=== PATIENT | male | born 1945 | race Caucasian/White ===

== ENCOUNTER 2016-08-26 21:17 | Emergency (ER) | payer MEDICARE, OTHER ==
[~2016-08-26] VITALS: Ht 180.3 cm; Wt 88.0 kg
[~2016-08-26 21:17] MED LIST: ALLO300 PO; ATOR20TA42 PO; GABA300C3 PO; KCL20 PO; LISI-360 PO; MAGN250T5 PO; NIFE1TAB86 PO; PROT40TA PO; ST JTAB PO; TEST200I13 IM; TRAZ100 PO; VENL75TA91 PO
[2016-08-26 21:20] VITALS: BP 146/70; PULSE 86; RESP 16; TEMP 98.6; O2SAT 96
--- NOTE | 2016-08-26 21:46 | PD ---
Physical Exam Time Seen by Provider: 21:43 Narrative 71yo M c/o low pressure BP since yesterday afternoon. Lowest 70/50 at about 4pm today. Reports felling dizzy, but denies currently. Takes BP medications and took them this morning. Has not taken night time dosage yet. [facility]. Denies chest pain, SOB. VS reviewed. Patient seen in triage. Awaiting bed placement. Data Data Last Documented VS Vital Signs Date Time Temp Pulse Resp B/P Pulse Ox O2 Delivery O2 Flow Rate FiO2 08/26/16 21:20 98.6 86 16 146/70 96 Room Air MDM Supervised Visit with ABDIFATAH: Lexus Montgomery August 26, 2016 21:46
[2016-08-26] MEDS ORDERED: SODIUM CHLOR 0.9% 1000 ML INJ 1,000 ML IV ONE (22:01)
--- NOTE | 2016-08-26 22:05 | PD ---
HPI Chief Complaint: Dizziness Time Seen by Provider: 21:52 Travel History International Travel<30 days: No Contact w/Intl Traveler<30days: No Traveled to known affect area: No History of Present Illness HPI 71-year-old male with history of hypertension, hyperlipidemia, cholecystectomy, cholangitis, here for evaluation of hypotension and dizziness. Since yesterday the patient has been having episodes of dizziness/lightheadedness, and when he checks his blood pressure at home and his 70s over 40s. He denies fevers, chills, cough, or recent illness. No urinary symptoms. No melena or hematochezia. Dizziness/lightheadedness improves with rest, worse with standing. No chest pain. PFSH Past Medical History Arthritis: Yes Atrial Fibrillation: Yes Autoimmune Disease: No Anxiety: Yes Depression: Yes Heart Rhythm Problems: Yes (A-FIB, PVC'S) Cancer: No Cardiac Catheterization: Yes Cardiovascular Problems: Yes High Cholesterol: Yes Chemotherapy: No Chest Pain: No Congestive Heart Failure: Yes Diabetes: No Diminished Hearing: No Diverticulitis: Yes Endocrine: No Gastrointestinal Disorders: Yes (MESH IN INTESTINES PER PT.) GERD: Yes Gout: Yes Genitourinary: No Hiatal Hernia: Yes Hypertension: Yes Immune Disorder: No Inguinal Hernia: Yes Musculoskeletal: Yes Neurologic: Yes Psychiatric: Yes Reproductive: No Respiratory: Yes (SLEEP APNEA) Radiation Therapy: No Shingles: Yes (history) Thyroid Disease: No Past Surgical History Abdominal Surgery: Yes (COLON RESECTION/INTESTINAL BLOCKAGE/SCAR TISSUE/ CHOLECYSTECTOMY/HERNIA REPA) Cardiac Surgery: Yes (heart cath) Cholecystectomy: Yes Ear Surgery: No Endocrine Surgery: No Eye Surgery: No Genitourinary Surgery: No Gynecologic Surgery: No Oral Surgery: No Thoracic Surgery: No Other Surgery: Yes (COLON RESECTION) Social History Alcohol Use: Yes (SOCIALLY) Tobacco Use: No Substance Use: No Allergies-Medications (Allergen,Severity, Reaction): Coded Allergies: Codeine (Verified Allergy, Mild, RASH, 08/26/16) Reported Meds & Prescriptions Reported Meds & Active Scripts Active Nifedipine Er (Nifedipine) 60 Mg Tab 60 Mg PO DAILY 30 Days Kcl 20 Meq Tab (Potassium Chloride) 20 Meq Tabcr 20 Meq PO DAILY Reported Magnesium (Magnesium Oxide) 250 Mg Tab 480 Mg PO TID Lipitor (Atorvastatin Calcium) 20 Mg Tab 20 Mg PO HS Protonix (Pantoprazole Sodium) 40 Mg Tab 40 Mg PO DAILY Testosterone Cypionate 200 Mg/Ml Inj 200 Mg IM Q14D Lisinopril 10 mg (Lisinopril) 10 Mg Tab 20 Mg PO DAILY PRN Gabapentin 300 Mg Cap 300 Mg PO TID Zyloprim 300 Mg Tab (Allopurinol) 300 Mg Tab 300 Mg PO DAILY Effexor (Venlafaxine HCl) 75 Mg Tab 225 Mg PO DAILY Trazodone Hcl (Trazodone HCl) 100 Mg Tab 200 Mg PO HS Aspirin Ec Low Strength (Aspirin) 81 Mg Tab 81 Mg PO DAILY Review of Systems Except as stated in HPI: all other systems reviewed are Neg Physical Exam Narrative GENERAL: Well-developed, well-nourished, comfortable, no acute distress. SKIN: Focused skin assessment warm/dry. No rash. No pallor. HEAD: Atraumatic. Normocephalic. EYES: Pupils equal and round. No scleral icterus. No injection or drainage. ENT:Mucous membranes pink and moist. NECK: Trachea midline. No JVD. CARDIOVASCULAR: Regular rate and rhythm. RESPIRATORY: No accessory muscle use. Clear to auscultation. Breath sounds equal bilaterally. GASTROINTESTINAL: Abdomen soft, nondistended. MUSCULOSKELETAL: No obvious deformities. No clubbing. No cyanosis. No edema. NEUROLOGICAL: Awake and alert. No obvious cranial nerve deficits. Motor grossly within normal limits. Normal speech. PSYCHIATRIC: Appropriate mood and affect; insight and judgment normal. Data Data Last Documented VS Vital Signs Date Time Temp Pulse Resp B/P Pulse Ox O2 Delivery O2 Flow Rate FiO2 08/26/16 23:05 83 18 151/74 98 Room Air 08/26/16 21:20 98.6 Orders Electrocardiogram (08/26/16 22:01) Complete Blood Count With Diff (08/26/16 22:01) Comprehensive Metabolic Panel (08/26/16 22:01) Ckmb (Isoenzyme) Profile (08/26/16 22:01) Troponin I (08/26/16 22:01) Act Partial Throm Time (Ptt) (08/26/16 22:01) Prothrombin Time / Inr (Pt) (08/26/16 22:01) Urinalysis - C+S If Indicated (08/26/16 22:01) Chest, Single Ap (08/26/16 22:01) Ecg Monitoring (08/26/16 22:01) Iv Access Insert/Monitor (08/26/16 22:01) Oximetry (08/26/16 22:01) Sodium Chloride 0.9% Flush (Ns Flush) (08/26/16 22:15) Sodium Chlor 0.9% 1000 Ml Inj (Ns 1000 M (08/26/16 22:01) CKMB (08/26/16 22:31) CKMB% (08/26/16 22:31) Labs Laboratory Tests Test 08/26/16 08/26/16 22:31 23:03 White Blood Count 8.5 TH/MM3 Red Blood Count 5.73 MIL/MM3 Hemoglobin 17.3 GM/DL Hematocrit 51.2 % Mean Corpuscular Volume 89.3 FL Mean Corpuscular Hemoglobin 30.3 PG Mean Corpuscular Hemoglobin 33.9 % Concent Red Cell Distribution Width 14.1 % Platelet Count 215 TH/MM3 Mean Platelet Volume 7.2 FL Neutrophils (%) (Auto) 72.6 % Lymphocytes (%) (Auto) 19.2 % Monocytes (%) (Auto) 5.8 % Eosinophils (%) (Auto) 1.2 % Basophils (%) (Auto) 1.2 % Neutrophils # (Auto) 6.2 TH/MM3 Lymphocytes # (Auto) 1.6 TH/MM3 Monocytes # (Auto) 0.5 TH/MM3 Eosinophils # (Auto) 0.1 TH/MM3 Basophils # (Auto) 0.1 TH/MM3 CBC Comment DIFF FINAL Differential Comment Prothrombin Time 11.7 SEC Prothromb Time International 1.1 RATIO Ratio Activated Partial 27.3 SEC Thromboplast Time Sodium Level 138 MEQ/L Potassium Level 3.7 MEQ/L Chloride Level 101 MEQ/L Carbon Dioxide Level 28.1 MEQ/L Anion Gap 9 MEQ/L Blood Urea Nitrogen 11 MG/DL Creatinine 1.62 MG/DL Estimat Glomerular Filtration 42 ML/MIN Rate Random Glucose 77 MG/DL Calcium Level 9.1 MG/DL Total Bilirubin 0.8 MG/DL Aspartate Amino Transf 23 U/L (AST/SGOT) Alanine Aminotransferase 30 U/L (ALT/SGPT) Alkaline Phosphatase 102 U/L Total Creatine Kinase 176 U/L Creatine Kinase MB 4.1 NG/ML Troponin I LESS THAN 0.02 NG/ML Total Protein 7.7 GM/DL Albumin 4.1 GM/DL Urine Color LIGHT-YELLOW Urine Turbidity CLEAR Urine pH 5.5 Urine Specific [place] 1.001 Urine Protein NEG mg/dL Urine Glucose (UA) NEG mg/dL Urine Ketones NEG mg/dL Urine Occult Blood NEG Urine Nitrite NEG Urine Bilirubin NEG Urine Urobilinogen LESS THAN 2.0 MG/DL Urine Leukocyte Esterase NEG Urine Squamous Epithelial <1 /hpf Cells Microscopic Urinalysis Comment CULT NOT INDICATED MDM Medical Decision Making Medical Screen Exam Complete: Yes Emergency Medical Condition: Yes Interpretation(s) EKG: Sinus, rate 79, left axis deviation, normal intervals, no acute ischemic abnormality. Differential Diagnosis Orthostatic hypotension, dysrhythmia, metabolic abnormality, sepsis, UTI, cardiomyopathy, vertigo, Narrative Course Initial vital signs show heart rate 86, blood pressure 146/70, pulse ox 96% on room air, oral temp of 98.6F. CBC shows WBC 8.5, hemoglobin 17.3, hematocrit 51.2, platelets 215, neutrophils 72.6%. This is very similar to prior CBCs. CMP is remarkable for creatinine 1.62, GFR 42 which is slightly worse than his baseline, otherwise unremarkable. Cardiac enzymes are negative. UA is not suggestive of UTI. Chest x-ray shows no acute disease. Orthostatic vital signs were performed without significant drop in blood pressure or rise in heart rate. He has remained normotensive to slightly hypertensive while in the emergency department, never becoming hypotensive. Patient last had an echocardiogram in our system in October 2014 which shows an EF of 55-60%. Patient and the patient's significant other were made aware of all findings and he is resting comfortably, states he feels well. He was given normal saline IV at 125 cc per hour while in the emergency department. He denies ever having any chest pain. His client server programmer is Dr. Jean Baptiste. At this point I believe he is stable for discharge home with outpatient follow-up with either his primary care physician or client server programmer this week. He was informed on when to return to the emergency department. He verbalizes understanding and agreement with plan. Diagnosis Primary Impression: Dizziness Additional Impression: Hypotensive episode Referrals: Con[employer] 3 days Primary Care Physician 3 days Additional Instructions: Follow-up with your primary care physician in the next 2-3 days. Follow-up with your client server programmer Dr. Jean Baptiste this week. Return to the emergency department for worsening symptoms or any other concerns. Disposition: DISCHARGE HOME Condition: Stable Jaylen Weinstein MD August 26, 2016 22:05 Jaylen Weinstein MD August 26, 2016 22:05
[2016-08-26] MEDS ORDERED: SODIUM CHLORIDE 0.9% FLUSH 10 ML FLUSH IVF PRN (22:15)
[2016-08-26 22:37] VITALS: BP 153/71; PULSE 88; RESP 20; O2SAT 97
[2016-08-26 22:41] LABS: AUTOMATED NEUTROPHIL # 6.2 TH/MM3 (1.8-7.7); BASOPHIL # 0.1 TH/MM3 (0-0.2); BASOPHIL % 1.2 % (0.0-2.0); EOSINOPHIL # 0.1 TH/MM3 (0-0.4); EOSINOPHIL % 1.2 % (0.0-4.0); HEMATOCRIT 51.2 % (39.0-51.0); HEMO FLAGS DIFF FINAL; LYMPH % 19.2 % (9.0-44.0); LYMPHOCYTE # 1.6 TH/MM3 (1.0-4.8); MEAN CELL VOLUME 89.3 FL (80.0-100.0); MEAN CORPUSCULAR HEMOGLOBIN 30.3 PG (27.0-34.0); MEAN CORPUSCULAR HGB CONC 33.9 % (32.0-36.0); MONO % 5.8 % (0.0-8.0); NEUT % 72.6 % (16.0-70.0); PLATELET COUNT 215 TH/MM3 (150-450); RED BLOOD COUNT 5.73 MIL/MM3 (4.50-5.90); RED CELL DISTRIBUTION WIDTH 14.1 % (11.6-17.2); WHITE BLOOD COUNT 8.5 TH/MM3 (4.0-11.0)
--- NOTE | 2016-08-26 22:42 | RADRPT ---
EXAM DATE/TIME: 08/26/2016 22:23 [facility] COMPARISON: CHEST SINGLE AP, May 12, 2015, 16:41. INDICATIONS : Syncope MEDICAL HISTORY : Congestive heart failure. Hypotension SURGICAL HISTORY : None. ENCOUNTER: Initial ACUITY: 2 days PAIN SCORE: 0/10 LOCATION: Bilateral chest FINDINGS: A single view of the chest demonstrates the lungs to be symmetrically aerated without evidence of mas s, infiltrate or effusion. The cardiomediastinal contours are unremarkable. Osseous structures are intact. CONCLUSION: No acute disease. Alejandro Lee MD on August 26, 2016 at 22:40 Board Certified Radiologist. This report was verified electronically.
[2016-08-26 22:50] LABS: APTT (PATIENT) 27.3 SEC (24.3-30.1); INTERNATIONAL NORMALIZED RATIO 1.1 RATIO; PROTHROMBIN TIME - PATIENT 11.7 SEC (9.8-11.6)
[2016-08-26 23:05] VITALS: BP 151/74; PULSE 83; RESP 18; O2SAT 98
[2016-08-26 23:05] LABS: ALKALINE PHOSPHATASE 102 U/L (45-117); CREATINE KINASE 176 U/L (39-308); TOTAL BILIRUBIN ADULT 0.8 MG/DL (0.2-1.0)
[2016-08-26 23:08] LABS: ALT (GPT) 30 U/L (12-78); ANION GAP 9 MEQ/L (5-15); AST (GOT) 23 U/L (15-37); BICARBONATE 28.1 MEQ/L (21.0-32.0); BLOOD UREA NITROGEN 11 MG/DL (7-18); CHLORIDE 101 MEQ/L (98-107); GLOMERULAR FILTRATION RATE 42 ML/MIN (>89); POTASSIUM 3.7 MEQ/L (3.5-5.1); SODIUM (NA) 138 MEQ/L (136-145)
[2016-08-26 23:17] LABS: CKMB 4.1 NG/ML (0.5-3.6)
[2016-08-26 23:18] LABS: BLOOD, URINE NEG (NEG); GLUCOSE,URINE NEG (NEG); KETONE, URINE NEG (NEG); NITRITE,URINE NEG (NEG); PH, URINE 5.5 (5.0-8.5); SQUAMOUS EPITHELIAL CELL URINE <1 /hpf (0-5); URINE COLOR LIGHT-YELLOW (YELLW/STRAW)
[2016-08-26 23:19] LABS: COMMENT (UR) CULT NOT INDICATED; CULTURE IF INDICATED CULT NOT INDICATED
--- NOTE | 2016-08-27 15:45 | EKG ---
Date Performed: 08/26/2016 Time Performed: 22:34:24 PTAGE: 71 years EKG: Sinus rhythm MARKED LEFT AXIS DEVIATION NONSPECIFIC T-WAVE ABNORMALITY Compared to prior tracing no significant c hange ABNORMAL ECG PREVIOUS TRACING : 07/06/2015 18.50 DOCTOR: Lin Moreno Interpretating Date/Time 08/27/2016 15:43:58
== END 2016-08-27 | disposition home or self-care (01) ==
LOC: NEPD 21:17
DX: I95.9 Hypotension, unspecified (principal); I50.9 Heart failure, unspecified; R94.31 Abnormal electrocardiogram [ECG] [EKG]
CPT/HCPCS: 71010; 80053; 81001; 82550; 82552; 84484; 85025; 85610; 85730; 93005; 96360; 99285; J7030

== ENCOUNTER 2017-02-20 11:44 | Observation (INO) | payer OTHER, MEDICARE ==
[2017-02-20] VITALS (8 sets, daily range): BP systolic 77–123; BP diastolic 50–65; PULSE 72–89; RESP 16–18; TEMP 98–98.2; O2SAT 93–100
[~2017-02-20] VITALS: Ht 182.9 cm; Wt 93.0 kg
[2017-02-20] MEDS ORDERED: SODIUM CHLOR 0.9% 1000 ML INJ 1,000 ML IV ONE ×2 (12:20→14:00)
[2017-02-20] MEDS ORDERED: SODIUM CHLORIDE 0.9% FLUSH 10 ML FLUSH IVF PRN (12:30)
--- NOTE | 2017-02-20 12:58 | PD ---
HPI Chief Complaint: Syncope/Near-Syncope Time Seen by Provider: 11:56 Travel History International Travel<30 days: No Contact w/Intl Traveler<30days: No Traveled to known affect area: No History of Present Illness HPI This is a 71-year-old male with a history of early dementia, previous syncope, who presents today after having a syncopal episode while at the store. The patient states he woke up with a stiff neck and shoulder pain and went out to the store. He states the next thing he remembers is waking up on the floor. The patient had no preceding palpitations or symptoms. The patient has had previous syncope in the past and neck she has a loop recorder in place for 2 years. The patient reports that on scene, he was noted to have a blood pressure of 60/51. He reports paramedics urged him to come to the hospital however he went home and came here with his . The patient reports feeling improved. He does not recall the episode. There are no other symptoms at the time of my examination. PFSH Past Medical History Arthritis: Yes Atrial Fibrillation: Yes Autoimmune Disease: No Anxiety: Yes Depression: Yes Heart Rhythm Problems: Yes (A-FIB, PVC'S) Cancer: No Cardiac Catheterization: Yes Cardiovascular Problems: Yes High Cholesterol: Yes Chemotherapy: No Chest Pain: No Congestive Heart Failure: Yes Diabetes: No Diminished Hearing: No Diverticulitis: Yes Endocrine: No Gastrointestinal Disorders: Yes (MESH IN INTESTINES PER PT.) GERD: Yes Gout: Yes Genitourinary: No Hiatal Hernia: Yes Hypertension: Yes Immune Disorder: No Inguinal Hernia: Yes Musculoskeletal: Yes Neurologic: Yes Psychiatric: Yes Reproductive: No Respiratory: Yes (SLEEP APNEA) Radiation Therapy: No Shingles: Yes (history) Thyroid Disease: No Past Surgical History Abdominal Surgery: Yes (COLON RESECTION/INTESTINAL BLOCKAGE/SCAR TISSUE/ CHOLECYSTECTOMY/HERNIA REPA) Cardiac Surgery: Yes (heart cath) Cholecystectomy: Yes Ear Surgery: No Endocrine Surgery: No Eye Surgery: No Genitourinary Surgery: No Gynecologic Surgery: No Oral Surgery: No Thoracic Surgery: No Other Surgery: Yes (COLON RESECTION) Social History Alcohol Use: Yes Tobacco Use: No Substance Use: No Allergies-Medications (Allergen,Severity, Reaction): Coded Allergies: codeine (Unverified Allergy, Mild, RASH, 02/20/17) Reported Meds & Prescriptions Reported Meds & Active Scripts Active Reported [Anti-Depressant] 1 Tab PO DAILY Wellbutrin Xl 24 HR (Bupropion HCl) 300 Mg Tab 300 Mg PO DAILY Duloxetine DR (Duloxetine HCl) 60 Mg Capdr 60 Mg PO BID Trazodone (Trazodone HCl) 100 Mg Tablet 200-300 Mg PO HS Testosterone Enanthate Inj (Testosterone Enanthate) 200 Mg/Ml Inj 200 Mg IM EVERY 2 WEEKS Potassium Chloride ER (Potassium Chloride) 20 Meq Tab 20 Meq PO DAILY Protonix (Pantoprazole Sodium) 40 Mg Tab 40 Mg PO DAILY Procardia XL (Nifedipine) 60 Mg Tab 60 Mg PO DAILY Magnesium Oxide 400 Mg Tab 400 Mg PO TID Lisinopril 10 Mg Tab 20 Mg PO DAILY Gabapentin 300 Mg Cap 300 Mg PO TID Lipitor (Atorvastatin Calcium) 20 Mg Tab 20 Mg PO HS Aspirin Adult Low Strength (Aspirin) 81 Mg Tabdr 81 Mg PO DAILY Zyloprim (Allopurinol) 300 Mg Tab 300 Mg PO DAILY Review of Systems Except as stated in HPI: all other systems reviewed are Neg General / Constitutional: No: Fever, Chills Eyes: No: Blurred Vision, Photophobia HENT: Positive: Neck Stiffness, Neck Pain, No: Headaches, Lightheadedness Cardiovascular: Positive: Other, No: Chest Pain or Discomfort, Palpitations Respiratory: No: Cough (epigastric pain) Gastrointestinal: Positive: Diarrhea (4-5 bowel movements per day), Abdominal Pain (epigastric), No: Nausea, Vomiting, Hematemesis, Hematochezia Musculoskeletal: Positive: Weakness, No: Pain Neurologic: Positive: Weakness, No: Headache, Sensory Disturbance Physical Exam Narrative GENERAL: Well-developed well-nourished male in no acute rest. Stress. SKIN: Focused skin assessment warm/dry. HEAD: Atraumatic. Normocephalic. EYES: Pupils equal and round. No scleral icterus. No injection or drainage. ENT: No nasal bleeding or discharge. Mucous membranes pink and moist. NECK: Trachea midline. Supple. CARDIOVASCULAR: Regular rate and rhythm. No murmur appreciated. RESPIRATORY: No accessory muscle use. Clear to auscultation. Breath sounds equal bilaterally. GASTROINTESTINAL: Abdomen soft, non-tender, nondistended. Hepatic and splenic margins not palpable. MUSCULOSKELETAL: No obvious deformities. No clubbing. No cyanosis. No edema. NEUROLOGICAL: Awake and alert. No obvious cranial nerve deficits. Motor grossly within normal limits. Normal speech. Data Data Last Documented VS Vital Signs Date Time Temp Pulse Resp B/P (MAP) Pulse Ox O2 Delivery O2 Flow Rate FiO2 02/20/17 15:28 77 16 116/65 (82) 100 Room Air 02/20/17 11:47 98.2 Orders Orders Complete Blood Count With Diff (02/20/17 12:20) Comprehensive Metabolic Panel (02/20/17 12:20) Ckmb (Isoenzyme) Profile (02/20/17 12:20) Troponin I (02/20/17 12:20) Chest, Single Ap (02/20/17 12:20) Ecg Monitoring (02/20/17 12:20) Iv Access Insert/Monitor (02/20/17 12:20) Oximetry (02/20/17 12:20) Sodium Chloride 0.9% Flush (Ns Flush) (02/20/17 12:30) Sodium Chlor 0.9% 1000 Ml Inj (Ns 1000 M (02/20/17 12:20) Orthostatic Vital Signs (02/20/17 12:20) Electrocardiogram (02/20/17 12:14) Sodium Chlor 0.9% 1000 Ml Inj (Ns 1000 M (02/20/17 14:00) C Diff Toxin Pcr (02/20/17 14:00) Enteric Path (Stool) (02/20/17 14:00) Place In Observation (02/20/17 ) Vital Signs (Adult) Q4H (02/20/17 15:25) Activity Oob With Assistance (02/20/17 15:25) Skin Care Technician / Telemetry .CONTINUOUS (02/20/17 15:25) Intake + Output MAN.QSHIFT (02/20/17 15:25) Diet Heart Healthy (02/20/17 Dinner) Sodium Chloride 0.9% Flush (Ns Flush) (02/20/17 15:30) Sodium Chloride 0.9% Flush (Ns Flush) (02/20/17 21:00) Basic Metabolic Panel (Bmp) (02/21/17 06:00) Complete Blood Count With Diff (02/21/17 06:00) Creatine Kinase (Cpk) (02/20/17 18:30) Creatine Kinase (Cpk) (02/21/17 00:30) Troponin I (02/20/17 18:30) Troponin I (02/21/17 00:30) Electrocardiogram (02/20/17 18:30) Electrocardiogram (02/21/17 00:30) Pt Request For Service (02/20/17 15:25) Case Management Consult (02/20/17 15:25) Naloxone Inj (Narcan Inj) (02/20/17 15:30) ^ Etoh Withdrawal Precautions (02/20/17 15:28) Lorazepam Inj (Ativan Inj) (02/20/17 15:30) Thiamine (Vit B1) (Vitamin B1) (02/20/17 15:30) Thiamine (Vit B1) (Vitamin B1) (02/21/17 09:00) ^ Other Nursing Orders (02/20/17 15:29) Famotidine (Pepcid) (02/20/17 21:00) Admit Order (Ed Use Only) (02/20/17 17:35) Labs Laboratory Tests Test 02/20/17 12:30 White Blood Count 9.5 TH/MM3 Red Blood Count 5.33 MIL/MM3 Hemoglobin 16.9 GM/DL Hematocrit 49.2 % Mean Corpuscular Volume 92.3 FL Mean Corpuscular Hemoglobin 31.8 PG Mean Corpuscular Hemoglobin Concent 34.4 % Red Cell Distribution Width 14.1 % Platelet Count 315 TH/MM3 Mean Platelet Volume 7.7 FL Neutrophils (%) (Auto) 75.6 % Lymphocytes (%) (Auto) 15.5 % Monocytes (%) (Auto) 6.9 % Eosinophils (%) (Auto) 1.2 % Basophils (%) (Auto) 0.8 % Neutrophils # (Auto) 7.2 TH/MM3 Lymphocytes # (Auto) 1.5 TH/MM3 Monocytes # (Auto) 0.7 TH/MM3 Eosinophils # (Auto) 0.1 TH/MM3 Basophils # (Auto) 0.1 TH/MM3 CBC Comment DIFF FINAL Differential Comment Blood Urea Nitrogen 18 MG/DL Creatinine 1.89 MG/DL Random Glucose 97 MG/DL Total Protein 7.8 GM/DL Albumin 4.0 GM/DL Calcium Level 9.2 MG/DL Alkaline Phosphatase 133 U/L Aspartate Amino Transf (AST/SGOT) 26 U/L Alanine Aminotransferase (ALT/SGPT) 43 U/L Total Bilirubin 0.9 MG/DL Sodium Level 139 MEQ/L Potassium Level 3.7 MEQ/L Chloride Level 102 MEQ/L Carbon Dioxide Level 26.9 MEQ/L Anion Gap 10 MEQ/L Estimat Glomerular Filtration Rate 35 ML/MIN Total Creatine Kinase 91 U/L Troponin I LESS THAN 0.02 NG/ML MDM Medical Decision Making Medical Screen Exam Complete: Yes Emergency Medical Condition: Yes Differential Diagnosis Cardiac versus vasovagal versus metabolic syncope Narrative Course This is a 8-year-old male with a history of mild dementia, presents after having a syncopal episode while at the store. The patient reports having chronic diarrhea for several months. He reports that today he went to the store the next thing her memory is waking up. He states EMS arrived and found his blood pressure to be low. The recommended he go to the hospital. He states he went home and came here with his . The patient was noted to be severely orthostatic. He had acute on chronic kidney injury. The patient has had previous bowel resection for diverticulitis. He is also had bowel obstructions in the past. He's been given 2 L of IV fluid and is still somewhat symptomatic. He'll be admitted to hospital for IV hydration. He'll likely need a GI consult as well. I discussed the plan with the [facility] hospitalist and their agreement with the admission. Diagnosis Primary Impression: Syncope Additional Impressions: Orthostatic hypotension [id number] kidney injury chronic diarrhea History of bowel resection Admitting Information Admitting Physician Requests: Observation Yonatan Mcmillan MD Feb 20, 2017 12:58
[2017-02-20 13:19] LABS: AUTOMATED NEUTROPHIL # 7.2 TH/MM3 (1.8-7.7); BASOPHIL # 0.1 TH/MM3 (0-0.2); BASOPHIL % 0.8 % (0.0-2.0); EOSINOPHIL # 0.1 TH/MM3 (0-0.4); EOSINOPHIL % 1.2 % (0.0-4.0); HEMATOCRIT 49.2 % (39.0-51.0); HEMO FLAGS DIFF FINAL; LYMPH % 15.5 % (9.0-44.0); LYMPHOCYTE # 1.5 TH/MM3 (1.0-4.8); MEAN CELL VOLUME 92.3 FL (80.0-100.0); MEAN CORPUSCULAR HEMOGLOBIN 31.8 PG (27.0-34.0); MEAN CORPUSCULAR HGB CONC 34.4 % (32.0-36.0); MONO % 6.9 % (0.0-8.0); NEUT % 75.6 % (16.0-70.0); PLATELET COUNT 315 TH/MM3 (150-450); RED BLOOD COUNT 5.33 MIL/MM3 (4.50-5.90); RED CELL DISTRIBUTION WIDTH 14.1 % (11.6-17.2); WHITE BLOOD COUNT 9.5 TH/MM3 (4.0-11.0)
[2017-02-20 13:35] LABS: ALT (GPT) 43 U/L (12-78); ANION GAP 10 MEQ/L (5-15); AST (GOT) 26 U/L (15-37); BICARBONATE 26.9 MEQ/L (21.0-32.0); CHLORIDE 102 MEQ/L (98-107); GLOMERULAR FILTRATION RATE 35 ML/MIN (>89); POTASSIUM 3.7 MEQ/L (3.5-5.1); SODIUM (NA) 139 MEQ/L (136-145)
--- NOTE | 2017-02-20 13:38 | RADRPT ---
EXAM DATE/TIME: 02/20/2017 12:21 [facility] COMPARISON: CHEST SINGLE AP, August 26, 2016, 22:23. INDICATIONS : Syncope, weakness, low blood pressure today MEDICAL HISTORY : Congestive heart failure. SURGICAL HISTORY : None. ENCOUNTER: Initial ACUITY: 1 day PAIN SCORE: 0/10 LOCATION: Bilateral chest FINDINGS: A single view of the chest demonstrates the lungs to be symmetrically aerated without evidence of mas s, infiltrate or effusion. The cardiomediastinal contours are unremarkable. Osseous structures are intact. CONCLUSION: No acute disease. Darren Shepard MD on February 20, 2017 at 13:37 Board Certified Radiologist. This report was verified electronically.
[2017-02-20 13:46] LABS: ALKALINE PHOSPHATASE 133 U/L (45-117); BLOOD UREA NITROGEN 18 MG/DL (7-18); TOTAL BILIRUBIN ADULT 0.9 MG/DL (0.2-1.0)
[2017-02-20 13:53] LABS: CREATINE KINASE 91 U/L (39-308)
[2017-02-20] MEDS ORDERED: SODIUM CHLORIDE 0.9% FLUSH 10 ML FLUSH IV FLUSH PRN (15:30)
[2017-02-20] MEDS ORDERED: NALOXONE HCL 0.4 MG/ML AMP IV PUSH PRN (15:30)
[2017-02-20] MEDS ORDERED: THIAMINE HCL 100 MG TAB PO ONE (15:30)
[2017-02-20] MEDS ORDERED: LORazepam 2 MG/ML VIAL IV PUSH PRN (15:30)
[2017-02-20] MEDS ORDERED: TRAZ100T10 PO (16:31)
[2017-02-20] MEDS ORDERED: TEST200I13 IM (16:31)
[2017-02-20] MEDS ORDERED: NIFE1TAB86 PO (16:31)
[2017-02-20] MEDS ORDERED: MAGN400T2 PO (16:31)
[2017-02-20] MEDS ORDERED: PROT40TA PO (16:31)
[2017-02-20] MEDS ORDERED: LIPI20TA PO (16:31)
[2017-02-20] MEDS ORDERED: ASPI81TA16 PO (16:31)
[2017-02-20] MEDS ORDERED: POTA-163 PO (16:31)
[2017-02-20] MEDS ORDERED: GABA300C5 PO (16:31)
[2017-02-20] MEDS ORDERED: ALLO300 PO (16:31)
[2017-02-20] MEDS ORDERED: LISI10TA3 PO (16:31)
[2017-02-20] MEDS ORDERED: DULO1CAP3 PO (17:37)
[2017-02-20] MEDS ORDERED: WELLTAB39 PO (17:37)
[2017-02-20] MEDS ORDERED: ANTI-DEPRESSANT PO (17:41)
--- NOTE | 2017-02-20 19:13 | HHI.HP ---
[facility] Admission Diagnosis syncope, postural hypotension, acute on chronic kidney disease. Diagnoses: Travel History International Travel<30 Days: No Contact w/Intl Traveler <30 Da: No Traveled to Known Affected Are: No History of Present Illness hx from patient, ER communication, review of med records last night had mid epigastric pain not short of breath, no radiation then but had neck and shoulder pains this morning when he was in shower does have chronic stomach pains from PUD , blocked bowel then today at store while sitting, had passed out for past couple of years, had passing out problems- BP has been low all day and has had trouble with BP before too but takes BP meds at home as well in the last year, this is the second time of passing out loop recorder placed abotu 1.5 yrs ago - last checked about 6 months ago no premonitory symptoms before syncope no one caught him when he passed out and fell not sure whether he hit head does not remember how he fell was a little bit confused, no combativeness, only about 10sec confusion no urinary or bowel incontinence has hx of htn - nifedipine and lisinopril has constant diarrheas- for years has had colon resection due to diverticulitis Review of Systems Except as stated in HPI: all other systems reviewed are Neg Past Family Social History Past Medical History htn syncope prior orthostatic hypotension before chronic kidney disease hx of diverticular rupture s/p partial colon resection Past Surgical History hx of diverticular rupture s/p partial colon resection cholecystectomy hx of biliary duct infection/ ascending cholangitis with prolonged hospitalization post cholecystectomy- 2005 bowel obstructions- s/p lysis of adhesions Allergies: Coded Allergies: codeine (Unverified Allergy, Mild, RASH, 02/20/17) Family History was adopted, does not know family hx Social History used to smoke, quit about 40yrs ago drink about 2 beers a day or once or twice a week no drugs no longer driving due to syncope Physical Exam Vital Signs Vital Signs Date Time Temp Pulse Resp B/P (MAP) Pulse Ox O2 Delivery O2 Flow Rate FiO2 02/20/17 18:15 89 18 112/56 (74) Room Air 02/20/17 15:28 77 16 116/65 (82) 100 Room Air 02/20/17 13:12 74 103/56 (72) 86 96/56 (69) 100 77/50 (59) 02/20/17 13:12 100 02/20/17 12:08 75 16 123/58 (79) 98 Room Air 02/20/17 12:04 Room Air 02/20/17 11:47 98.2 78 16 107/53 (71) 95 Physical Exam GENERAL: This is a well-nourished, well-developed patient, in no apparent distress. SKIN: No rashes, ecchymoses or lesions. Cool and dry. HEAD: Atraumatic. Normocephalic. No temporal or scalp tenderness. EYES: No scleral icterus. No injection or drainage. ENT: Nose without bleeding, purulent drainage or septal hematoma. Airway patent. NECK: Trachea midline. No JVD CARDIOVASCULAR: Regular rate and rhythm without murmurs, gallops, or rubs. RESPIRATORY: Clear to auscultation. Breath sounds equal bilaterally. No wheezes , rales, or rhonchi. GASTROINTESTINAL: Abdomen soft, non-tender, nondistended. No hepato-splenomegaly , or palpable masses. No guarding. MUSCULOSKELETAL: Extremities without clubbing, cyanosis, or edema. No calf tenderness. NEUROLOGICAL: Awake and alert. Cranial nerves II through XII intact. Motor and sensory grossly within normal limits. Five out of 5 muscle strength in all muscle groups. Normal speech. Laboratory Laboratory Tests Test 02/20/17 12:30 White Blood Count 9.5 Red Blood Count 5.33 Hemoglobin 16.9 Hematocrit 49.2 Mean Corpuscular Volume 92.3 Mean Corpuscular Hemoglobin 31.8 Mean Corpuscular Hemoglobin Concent 34.4 Red Cell Distribution Width 14.1 Platelet Count 315 Mean Platelet Volume 7.7 Neutrophils (%) (Auto) 75.6 Lymphocytes (%) (Auto) 15.5 Monocytes (%) (Auto) 6.9 Eosinophils (%) (Auto) 1.2 Basophils (%) (Auto) 0.8 Neutrophils # (Auto) 7.2 Lymphocytes # (Auto) 1.5 Monocytes # (Auto) 0.7 Eosinophils # (Auto) 0.1 Basophils # (Auto) 0.1 CBC Comment DIFF FINAL Differential Comment Blood Urea Nitrogen 18 Creatinine 1.89 Random Glucose 97 Total Protein 7.8 Albumin 4.0 Calcium Level 9.2 Alkaline Phosphatase 133 Aspartate Amino Transf (AST/SGOT) 26 Alanine Aminotransferase (ALT/SGPT) 43 Total Bilirubin 0.9 Sodium Level 139 Potassium Level 3.7 Chloride Level 102 Carbon Dioxide Level 26.9 Anion Gap 10 Estimat Glomerular Filtration Rate 35 Total Creatine Kinase 91 Troponin I LESS THAN 0.02 Result Diagram: 02/20/17 1230 02/20/17 1230 Imaging Last 48 hours Impressions Chest X-Ray 02/20/17 1220 Signed Impressions: Service Date/Time: February 12:21 - CONCLUSION: No acute disease. MD José Luis Tamaoy VTE Risk Assessment José Luis VTE Risk Assessment: Mod/High Risk (score >= 2) Junorini Risk Assessment Model Point Value = 1 Point Value = 2 Point Value = 3 Point Value = 5 Age 41-60 Minor surgery BMI > 25 kg/m2 Swollen legs Varicose veins or History of unexplained or recurrent spontaneous Oral contraceptives or hormone replacement Sepsis (< 1 month) Serious lung disease, including pneumonia (< 1 month) Abnormal pulmonary function Acute myocardial infarction Congestive heart failure (< 1 month) History of inflammatory bowel disease Medical patient at bed rest Age 61-74 Arthroscopic surgery Major open surgery (> 45 min) Laparoscopic surgery (> 45 min) Malignancy Confined to bed (> 72 hours) Immobilizing plaster cast Central venous access Age >= 75 History of VTE Family history of VTE Factor V Leiden Prothrombin [id number] Lupus anticoagulant Anticardiolipin antibodies Elevated serum homocysteine Heparin-induced thrombocytopenia Other congenital or acquired thrombophilia Stroke (< 1 month) Elective arthroplasty Hip, pelvis, or leg fracture Acute spinal cord injury (< 1 month) Prophylaxis Regimen Total Risk Factor Score Risk Level Prophylaxis Regimen 0-1 Low Early ambulation 2 Moderate Order ONE of the following: *Sequential Compression Device (SCD) *Heparin 5000 units SQ BID 3-4 Higher Order ONE of the following medications: *Heparin 5000 units SQ TID *Enoxaparin/Lovenox 40 mg SQ daily (WT < 150 kg, CrCl > 30 mL/min) *Enoxaparin/Lovenox 30 mg SQ daily (WT < 150 kg, CrCl > 10-29 mL/min) *Enoxaparin/Lovenox 30 mg SQ BID (WT < 150 kg, CrCl > 30 mL/min) AND/OR *Sequential Compression Device (SCD) 5 or more Highest Order ONE of the following medications: *Heparin 5000 units SQ TID (Preferred with Epidurals) *Enoxaparin/Lovenox 40 mg SQ daily (WT < 150 kg, CrCl > 30 mL/min) *Enoxaparin/Lovenox 30 mg SQ daily (WT < 150 kg, CrCl > 10-29 mL/min) *Enoxaparin/Lovenox 30 mg SQ BID (WT < 150 kg, CrCl > 30 mL/min) AND *Sequential Compression Device (SCD) Assessment and Plan Assessment and Plan Impression: syncope orthostatic hypotension prior hx of syncopal episodes hx of recent prolonged travel- stops frequently, no calf pain, not suspecting PE based on hx and physical Plan: hold bp meds check 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
[2017-02-20 19:50] LABS: CREATINE KINASE 69 U/L (39-308)
[2017-02-20] MEDS ORDERED: RANITIDINE HCL SYRUP 150 MG/10 ML UDC PO SCH (21:00)
[2017-02-20] MEDS: HEPARIN SODIUM - SQ 10,000 UNITS/ML VIAL SQ SCH (23:51)
[2017-02-20] MEDS: traZODone HCL 100 MG TAB PO SCH (23:52)
[2017-02-20] MEDS: ATORVASTATIN 20 MG TAB PO SCH (23:52)
[2017-02-20] MEDS: DULoxetine HCl DR 60 MG CAP PO SCH (23:52)
[2017-02-20] MEDS: FAMOTIDINE 20 MG TAB PO SCH (23:52)
[2017-02-20] MEDS: SODIUM CHLORIDE 0.9% FLUSH 10 ML FLUSH IV FLUSH SCH (23:53)
[2017-02-21] VITALS (10 sets, daily range): BP systolic 110–170; BP diastolic 51–80; PULSE 52–86; RESP 16–18; TEMP 97.6–99.3; O2SAT 93–98
[2017-02-21 01:31] LABS: CREATINE KINASE 65 U/L (39-308)
[2017-02-21 05:39] LABS: AUTOMATED NEUTROPHIL # 3.3 TH/MM3 (1.8-7.7); BASOPHIL # 0.1 TH/MM3 (0-0.2); BASOPHIL % 1.3 % (0.0-2.0); EOSINOPHIL # 0.1 TH/MM3 (0-0.4); EOSINOPHIL % 2.1 % (0.0-4.0); HEMATOCRIT 40.6 % (39.0-51.0); HEMO FLAGS DIFF FINAL; LYMPH % 28.9 % (9.0-44.0); LYMPHOCYTE # 1.6 TH/MM3 (1.0-4.8); MEAN CELL VOLUME 91.3 FL (80.0-100.0); MEAN CORPUSCULAR HEMOGLOBIN 32.2 PG (27.0-34.0); MEAN CORPUSCULAR HGB CONC 35.3 % (32.0-36.0); MONO % 8.1 % (0.0-8.0); NEUT % 59.6 % (16.0-70.0); PLATELET COUNT 241 TH/MM3 (150-450); RED BLOOD COUNT 4.45 MIL/MM3 (4.50-5.90); WHITE BLOOD COUNT 5.6 TH/MM3 (4.0-11.0)
[2017-02-21 06:04] LABS: BICARBONATE 26.1 MEQ/L (21.0-32.0)
[2017-02-21 06:09] LABS: POTASSIUM 3.8 MEQ/L (3.5-5.1)
[2017-02-21] MEDS: HEPARIN SODIUM - SQ 10,000 UNITS/ML VIAL SQ SCH ×3 (07:01→22:16)
[2017-02-21] MEDS: DULoxetine HCl DR 60 MG CAP PO SCH ×2 (09:05→22:17)
[2017-02-21] MEDS: ASPIRIN EC 81 MG TABEC PO SCH (09:05)
[2017-02-21] MEDS: GABAPENTIN 300 MG CAP PO SCH ×3 (09:05→18:48)
[2017-02-21] MEDS: THIAMINE HCL 100 MG TAB PO SCH (09:05)
[2017-02-21] MEDS: POTASSIUM CHLORIDE 20 MEQ CONTROLLED RELEASE TAB PO SCH (09:06)
[2017-02-21] MEDS: MAGNESIUM OXIDE 400 MG TAB PO SCH ×3 (09:06→18:48)
[2017-02-21] MEDS: buPROPion HCL 150 MG SUSTAINED RELEASE TAB PO SCH (09:07)
[2017-02-21] MEDS: SODIUM CHLORIDE 0.9% FLUSH 10 ML FLUSH IV FLUSH SCH ×2 (09:08→21:00)
--- NOTE | 2017-02-21 09:20 | EKG ---
Date Performed: 02/21/2017 Time Performed: 01:49:40 PTAGE: 71 years EKG: Sinus rhythm WITH OCCASIONAL VENTRICULAR PREMATURE COMPLEXES MARKED LEFT AXIS DEVIATION NONSPECIFIC T-WAVE ABNORM ALITY ABNORMAL ECG Compared to prior tracing no significant change PREVIOUS TRACING : 02/20/2017 18.50 DOCTOR: Jerson Jameson Interpretating Date/Time 02/21/2017 09:18:44
--- NOTE | 2017-02-21 09:20 | EKG ---
Date Performed: 02/20/2017 Time Performed: 18:50:42 PTAGE: 71 years EKG: Sinus rhythm MARKED LEFT AXIS DEVIATION NONSPECIFIC T-WAVE ABNORMALITY ABNORMAL ECG Compared to prior tracing no significant change PREVIOUS TRACING : 02/20/2017 12.14 DOCTOR: Jerson Jameson Interpretating Date/Time 02/21/2017 09:18:35
--- NOTE | 2017-02-21 09:20 | EKG ---
Date Performed: 02/20/2017 Time Performed: 12:14:56 PTAGE: 71 years EKG: Sinus rhythm MARKED LEFT AXIS DEVIATION NONSPECIFIC T-WAVE ABNORMALITY ABNORMAL ECG NO PREVIOUS TRACING DOCTOR: Jerson Jameson Interpretating Date/Time 02/21/2017 09:18:27
[2017-02-21] MEDS: ALLOPURINOL 300 MG TAB PO SCH (09:45)
--- NOTE | 2017-02-21 11:23 | HHI.PR ---
Subjective Remarks Follow up for syncope. He went to a store and next thing he remembers is waking up on the floor. Patient has had previous syncopal episodes and has a loop recorder placed. He follows up with [facility]. Currently, denies any chest pain, SOB, fever, chills. Objective Vitals Vital Signs Date Time Temp Pulse Resp B/P (MAP) Pulse Ox O2 Delivery O2 Flow Rate FiO2 02/21/17 08:27 67 142/65 (90) 131/55 (80) 113/56 (75) 02/21/17 07:28 97.9 74 18 125/59 (81) 97 02/21/17 06:03 97.6 72 16 130/66 (87) 97 129/62 (84) 114/55 (74) 02/21/17 05:08 52 02/21/17 01:41 97.6 70 16 110/51 (70) 93 120/58 (78) 115/80 (92) 02/20/17 23:25 72 02/20/17 22:25 72 02/20/17 21:46 98.0 76 16 123/61 (81) 93 126/58 (80) 102/53 (69) 02/20/17 18:15 89 18 112/56 (74) Room Air 02/20/17 15:28 77 16 116/65 (82) 100 Room Air 02/20/17 13:12 74 103/56 (72) 86 96/56 (69) 100 77/50 (59) 02/20/17 13:12 100 02/20/17 12:08 75 16 123/58 (79) 98 Room Air 02/20/17 12:04 Room Air 02/20/17 11:47 98.2 78 16 107/53 (71) 95 I/O 02/20/17 02/20/17 02/20/17 02/21/17 02/21/17 02/21/17 07:00 15:00 23:00 07:00 15:00 23:00 Intake Total 1000 ml 1000 ml Output Total 1050 ml Balance 1000 ml 1000 ml -1050 ml Intake IV Total 1000 ml 1000 ml Output Urine Total 1050 ml Result Diagram: 02/21/1752402/21/17524 Imaging Last Impressions Chest X-Ray 02/20/17 1220 Signed Impressions: Service Date/Time: February 12:21 - CONCLUSION: No acute disease. Darren Shepard MD Objective Remarks GENERAL: AOX3, NAD. SKIN: Warm and dry. HEAD: Normocephalic. EYES: No scleral icterus. No injection or drainage. NECK: Supple, trachea midline. No JVD or lymphadenopathy. CARDIOVASCULAR: Regular rate and rhythm without murmurs, gallops, or rubs. RESPIRATORY: Breath sounds equal bilaterally. No accessory muscle use. GASTROINTESTINAL: Abdomen soft, non-tender, nondistended. MUSCULOSKELETAL: No cyanosis, or edema. BACK: Nontender without obvious deformity. No CVA tenderness. Procedures None. A/P Assessment and Plan Mr. Pelletier is a 71 year old male with a history of syncope s/p loop recorder placement who presented to the ED after a syncopal episode. Patient was found to have orthostatic hypotension. - Syncope - Orthostatic hypotension - Loop recorder device interrogation pending. - Cardiology consult pending. - Start fluid NS @125cc/hour. - Acute kidney injury - Creatinine 1.89 on admission, improved to 1.38. - Gout - Continue Allopurinol - Hyperlipidemia - continue Lipitor 20mg HS. Full code. Heparin SQ Jane Taylor DO Feb 21, 2017 11:23
[2017-02-21] MEDS: SODIUM CHLOR 0.9% 1000 ML INJ 1,000 ML IV SCH ×2 (13:09→17:45)
[2017-02-21] MEDS: traZODone HCL 100 MG TAB PO SCH (22:17)
[2017-02-21] MEDS: FAMOTIDINE 20 MG TAB PO SCH (22:17)
[2017-02-21] MEDS: ATORVASTATIN 20 MG TAB PO SCH (22:17)
--- NOTE | 2017-02-21 22:56 | MB ---
cc: BELKYSADALID DO DATE OF CONSULTATION February 21, 2017 REASON FOR CONSULTATION Syncope. HISTORY OF PRESENT ILLNESS Reshma Pelletier is a pleasant 71-year-old male known to my partner, Dr. Jean Baptiste, who presented to [facility] on February 20, 2017 after a syncopal episode. The patient states that he had a relatively normal day other than he woke up with a stiff neck and shoulder. He went [place] [facility] [place] something and while waiting in line he passed out and woke up on the floor. He states that he had no preceding symptoms of chest pain, shortness of breath or palpitations. He has had previous episodes of syncope in the past and had a loop recorder placed. When EMS arrived he had a blood pressure of 60/51. Paramedics recommended that he come to the hospital, however, he went home and came then with his . In seeing him today he states that he feels better with no chest pain, shortness of breath or palpitations. While here he has also had multiple orthostatic blood pressures done showing a significant drop in his blood pressure upon standing. PAST MEDICAL HISTORY 1. Hypertension. 2. History of syncope. 3. Orthostatic hypotension. 4. Chronic kidney disease. 5. History of diverticular rupture. PAST SURGICAL HISTORY 1. Diverticular rupture leading to partial colon resection. 2. Cholecystectomy. 3. History of bile duct infection/ascending cholangitis with prolonged hospitalization. 4. Bowel obstruction status post lysis of adhesions. ALLERGIES CODEINE. MEDICATIONS 1. Lipitor 20 milligrams every night. 2. Procardia XL 60 milligrams daily. 3. Lisinopril 20 milligrams daily. 4. Aspirin 81 milligrams daily. 5. Gabapentin 300 milligrams t.i.d. 6. Wellbutrin XL 300 milligrams daily. 7. Fluoxetine 60 milligrams b.i.d. 8. Trazodone 200 milligrams every night. 9. Potassium 20 milliequivalents daily. 10. Magoxide 400 milligrams t.i.d. 11. Protonix 40 milligrams daily. 12. Testosterone 200 milligrams IM every 2 weeks. 13. Allopurinol 300 milligrams daily. FAMILY HISTORY The patient was adopted and does not know his family history. SOCIAL HISTORY The patient used to smoke but quit about 40 years ago. He drinks about two beers a day once to twice a week. Denies drugs. REVIEW OF SYSTEMS 14-systems were reviewed including osteopathic, pertinent positives and negatives above, otherwise negative. PHYSICAL EXAMINATION VITAL SIGNS: Temperature 97.7, heart rate 70, blood pressure 136/66, respirations 18, pulse ox 97%. Previous orthostatic hypotension with blood pressure of 103/56 supine, 96/56 sitting, 77/50 standing. GENERAL: In general, the patient appears well, in no acute distress. Alert, awake and oriented x3. HEENT: Extraocular muscles intact. Mucous membranes moist. NECK: Neck is supple. No JVD at 45 degrees. No carotid bruits heard bilaterally. Carotid upstroke is brisk in nature. HEART: Heart is a regular rate and rhythm. Positive first and second heart sound with a 2/6 holosystolic murmur noted at the apex. LUNGS: Clear to auscultation bilaterally. No wheezes, rales or rhonchi. ABDOMEN: Soft, nontender, nondistended. No organomegaly noted. EXTREMITIES: Show no clubbing, cyanosis or edema. Femoral and distal pulses intact bilaterally. NEUROLOGICALLY: No focal deficits. SKIN: Warm, dry and intact. OSTEOPATHIC: No kyphoscoliosis, lordosis or paraspinal tender points. LABORATORY FINDINGS Hemoglobin 14.3, hematocrit 40.6, platelets 241. Potassium 3.8, BUN 15, creatinine 1.38. Troponin negative x3. CARDIOLOGY STUDIES Electrocardiogram (February 21, 2017 at 01:49) sinus rhythm with occasional PVC, left axis deviation, nonspecific ST-T wave changes. IMPRESSION 1. Syncopal episode of unknown cause. 2. Orthostatic hypotension. 3. Prior history of syncopal episodes. 4. History of hypertension. 5. Acute kidney injury on chronic kidney disease. RECOMMENDATIONS 1. Mr. Pelletier appears to have a syncopal episode of unknown cause. Loop recorder was interrogated and it showed no new events since last being interrogated. 2. We will check an echo to look at his overall left ventricular function, cardiac structure and possible valvulopathies. 3. Syncopal episode may be due to possible dehydration as well as prolonged standing and pooling of the blood in the lower extremities. 4. The patient has had a long history of orthostatic hypotension which may be autonomic dysfunction due to his age as well as his blood pressure medications. I discussed with him lifestyle management and changes that can be made to further help him not get dizzy upon standing. 5. Further recommendations will be made based on the hospital course. Thank you for allowing me to see Yonatan Pelletier. If there are any questions please do not hesitate to call. Adalid Sevilla DO VGP/EO /10:31 PM /10:45 PM
[2017-02-21] MEDS ORDERED: ACETAMINOPHEN/HYDROcodone 325 MG/5 MG TAB PO ONE (23:30)
[2017-02-22] VITALS (10 sets, daily range): BP systolic 128–216; BP diastolic 59–95; PULSE 65–77; RESP 15–18; TEMP 97.5–98.6; O2SAT 93–97
[2017-02-22] MEDS: SODIUM CHLOR 0.9% 1000 ML INJ 1,000 ML IV SCH ×2 (00:38→10:30)
[2017-02-22] MEDS: ENALAPRILAT 1.25 MG/ML VIAL IV PUSH PRN ×2 (02:57→16:06)
[2017-02-22] MEDS: HEPARIN SODIUM - SQ 10,000 UNITS/ML VIAL SQ SCH ×3 (05:57→22:56)
[2017-02-22] MEDS: POTASSIUM CHLORIDE 20 MEQ CONTROLLED RELEASE TAB PO SCH (08:29)
[2017-02-22] MEDS: ALLOPURINOL 300 MG TAB PO SCH (08:29)
[2017-02-22] MEDS: buPROPion HCL 150 MG SUSTAINED RELEASE TAB PO SCH (08:29)
[2017-02-22] MEDS: THIAMINE HCL 100 MG TAB PO SCH (08:29)
[2017-02-22] MEDS: MAGNESIUM OXIDE 400 MG TAB PO SCH ×3 (08:30→17:22)
[2017-02-22] MEDS: DULoxetine HCl DR 60 MG CAP PO SCH ×2 (08:30→20:35)
[2017-02-22] MEDS: ASPIRIN EC 81 MG TABEC PO SCH (08:30)
[2017-02-22] MEDS: SODIUM CHLORIDE 0.9% FLUSH 10 ML FLUSH IV FLUSH SCH ×2 (08:31→20:34)
[2017-02-22] MEDS: GABAPENTIN 300 MG CAP PO SCH ×3 (10:30→17:22)
--- NOTE | 2017-02-22 11:18 | HHI.PR ---
Subjective Remarks Follow-up for syncope, hypertension. Patient is currently doing well. No further syncopal episodes. He complains of acid reflux. He would like to get Protonix in the morning and Prevacid at night for acid reflux. Objective Vitals Vital Signs Date Time Temp Pulse Resp B/P (MAP) Pulse Ox O2 Delivery O2 Flow Rate FiO2 02/22/17 07:34 97.9 66 18 169/79 (109) 96 162/84 (110) 168/86 (113) 02/22/17 03:47 77 02/22/17 03:44 97.8 65 15 136/63 (87) 93 139/70 (93) 140/81 (100) 02/22/17 02:20 172/81 (111) 02/22/17 00:03 97.5 67 16 177/77 (110) 95 178/59 (98) 142/67 (92) 02/21/17 23:57 86 02/21/17 20:20 99.3 71 16 170/75 (106) 98 165/79 (107) 153/70 (97) 02/21/17 20:10 83 02/21/17 15:45 97.7 70 18 136/68 (90) 97 148/69 (95) 132/65 (87) 02/21/17 11:25 97.8 71 18 138/66 (90) 97 139/63 (88) 135/68 (90) I/O 02/21/17 02/21/17 02/21/17 02/22/17 02/22/17 02/22/17 07:00 15:00 23:00 07:00 15:00 23:00 Intake Total 600 ml Output Total 1050 ml 1100 ml Balance -1050 ml 600 ml -1100 ml Intake Oral 600 ml Output Urine Total 1050 ml 1100 ml Result Diagram: 02/21/17 0525 02/21/17 0525 Imaging Last Impressions Chest X-Ray 02/20/17 1220 Signed Impressions: Service Date/Time: February 12:21 - CONCLUSION: No acute disease. Darren Shepard MD Objective Remarks GENERAL: AOX3, NAD. SKIN: Warm and dry. HEAD: Normocephalic. EYES: No scleral icterus. No injection or drainage. NECK: Supple, trachea midline. No JVD or lymphadenopathy. CARDIOVASCULAR: Regular rate and rhythm without murmurs, gallops, or rubs. RESPIRATORY: Breath sounds equal bilaterally. No accessory muscle use. GASTROINTESTINAL: Abdomen soft, non-tender, nondistended. MUSCULOSKELETAL: No cyanosis, or edema. BACK: Nontender without obvious deformity. No CVA tenderness. Procedures None. A/P Assessment and Plan Mr. Pelletier is a 71 year old male with a history of syncope s/p loop recorder placement who presented to the ED after a syncopal episode. Patient was found to have orthostatic hypotension. - Syncope - Orthostatic hypotension - Appreciate cardiology input. Echo pending. -We'll discontinue IV fluid. Patient's blood pressure is elevated. - Hypertension - We'll start nifedipine 60 mg daily. Clonidine 0.1 mg every 8 hours when necessary for blood pressure over 180 systolic. - Acute kidney injury - Creatinine 1.89 on admission, improved to 1.38. - Gout - Continue Allopurinol - Hyperlipidemia - continue Lipitor 20mg HS. - GERD - We'll continue patient on Protonix in the morning and Prevacid at night. - Also start sucralfate before meals and at bedtime. Full code. Heparin SQ Discharge plan: If blood pressure improves and echo unremarkable, patient could be discharged today or in the morning. Jane Taylor DO Feb 22, 2017 11:18 am
[2017-02-22] MEDS: SUCRALFATE 1 GM/10 ML CUP PO SCH ×3 (12:00→23:26)
[2017-02-22] MEDS ORDERED: cloNIDine HCL 0.1 MG TAB PO PRN (12:00)
[2017-02-22] MEDS ORDERED: NIFEdipine 60 MG SUSTAINED RELEASE TAB PO ONE (12:00)
[2017-02-22] MEDS ORDERED: SUCRALFATE 1 GM/10 ML CUP PO ONE (12:00)
[2017-02-22] MEDS: PANTOPRAZOLE SOD 40 MG DELAYED RELEASE TAB PO SCH (12:22)
--- NOTE | 2017-02-22 15:30 | PD.CARD.PN ---
Subjective Subjective Remarks No events overnight No complaints Objective Medications Current Medications Medications (Trade) Dose Ordered Sig/Sandhya Route Start Time Stop Time Status Last Admin (NS Flush) 2 ml UNSCH PRN IV FLUSH 02/20/17 15:30 (NS Flush) 2 ml BID IV FLUSH 02/20/17 21:00 02/22/17 08:31 (Narcan Inj) 0.4 mg UNSCH PRN IV PUSH 02/20/17 15:30 (Ativan Inj) 1 mg Q2H PRN IV PUSH 02/20/17 15:30 (Vitamin B1) 100 mg DAILY PO 02/21/17 09:00 02/22/17 08:29 (Pepcid) 20 mg HS PO 02/20/17 21:00 02/21/17 22:17 (Heparin Inj) 5,000 units Q8HR SQ 02/20/17 22:00 02/22/17 13:45 (Zyloprim) 300 mg DAILY PO 02/21/17 09:00 02/22/17 08:29 (Ecotrin Ec) 81 mg DAILY PO 02/21/17 09:00 02/22/17 08:30 (Lipitor) 20 mg HS PO 02/20/17 21:00 02/21/17 22:17 (Wellbutrin Sr) 300 mg DAILY PO 02/21/17 09:00 02/22/17 08:[address]) 60 mg BID PO 02/20/17 21:00 02/22/17 08:30 (Neurontin) 300 mg TID PO 02/21/17 09:00 02/22/17 13:45 (Mag-Ox) 400 mg TID PO 02/21/17 09:00 02/22/17 12:20 (KCl) 20 meq DAILY PO 02/21/17 09:00 02/22/17 08:29 (Desyrel) 200 mg HS PO 02/20/17 21:00 02/21/17 22:17 (Vasotec Inj) 1.25 mg Q6H PRN IV PUSH 02/21/17 21:15 02/22/17 02:57 (Protonix) 40 mg DAILY PO 02/22/17 11:15 02/22/17 12:22 (Procardia Xl) 60 mg DAILY PO 02/23/17 09:00 (Carafate Liq) 1 gm ACHS PO 02/22/17 12:00 (Catapres) 0.1 mg Q8HR PRN PO 02/22/17 12:00 02/22/17 13:58 Vital Signs / I&O Vital Signs Date Time Temp Pulse Resp B/P (MAP) Pulse Ox O2 Delivery O2 Flow Rate FiO2 02/22/17 13:54 198/93 (128) 02/22/17 11:35 98.6 65 18 200/91 (127) 96 186/81 (116) 216/94 (134) 02/22/17 07:34 97.9 66 18 169/79 (109) 96 162/84 (110) 168/86 (113) 02/22/17 03:47 77 02/22/17 03:44 97.8 65 15 136/63 (87) 93 139/70 (93) 140/81 (100) 02/22/17 02:20 172/81 (111) 02/22/17 00:03 97.5 67 16 177/77 (110) 95 178/59 (98) 142/67 (92) 02/21/17 23:57 86 02/21/17 20:20 99.3 71 16 170/75 (106) 98 165/79 (107) 153/70 (97) 02/21/17 20:10 83 02/21/17 15:45 97.7 70 18 136/68 (90) 97 148/69 (95) 132/65 (87) I/O 02/21/17 02/21/17 02/21/17 02/22/17 02/22/17 02/22/17 07:00 15:00 23:00 07:00 15:00 23:00 Intake Total 600 ml Output Total 1050 ml 1100 ml 1500 ml Balance -1050 ml 600 ml -1100 ml -1500 ml Intake Oral 600 ml Output Urine Total 1050 ml 1100 ml 1500 ml Physical Exam GENERAL: NAD, AAOx3 SKIN: Warm and dry. HEAD: Atraumatic. Normocephalic. EYES: Pupils equal and round. No scleral icterus. No injection or drainage. ENT: No nasal bleeding or discharge. Mucous membranes pink and moist. NECK: Trachea midline. No JVD. CARDIOVASCULAR: Regular rate and rhythm. RESPIRATORY: No accessory muscle use. Clear to auscultation. Breath sounds equal bilaterally. GASTROINTESTINAL: Abdomen soft, non-tender, nondistended. Hepatic and splenic margins not palpable. MUSCULOSKELETAL: Extremities without clubbing, cyanosis, or edema. No obvious deformities. NEUROLOGICAL: Awake and alert. No obvious cranial nerve deficits. Motor grossly within normal limits. Five out of 5 muscle strength in the arms and legs. Normal speech. PSYCHIATRIC: Appropriate mood and affect; insight and judgment normal. Assessment and Plan Problem List: (1) Dizziness ICD Codes: R42 - Dizziness Status: Acute (2) Orthostatic hypotension ICD Codes: I95.1 - Orthostatic hypotension Status: Acute (3) Syncope ICD Codes: R55 - Syncope Status: Acute (4) Acute renal failure ICD Codes: N17.9 - Acute kidney failure, unspecified Status: Acute Assessment and Plan 1) Blood pressure no longer low after fluids and BP meds held Agree with restarting Procardia XL 2) 2D echo pending 3) Appears he was dehydrated and possible prolonged standing with pooling of blood in the lower extremities 4) Orthostatic hypotension Most likely autonomic Exacerbated by dehydration 5) Loop recorder showing no events Adalid Sevilla DO Feb 22, 2017 15:29
--- NOTE | 2017-02-22 18:27 | ECHRPT ---
Indication: syncope CONCLUSIONS The left ventricular systolic function is normal with an estimated ejection fraction in the range of 55-60%. Normal left ventricular size. Cfgyr-jb-[id number] mitral valve regurgitation. No aortic valve regurgitation. No aortic valve stenosis. There is mild tricuspid valve regurgitation. The pulmonary valve is not well visualized. BP: / HR: Rhythm: MEASUREMENTS (Male / Female) Normal Values Technical Quality:Good 2D ECHO LV Diastolic Diameter PLAX 5.0 cm 4.2 - 5.9 / 3.9 - 5.3 cm LV Systolic Diameter PLAX 3.7 cm IVS Diastolic Thickness 1.3 cm 0.6 - 1.0 / 0.6 - 0.9 cm LVPW Diastolic Thickness 0.9 cm 0.6 - 1.0 / 0.6 - 0.9 cm LV Relative Wall Thickness 0.4 RV Internal Dim ED PLAX 2.9 cm M-MODE Aortic Root Diameter MM 3.0 cm LA Systolic Diameter MM 4.0 cm LA Ao Ratio MM 1.3 AV Cusp Separation MM 2.1 cm DOPPLER Mitral E Point Velocity 75.5 cm/s Mitral A Point Velocity 90.8 cm/s Mitral E to A Ratio 0.8 LV E' Lateral Velocity 8.9 cm/s Mitral E to LV E' Lateral Ratio 8.5 LV E' Septal Velocity 9.5 cm/s Mitral E to LV E' Septal Ratio 8.0 FINDINGS LEFT VENTRICLE The left ventricular systolic function is normal with an estimated ejection fraction in the range of 55-60%. Normal left ventricular size. RIGHT VENTRICLE Normal right ventricular size and systolic function. LEFT ATRIUM The left atrial size is normal. RIGHT ATRIUM The right atrial size is normal. ATRIAL SEPTUM Normal atrial septal thickness without atrial level shunting by limited color doppler interrogation. AORTA The aortic root and proximal ascending aorta are normal in size on limited imaging. MITRAL VALVE Structurally normal mitral valve. Ranje-pp-ibbt mitral valve regurgitation. AORTIC VALVE Trileaflet aortic valve. No aortic valve regurgitation. No aortic valve stenosis. TRICUSPID VALVE Structurally normal tricuspid valve. There is mild tricuspid valve regurgitation. PULMONARY VALVE The pulmonary valve is not well visualized. VESSELS The inferior vena cava is normal in size. PERICARDIUM No pericardial effusion. Gautam Rg MD, FACC, [facility] [place] (Electronically Signed) Final Date:22 February 2017 18:26
[2017-02-22] MEDS ORDERED: traMADol HCL 50 MG TAB PO PRN (19:30)
[2017-02-22] MEDS ORDERED: BISACODYL 10 MG SUPP RECTAL PRN (19:45)
[2017-02-22] MEDS ORDERED: MAGNESIUM HYDROXIDE SUSP 30 ML CUP PO PRN (19:45)
[2017-02-22] MEDS: ATORVASTATIN 20 MG TAB PO SCH (20:34)
[2017-02-22] MEDS: FAMOTIDINE 20 MG TAB PO SCH (20:35)
[2017-02-22] MEDS: traZODone HCL 100 MG TAB PO SCH (20:35)
[2017-02-22] MEDS ORDERED: SUCRALFATE 1 GM/10 ML CUP PO SCH (21:00)
[2017-02-22] MEDS: hydrALAZINE HCL 25 MG TAB PO SCH (22:56)
[2017-02-23 04:04] VITALS: BP_SYST 115; BP_SYST 117; BP_SYST 140; BP_DIAS 61; BP_DIAS 64; BP_DIAS 65; PULSE 64; RESP 18; TEMP 98.1; O2SAT 97
[2017-02-23] MEDS: hydrALAZINE HCL 25 MG TAB PO SCH (06:00)
[2017-02-23] MEDS: HEPARIN SODIUM - SQ 10,000 UNITS/ML VIAL SQ SCH (06:41)
[2017-02-23] MEDS: SUCRALFATE 1 GM/10 ML CUP PO SCH (07:40)
[2017-02-23 08:12] VITALS: BP_SYST 127; BP_SYST 135; BP_SYST 158; BP_DIAS 65; BP_DIAS 68; BP_DIAS 78; PULSE 67; RESP 18; TEMP 97.9; O2SAT 68
[2017-02-23] MEDS ORDERED: NIFEdipine 60 MG SUSTAINED RELEASE TAB PO SCH (09:00)
[2017-02-23] MEDS: DULoxetine HCl DR 60 MG CAP PO SCH (09:42)
[2017-02-23] MEDS: MAGNESIUM OXIDE 400 MG TAB PO SCH (09:42)
[2017-02-23] MEDS: ASPIRIN EC 81 MG TABEC PO SCH (09:43)
[2017-02-23] MEDS: GABAPENTIN 300 MG CAP PO SCH (09:43)
[2017-02-23] MEDS: THIAMINE HCL 100 MG TAB PO SCH (09:43)
[2017-02-23] MEDS: POTASSIUM CHLORIDE 20 MEQ CONTROLLED RELEASE TAB PO SCH (09:43)
[2017-02-23] MEDS: buPROPion HCL 150 MG SUSTAINED RELEASE TAB PO SCH (09:43)
[2017-02-23] MEDS: ALLOPURINOL 300 MG TAB PO SCH (09:43)
[2017-02-23] MEDS: PANTOPRAZOLE SOD 40 MG DELAYED RELEASE TAB PO SCH (09:43)
[2017-02-23] MEDS: SODIUM CHLORIDE 0.9% FLUSH 10 ML FLUSH IV FLUSH SCH (09:44)
[2017-02-23] MEDS ORDERED: HYDR-3799 PO (10:41)
[2017-02-23] MEDS ORDERED: TRAM50 PO (10:41)
--- NOTE | 2017-02-23 10:43 | HHI.DS ---
Discharge Summary Admission Date Feb 20, 2017 at 5:38 pm Discharge Date: Feb 23, 2017 Admitting Diagnosis syncope, postural hypotension, acute on chronic kidney disease. (1) Hypotension ICD Code: I95.9 - Hypotension Status: Acute (2) SHANNA (acute kidney injury) ICD Code: N17.9 - SHANNA (acute kidney injury) Status: Acute Procedures None. Brief History - From Admission hx from patient, ER communication, review of med records last night had mid epigastric pain not short of breath, no radiation then but had neck and shoulder pains this morning when he was in shower does have chronic stomach pains from PUD , blocked bowel then today at store while sitting, had passed out for past couple of years, had passing out problems- BP has been low all day and has had trouble with BP before too but takes BP meds at home as well in the last year, this is the second time of passing out loop recorder placed abotu 1.5 yrs ago - last checked about 6 months ago no premonitory symptoms before syncope no one caught him when he passed out and fell not sure whether he hit head does not remember how he fell was a little bit confused, no combativeness, only about 10sec confusion no urinary or bowel incontinence has hx of htn - nifedipine and lisinopril has constant diarrheas- for years has had colon resection due to diverticulitis CBC/BMP: 02/21/17 0525 02/21/17 0525 Significant Findings Laboratory Tests Test 02/20/17 12:30 02/20/17 18:35 02/21/17 01:02 02/21/17 05:25 Neutrophils (%) (Auto) 75.6 % (16.0-70.0) Creatinine 1.89 MG/DL (0.60-1.30) 1.38 MG/DL (0.60-1.30) Alkaline Phosphatase 133 U/L (45-117) Estimat Glomerular Filtration Rate 35 ML/MIN (>89) 51 ML/MIN (>89) Troponin I LESS THAN 0.02 NG/ML LESS THAN 0.02 NG/ML LESS THAN 0.02 NG/ML Red Blood Count 4.45 MIL/MM3 (4.50-5.90) Monocytes (%) (Auto) 8.1 % (0.0-8.0) Calcium Level 8.4 MG/DL (8.5-10.1) Chloride Level 110 MEQ/L (98-107) Imaging Last Impressions Chest X-Ray 02/20/17 1220 Signed Impressions: Service Date/Time: February 12:21 - CONCLUSION: No acute disease. Darren Shepard MD PE at Discharge GENERAL: AOX3, NAD. SKIN: Warm and dry. HEAD: Normocephalic. EYES: No scleral icterus. No injection or drainage. NECK: Supple, trachea midline. No JVD or lymphadenopathy. CARDIOVASCULAR: Regular rate and rhythm without murmurs, gallops, or rubs. RESPIRATORY: Breath sounds equal bilaterally. No accessory muscle use. GASTROINTESTINAL: Abdomen soft, non-tender, nondistended. MUSCULOSKELETAL: No cyanosis, or edema. BACK: Nontender without obvious deformity. No CVA tenderness. Pt update on day of discharge Patient is doing well. No acute concerns. No fever, chills. Hospital Course Mr. Pelletier is a 71 year old male with a history of syncope s/p loop recorder placement who presented to the ED after a syncopal episode. Patient was found to have orthostatic hypotension. - Syncope - Orthostatic hypotension - Appreciate cardiology input. Echo pending. -We'll discontinue IV fluid. Patient's blood pressure is elevated. - Hypertension - nifedipine 60 mg daily. Clonidine 0.1 mg every 8 hours when necessary for blood pressure over 180 systolic. - Acute kidney injury - Creatinine 1.89 on admission, improved to 1.38. - Gout - Continue Allopurinol - Hyperlipidemia - continue Lipitor 20mg HS. - GERD - We'll continue patient on Protonix in the morning and Prevacid at night. - Also start sucralfate before meals and at bedtime. Full code. Heparin SQ Pt Condition on Discharge: Good Discharge Disposition: Discharge Home Discharge Time: <= 30 minutes Discharge Instructions DIET: Follow Instructions for: Heart Healthy Diet Activities you can perform: Regular-No Restrictions Follow up Referrals: Cardiology - 2 Weeks with Monik Jean Baptiste MD PCP Follow-up - 1 Week New Medications: Hydralazine HCl (Hydralazine HCl) 25 Mg Tablet 25 MG PO Q8HR for Blood Pressure Management, #90 TAB Hold if systolic BP < 120 Tramadol (Ultram) 50 Mg Tab 50 MG PO Q6H PRN for PAIN SCALE 5 TO 10, #20 TAB Continued Medications: Allopurinol (Zyloprim) 300 Mg Tab 300 MG PO DAILY for Gout, #30 TAB [address] (Aspirin Adult Low Strength) 81 Mg Tabdr 81 MG PO DAILY, TAB Atorvastatin (Lipitor) 20 Mg Tab 20 MG PO HS for Cholesterol Management, #30 TAB 0 Refills Bupropion HCl ER 24 HR (Wellbutrin Xl 24 HR) 300 Mg Tab 300 MG PO DAILY for Control Depression, TAB [address] (Duloxetine DR) 60 Mg Capdr 60 MG PO BID, #30 CAP 0 Refills Gabapentin (Gabapentin) 300 Mg Cap 300 MG PO TID, #90 CAP 0 Refills Magnesium Oxide (Magnesium Oxide) 400 Mg Tab 400 MG PO TID for Nutritional Supplement, TAB 0 Refills Nifedipine ER 24 HR (Procardia XL) 60 Mg Tab 60 MG PO DAILY for Blood Pressure Management, #30 TAB 0 Refills Pantoprazole (Protonix) 40 Mg Tab 40 MG PO DAILY for Reflux, #30 TAB 0 Refills Testosterone Enanthate Inj (Testosterone Enanthate Inj) 200 Mg/Ml Inj 200 MG IM EVERY 2 WEEKS for Hormone Replacement, #1 VIAL 0 Refills Trazodone (Trazodone) 100 Mg Tablet 200-300 MG PO HS for Control Depression, #30 TAB 0 Refills [Anti-Depressant] () 1 TAB PO DAILY for Depression Control Discontinued Medications: Lisinopril (Lisinopril) 10 Mg Tab 20 MG PO DAILY, #30 TAB 0 Refills Potassium Chloride ER (Potassium Chloride ER) 20 Meq Tab 20 MEQ PO DAILY for Electrolyte Replacement, #30 TAB 0 Refills Jane Taylor DO Feb 23, 2017 10:43
== END 2017-02-23 12:39 | disposition home or self-care (01) ==
LOC: NEPC 11:44 → NEDA 17:38 → NEPGCP 19:02
PROVIDERS: ADMIT Hospitalist; ATTEND Hospitalist
DX: I95.1 Orthostatic hypotension (principal); F03.90 Unspecified dementia, unspecified severity, without behavioral disturbance, psychotic disturbance, mood disturbance, and anxiety; I48.91 Unspecified atrial fibrillation; F41.9 Anxiety disorder, unspecified; I49.3 Ventricular premature depolarization; E78.00 Pure hypercholesterolemia, unspecified; I50.9 Heart failure, unspecified; I13.0 Hypertensive heart and chronic kidney disease with heart failure and stage 1 through stage 4 chronic kidney disease, or unspecified chronic kidney disease; K21.9 Gastro-esophageal reflux disease without esophagitis; K44.9 Diaphragmatic hernia without obstruction or gangrene; G47.30 Sleep apnea, unspecified; Z79.899 Other long term (current) drug therapy; K52.9 Noninfective gastroenteritis and colitis, unspecified; Z90.49 Acquired absence of other specified parts of digestive tract; N17.9 Acute kidney failure, unspecified; M10.9 Gout, unspecified; R94.31 Abnormal electrocardiogram [ECG] [EKG]
CPT/HCPCS: 71010; 80048; 80053; 82550; 84484; 85025; 93005; 93306; 96361; 96374; 96376; 97162; 99285; G0378; G8987; G8988; J1644; J7030

== ENCOUNTER 2017-05-09 16:20 | Observation (INO) | payer OTHER, MEDICARE ==
[~2017-05-09] VITALS: Ht 182.9 cm; Wt 90.9 kg
[2017-05-09] VITALS (7 sets, daily range): BP systolic 124–156; BP diastolic 68–86; PULSE 96–105; RESP 15–18; TEMP 97.7–98.3; O2SAT 96–98
[~2017-05-09 16:20] MED LIST changes: +ANTI-DEPRESSANT PO; +ASPI81TA16 PO; -ATOR20TA42 PO; +DULO1CAP3 PO; -GABA300C3 PO; +GABA300C5 PO; +HYDR-3799 PO; -KCL20 PO; +LIPI20TA PO; -LISI-360 PO; -MAGN250T5 PO; +MAGN400T2 PO; -ST JTAB PO; +TRAM50 PO; -TRAZ100 PO; +TRAZ100T10 PO; -VENL75TA91 PO; +WELLTAB39 PO
--- NOTE | 2017-05-09 17:10 | PD ---
HPI Chief Complaint: Complaint Time Seen by Provider: 16:58 Travel History International Travel<30 days: No Contact w/Intl Traveler<30days: No Traveled to known affect area: No History of Present Illness HPI 71-year-old male here for evaluation of possible hernia. The patient reports lower abdominal and groin pain for the last 2 days that started after lifting heavy firewood. Pain is sharp, constant, severe, worse with movements. He has had several episodes of loose bowel movements. He denies melena or hematochezia. History of diverticulitis with partial colectomy, cholecystectomy. He has been having some increased urinary frequency. No vomiting. PFSH Past Medical History Arthritis: Yes Asthma: No Atrial Fibrillation: Yes Autoimmune Disease: No Blood Disorders: No Anxiety: Yes Depression: Yes Heart Rhythm Problems: Yes (A-FIB pt denises, PVC'S) Cancer: No Cardiac Catheterization: Yes Cardiovascular Problems: Yes (LOOP RECORDER, HTN) High Cholesterol: Yes Chemotherapy: No Chest Pain: Yes Congestive Heart Failure: Yes COPD: No Diabetes: No Diminished Hearing: No Diverticulitis: Yes Endocrine: No Gastrointestinal Disorders: Yes (MESH IN INTESTINES PER PT.) GERD: Yes Gout: Yes Genitourinary: No Hiatal Hernia: Yes Hypertension: Yes Immune Disorder: No Inguinal Hernia: Yes Musculoskeletal: Yes Neurologic: Yes (neuropathy) Psychiatric: Yes Reproductive: No Respiratory: Yes (SLEEP APNEA) Radiation Therapy: No Shingles: Yes (history) Sleep Apnea: Yes Thyroid Disease: No Past Surgical History Abdominal Surgery: Yes (COLON RESECTION/INTESTINAL BLOCKAGE/SCAR TISSUE/ CHOLECYSTECTOMY/HERNIA REPA) Body Medical Devices: loop recorder- medtronic Cardiac Surgery: Yes (heart cath) Cholecystectomy: Yes Ear Surgery: No Endocrine Surgery: No Eye Surgery: No Genitourinary Surgery: No Gynecologic Surgery: No Oral Surgery: No Thoracic Surgery: No Other Surgery: Yes (COLON RESECTION) Social History Alcohol Use: Yes Tobacco Use: No Substance Use: No Allergies-Medications (Allergen,Severity, Reaction): Coded Allergies: codeine (Unverified Allergy, Mild, RASH, 05/09/17) Reported Meds & Prescriptions Reported Meds & Active Scripts Active Hydralazine HCl 25 Mg Tablet 25 Mg PO Q8HR Hold if systolic BP < 120 Reported Indomethacin 25 Mg Cap 25 Mg PO TID Take with food, milk, or antacids to decrease stomach adverse effects. Sildenafil 20 Mg Tab 20 Mg PO TID Donepezil 5 Mg Tab 5 Mg PO HS Potassium Chloride ER (Potassium Chloride) 20 Meq Tab 20 Meq PO DAILY [Anti-Depressant] 1 Tab PO DAILY Wellbutrin Xl 24 HR (Bupropion HCl) 300 Mg Tab 300 Mg PO DAILY Duloxetine DR (Duloxetine HCl) 60 Mg Capdr 60 Mg PO BID Trazodone (Trazodone HCl) 100 Mg Tablet 200-300 Mg PO HS Testosterone Enanthate Inj (Testosterone Enanthate) 200 Mg/Ml Inj 200 Mg IM EVERY 2 WEEKS Protonix (Pantoprazole Sodium) 40 Mg Tab 40 Mg PO DAILY Procardia XL (Nifedipine) 60 Mg Tab 60 Mg PO DAILY Magnesium Oxide 400 Mg Tab 400 Mg PO TID Gabapentin 300 Mg Cap 300 Mg PO TID Lipitor (Atorvastatin Calcium) 20 Mg Tab 20 Mg PO HS Aspirin Adult Low Strength (Aspirin) 81 Mg Tabdr 81 Mg PO DAILY Zyloprim (Allopurinol) 300 Mg Tab 300 Mg PO DAILY Review of Systems Except as stated in HPI: all other systems reviewed are Neg Physical Exam Narrative GENERAL: Well-developed, well-nourished, comfortable, no apparent distress. SKIN: Focused skin assessment warm/dry. HEAD: Atraumatic. Normocephalic. EYES: Pupils equal and round. No scleral icterus. No injection or drainage. ENT: No nasal bleeding or discharge. Mucous membranes pink and moist. NECK: Trachea midline. No JVD. CARDIOVASCULAR: Regular rate and rhythm. No murmur appreciated. RESPIRATORY: No accessory muscle use. Clear to auscultation. Breath sounds equal bilaterally. GASTROINTESTINAL: Abdomen soft, nondistended. Moderate suprapubic tenderness without obvious hernias. Rest of abdomen is soft and nontender. Normal bowel sounds. : Normal exam with moderate bilateral testicular tenderness without masses or hernias. No skin color changes, crepitus, or necrosis. MUSCULOSKELETAL: No obvious deformities. No clubbing. No cyanosis. No edema. NEUROLOGICAL: Awake and alert. No obvious cranial nerve deficits. Motor grossly within normal limits. Normal speech. PSYCHIATRIC: Appropriate mood and affect; insight and judgment normal. Data Data Last Documented VS Vital Signs Date Time Temp Pulse Resp B/P (MAP) Pulse Ox O2 Delivery O2 Flow Rate FiO2 05/09/17 21:22 100 18 137/68 (91) 96 Room Air 05/09/17 19:09 98.3 Orders Orders Complete Blood Count With Diff (05/09/17 16:38) Comprehensive Metabolic Panel (05/09/17 16:38) Urinalysis - C+S If Indicated (05/09/17 16:38) Prothrombin Time / Inr (Pt) (05/09/17 16:58) Act Partial Throm Time (Ptt) (05/09/17 16:58) Lactic Acid (05/09/17 17:07) Us Testicles W Doppler (05/09/17 ) Ct Abd/Pel W Iv Contrast(Rout) (05/09/17 ) Morphine Inj (Morphine Inj) (05/09/17 17:15) Sodium Chlor 0.9% 1000 Ml Inj (Ns 1000 M (05/09/17 17:07) Al-Mag Hy-Si 40-40-4 Mg/Ml Liq (Mag-Al P (05/09/17 19:15) Lidocaine 2% Viscous (Xylocaine 2% Visco (05/09/17 19:15) Iohexol 350 Inj (Omnipaque 350 Inj) (05/09/17 19:18) Morphine Inj (Morphine Inj) (05/09/17 20:00) Sodium Chlor 0.9% 1000 Ml Inj (Ns 1000 M (05/09/17 20:00) Pantoprazole (Protonix) (05/09/17 20:00) Electrocardiogram (05/09/17 ) Cath For Specimen (05/09/17 20:42) Morphine Inj (Morphine Inj) (05/09/17 21:00) Levofloxacin (Levaquin) (05/09/17 21:00) Labs Laboratory Tests Test 05/09/17 17:30 05/09/17 20:45 White Blood Count 12.3 TH/MM3 Red Blood Count 5.89 MIL/MM3 Hemoglobin 18.7 GM/DL Hematocrit 53.9 % Mean Corpuscular Volume 91.5 FL Mean Corpuscular Hemoglobin 31.8 PG Mean Corpuscular Hemoglobin Concent 34.8 % Red Cell Distribution Width 13.9 % Platelet Count 328 TH/MM3 Mean Platelet Volume 7.4 FL Neutrophils (%) (Auto) 76.5 % Lymphocytes (%) (Auto) 14.2 % Monocytes (%) (Auto) 7.5 % Eosinophils (%) (Auto) 1.2 % Basophils (%) (Auto) 0.6 % Neutrophils # (Auto) 9.4 TH/MM3 Lymphocytes # (Auto) 1.8 TH/MM3 Monocytes # (Auto) 0.9 TH/MM3 Eosinophils # (Auto) 0.1 TH/MM3 Basophils # (Auto) 0.1 TH/MM3 CBC Comment AUTO DIFF Differential Comment AUTO DIFF CONFIRMED Prothrombin Time 10.7 SEC Prothromb Time International Ratio 1.1 RATIO Activated Partial Thromboplast Time 26.8 SEC Blood Urea Nitrogen 13 MG/DL Creatinine 1.67 MG/DL Random Glucose 88 MG/DL Total Protein 8.6 GM/DL Albumin 4.0 GM/DL Calcium Level 9.5 MG/DL Alkaline Phosphatase 161 U/L Aspartate Amino Transf (AST/SGOT) 70 U/L Alanine Aminotransferase (ALT/SGPT) 50 U/L Total Bilirubin 0.9 MG/DL Sodium Level 136 MEQ/L Potassium Level 5.3 MEQ/L Chloride Level 102 MEQ/L Carbon Dioxide Level 25.9 MEQ/L Anion Gap 8 MEQ/L Estimat Glomerular Filtration Rate 41 ML/MIN Lactic Acid Level 1.4 mmol/L Urine Color YELLOW Urine Turbidity CLEAR Urine pH 6.0 Urine Specific Graham GREATER THAN 1.050 Urine Protein 30 mg/dL Urine Glucose (UA) NEG mg/dL Urine Ketones 10 mg/dL Urine Occult Blood NEG Urine Nitrite NEG Urine Bilirubin NEG Urine Urobilinogen LESS THAN 2.0 MG/DL Urine Leukocyte Esterase NEG Urine RBC LESS THAN 1 /hpf Urine WBC 1 /hpf Urine Hyaline Casts 6 /lpf Urine Mucus FEW /lpf Microscopic Urinalysis Comment CULT NOT INDICATED MDM Medical Decision Making Medical Screen Exam Complete: Yes Emergency Medical Condition: Yes Differential Diagnosis Groin strain, inguinal hernia, orchitis, epididymitis, UTI, cystitis, diverticulitis, colitis Narrative Course Initial vital signs show heart rate 105, blood pressure 124/75, pulse ox 97% on room air, tympanic temp of 97.7F. CBC: WBC 12.3, hemoglobin 18.7, hematocrit 53.9, platelets 328, neutrophils 76.5 %. CMP is remarkable for potassium 5.3 with moderate hemolysis noted, creatinine 1.67, GFR 41 which is around his baseline, otherwise unremarkable. Lactic acid is 1.4. CT abdomen pelvis: CONCLUSION: 1. No acute abnormality. 2. Long-term stable pneumobilia likely related to prior sphincterotomy. 3. Prior cholecystectomy with mild prominence of the extrahepatic biliary tree consistent with capacitance effect. This is long-term stable. Testicular ultrasound: CONCLUSION: 1. 16mm mildly complex fluid collection superior and lateral to the right testicle. Exact etiology is uncertain. This could be an exophytic epididymal cyst. I see no hyperemia to suggest an abscess. Consideration could be made to a follow up ultrasound in 3-6 months to document stability/resolution. Patient was made aware of all findings. He was given a dose of 4 mg of IV morphine and a liter of normal saline. He has been unable to urinate while emergency department. Bedside transabdominal ultrasound shows that his bladder is almost completely empty. He continues to complain of pain in his inguinal region. He will be given another 4 mg of IV morphine and another liter of normal saline IV and will be reassessed. Patient began complaining of heartburn symptoms. He reports long history of heartburn and has been out of his Protonix for a while. EKG was performed and shows no signs of ischemia. Patient was given a GI cocktail and a dose of Protonix with resolution of symptoms. Patient was given another 4 mg of IV morphine and although his pain has improved , he still complains of 5 out of 10 right lower abdominal/inguinal pain. Given ongoing pain, the patient be admitted for overnight observation for further treatment and evaluation. Case discussed with hospitalist Dr. Daniel who will admit the patient to her service for observation. Diagnosis Primary Impression: Intractable abdominal pain Additional Impression: Epididymal cyst Admitting Information Admitting Physician Requests: Observation Jaylen Weinstein MD May 09, 2017 17:10
[2017-05-09] MEDS ORDERED: MORPHINE SULFATE 2 MG/ML INJ IV PUSH ONE ×3 (17:15→21:00)
[2017-05-09] MEDS ORDERED: INDO25CA PO (17:20)
[2017-05-09] MEDS ORDERED: POTA-163 PO (17:20)
[2017-05-09] MEDS ORDERED: DONE5TAB7 PO (17:20)
[2017-05-09] MEDS ORDERED: SILD20TA11 PO (17:20)
[2017-05-09] MEDS: SODIUM CHLOR 0.9% 1000 ML INJ 1,000 ML IV SCH (17:50)
[2017-05-09 17:58] LABS: AUTOMATED NEUTROPHIL # 9.4 TH/MM3 (1.8-7.7); BASOPHIL # 0.1 TH/MM3 (0-0.2); BASOPHIL % 0.6 % (0.0-2.0); EOSINOPHIL # 0.1 TH/MM3 (0-0.4); EOSINOPHIL % 1.2 % (0.0-4.0); HEMATOCRIT 53.9 % (39.0-51.0); HEMOGLOBIN 18.7 GM/DL (13.0-17.0); LYMPH % 14.2 % (9.0-44.0); LYMPHOCYTE # 1.8 TH/MM3 (1.0-4.8); MEAN CELL VOLUME 91.5 FL (80.0-100.0); MEAN CORPUSCULAR HEMOGLOBIN 31.8 PG (27.0-34.0); MEAN CORPUSCULAR HGB CONC 34.8 % (32.0-36.0); MEAN PLATELET VOLUME 7.4 FL (7.0-11.0); MONO % 7.5 % (0.0-8.0); MONOCYTE # 0.9 TH/MM3 (0-0.9); NEUT % 76.5 % (16.0-70.0); PLATELET COUNT 328 TH/MM3 (150-450); RED BLOOD COUNT 5.89 MIL/MM3 (4.50-5.90); RED CELL DISTRIBUTION WIDTH 13.9 % (11.6-17.2); WHITE BLOOD COUNT 12.3 TH/MM3 (4.0-11.0)
[2017-05-09 18:06] LABS: INTERNATIONAL NORMALIZED RATIO 1.1 RATIO; PROTHROMBIN TIME - PATIENT 10.7 SEC (9.8-11.6)
[2017-05-09 18:23] LABS: ALKALINE PHOSPHATASE 161 U/L (45-117); TOTAL BILIRUBIN ADULT 0.9 MG/DL (0.2-1.0); TOTAL PROTEIN 8.6 GM/DL (6.4-8.2)
[2017-05-09 18:34] LABS: ALT (GPT) 50 U/L (12-78); AST (GOT) 70 U/L (15-37); BICARBONATE 25.9 MEQ/L (21.0-32.0); BLOOD UREA NITROGEN 13 MG/DL (7-18); CALCIUM 9.5 MG/DL (8.5-10.1); CHLORIDE 102 MEQ/L (98-107); CREATININE 1.67 MG/DL (0.60-1.30); GLOMERULAR FILTRATION RATE 41 ML/MIN (>89); GLUCOSE,RANDOM 88 MG/DL (74-106); SODIUM (NA) 136 MEQ/L (136-145)
--- NOTE | 2017-05-09 18:44 | RADRPT ---
EXAM DATE/TIME: 05/09/2017 17:54 [facility] COMPARISON: No previous studies available for comparison. INDICATIONS : Testicular pain. MEDICAL HISTORY : Congestive heart failure. Hypercholesterolemia. Glasses. Neuropathy. Syncope. Atrial fibrillation. Sl eep apnea. Hypertension. Hiatal hernia. Gastroesophageal reflux disease. Arthritis. SURGICAL HISTORY : Cholecystectomy. Cardiac catheterization. Colon resection. Intestinal blockage. hernia repair. Right knee surgery. Back surgery. ENCOUNTER: Initial ACUITY: 3 days PAIN SCORE: 7/10 LOCATION: Bilateral testicles. MEASUREMENTS: RIGHT TESTICLE: 3.9 x 2.9 x 1.5cm LEFT TESTICLE: 4.1 x 2.7 x 1.5cm FINDINGS: RIGHT TESTICLE: Homogeneous echotexture without intra or extratesticular mass. A 16 x 13 x 6 mm hypoechoic area is se en superior and lateral to the right testicle within the scrotum. No significant hyperemia. Blood vandana w is symmetric and within normal limits. No hydrocele or varicocele. Epididymis is within normal li mits. Tiny epididymal cysts. LEFT TESTICLE: Homogeneous echotexture without intra or extratesticular mass. Blood flow is symmetric and within no rmal limits. No hydrocele or varicocele. Epididymis is within normal limits. Tiny epididymal cyst. SCROTUM: Within normal limits. CONCLUSION: 1. 16mm mildly complex fluid collection superior and lateral to the right testicle. Exact etiology is uncertain. This could be an exophytic epididymal cyst. I see no hyperemia to suggest an abscess. Con sideration could be made to a follow up ultrasound in 3-6 months to document stability/resolution. Darin Walters Jr., MD on May 09, 2017 at 18:38 Board Certified Radiologist. This report was verified electronically.
[2017-05-09] MEDS ORDERED: ALUMINUM/MAGNESIUM/SIMETH 30 ML CUP PO ONE (19:15)
[2017-05-09] MEDS ORDERED: LIDOCAINE VISCOUS 2% SOLN 15 ML UDC PO ONE (19:15)
[2017-05-09] MEDS ORDERED: IOHEXOL 350 MG/ML 10 ML VIAL (for RAD DIAG) IVCONTRAST ONE (19:18)
--- NOTE | 2017-05-09 19:42 | RADRPT ---
EXAM DATE/TIME: 05/09/2017 19:14 [facility] COMPARISON: CT ABDOMEN & PELVIS W CONTRAST, April 11, 2012, 20:38. INDICATIONS : Abdominal pain. IV CONTRAST: 74 cc Omnipaque 350 (iohexol) IV ORAL CONTRAST: No oral contrast ingested. RADIATION DOSE: 12.30 CTDIvol (mGy) MEDICAL HISTORY : Cardiovascular disease. Hypertension. SURGICAL HISTORY : Cholecystectomy. Colon resection. ENCOUNTER: Initial ACUITY: 1 day PAIN SCALE: 5/10 LOCATION: abdomen TECHNIQUE: Volumetric scanning of the abdomen and pelvis was performed. Using automated exposure control and ad justment of the mA and/or kV according to patient size, radiation dose was kept as low as reasonably achievable to obtain optimal diagnostic quality images. DICOM format image data is available electro nically for review and comparison. FINDINGS: LOWER LUNGS: The visualized lower lungs are clear. LIVER: Pneumobilia again observed. This is long-term stable. There is mild prominence to the extrahepatic bi liary system with the common bile duct measuring 11 mm. The gallbladder is surgically absent. This ap pearance is stable. No mass involving the liver. Portal vein is patent. SPLEEN: Normal size without lesion. PANCREAS: Within normal limits. KIDNEYS: Normal in size and shape. There is no mass, stone or hydronephrosis. Small bilateral cortical renal cysts. ADRENAL GLANDS: Within normal limits. VASCULAR: There is no aortic aneurysm. BOWEL/MESENTERY: The stomach, small bowel, and colon demonstrate no acute abnormality. There is no free intraperitone al air or fluid. Surgical clips involving the sigmoid colon. Scattered colonic diverticuli without ac balbir inflammation. ABDOMINAL WALL: Within normal limits. RETROPERITONEUM: There is no lymphadenopathy. BLADDER: No wall thickening or mass. REPRODUCTIVE: Within normal limits. INGUINAL: There is no lymphadenopathy or hernia. MUSCULOSKELETAL: Within normal limits for patient age. CONCLUSION: 1. No acute abnormality. 2. Long-term stable pneumobilia likely related to prior sphincterotomy. 3. Prior cholecystectomy with mild prominence of the extrahepatic biliary tree consistent with capaci tance effect. This is long-term stable. Darin Walters Jr., MD on May 09, 2017 at 19:35 Board Certified Radiologist. This report was verified electronically.
[2017-05-09] MEDS ORDERED: PANTOPRAZOLE SOD 40 MG DELAYED RELEASE TAB PO ONE (20:00)
[2017-05-09] MEDS ORDERED: SODIUM CHLOR 0.9% 1000 ML INJ 1,000 ML IV ONE (20:00)
[2017-05-09] MEDS ORDERED: LEVOFLOXACIN 500 MG TAB PO ONE (21:00)
[2017-05-09 21:20] LABS: BILIRUBIN, URINE NEG (NEG); BLOOD, URINE NEG (NEG); GLUCOSE,URINE NEG (NEG); HYALINE CAST, URINE 6 /lpf (RARE); KETONE, URINE 10 mg/dL (NEG); MUCUS URINE FEW /lpf (OCC); NITRITE,URINE NEG (NEG); URINE COLOR YELLOW (YELLW/STRAW); URINE LEUKOCYTE ESTERASE NEG (NEG)
[2017-05-09] MEDS ORDERED: SENNOSIDES 8.6 MG TAB PO PRN (21:45)
[2017-05-09] MEDS ORDERED: ACETAMINOPHEN 325 MG TAB PO PRN (21:45)
[2017-05-09] MEDS ORDERED: SODIUM CHLORIDE 0.9% FLUSH 10 ML FLUSH IV FLUSH PRN (21:45)
[2017-05-09] MEDS ORDERED: DIAZEPAM 5 MG TAB PO ONE (21:45)
[2017-05-09] MEDS ORDERED: LACTULOSE SYRUP 20 GM/30 ML CUP PO PRN (21:45)
[2017-05-09] MEDS ORDERED: BISACODYL 10 MG SUPP RECTAL PRN (21:45)
[2017-05-09] MEDS ORDERED: HYDROmorphone HCL 2 MG TAB PO PRN (21:45)
[2017-05-09] MEDS ORDERED: MAGNESIUM HYDROXIDE SUSP 30 ML CUP PO PRN (21:45)
--- NOTE | 2017-05-09 21:45 | HHI.HP ---
[facility] Admission Diagnosis intractable abdominal pain, epididymal cyst Diagnoses: (1) Intractable abdominal pain Diagnosis: Principal (2) Epididymal cyst Diagnosis: Principal (3) Hyperkalemia Diagnosis: Principal (4) Leukocytosis Diagnosis: Principal (5) SHANNA (acute kidney injury) Diagnosis: Principal (6) GERD (gastroesophageal reflux disease) Diagnosis: Principal (7) HTN (hypertension) Diagnosis: Principal Travel History International Travel<30 Days: No Contact w/Intl Traveler <30 Da: No Traveled to Known Affected Are: No History of Present Illness This is a 71-year-old male with a PMH of Anxiety, Depression, h/o A-fib, HTN, Hyperlipidemia, Gout, GERD and Peripheral Neuropathy who presented to the ER w/ complaints of severe abdominal pain x2 days. States pain started after lifting firewood, concerned he may have a hernia. Pain is located in lower abdomen and groin bilaterally, constant, sharp, 8-9/10, worse w/ movement, non-radiating. Denies nausea, vomiting, diarrhea, fever or chills. On arrival, BP 148/73, HR 99, O2 sat 97% on RA, Afebrile. WBC 12.3. Hemoglobin 18.7. K+ 5.3. Creatinine 1.67, previously 1.38 on 02/21/17. INR 1.1. UA negative. CT Abd/ Pelvis w/ long-term stable pneumobilia related to prior sphincterotomy, prior cholecystectomy. Scrotal US mildly complex fluid collection superior and lateral to right testicle, etiology unknown, possibly epididymal cyst, recommendation for repeat ultrasound in 3-6 months. S/p multiple doses of Morphine and GI Cocktail in ER w/ minimal improvement. Review of Systems Except as stated in HPI: all other systems reviewed are Neg ROS: 14 point review of systems otherwise negative. Past Family Social History Past Medical History PMH: Anxiety, Depression, h/o A-fib, HTN, Hyperlipidemia, Gout, GERD and Peripheral Neuropathy Past Surgical History PAST SURGICAL HISTORY: Partial Colectomy, Cholecystectomy, Hernia Repair, Cardiac Cath, Loop Recorder Allergies: Coded Allergies: codeine (Unverified Allergy, Mild, RASH, 05/09/17) Family History PAST FAMILY HISTORY: Reviewed. No h/o DM or CAD Social History PAST SOCIAL HISTORY: Occasional alcohol. Negative for tobacco or drugs. Physical Exam Vital Signs Vital Signs Date Time Temp Pulse Resp B/P (MAP) Pulse Ox O2 Delivery O2 Flow Rate FiO2 05/09/17 21:22 100 18 137/68 (91) 96 Room Air 05/09/17 20:35 97 18 149/72 (97) 98 Room Air 05/09/17 20:05 99 17 148/73 (98) 97 Room Air 05/09/17 19:09 98.3 05/09/17 16:21 97.7 105 15 124/75 (91) 97 Physical Exam PE: GENERAL: Pleasant middle-aged white male in no acute distress. HEENT: PERRLA, EOMI. No scleral icterus or conjunctival pallor. No lid lag or facial droop. CARDIOVASCULAR: Regular rate and rhythm. No obvious murmurs to auscultation. No chest tenderness to palpation. RESPIRATORY: No obvious rhonchi or wheezing. Clear to auscultation. Breath sounds equal bilaterally. GASTROINTESTINAL: Abdomen soft, non-tender, nondistended. BS normal. + suprapubic tenderness to palpation, no hernia noted. MUSCULOSKELETAL: Extremities without clubbing, cyanosis, or edema. No obvious deformities. NEUROLOGICAL: Awake, alert and oriented x4. No focal neurologic deficits. Moving both upper and lower extremities spontaneously. Laboratory Laboratory Tests Test 05/09/17 17:30 05/09/17 20:45 White Blood Count 12.3 Red Blood Count 5.89 Hemoglobin 18.7 Hematocrit 53.9 Mean Corpuscular Volume 91.5 Mean Corpuscular Hemoglobin 31.8 Mean Corpuscular Hemoglobin Concent 34.8 Red Cell Distribution Width 13.9 Platelet Count 328 Mean Platelet Volume 7.4 Neutrophils (%) (Auto) 76.5 Lymphocytes (%) (Auto) 14.2 Monocytes (%) (Auto) 7.5 Eosinophils (%) (Auto) 1.2 Basophils (%) (Auto) 0.6 Neutrophils # (Auto) 9.4 Lymphocytes # (Auto) 1.8 Monocytes # (Auto) 0.9 Eosinophils # (Auto) 0.1 Basophils # (Auto) 0.1 CBC Comment AUTO DIFF Differential Comment AUTO DIFF CONFIRMED Prothrombin Time 10.7 Prothromb Time International Ratio 1.1 Activated Partial Thromboplast Time 26.8 Blood Urea Nitrogen 13 Creatinine 1.67 Random Glucose 88 Total Protein 8.6 Albumin 4.0 Calcium Level 9.5 Alkaline Phosphatase 161 Aspartate Amino Transf (AST/SGOT) 70 Alanine Aminotransferase (ALT/SGPT) 50 Total Bilirubin 0.9 Sodium Level 136 Potassium Level 5.3 Chloride Level 102 Carbon Dioxide Level 25.9 Anion Gap 8 Estimat Glomerular Filtration Rate 41 Lactic Acid Level 1.4 Urine Color YELLOW Urine Turbidity CLEAR Urine pH 6.0 Urine Specific [place] GREATER THAN 1.050 Urine Protein 30 Urine Glucose (UA) NEG Urine Ketones 10 Urine Occult Blood NEG Urine Nitrite NEG Urine Bilirubin NEG Urine Urobilinogen LESS THAN 2.0 Urine Leukocyte Esterase NEG Urine RBC LESS THAN 1 Urine WBC 1 Urine Hyaline Casts 6 Urine Mucus FEW Microscopic Urinalysis Comment CULT NOT INDICATED Result Diagram: 05/09/17 17305/09/17 173 Caprini VTE Risk Assessment Caprini VTE Risk Assessment: No/Low Risk (score <= 1) Caprini Risk Assessment Model Point Value = 1 Point Value = 2 Point Value = 3 Point Value = 5 Age 41-60 Minor surgery BMI > 25 kg/m2 Swollen legs Varicose veins or History of unexplained or recurrent spontaneous Oral contraceptives or hormone replacement Sepsis (< 1 month) Serious lung disease, including pneumonia (< 1 month) Abnormal pulmonary function Acute myocardial infarction Congestive heart failure (< 1 month) History of inflammatory bowel disease Medical patient at bed rest Age 61-74 Arthroscopic surgery Major open surgery (> 45 min) Laparoscopic surgery (> 45 min) Malignancy Confined to bed (> 72 hours) Immobilizing plaster cast Central venous access Age >= 75 History of VTE Family history of VTE Factor V Leiden Prothrombin [id number] Lupus anticoagulant Anticardiolipin antibodies Elevated serum homocysteine Heparin-induced thrombocytopenia Other congenital or acquired thrombophilia Stroke (< 1 month) Elective arthroplasty Hip, pelvis, or leg fracture Acute spinal cord injury (< 1 month) Prophylaxis Regimen Total Risk Factor Score Risk Level Prophylaxis Regimen 0-1 Low Early ambulation 2 Moderate Order ONE of the following: *Sequential Compression Device (SCD) *Heparin 5000 units SQ BID 3-4 Higher Order ONE of the following medications: *Heparin 5000 units SQ TID *Enoxaparin/Lovenox 40 mg SQ daily (WT < 150 kg, CrCl > 30 mL/min) *Enoxaparin/Lovenox 30 mg SQ daily (WT < 150 kg, CrCl > 10-29 mL/min) *Enoxaparin/Lovenox 30 mg SQ BID (WT < 150 kg, CrCl > 30 mL/min) AND/OR *Sequential Compression Device (SCD) 5 or more Highest Order ONE of the following medications: *Heparin 5000 units SQ TID (Preferred with Epidurals) *Enoxaparin/Lovenox 40 mg SQ daily (WT < 150 kg, CrCl > 30 mL/min) *Enoxaparin/Lovenox 30 mg SQ daily (WT < 150 kg, CrCl > 10-29 mL/min) *Enoxaparin/Lovenox 30 mg SQ BID (WT < 150 kg, CrCl > 30 mL/min) AND *Sequential Compression Device (SCD) Assessment and Plan Problem List: (1) Intractable abdominal pain ICD Code: R10.9 - Unspecified abdominal pain Status: Acute (2) Epididymal cyst ICD Code: N50.3 - Cyst of epididymis Status: Acute (3) Hyperkalemia ICD Code: E87.5 - Hyperkalemia (4) Leukocytosis ICD Code: D72.829 - Elevated white blood cell count, unspecified Status: Acute (5) SHANNA (acute kidney injury) ICD Code: N17.9 - SHANNA (acute kidney injury) Status: Acute (6) GERD (gastroesophageal reflux disease) ICD Code: K21.9 - Gastro-esophageal reflux disease without esophagitis (7) HTN (hypertension) ICD Code: I10 - Essential (primary) hypertension Assessment and Plan A/P: 1. Intractable Abd Pain: s/p heavy lifting 2 days ago, pain constant, s/p multiple doses of Morphine IV in ER w/ minimal improvement. CT Abd/Pelvis w/ no acute findings, images reviewed by me. Pain likely musculoskeletal from recent heavy lifting. Continue analgesics/antiemetics, Valium prn muscle spasm , Anti-inflammatory as needed. 2. Epididymal Cyst: Scrotal US w/ mildly complex fluid collection right testicle, likely epididymal cyst, no abscess noted, recommendation for outpatient follow-up, images reviewed by me. Pt reports intermittent testicular swelling, recommendation for follow up w/ PCP at [place] and referral to Urology as outpatient. U/a negative for UTI. 3. Hyperkalemia: K+ 5.3, hemolysis noted, will recheck labs to monitor for persistent hyperkalemia. Treatment as needed. 4. SHANNA: Creatinine 1.67, previously 1.38 on 02/21/17. IVF for hydration, repeat labs in am. 5. Leukocytosis: WBC 12, unclear etiology, no obvious infection at this time. Will monitor vitals, repeat labs in am. 6. GERD: significant reflux, resume home Protonix, Maalox//Lidocaine prn as needed. 7. DVT Prophylaxis: SCD/Teds. 8. Social work for d/c planning as needed. 9. Labs/records/imaging reviewed by me, case discussed at length w/ ER physician. Janna Daniel MD May 09, 2017 21:45
[2017-05-09] MEDS ORDERED: LIDOCAINE VISCOUS 2% SOLN 15 ML UDC SWISH-SWAL PRN (22:00)
[2017-05-09] MEDS: hydrALAZINE HCL 25 MG TAB PO SCH (22:00)
[2017-05-09] MEDS ORDERED: ALUMINUM/MAGNESIUM/SIMETH 30 ML CUP PO PRN (22:00)
[2017-05-09] MEDS: traZODone HCL 100 MG TAB PO SCH (22:36)
[2017-05-10] MEDS: SODIUM CHLOR 0.9% 1000 ML INJ 1,000 ML IV SCH ×2 (00:01→09:55)
[2017-05-10] MEDS: ONDANSETRON HCL 4 MG/2 ML VIAL IVP PRN ×2 (00:01→16:14)
[2017-05-10 00:06] VITALS: BP 126/70; PULSE 87; RESP 16; TEMP 97.9; O2SAT 93
[2017-05-10 03:53] VITALS: BP 140/62; PULSE 88; RESP 15; TEMP 97.8; O2SAT 92
[2017-05-10] MEDS: HYDROmorphone HCL PF 2 MG/ML VIAL IV PUSH PRN ×5 (04:10→18:07)
[2017-05-10] MEDS: hydrALAZINE HCL 25 MG TAB PO SCH ×4 (05:28→20:42)
[2017-05-10 07:23] VITALS: BP 122/56; PULSE 85; RESP 18; TEMP 98.1; O2SAT 91
[2017-05-10 08:48] LABS: AUTOMATED NEUTROPHIL # 4.5 TH/MM3 (1.8-7.7); BASOPHIL # 0.1 TH/MM3 (0-0.2); BASOPHIL % 0.9 % (0.0-2.0); EOSINOPHIL # 0.2 TH/MM3 (0-0.4); EOSINOPHIL % 2.5 % (0.0-4.0); HEMATOCRIT 41.1 % (39.0-51.0); HEMOGLOBIN 14.3 GM/DL (13.0-17.0); LYMPH % 26.4 % (9.0-44.0); LYMPHOCYTE # 1.9 TH/MM3 (1.0-4.8); MEAN CELL VOLUME 91.5 FL (80.0-100.0); MEAN CORPUSCULAR HEMOGLOBIN 31.8 PG (27.0-34.0); MEAN CORPUSCULAR HGB CONC 34.8 % (32.0-36.0); MEAN PLATELET VOLUME 7.4 FL (7.0-11.0); MONO % 7.9 % (0.0-8.0); MONOCYTE # 0.6 TH/MM3 (0-0.9); NEUT % 62.3 % (16.0-70.0); PLATELET COUNT 254 TH/MM3 (150-450); RED BLOOD COUNT 4.49 MIL/MM3 (4.50-5.90); RED CELL DISTRIBUTION WIDTH 14.1 % (11.6-17.2); WHITE BLOOD COUNT 7.2 TH/MM3 (4.0-11.0)
[2017-05-10 09:17] LABS: ALKALINE PHOSPHATASE 152 U/L (45-117); ALT (GPT) 72 U/L (12-78); AST (GOT) 63 U/L (15-37); BICARBONATE 26.4 MEQ/L (21.0-32.0); BLOOD UREA NITROGEN 10 MG/DL (7-18); CALCIUM 7.8 MG/DL (8.5-10.1); CHLORIDE 105 MEQ/L (98-107); CREATININE 1.23 MG/DL (0.60-1.30); GLOMERULAR FILTRATION RATE 58 ML/MIN (>89); GLUCOSE,RANDOM 97 MG/DL (74-106); SODIUM (NA) 139 MEQ/L (136-145); TOTAL BILIRUBIN ADULT 0.5 MG/DL (0.2-1.0); TOTAL PROTEIN 5.9 GM/DL (6.4-8.2)
--- NOTE | 2017-05-10 09:40 | HHI.PR ---
Subjective Remarks With pain in his right groin says dilaudid is not helping. No fever or chills No problems with urination. Denies cp, sob n/v/d/c. Objective Vitals Vital Signs Date Time Temp Pulse Resp B/P (MAP) Pulse Ox O2 Delivery O2 Flow Rate FiO2 05/10/17 07:23 98.1 85 18 122/56 (78) 91 05/10/17 03:53 97.8 88 15 140/62 (88) 92 05/10/17 00:06 97.9 87 16 126/70 (88) 93 05/09/17 22:54 132/76 (94) 05/09/17 22:41 96 17 156/86 (109) 97 Room Air 05/09/17 21:22 100 18 137/68 (91) 96 Room Air 05/09/17 20:35 97 18 149/72 (97) 98 Room Air 05/09/17 20:05 99 17 148/73 (98) 97 Room Air 05/09/17 19:09 98.3 05/09/17 16:21 97.7 105 15 124/75 (91) 97 I/O 05/09/17 05/09/17 05/09/17 05/10/17 05/10/17 05/10/17 07:00 15:00 23:00 07:00 15:00 23:00 Intake Total 2000 ml Output Total 800 ml Balance 2000 ml -800 ml Intake IV Total 2000 ml Output Urine Total 800 ml Result Diagram: 05/10/17 0745 05/10/17 0745 Imaging Last Impressions Scrotum Ultrasound 05/09/17 0000 Signed Impressions: Service Date/Time: Tuesday, May 09, 2017 17:54 - CONCLUSION: 1. 16mm mildly complex fluid collection superior and lateral to the right testicle. Exact etiology is uncertain. This could be an exophytic epididymal cyst. I see no hyperemia to suggest an abscess. Consideration could be made to a follow up ultrasound in 3-6 months to document stability/resolution. Darin Walters Jr., MD Abdomen/Pelvis CT 05/09/17 0000 Signed Impressions: Service Date/Time: Tuesday, May 09, 2017 19:14 - CONCLUSION: 1. No acute abnormality. 2. Long-term stable pneumobilia likely related to prior sphincterotomy. 3. Prior cholecystectomy with mild prominence of the extrahepatic biliary tree consistent with capacitance effect. This is long- term stable. Darin Walters Jr., MD Objective Remarks GENERAL: Pleasant middle-aged white male in no acute distress. CARDIOVASCULAR: Regular rate and rhythm. No obvious murmurs to auscultation. No chest tenderness to palpation. RESPIRATORY: No obvious rhonchi or wheezing. Clear to auscultation. Breath sounds equal bilaterally. GASTROINTESTINAL: Abdomen soft, non-tender, nondistended. BS normal. + suprapubic tenderness to palpation, no hernia noted. MUSCULOSKELETAL: Extremities without clubbing, cyanosis, or edema. No obvious deformities. NEUROLOGICAL: Awake, alert and oriented x4. No focal neurologic deficits. Moving both upper and lower extremities spontaneously. A/P Problem List: (1) Intractable abdominal pain ICD Code: R10.9 - Unspecified abdominal pain Status: Acute (2) Epididymal cyst ICD Code: N50.3 - Cyst of epididymis Status: Acute (3) Hyperkalemia ICD Code: E87.5 - Hyperkalemia (4) Leukocytosis ICD Code: D72.829 - Elevated white blood cell count, unspecified Status: Acute (5) SHANNA (acute kidney injury) ICD Code: N17.9 - SHANNA (acute kidney injury) Status: Acute (6) GERD (gastroesophageal reflux disease) ICD Code: K21.9 - Gastro-esophageal reflux disease without esophagitis (7) HTN (hypertension) ICD Code: I10 - Essential (primary) hypertension Assessment and Plan Intractable Abd Pain: s/p heavy lifting 2 days ago, pain constant, s/p multiple doses of Morphine IV in ER w/ minimal improvement. CT Abd/Pelvis w/ no acute findings, images reviewed by me. Pain likely musculoskeletal from recent heavy lifting. Continue analgesics/antiemetics, Valium prn muscle spasm , Anti-inflammatory as needed. Epididymal Cyst: Scrotal US w/ mildly complex fluid collection right testicle, likely epididymal cyst, no abscess noted, recommendation for outpatient follow- up, images reviewed by me. Pt reports intermittent testicular swelling, recommendation for follow up w/ PCP at [place] and referral to Urology as outpatient. U/a negative for UTI. Patient however with severe groi pain will consult urology for evaluatio and further recommendations, Hyperkalemia on admission now with hypokalemia. K+ 5.3, hemolysis noted. mOnitor nad replace as need. SHANNA: Creatinine 1.67, previously 1.38 on 02/21/17. Imprpving. continue to monitor kidney function. IVF for hydration Leukocytosis: WBC 12 on admission unclear etiology, no obvious infection at this time. Will monitor vitals, repeat labs in am. GERD: significant reflux, resume home Protonix, Maalox//Lidocaine prn as needed. DVT Prophylaxis: SCD/Teds. CM consulted for d/c planning as needed. Discussed with the patient, nurse DC plan DC when improved, consult urology as pt with severe scrotal pain Bhavani Trent MD May 10, 2017 09:40
[2017-05-10] MEDS: ALLOPURINOL 300 MG TAB PO SCH (09:41)
[2017-05-10] MEDS: NIFEdipine 60 MG SUSTAINED RELEASE TAB PO SCH (09:41)
[2017-05-10] MEDS: PANTOPRAZOLE SOD 40 MG DELAYED RELEASE TAB PO SCH (09:42)
[2017-05-10] MEDS: ASPIRIN EC 81 MG TABEC PO SCH (09:42)
[2017-05-10] MEDS: DULoxetine HCl DR 60 MG CAP PO SCH ×2 (09:42→20:41)
[2017-05-10] MEDS: GABAPENTIN 300 MG CAP PO SCH ×3 (09:42→17:58)
[2017-05-10] MEDS: buPROPion HCL 150 MG EXTENDED RELEASE TAB PO SCH (09:42)
[2017-05-10] MEDS: MAGNESIUM OXIDE 400 MG TAB PO SCH ×3 (09:42→17:58)
[2017-05-10] MEDS: SILDENAFIL CITRATE 20 MG TAB PO SCH ×3 (09:42→17:57)
[2017-05-10] MEDS: DOCUSATE SODIUM 50 MG/SENNA 8.6 MG TAB PO SCH ×2 (09:43→20:41)
[2017-05-10] MEDS: SODIUM CHLORIDE 0.9% FLUSH 10 ML FLUSH IV FLUSH SCH ×2 (09:52→21:00)
[2017-05-10 11:28] VITALS: BP 152/73; PULSE 87; RESP 18; TEMP 98.4; O2SAT 91
[2017-05-10 14:46] VITALS: BP 131/75; PULSE 82; RESP 18; TEMP 98; O2SAT 94
--- NOTE | 2017-05-10 14:58 | EKG ---
Date Performed: 05/09/2017 Time Performed: 20:07:20 PTAGE: 71 years EKG: Sinus rhythm PATTERN CONSISTENT WITH PULMONARY DISEASE LEFT ANTERIOR FASCICULAR BLOCK NONSPECIFIC T-WAVE ABNORMAL ITY ABNORMAL ECG Since PREVIOUS TRACING , no significant change noted PREVIOUS TRACIN02/21/2017 01.49 DOCTOR: Jerson Jameson Interpretating Date/Time 05/10/2017 14:56:54
--- NOTE | 2017-05-10 15:47 | PD.CONS ---
HPI Service Urology Consult Requested By Reason for Consult Epididymal cyst Primary Care Physician [facility] Diagnosis: (1) Intractable abdominal pain ICD Code: R10.9 - Unspecified abdominal pain (2) Epididymal cyst ICD Code: N50.3 - Cyst of epididymis (3) Hyperkalemia ICD Code: E87.5 - Hyperkalemia (4) Leukocytosis ICD Code: D72.829 - Elevated white blood cell count, unspecified (5) SHANNA (acute kidney injury) ICD Code: N17.9 - SHANNA (acute kidney injury) (6) GERD (gastroesophageal reflux disease) ICD Code: K21.9 - Gastro-esophageal reflux disease without esophagitis (7) HTN (hypertension) ICD Code: I10 - Essential (primary) hypertension History of Present Illness 71yo male admitted due to abdominal pain seen in consultation for right groin pain and epididymal cyst noted on Scrotal U/S. Patient reports he did some heavy work few days ago at which point he began to develop abdominal pain as well as left groin pain. This is persistent and has not improved. Points to pain in the left groin region, intermittent, however sharp and severe at times. Pain does radiate to the left groin as well. No fevers. No N/V. Reports some mild LUTS with frequency and slow stream. No hematuria. Review of Systems ROS Limitations: Clinical Condition Constitutional: DENIES: Fever Endocrine: DENIES: Polyuria Eyes: DENIES: Blurred vision Ears, nose, mouth, throat: DENIES: Hearing loss Respiratory: DENIES: Cough Cardiovascular: DENIES: Chest pain Gastrointestinal: COMPLAINS OF: Abdominal pain, Diarrhea Genitourinary: DENIES: Hematuria, Dysuria Musculoskeletal: DENIES: Back pain Integumentary: DENIES: Rash Hematologic/lymphatic: DENIES: Bruising Neurologic: DENIES: Headache Psychiatric: DENIES: Anxiety Except as stated in HPI: all other systems reviewed are Neg Past Family Social History Past Medical History Anxiety, Depression, h/o A-fib, HTN, Hyperlipidemia, Gout, GERD and Peripheral Neuropathy Past Surgical History Partial Colectomy, Cholecystectomy, Hernia Repair, Cardiac Cath, Loop Recorder Reported Medications Reported Meds & Active Scripts Active Hydralazine HCl 25 Mg Tablet 25 Mg PO Q8HR Hold if systolic BP < 120 Reported Indomethacin 25 Mg Cap 25 Mg PO TID Take with food, milk, or antacids to decrease stomach adverse effects. Sildenafil 20 Mg Tab 20 Mg PO TID Donepezil 5 Mg Tab 5 Mg PO HS Potassium Chloride ER (Potassium Chloride) 20 Meq Tab 20 Meq PO DAILY [Anti-Depressant] 1 Tab PO DAILY Wellbutrin Xl 24 HR (Bupropion HCl) 300 Mg Tab 300 Mg PO DAILY Duloxetine DR (Duloxetine HCl) 60 Mg Capdr 60 Mg PO BID Trazodone (Trazodone HCl) 100 Mg Tablet 200-300 Mg PO HS Testosterone Enanthate Inj (Testosterone Enanthate) 200 Mg/Ml Inj 200 Mg IM EVERY 2 WEEKS Protonix (Pantoprazole Sodium) 40 Mg Tab 40 Mg PO DAILY Procardia XL (Nifedipine) 60 Mg Tab 60 Mg PO DAILY Magnesium Oxide 400 Mg Tab 400 Mg PO TID Gabapentin 300 Mg Cap 300 Mg PO TID Lipitor (Atorvastatin Calcium) 20 Mg Tab 20 Mg PO HS Aspirin Adult Low Strength (Aspirin) 81 Mg Tabdr 81 Mg PO DAILY Zyloprim (Allopurinol) 300 Mg Tab 300 Mg PO DAILY Allergies: Coded Allergies: codeine (Unverified Allergy, Mild, RASH, 05/09/17) Active Ordered Medications Current Medications Medications (Trade) Dose Ordered Sig/Sandhya Route Start Time Stop Time Status Last Admin (NS Flush) 2 ml UNSCH PRN IV FLUSH 05/09/17 21:45 (NS Flush) 2 ml BID IV FLUSH 05/10/17 09:00 (Zofran Inj) 4 mg Q6H PRN IVP 05/09/17 21:45 05/10/17 00:01 (Tylenol) 650 mg Q6H PRN PO 05/09/17 21:45 (Dilaudid Pf Inj) 0.5 mg Q3H PRN IV PUSH 05/09/17 21:45 05/10/17 14:22 (Dilaudid) 1 mg Q4H PRN PO 05/09/17 21:45 (Karen-Colace) 1 tab BID PO 05/10/17 09:00 (Milk Of Magnesia Liq) 30 ml Q12H PRN PO 05/09/17 21:45 (Senokot) 17.2 mg Q12H PRN PO 05/09/17 21:45 (Dulcolax Supp) 10 mg DAILY PRN RECTAL 1/19/18 21:45 (Lactulose Liq) 30 ml DAILY PRN PO 05/09/17 21:45 (Valium) 5 mg Q8H PRN PO 05/10/17 06:00 (Zyloprim) 300 mg DAILY PO 05/10/17 09:00 05/10/17 09:41 (Ecotrin Ec) 81 mg DAILY PO 05/10/17 09:00 05/10/17 09:42 (Lipitor) 20 mg HS PO 05/10/17 21:00 (Wellbutrin Xl 24 Hr) 300 mg DAILY PO 05/10/17 09:00 05/10/17 09:42 (Aricept) 5 mg HS PO 05/10/17 21:00 (Cymbalta Dr) 60 mg BID PO 05/10/17 09:00 05/10/17 09:42 (Neurontin) 300 mg TID PO 05/10/17 09:00 05/10/17 14:27 (Apresoline) 25 mg Q8HR PO 05/09/17 22:00 05/10/17 14:27 (Mag-Ox) 400 mg TID PO 05/10/17 09:00 05/10/17 14:27 (Procardia Xl) 60 mg DAILY PO 05/10/17 09:00 05/10/17 09:41 (Protonix) 40 mg DAILY PO 05/10/17 09:00 05/10/17 09:42 (Revatio) 20 mg TID PO 05/10/17 09:00 05/10/17 15:32 (Desyrel) 200 mg HS PO 05/09/17 21:45 05/09/17 22:36 ( Liq) 10 ml Q6H PRN PO 05/09/17 22:00 (Mag-Al Plus Susp Liq) 30 ml Q6H PRN PO 05/09/17 22:00 (Xylocaine 2% Viscous) 15 ml Q4H PRN SWISH-SWAL 05/09/17 22:00 (Lactinex) 1 tab Q12HR PO 05/10/17 21:00 Family History Family history reviewed and noncontributory to present illness. No h/o DM or CAD Social History Occasional alcohol. Negative for tobacco or drugs. Physical Exam Vital Signs Date Time Temp Pulse Resp B/P (MAP) Pulse Ox O2 Delivery O2 Flow Rate FiO2 1/20/18 15:00 22 05/10/17 14:46 98.0 82 18 131/75 (93) 94 05/10/17 11:28 98.4 87 18 152/73 (99) 91 05/10/17 07:23 98.1 85 18 122/56 (78) 91 05/10/17 03:53 97.8 88 15 140/62 (88) 92 05/10/17 00:06 97.9 87 16 126/70 (88) 93 05/09/17 22:54 132/76 (94) 05/09/17 22:41 96 17 156/86 (109) 97 Room Air 05/09/17 21:22 100 18 137/68 (91) 96 Room Air 05/09/17 20:35 97 18 149/72 (97) 98 Room Air 05/09/17 20:05 99 17 148/73 (98) 97 Room Air 05/09/17 19:09 98.3 05/09/17 16:21 97.7 105 15 124/75 (91) 97 Physical Exam GENERAL: This is a well-nourished, well-developed patient, in no apparent distress. SKIN: No rashes, ecchymoses or lesions. Cool and dry. HEAD: Atraumatic. Normocephalic. EYES: Extraocular motions intact. No scleral icterus. No injection or drainage. ENT: Nose without bleeding, purulent drainage. Airway patent. NECK: Trachea midline. No JVD or lymphadenopathy CARDIOVASCULAR: Normal pulse RESPIRATORY: Nonlabored GENITOURINARY: Circumcised phallus, urethral meatal stenosis noted; Bilateral descended testis, no masses; Tenderness noted on both posterior testis and epididymis; difficult to palpate any cystic area consistent with scrotal U/S. No evidence of infection or mass. MUSCULOSKELETAL: Extremities without clubbing, cyanosis, or edema. NEUROLOGICAL: Awake and alert. Motor and sensory grossly within normal limits. Normal speech. Lab results reviewed: Yes Laboratory Tests Test 05/09/17 17:30 05/09/17 20:45 05/10/17 07:45 White Blood Count 12.3 7.2 Red Blood Count 5.89 4.49 Hemoglobin 18.7 14.3 Hematocrit 53.9 41.1 Mean Corpuscular Volume 91.5 91.5 Mean Corpuscular Hemoglobin 31.8 31.8 Mean Corpuscular Hemoglobin Concent 34.8 34.8 Red Cell Distribution Width 13.9 14.1 Platelet Count 328 254 Mean Platelet Volume 7.4 7.4 Neutrophils (%) (Auto) 76.5 62.3 Lymphocytes (%) (Auto) 14.2 26.4 Monocytes (%) (Auto) 7.5 7.9 Eosinophils (%) (Auto) 1.2 2.5 Basophils (%) (Auto) 0.6 0.9 Neutrophils # (Auto) 9.4 4.5 Lymphocytes # (Auto) 1.8 1.9 Monocytes # (Auto) 0.9 0.6 Eosinophils # (Auto) 0.1 0.2 Basophils # (Auto) 0.1 0.1 CBC Comment AUTO DIFF DIFF FINAL Differential Comment AUTO DIFF CONFIRMED Prothrombin Time 10.7 Prothromb Time International Ratio 1.1 Activated Partial Thromboplast Time 26.8 Blood Urea Nitrogen 13 10 Creatinine 1.67 1.23 Random Glucose 88 97 Total Protein 8.6 5.9 Albumin 4.0 3.0 Calcium Level 9.5 7.8 Alkaline Phosphatase 161 152 Aspartate Amino Transf (AST/SGOT) 70 63 Alanine Aminotransferase (ALT/SGPT) 50 72 Total Bilirubin 0.9 0.5 Sodium Level 136 139 Potassium Level 5.3 3.4 Chloride Level 102 105 Carbon Dioxide Level 25.9 26.4 Anion Gap 8 8 Estimat Glomerular Filtration Rate 41 58 Lactic Acid Level 1.4 Urine Color YELLOW Urine Turbidity CLEAR Urine pH 6.0 Urine Specific [place] GREATER THAN 1.050 Urine Protein 30 Urine Glucose (UA) NEG Urine Ketones 10 Urine Occult Blood NEG Urine Nitrite NEG Urine Bilirubin NEG Urine Urobilinogen LESS THAN 2.0 Urine Leukocyte Esterase NEG Urine RBC LESS THAN 1 Urine WBC 1 Urine Hyaline Casts 6 Urine Mucus FEW Microscopic Urinalysis Comment CULT NOT INDICATED Magnesium Level 2.0 Result Diagram: 05/10/17 0745 05/10/17 0745 Personally reviewed images: Yes Imaging Last Impressions Scrotum Ultrasound 05/09/17 0000 Signed Impressions: Service Date/Time: Tuesday, May 09, 2017 17:54 - CONCLUSION: 1. 16mm mildly complex fluid collection superior and lateral to the right testicle. Exact etiology is uncertain. This could be an exophytic epididymal cyst. I see no hyperemia to suggest an abscess. Consideration could be made to a follow up ultrasound in 3-6 months to document stability/resolution. Darin Walters Jr., MD Abdomen/Pelvis CT 05/09/17 0000 Signed Impressions: Service Date/Time: Tuesday, May 09, 2017 19:14 - CONCLUSION: 1. No acute abnormality. 2. Long-term stable pneumobilia likely related to prior sphincterotomy. 3. Prior cholecystectomy with mild prominence of the extrahepatic biliary tree consistent with capacitance effect. This is long- term stable. Darin Walters Jr., MD Assessment and Plan Problem List: (1) Intractable abdominal pain ICD Code: R10.9 - Unspecified abdominal pain Status: Acute (2) Epididymal cyst ICD Code: N50.3 - Cyst of epididymis Status: Acute Assessment and Plan -Physical exam and review of imaging studies do not indicate any acute intratesticular or scrotal process. No surgical intervention indicated at this time -Recommend scrotal support, Flomax, and toradol for pain -Patient to follow-up with Urology after discharge to establish care and continue to monitor scrotal U/S findings -Please call with questions Franki Cormier MD May 10, 2017 15:47
[2017-05-10] MEDS: DIAZEPAM 5 MG TAB PO PRN (18:15)
[2017-05-10] MEDS: ATROPINE/SCOPOLAM/HYOSCYAM/PB ELIXIR 10 ML CUP PO PRN (19:46)
[2017-05-10] MEDS: LACTOBACILLUS ACIDOPHILUS TAB PO SCH (20:41)
[2017-05-10] MEDS: traZODone HCL 100 MG TAB PO SCH (20:42)
[2017-05-10 20:46] VITALS: BP 130/61; PULSE 100; RESP 17; TEMP 98.1; O2SAT 91
[2017-05-10] MEDS ORDERED: ATORVASTATIN 20 MG TAB PO SCH (21:00)
[2017-05-10] MEDS ORDERED: DONEPEZIL HCL 5 MG TAB PO SCH (21:00)
[2017-05-11 00:08] VITALS: BP 132/75; PULSE 94; RESP 17; TEMP 98.6; O2SAT 92
[2017-05-11] MEDS: ATROPINE/SCOPOLAM/HYOSCYAM/PB ELIXIR 10 ML CUP PO PRN (02:05)
[2017-05-11] MEDS: DIAZEPAM 5 MG TAB PO PRN (02:48)
[2017-05-11 03:21] VITALS: BP 136/79; PULSE 97; RESP 17; TEMP 98.5; O2SAT 92
[2017-05-11] MEDS: hydrALAZINE HCL 25 MG TAB PO SCH (06:24)
[2017-05-11] MEDS: HYDROmorphone HCL PF 2 MG/ML VIAL IV PUSH PRN (06:24)
[2017-05-11 08:14] VITALS: BP 148/72; PULSE 92; RESP 18; TEMP 97.8; O2SAT 94
[2017-05-11 08:33] LABS: ALBUMIN 3.3 GM/DL (3.4-5.0); ALT (GPT) 57 U/L (12-78); AST (GOT) 28 U/L (15-37); BICARBONATE 29.1 MEQ/L (21.0-32.0); BLOOD UREA NITROGEN 7 MG/DL (7-18); CALCIUM 8.3 MG/DL (8.5-10.1); CHLORIDE 98 MEQ/L (98-107); CREATININE 1.04 MG/DL (0.60-1.30); GLOMERULAR FILTRATION RATE 71 ML/MIN (>89); GLUCOSE,RANDOM 134 MG/DL (74-106); SODIUM (NA) 134 MEQ/L (136-145)
[2017-05-11 08:36] LABS: ALKALINE PHOSPHATASE 145 U/L (45-117); TOTAL BILIRUBIN ADULT 0.5 MG/DL (0.2-1.0); TOTAL PROTEIN 6.7 GM/DL (6.4-8.2)
[2017-05-11] MEDS: DOCUSATE SODIUM 50 MG/SENNA 8.6 MG TAB PO SCH (09:00)
[2017-05-11] MEDS: ASPIRIN EC 81 MG TABEC PO SCH (10:02)
[2017-05-11] MEDS: ALLOPURINOL 300 MG TAB PO SCH (10:03)
[2017-05-11] MEDS: NIFEdipine 60 MG SUSTAINED RELEASE TAB PO SCH (10:03)
[2017-05-11] MEDS: GABAPENTIN 300 MG CAP PO SCH (10:03)
[2017-05-11] MEDS: MAGNESIUM OXIDE 400 MG TAB PO SCH (10:03)
[2017-05-11] MEDS: buPROPion HCL 150 MG EXTENDED RELEASE TAB PO SCH (10:03)
[2017-05-11] MEDS: PANTOPRAZOLE SOD 40 MG DELAYED RELEASE TAB PO SCH (10:03)
[2017-05-11] MEDS: SILDENAFIL CITRATE 20 MG TAB PO SCH (10:03)
[2017-05-11] MEDS: DULoxetine HCl DR 60 MG CAP PO SCH (10:04)
[2017-05-11] MEDS: SODIUM CHLORIDE 0.9% FLUSH 10 ML FLUSH IV FLUSH SCH (10:04)
[2017-05-11] MEDS: LACTOBACILLUS ACIDOPHILUS TAB PO SCH (10:04)
--- NOTE | 2017-05-11 10:48 | HHI.DCPOC ---
Discharge Care Plan Diagnosis: (1) Epididymal cyst (2) Intractable abdominal pain (3) Hyperkalemia (4) SHANNA (acute kidney injury) (5) Leukocytosis Goals to Promote Your Health * To prevent worsening of your condition and complications * To maintain your health at the optimal level Directions to Meet Your Goals Take your medications as prescribed Follow your dietary instruction Follow activity as directed Keep your appointments as scheduled Take your immunizations and boosters as scheduled If your symptoms worsen call your PCP, if no PCP go to Urgent Care Center or Emergency Room Smoking is Dangerous to Your Health. Avoid second hand smoke Call the 24-hour hour crisis hotline for domestic abuse at Hailey Miller May 11, 2017 10:48
--- NOTE | 2017-05-11 10:49 | HHI.DS ---
Discharge Summary Admission Date May 09, 2017 at 21:30 Discharge Date: May 11, 2017 Admitting Diagnosis intractable abdominal pain, epididymal cyst (1) Intractable abdominal pain ICD Code: R10.9 - Unspecified abdominal pain Status: Acute (2) Epididymal cyst ICD Code: N50.3 - Cyst of epididymis Status: Acute (3) Hyperkalemia ICD Code: E87.5 - Hyperkalemia (4) Leukocytosis ICD Code: D72.829 - Elevated white blood cell count, unspecified Status: Acute (5) SHANNA (acute kidney injury) ICD Code: N17.9 - SHANNA (acute kidney injury) Status: Acute (6) GERD (gastroesophageal reflux disease) ICD Code: K21.9 - Gastro-esophageal reflux disease without esophagitis (7) HTN (hypertension) ICD Code: I10 - Essential (primary) hypertension Procedures none Brief History - From Admission This is a 71-year-old male with a PMH of Anxiety, Depression, h/o A-fib, HTN, Hyperlipidemia, Gout, GERD and Peripheral Neuropathy who presented to the ER w/ complaints of severe abdominal pain x2 days. States pain started after lifting firewood, concerned he may have a hernia. Pain is located in lower abdomen and groin bilaterally, constant, sharp, 8-9/10, worse w/ movement, non-radiating. Denies nausea, vomiting, diarrhea, fever or chills. On arrival, BP 148/73, HR 99, O2 sat 97% on RA, Afebrile. WBC 12.3. Hemoglobin 18.7. K+ 5.3. Creatinine 1.67, previously 1.38 on 02/21/17. INR 1.1. UA negative. CT Abd/ Pelvis w/ long-term stable pneumobilia related to prior sphincterotomy, prior cholecystectomy. Scrotal US mildly complex fluid collection superior and lateral to right testicle, etiology unknown, possibly epididymal cyst, recommendation for repeat ultrasound in 3-6 months. S/p multiple doses of Morphine and GI Cocktail in ER w/ minimal improvement. CBC/BMP: 05/10/17 0745 05/11/17 0755 Significant Findings Laboratory Tests Test 05/09/17 17:30 05/09/17 20:45 05/10/17 07:45 05/11/17 07:55 White Blood Count 12.3 TH/MM3 (4.0-11.0) Hemoglobin 18.7 GM/DL (13.0-17.0) Hematocrit 53.9 % (39.0-51.0) Neutrophils (%) (Auto) 76.5 % (16.0-70.0) Neutrophils # (Auto) 9.4 TH/MM3 (1.8-7.7) Creatinine 1.67 MG/DL (0.60-1.30) Total Protein 8.6 GM/DL (6.4-8.2) 5.9 GM/DL (6.4-8.2) Alkaline Phosphatase 161 U/L (45-117) 152 U/L (45-117) 145 U/L (45-117) Aspartate Amino Transf (AST/SGOT) 70 U/L (15-37) 63 U/L (15-37) Potassium Level 5.3 MEQ/L (3.5-5.1) 3.4 MEQ/L (3.5-5.1) Estimat Glomerular Filtration Rate 41 ML/MIN (>89) 58 ML/MIN (>89) 71 ML/MIN (>89) Urine Specific [place] GREATER THAN 1.050 Urine Protein 30 mg/dL (NEG-TRACE) Urine Ketones 10 mg/dL (NEG) Urine Mucus FEW /lpf (OCC) Red Blood Count 4.49 MIL/MM3 (4.50-5.90) Albumin 3.0 GM/DL (3.4-5.0) 3.3 GM/DL (3.4-5.0) Calcium Level 7.8 MG/DL (8.5-10.1) 8.3 MG/DL (8.5-10.1) Random Glucose 134 MG/DL (74-106) Sodium Level 134 MEQ/L (136-145) Imaging Last Impressions Scrotum Ultrasound 05/09/17 0000 Signed Impressions: Service Date/Time: Tuesday, May 09, 2017 17:54 - CONCLUSION: 1. 16mm mildly complex fluid collection superior and lateral to the right testicle. Exact etiology is uncertain. This could be an exophytic epididymal cyst. I see no hyperemia to suggest an abscess. Consideration could be made to a follow up ultrasound in 3-6 months to document stability/resolution. Darin Walters Jr., MD Abdomen/Pelvis CT 05/09/17 0000 Signed Impressions: Service Date/Time: Tuesday, May 09, 2017 19:14 - CONCLUSION: 1. No acute abnormality. 2. Long-term stable pneumobilia likely related to prior sphincterotomy. 3. Prior cholecystectomy with mild prominence of the extrahepatic biliary tree consistent with capacitance effect. This is long- term stable. Darin Walters Jr., MD PE at Discharge GENERAL: Pleasant middle-aged white male in no acute distress. CARDIOVASCULAR: Regular rate and rhythm. No obvious murmurs to auscultation. No chest tenderness to palpation. RESPIRATORY: No obvious rhonchi or wheezing. Clear to auscultation. Breath sounds equal bilaterally. GASTROINTESTINAL: Abdomen soft, non-tender, nondistended. BS normal. + suprapubic tenderness to palpation, no hernia noted. MUSCULOSKELETAL: Extremities without clubbing, cyanosis, or edema. No obvious deformities. NEUROLOGICAL: Awake, alert and oriented x4. No focal neurologic deficits. Moving both upper and lower extremities spontaneously. Pt update on day of discharge Feels better. no diarrhea. No n/v/d/c. Pain in his groin is fairly controlled. No n/v/d/c. Hospital Course Intractable Abd Pain: s/p heavy lifting 2 days ago, pain constant, s/p multiple doses of Morphine IV in ER w/ minimal improvement. CT Abd/Pelvis w/ no acute findings, images reviewed by me. Pain likely musculoskeletal from recent heavy lifting. Continue analgesics/antiemetics, Valium prn muscle spasm , Anti-inflammatory as needed. Epididymal Cyst: Scrotal US w/ mildly complex fluid collection right testicle, likely epididymal cyst, no abscess noted, recommendation for outpatient follow- up, images reviewed by me. Pt reports intermittent testicular swelling, recommendation for follow up w/ PCP at [place] and referral to Urology as outpatient. U/a negative for UTI. Patient however with severe groin pain will consult urology for evaluation and further recommendations. Urology recommends scrotal sling pain control and to follow up as OP with urology Diarrhea resolved. Hyperkalemia on admission now with hypokalemia. K+ 5.3, hemolysis noted. Monitor and replace as need. SHANNA: Creatinine 1.67, previously 1.38 on 02/21/17. Imprpving. continue to monitor kidney function. IVF for hydration Leukocytosis: WBC 12 on admission unclear etiology, no obvious infection at this time. Will monitor vitals, repeat labs in am. GERD: significant reflux, resume home Protonix, Maalox//Lidocaine prn as needed. DVT Prophylaxis: SCD/Teds. CM consulted for d/c planning as needed. Discussed with the patient, nurse DC home in stable condition to follow up as OP with PCP and consultants Pt Condition on Discharge: Stable Discharge Disposition: Discharge Home Discharge Time: > 30 minutes Discharge Instructions DIET: Follow Instructions for: Heart Healthy Diet Activities you can perform: Regular-No Restrictions Follow up Referrals: PCP Follow-up - 1 Week Urology - 1 Week with Franki Cormier MD New Medications: Hydrocodone-Acetaminophen (Hydrocodone-Acetaminophen) 5-300 Mg Tab 1 TAB PO Q6H PRN for PAIN, #20 TAB 0 Refills Continued Medications: Allopurinol (Zyloprim) 300 Mg Tab 300 MG PO DAILY for Gout, #30 TAB [address] (Aspirin Adult Low Strength) 81 Mg Tabdr 81 MG PO DAILY, TAB Atorvastatin (Lipitor) 20 Mg Tab 20 MG PO HS for Cholesterol Management, #30 TAB 0 Refills Bupropion HCl ER 24 HR (Wellbutrin Xl 24 HR) 300 Mg Tab 300 MG PO DAILY for Control Depression, TAB 0 Refills Donepezil (Donepezil) 5 Mg Tab 5 MG PO HS for Dementia, #30 TAB [address] (Duloxetine DR) 60 Mg Capdr 60 MG PO BID, #30 CAP 0 Refills Gabapentin (Gabapentin) 300 Mg Cap 300 MG PO TID, #90 CAP 0 Refills Hydralazine HCl (Hydralazine HCl) 25 Mg Tablet 25 MG PO Q8HR for Blood Pressure Management, #90 TAB Hold if systolic BP < 120 Nifedipine ER 24 HR (Procardia XL) 60 Mg Tab 60 MG PO DAILY for Blood Pressure Management, #30 TAB 0 Refills Pantoprazole (Protonix) 40 Mg Tab 40 MG PO DAILY for Reflux, #30 TAB 0 Refills Sildenafil (Sildenafil) 20 Mg Tab 20 MG PO TID for Pulm. arterial hypertension, #90 TAB 0 Refills Testosterone Enanthate Inj (Testosterone Enanthate Inj) 200 Mg/Ml Inj 200 MG IM EVERY 2 WEEKS for Hormone Replacement, #1 VIAL 0 Refills Trazodone (Trazodone) 100 Mg Tablet 200-300 MG PO HS for Control Depression, #30 TAB 0 Refills [Anti-Depressant] () 1 TAB PO DAILY for Depression Control Discontinued Medications: Indomethacin (Indomethacin) 25 Mg Cap 25 MG PO TID, CAP 0 Refills Take with food, milk, or antacids to decrease stomach adverse effects. Magnesium Oxide (Magnesium Oxide) 400 Mg Tab 400 MG PO TID for Nutritional Supplement, TAB 0 Refills Potassium Chloride ER (Potassium Chloride ER) 20 Meq Tab 20 MEQ PO DAILY for Electrolyte Replacement, #30 TAB 0 Refills Bhavani Trent MD May 11, 2017 10:49
[2017-05-11] MEDS ORDERED: HYDR-4107 PO (10:51)
[2017-05-11 11:47] VITALS: BP 164/77; PULSE 90; RESP 18; TEMP 98; O2SAT 94
[2017-05-12] MEDS ORDERED: HYDR-3516 PO ×2 (17:00→17:18)
== END 2017-05-11 13:10 | disposition home or self-care (01) ==
LOC: NEPD 16:20 → NEDA 21:30 → NEPFCDU 23:28
PROVIDERS: ADMIT Hospitalist; ATTEND Hospitalist
DX: R10.30 Lower abdominal pain, unspecified (principal); N50.3 Cyst of epididymis; E87.5 Hyperkalemia; D72.829 Elevated white blood cell count, unspecified; N17.9 Acute kidney failure, unspecified; K21.9 Gastro-esophageal reflux disease without esophagitis; I11.0 Hypertensive heart disease with heart failure; I48.91 Unspecified atrial fibrillation; E78.5 Hyperlipidemia, unspecified; M10.9 Gout, unspecified; G62.9 Polyneuropathy, unspecified; F41.9 Anxiety disorder, unspecified; F32.9 Major depressive disorder, single episode, unspecified; R35.0 Frequency of micturition; M19.90 Unspecified osteoarthritis, unspecified site; E78.00 Pure hypercholesterolemia, unspecified; I50.9 Heart failure, unspecified; K44.9 Diaphragmatic hernia without obstruction or gangrene; G47.30 Sleep apnea, unspecified
CPT/HCPCS: 74177; 76870; 80053; 81001; 83605; 83735; 85025; 85610; 85730; 93005; 93975; 96361; 96374; 96375; 96376; 99285; G0378; J1170; J2270; J2405; J7030; P9612; Q9967

== ENCOUNTER 2017-09-12 14:41 | Inpatient (IN) | payer MEDICARE, OTHER ==
[~2017-09-12] VITALS: Ht 182.9 cm; Wt 86.2 kg
[~2017-09-12 14:41] MED LIST changes: +DONE5TAB7 PO; +HYDR-3516 PO; -MAGN400T2 PO; +SILD20TA11 PO; -TRAM50 PO
[2017-09-12 15:56] VITALS: BP 160/98; PULSE 105; RESP 17; TEMP 98.4; O2SAT 98
[2017-09-12] MEDS ORDERED: MECL12.574 PO (16:32)
[2017-09-12] MEDS ORDERED: CEPH500C PO (16:32)
[2017-09-12 16:41] VITALS: BP_SYST 139; BP_SYST 160; BP_SYST 187; BP_DIAS 74; BP_DIAS 81; BP_DIAS 99; RESP 18; RESP 20
[2017-09-12] MEDS ORDERED: SODIUM CHLORID 0.9% 500 ML INJ 500 ML IV ONE (16:45)
[2017-09-12] MEDS ORDERED: METOCLOPRAMIDE HCL 10 MG/2 ML VIAL IV PUSH ONE (16:45)
[2017-09-12 16:55] LABS: AUTOMATED NEUTROPHIL # 9.1 TH/MM3 (1.8-7.7); BASOPHIL # 0.1 TH/MM3 (0-0.2); BASOPHIL % 0.4 % (0.0-2.0); EOSINOPHIL % 0.4 % (0.0-4.0); HEMATOCRIT 50.2 % (39.0-51.0); HEMOGLOBIN 18.1 GM/DL (13.0-17.0); LYMPH % 13.8 % (9.0-44.0); LYMPHOCYTE # 1.6 TH/MM3 (1.0-4.8); MEAN CELL VOLUME 88.2 FL (80.0-100.0); MEAN CORPUSCULAR HEMOGLOBIN 31.7 PG (27.0-34.0); MEAN PLATELET VOLUME 8.1 FL (7.0-11.0); MONOCYTE # 0.9 TH/MM3 (0-0.9); NEUT % 77.4 % (16.0-70.0); PLATELET COUNT 336 TH/MM3 (150-450); RED CELL DISTRIBUTION WIDTH 13.5 % (11.6-17.2); WHITE BLOOD COUNT 11.7 TH/MM3 (4.0-11.0)
--- NOTE | 2017-09-12 16:55 | PD ---
HPI Chief Complaint: GI Complaint Time Seen by Provider: 16:20 Travel History International Travel<30 days: No Contact w/Intl Traveler<30days: No Traveled to known affect area: No History of Present Illness HPI 72-year-old male the presents to the ED for evaluation of nausea and vomiting after starting antibiotics for a left ear infection. Patient has been feeling dizzy and having multiple falls since starting antibiotics. Per family and patient the dizziness as well as the multiple falls that he has had her chronic for him and has no change. This is been ongoing for some time. What is new is the nausea and vomiting. Patient also complains of a headache. He states that he gets headaches on and off this 1 has lasted for almost a week now. Per patient the pain is 7 out of 10. He states compliant with her medications. Significant other shows me the medications the patient was prescribed at the [facility] and apparently he was given a prescription for meclizine and Keflex. He also was given some eardrops but the significant other and the patient cannot really tell me what they were as he did not bring it. Patient states that the headaches have been ongoing for some time and there are no new. Mainly the patient and the family are concerned about the nausea and vomiting. No chest pain or shortness of breath. No abdominal pain. No diarrhea. No other medical issues. Allergy to codeine. PFSH Past Medical History Arthritis: Yes Asthma: No Atrial Fibrillation: Yes Autoimmune Disease: No Blood Disorders: No Anxiety: Yes Depression: Yes Heart Rhythm Problems: Yes (A-FIB pt denises, PVC'S) Cancer: No Cardiac Catheterization: Yes Cardiovascular Problems: Yes (LOOP RECORDER, HTN) High Cholesterol: Yes Chemotherapy: No Chest Pain: Yes Congestive Heart Failure: Yes COPD: No Diabetes: No Diminished Hearing: No Diverticulitis: Yes Endocrine: No Gastrointestinal Disorders: Yes (MESH IN INTESTINES PER PT./ mutilpe issues see surgeries) GERD: Yes Gout: Yes Genitourinary: No Hiatal Hernia: Yes Hypertension: Yes Immune Disorder: No Inguinal Hernia: Yes Implanted Vascular Access Dvce: Yes Musculoskeletal: Yes Neurologic: Yes (neuropathy) Psychiatric: Yes Reproductive: No Respiratory: Yes (SLEEP APNEA) Radiation Therapy: No Shingles: Yes (history) Sleep Apnea: Yes Thyroid Disease: No Tetanus Vaccination: < 5 Years Influenza Vaccination: Yes Past Surgical History Abdominal Surgery: Yes (COLON RESECTION/INTESTINAL BLOCKAGE/SCAR TISSUE/ CHOLECYSTECTOMY/HERNIA REPA) Body Medical Devices: loop recorder- [employer] Cardiac Surgery: Yes (heart cath) Cholecystectomy: Yes Ear Surgery: No Endocrine Surgery: No Eye Surgery: No Genitourinary Surgery: No Gynecologic Surgery: No Oral Surgery: No Thoracic Surgery: No Other Surgery: Yes (COLON RESECTION/ 2 hernia/ r knee sx/ gallbladder removed/ 3 abd sx) Social History Alcohol Use: Yes (OCC) Tobacco Use: No (quit 45 years ago) Substance Use: No Allergies-Medications (Allergen,Severity, Reaction): Coded Allergies: codeine (Verified Allergy, Intermediate, RASH, 09/12/17) Reported Meds & Prescriptions Reported Meds & Active Scripts Active Hydralazine HCl 25 Mg Tablet 25 Mg PO Q8HR Hold if systolic BP < 120 Reported Cephalexin 500 Mg Cap 500 Mg PO Q8H Meclizine (Meclizine HCl) 12.5 Mg Tab 12.5 Mg PO BID PRN Sildenafil 20 Mg Tab 20 Mg PO TID Donepezil 5 Mg Tab 5 Mg PO HS [Anti-Depressant] 1 Tab PO DAILY Wellbutrin Xl 24 HR (Bupropion HCl) 300 Mg Tab 300 Mg PO DAILY Duloxetine DR (Duloxetine HCl) 60 Mg Capdr 60 Mg PO BID Trazodone (Trazodone HCl) 100 Mg Tablet 200-300 Mg PO HS Protonix (Pantoprazole Sodium) 40 Mg Tab 40 Mg PO DAILY Procardia XL (Nifedipine) 60 Mg Tab 60 Mg PO DAILY Gabapentin 300 Mg Cap 300 Mg PO TID Lipitor (Atorvastatin Calcium) 20 Mg Tab 20 Mg PO HS Aspirin Adult Low Strength (Aspirin) 81 Mg Tabdr 81 Mg PO DAILY Zyloprim (Allopurinol) 300 Mg Tab 300 Mg PO DAILY Review of Systems Except as stated in HPI: all other systems reviewed are Neg Physical Exam Narrative GENERAL: Well-nourished, well-developed patient in no apparent distress. SKIN: Warm and dry. HEAD: Atraumatic. Normocephalic. EYES: Pupils equal and round reactive to light and accommodation. No scleral icterus. No injection or drainage. ENT: No nasal bleeding or discharge. Mucous membranes pink and moist. TMs are clear with no sign of infection or perforation, they are bilaterally slightly swollen left slightly erythematous but not significantly.. No mastoid tenderness. Ear canals are intact bilaterally. No lymphadenopathy. Nostril mucosa is red and moist with clear mucus noted. No sinus tenderness to palpation noted. Tonsils are not enlarged or swollen. No ulvua Deviation. Tongue is midline. NECK: Trachea midline. No JVD. No meningeal signs noted CARDIOVASCULAR: Regular rate and rhythm. RESPIRATORY: No accessory muscle use. Clear to auscultation. Breath sounds equal bilaterally. GASTROINTESTINAL: Abdomen soft, non-tender, nondistended. Hepatic and splenic margins not palpable. MUSCULOSKELETAL: Extremities without clubbing, cyanosis, or edema. No obvious deformities. Full range of motion of the upper and lower extremities bilaterally. 2+ pulses bilaterally. NEUROLOGICAL: Awake and alert. No obvious cranial nerve deficits. Motor grossly within normal limits. Five out of 5 muscle strength in the arms and legs. Normal speech. PSYCHIATRIC: Appropriate mood and affect; insight and judgment normal. Data Data Last Documented VS Vital Signs Date Time Temp Pulse Resp B/P (MAP) Pulse Ox O2 Delivery O2 Flow Rate FiO2 09/12/17 16:41 93 18 187/99 (128) 96 20 160/81 (107) 98 20 139/74 (95) 09/12/17 15:56 98.4 98 Orders Orders Complete Blood Count With Diff (09/12/17 15:59) Comprehensive Metabolic Panel (09/12/17 15:59) Urinalysis - C+S If Indicated (09/12/17 15:59) Ct Brain W/O Iv Contrast(Rout) (09/12/17 ) Electrocardiogram (09/12/17 ) Metoclopramide Inj (Reglan Inj) (09/12/17 16:45) Sodium Chlorid 0.9% 500 Ml Inj (Ns 500 M (09/12/17 16:45) Orthostatic Vital Signs (09/12/17 16:35) Ckmb (Isoenzyme) Profile (09/12/17 16:10) Troponin I (09/12/17 16:10) CKMB (09/12/17 16:10) CKMB% (09/12/17 16:10) Potassium Chloride (Kcl) (09/12/17 17:30) Admit To Inpatient (09/12/17 ) Vital Signs (Adult) Q4H (09/12/17 19:10) Activity Oob With Assistance (09/12/17 19:10) Specimen Collector / Telemetry .CONTINUOUS (09/12/17 19:10) Intake + Output MAN.QSHIFT (09/12/17 19:10) Diet Regular Basic (09/13/17 Breakfast) Sodium Chlor 0.9% 1000 Ml Inj (Ns 1000 M (09/12/17 20:00) Sodium Chloride 0.9% Flush (Ns Flush) (09/12/17 19:15) Sodium Chloride 0.9% Flush (Ns Flush) (09/12/17 21:00) Metoclopramide Inj (Reglan Inj) (09/12/17 19:15) Comprehensive Metabolic Panel (09/13/17 06:00) Complete Blood Count With Diff (09/13/17 06:00) Pt Request For Service (09/12/17 19:10) Case Management Consult (09/12/17 19:10) Scd Bilateral/Knee High MAN.BID (09/12/17 19:10) Vinh Bilateral/Knee High MAN.QSHIFT (09/12/17 19:12) Acetaminophen (Tylenol) (09/12/17 19:15) Docusate Sodium-Senna (Karen-Colace) (09/12/17 21:00) Magnesium Hydroxide Liq (Milk Of Magnesi (09/12/17 19:15) Sennosides (Senokot) (09/12/17 19:15) Bisacodyl Supp (Dulcolax Supp) (09/12/17 19:15) Lactulose Liq (Lactulose Liq) (09/12/17 19:15) Inpatient Certification (09/12/17 ) Potassium, Serum (K) (09/13/17 00:00) Allopurinol (Zyloprim) (09/13/17 09:00) Aspirin Ec (Ecotrin Ec) (09/13/17 09:00) Atorvastatin (Lipitor) (09/12/17 21:00) Bupropion Xl 24 Hr (Wellbutrin Xl 24 Hr) (09/13/17 09:00) Donepezil (Aricept) (09/12/17 21:00) Duloxetine (Quang Canela) (09/12/17 21:00) Gabapentin (Neurontin) (09/13/17 09:00) Meclizine (Antivert) (09/12/17 19:15) Pantoprazole (Protonix) (09/13/17 09:00) Pill Splitter (Pill Splitter) (09/12/17 19:30) Admit Order (Ed Use Only) (09/12/17 19:18) Labs Laboratory Tests Test 09/12/17 16:10 09/12/17 19:00 White Blood Count 11.7 TH/MM3 Red Blood Count 5.70 MIL/MM3 Hemoglobin 18.1 GM/DL Hematocrit 50.2 % Mean Corpuscular Volume 88.2 FL Mean Corpuscular Hemoglobin 31.7 PG Mean Corpuscular Hemoglobin Concent 36.0 % Red Cell Distribution Width 13.5 % Platelet Count 336 TH/MM3 Mean Platelet Volume 8.1 FL Neutrophils (%) (Auto) 77.4 % Lymphocytes (%) (Auto) 13.8 % Monocytes (%) (Auto) 8.0 % Eosinophils (%) (Auto) 0.4 % Basophils (%) (Auto) 0.4 % Neutrophils # (Auto) 9.1 TH/MM3 Lymphocytes # (Auto) 1.6 TH/MM3 Monocytes # (Auto) 0.9 TH/MM3 Eosinophils # (Auto) 0.0 TH/MM3 Basophils # (Auto) 0.1 TH/MM3 CBC Comment DIFF FINAL Differential Comment Blood Urea Nitrogen 16 MG/DL Creatinine 1.54 MG/DL Random Glucose 122 MG/DL Total Protein 8.0 GM/DL Albumin 4.0 GM/DL Calcium Level 9.4 MG/DL Alkaline Phosphatase 116 U/L Aspartate Amino Transf (AST/SGOT) 26 U/L Alanine Aminotransferase (ALT/SGPT) 28 U/L Total Bilirubin 1.2 MG/DL Sodium Level 134 MEQ/L Potassium Level 2.3 MEQ/L Chloride Level 91 MEQ/L Carbon Dioxide Level 28.8 MEQ/L Anion Gap 14 MEQ/L Estimat Glomerular Filtration Rate 45 ML/MIN Total Creatine Kinase 158 U/L Creatine Kinase MB 1.8 NG/ML Troponin I LESS THAN 0.02 NG/ML MDM Medical Decision Making Medical Screen Exam Complete: Yes Emergency Medical Condition: Yes Medical Record Reviewed: Yes Interpretation(s) CBC & BMP Diagram 09/12/17 16:10 Total Protein 8.0, Albumin 4.0, Calcium Level 9.4, Alkaline Phosphatase 116, Aspartate Amino Transf (AST/SGOT) 26, Alanine Aminotransferase (ALT/SGPT) 28, Total Bilirubin 1.[address] Impressions Head CT 09/12/17 0000 Signed Impressions: CONCLUSION: 1. Examination is within normal limits for age. No significant change from 201 5. troponin and CKMB negative EKG showed sinus rhythm with no sign of acute ischemia or arrhythmia read by me and attending. Differential Diagnosis Syncope versus presyncope versus dizziness versus nausea and vomiting versus medication side effect versus otitis media versus cephalgia versus CVA versus bleed Narrative Course 72-year-old male that presents to the ED for evaluation of nausea and vomiting as well as falling. Patient was properly examined and was found to have signs and symptoms likely related to side effect from Keflex. Most of the other symptoms appear to be chronic for the patient. Apparently per significant other patient is already working on getting help at home including having bars put in jeter as well as having possibly a ramp. Per significant other more concerned with the nausea and vomiting and a headache which has worsened the symptoms. Labs and imaging were ordered. Labs and imaging showed significant hypokalemia and orthostatic hypotension. Case was discussed with my attending Dr. Foote evaluated the patient recommends admission for further evaluation especially because the potassium being so low. He recommends oral potassium at this time with 50 mEq. This was ordered for the patient and he was able to tolerate well. Case discussed with JULIANA Daniel agrees to admission. Family and patient agree with admission. Diagnosis Primary Impression: Hypokalemia Additional Impression: Orthostatic hypotension Admitting Information Admitting Physician Requests: Admit Wayne Bustillo September 12, 2017 16:55
[2017-09-12 17:15] LABS: AST (GOT) 26 U/L (15-37); BICARBONATE 28.8 MEQ/L (21.0-32.0); BLOOD UREA NITROGEN 16 MG/DL (7-18); CALCIUM 9.4 MG/DL (8.5-10.1); CHLORIDE 91 MEQ/L (98-107); CREATININE 1.54 MG/DL (0.60-1.30); GLOMERULAR FILTRATION RATE 45 ML/MIN (>89); GLUCOSE,RANDOM 122 MG/DL (74-106); SODIUM (NA) 134 MEQ/L (136-145)
[2017-09-12 17:17] LABS: ALKALINE PHOSPHATASE 116 U/L (45-117); ALT (GPT) 28 U/L (12-78); TOTAL BILIRUBIN ADULT 1.2 MG/DL (0.2-1.0); TROPONIN I LESS THAN 0.02 NG/ML (0.02-0.05)
[2017-09-12] MEDS ORDERED: POTASSIUM CHLORIDE 20 MEQ CONTROLLED RELEASE TAB PO ONE (17:30)
--- NOTE | 2017-09-12 18:37 | RADRPT ---
EXAM DATE: 09/12/2017 6:28 PM EDT AGE/SEX: 72 years / Male INDICATIONS: Syncopal episode. CLINICAL DATA: This is the patient's initial encounter. Patient reports that signs and symptoms have been present for 1 day and indicates a pain score of 0/10. MEDICAL/SURGICAL HISTORY: Cardiovascular disease. Hypertension. Hiatal hernia. Cholecystectomy. RADIATION DOSE: 46.42 CTDI (mGy) COMPARISON: [facility] [place] BRAIN W/O CONTRAST, 11/09/2014. . TECHNIQUE: CT of the head without contrast. Using automated exposure control and adjustment of the mA and/or kV according to patient size, radiation dose was kept as low as reasonably achievable to ob tain optimal diagnostic quality images. FINDINGS: Cerebrum: The ventricles are normal for age. No evidence of midline shift, mass lesion, hemorrhage or acute infarction. No extraaxial fluid collections are seen. Posterior Fossa: The cerebellum and brainstem are intact. The 4th ventricle is midline. The cerebe llopontine angle is unremarkable. Extracranial: The visualized portion of the orbits is intact. Skull: The calvaria is intact. No evidence of skull fracture. CONCLUSION: 1. Examination is within normal limits for age. No significant change from 2014. Electronically signed by: John Briggs MD 09/12/2017 6:35 PM EDT
--- NOTE | 2017-09-12 18:57 | PD ---
Data Data Last Documented VS Vital Signs Date Time Temp Pulse Resp B/P (MAP) Pulse Ox O2 Delivery O2 Flow Rate FiO2 09/12/17 16:41 93 18 187/99 (128) 96 20 160/81 (107) 98 20 139/74 (95) 09/12/17 15:56 98.4 98 Orders Orders Complete Blood Count With Diff (09/12/17 15:59) Comprehensive Metabolic Panel (09/12/17 15:59) Urinalysis - C+S If Indicated (09/12/17 15:59) Ct Brain W/O Iv Contrast(Rout) (09/12/17 ) Electrocardiogram (09/12/17 ) Metoclopramide Inj (Reglan Inj) (09/12/17 16:45) Sodium Chlorid 0.9% 500 Ml Inj (Ns 500 M (09/12/17 16:45) Orthostatic Vital Signs (09/12/17 16:35) Ckmb (Isoenzyme) Profile (09/12/17 16:10) Troponin I (09/12/17 16:10) CKMB (09/12/17 16:10) CKMB% (09/12/17 16:10) Potassium Chloride (Kcl) (09/12/17 17:30) Labs Laboratory Tests Test 09/12/17 16:10 White Blood Count 11.7 TH/MM3 Red Blood Count 5.70 MIL/MM3 Hemoglobin 18.1 GM/DL Hematocrit 50.2 % Mean Corpuscular Volume 88.2 FL Mean Corpuscular Hemoglobin 31.7 PG Mean Corpuscular Hemoglobin Concent 36.0 % Red Cell Distribution Width 13.5 % Platelet Count 336 TH/MM3 Mean Platelet Volume 8.1 FL Neutrophils (%) (Auto) 77.4 % Lymphocytes (%) (Auto) 13.8 % Monocytes (%) (Auto) 8.0 % Eosinophils (%) (Auto) 0.4 % Basophils (%) (Auto) 0.4 % Neutrophils # (Auto) 9.1 TH/MM3 Lymphocytes # (Auto) 1.6 TH/MM3 Monocytes # (Auto) 0.9 TH/MM3 Eosinophils # (Auto) 0.0 TH/MM3 Basophils # (Auto) 0.1 TH/MM3 CBC Comment DIFF FINAL Differential Comment Blood Urea Nitrogen 16 MG/DL Creatinine 1.54 MG/DL Random Glucose 122 MG/DL Total Protein 8.0 GM/DL Albumin 4.0 GM/DL Calcium Level 9.4 MG/DL Alkaline Phosphatase 116 U/L Aspartate Amino Transf (AST/SGOT) 26 U/L Alanine Aminotransferase (ALT/SGPT) 28 U/L Total Bilirubin 1.2 MG/DL Sodium Level 134 MEQ/L Potassium Level 2.3 MEQ/L Chloride Level 91 MEQ/L Carbon Dioxide Level 28.8 MEQ/L Anion Gap 14 MEQ/L Estimat Glomerular Filtration Rate 45 ML/MIN Total Creatine Kinase 158 U/L Creatine Kinase MB 1.8 NG/ML Troponin I LESS THAN 0.02 NG/ML MDM Supervised Visit with ABDIFATAH: Yes Narrative Course I, Dr. Rahman, have reviewed the advance practice practitioner's documentation and am in agreement, met with the patient face to face, made the diagnosis, and the medical decision making was done by me. *My assessment and Findings: Extensive workup is done. Patient is orthostatic hypotension and profound hypokalemia of 2.3. He did get some replacement as well as IV fluid. He will require hospitalization Daryl Rahman MD September 12, 2017 18:57
--- NOTE | 2017-09-12 19:14 | HHI.HP ---
[facility] Primary [facility] Physician [facility] Admission Diagnosis Diagnoses: (1) Orthostatic hypotension Diagnosis: Principal (2) Hypokalemia Diagnosis: Principal (3) SHANNA (acute kidney injury) Diagnosis: Principal (4) Dizziness Diagnosis: Principal Travel History International Travel<30 Days: No Contact w/Intl Traveler <30 Da: No Traveled to Known Affected Are: No History of Present Illness This is a 72-year-old male with a PMH of Anxiety, Depression, HTN and Recurrent Syncope who presented to the ER with complaints of dizziness in addition to multiple episodes of nausea and vomiting. Per at bedside, patient has had h/o Syncope and Dizziness for which he is being followed by Dr. Jean Baptiste, has Loop Recorder in place. One week ago was diagnosed w/ left ear infection and has been on Keflex PO, states dizziness has gotten progressively worse since being on Keflex, she ultimately d/c'd it yesterday. Reports dizziness at rest and unable to ambulate on his own, on Meclizine w/ little improvement. On arrival, BP 160/98, HR 105, O2 sat 98% on RA, Afebrile. + Orthostatic Hypotension, supine BP 187/99, HR 93 and standing BP 139/74, HR 98. WBC 11.7, hemoconcentration with hemoglobin 18.1. K+ 2.3. Creatinine 1.54, previously was 1.04 on 05/11/2017. Troponin negative. UA pending. CT Head with no acute changes. Review of Systems Except as stated in HPI: all other systems reviewed are Neg ROS: 14 point review of systems otherwise negative. Past Family Social History Past Medical History PMH: Anxiety, Depression, HTN and Recurrent Syncope Past Surgical History PAST SURGICAL HISTORY: Colon Resection, Cholecystectomy, Hernia Repair, Loop Recorder, Right Knee Surgery Allergies: Coded Allergies: codeine (Verified Allergy, Intermediate, RASH, 09/12/17) Family History PAST FAMILY HISTORY: Reviewed. No h/o DM or CAD Social History PAST SOCIAL HISTORY: Occasional alcohol. Negative for tobacco or drugs. Physical Exam Vital Signs Vital Signs Date Time Temp Pulse Resp B/P (MAP) Pulse Ox O2 Delivery O2 Flow Rate FiO2 09/12/17 16:41 93 18 187/99 (128) 96 20 160/81 (107) 98 20 139/74 (95) 09/12/17 16:35 16 09/12/17 15:56 98.4 105 17 160/98 (118) 98 Physical Exam PE: GENERAL: Very pleasant middle-aged white male in no acute distress. at bedside. HEENT: PERRLA, EOMI. No scleral icterus or conjunctival pallor. No lid lag or facial droop. TM intact, no perforation, no significant erythema. CARDIOVASCULAR: Regular rate and rhythm. No obvious murmurs to auscultation. No chest tenderness to palpation. RESPIRATORY: No obvious rhonchi or wheezing. Clear to auscultation. Breath sounds equal bilaterally. GASTROINTESTINAL: Abdomen soft, non-tender, nondistended. BS normal. MUSCULOSKELETAL: Extremities without clubbing, cyanosis, or edema. No obvious deformities. NEUROLOGICAL: Awake, alert and oriented x4. No focal neurologic deficits. Moving both upper and lower extremities spontaneously. Laboratory Laboratory Tests Test 09/12/17 16:10 White Blood Count 11.7 Red Blood Count 5.70 Hemoglobin 18.1 Hematocrit 50.2 Mean Corpuscular Volume 88.2 Mean Corpuscular Hemoglobin 31.7 Mean Corpuscular Hemoglobin Concent 36.0 Red Cell Distribution Width 13.5 Platelet Count 336 Mean Platelet Volume 8.1 Neutrophils (%) (Auto) 77.4 Lymphocytes (%) (Auto) 13.8 Monocytes (%) (Auto) 8.0 Eosinophils (%) (Auto) 0.4 Basophils (%) (Auto) 0.4 Neutrophils # (Auto) 9.1 Lymphocytes # (Auto) 1.6 Monocytes # (Auto) 0.9 Eosinophils # (Auto) 0.0 Basophils # (Auto) 0.1 CBC Comment DIFF FINAL Differential Comment Blood Urea Nitrogen 16 Creatinine 1.54 Random Glucose 122 Total Protein 8.0 Albumin 4.0 Calcium Level 9.4 Alkaline Phosphatase 116 Aspartate Amino Transf (AST/SGOT) 26 Alanine Aminotransferase (ALT/SGPT) 28 Total Bilirubin 1.2 Sodium Level 134 Potassium Level 2.3 Chloride Level 91 Carbon Dioxide Level 28.8 Anion Gap 14 Estimat Glomerular Filtration Rate 45 Total Creatine Kinase 158 Creatine Kinase MB 1.8 Troponin I LESS THAN 0.02 Result Diagram: 09/12/17 1610 09/12/17 1610 Caprini VTE Risk Assessment Caprini VTE Risk Assessment: No/Low Risk (score <= 1) Caprini Risk Assessment Model Point Value = 1 Point Value = 2 Point Value = 3 Point Value = 5 Age 41-60 Minor surgery BMI > 25 kg/m2 Swollen legs Varicose veins or History of unexplained or recurrent spontaneous Oral contraceptives or hormone replacement Sepsis (< 1 month) Serious lung disease, including pneumonia (< 1 month) Abnormal pulmonary function Acute myocardial infarction Congestive heart failure (< 1 month) History of inflammatory bowel disease Medical patient at bed rest Age 61-74 Arthroscopic surgery Major open surgery (> 45 min) Laparoscopic surgery (> 45 min) Malignancy Confined to bed (> 72 hours) Immobilizing plaster cast Central venous access Age >= 75 History of VTE Family history of VTE Factor V Leiden Prothrombin [id number] Lupus anticoagulant Anticardiolipin antibodies Elevated serum homocysteine Heparin-induced thrombocytopenia Other congenital or acquired thrombophilia Stroke (< 1 month) Elective arthroplasty Hip, pelvis, or leg fracture Acute spinal cord injury (< 1 month) Prophylaxis Regimen Total Risk Factor Score Risk Level Prophylaxis Regimen 0-1 Low Early ambulation 2 Moderate Order ONE of the following: *Sequential Compression Device (SCD) *Heparin 5000 units SQ BID 3-4 Higher Order ONE of the following medications: *Heparin 5000 units SQ TID *Enoxaparin/Lovenox 40 mg SQ daily (WT < 150 kg, CrCl > 30 mL/min) *Enoxaparin/Lovenox 30 mg SQ daily (WT < 150 kg, CrCl > 10-29 mL/min) *Enoxaparin/Lovenox 30 mg SQ BID (WT < 150 kg, CrCl > 30 mL/min) AND/OR *Sequential Compression Device (SCD) 5 or more Highest Order ONE of the following medications: *Heparin 5000 units SQ TID (Preferred with Epidurals) *Enoxaparin/Lovenox 40 mg SQ daily (WT < 150 kg, CrCl > 30 mL/min) *Enoxaparin/Lovenox 30 mg SQ daily (WT < 150 kg, CrCl > 10-29 mL/min) *Enoxaparin/Lovenox 30 mg SQ BID (WT < 150 kg, CrCl > 30 mL/min) AND *Sequential Compression Device (SCD) Assessment and Plan Problem List: (1) Dizziness ICD Code: R42 - Dizziness and giddiness (2) Hypokalemia ICD Code: E87.6 - Hypokalemia Status: Acute (3) Orthostatic hypotension ICD Code: I95.1 - Orthostatic hypotension Status: Acute (4) SHANNA (acute kidney injury) ICD Code: N17.9 - SHANNA (acute kidney injury) Status: Acute Assessment and Plan A/P: 1. Dizziness: Acute on Chronic, h/o Recurrent Syncope following w/ Dr. Jean Baptiste, Loop Recorder in place, symptoms worse since left ear infection 1wk ago w/ associated nausea/vomiting on antibiotics. CT Head w/ no acute findings, images reviewed by me. Continue Meclizine 25mg q8h prn, PT for eval/ tx. Symptoms likely compounded by Orthostatic Hypotension, IVF for hydration. Otic gtts. 2. Orthostatic Hypotension: BP 180's supine, 130's standing, continue w/ IVF for hydration, hold home antihypertensives, monitor BP closely. Consult Dr. Jean Baptiste as needed. 3. Hypokalemia: K+ 2.3, s/p replacement in ER, will recheck labs this evening , replace as needed. Telemetry. 4. SHANNA: Creatinine 1.54, previously 1.04 on 05/11/17, IVF for hydration, follow up U/a, repeat labs in am. 5. DVT Prophylaxis: SCD/Teds 6. Social work for d/c planning as needed. 7. Case discussed w/ ER physician at length, labs/records/imaging reviewed by me. Physician Certification 2 Midnight Certification Type: Admission for Inpatient Services Order for Inpatient Services The services are ordered in accordance with Medicare regulations or non- Medicare payer requirements, as applicable. In the case of services not specified as inpatient-only, they are appropriately provided as inpatient services in accordance with the 2-midnight benchmark. Estimated LOS (days): 2 days is the estimated time the patient will need to remain in the hospital, assuming treatment plan goals are met and no additional complications. Post-Hospital Plan: Not yet determined Janna Daniel MD September 12, 2017 19:14
[2017-09-12] MEDS ORDERED: SENNOSIDES 8.6 MG TAB PO PRN (19:15)
[2017-09-12] MEDS ORDERED: LACTULOSE SYRUP 20 GM/30 ML CUP PO PRN (19:15)
[2017-09-12] MEDS ORDERED: SODIUM CHLORIDE 0.9% FLUSH 10 ML FLUSH IV FLUSH PRN (19:15)
[2017-09-12] MEDS ORDERED: METOCLOPRAMIDE HCL 10 MG/2 ML VIAL IV PUSH PRN (19:15)
[2017-09-12] MEDS ORDERED: BISACODYL 10 MG SUPP RECTAL PRN (19:15)
[2017-09-12] MEDS ORDERED: MECLIZINE HCL 25 MG TAB PO PRN ×2 (19:15→19:45)
[2017-09-12] MEDS ORDERED: MAGNESIUM HYDROXIDE SUSP 30 ML CUP PO PRN (19:15)
[2017-09-12] MEDS ORDERED: PILL SPLITTER OTHER PRN (19:30)
[2017-09-12] MEDS ORDERED: METOPROLOL TARTRATE 5 MG/5 ML VIAL IV PUSH ONE (19:45)
[2017-09-12 19:48] LABS: BLOOD, URINE NEG (NEG); GLUCOSE,URINE TRACE mg/dL (NEG); HYALINE CAST, URINE 20 /lpf (RARE); KETONE, URINE 10 mg/dL (NEG); MUCUS URINE FEW /lpf (OCC); NITRITE,URINE NEG (NEG); PH, URINE 6.5 (5.0-8.5); URINE COLOR YELLOW (YELLW/STRAW); URINE LEUKOCYTE ESTERASE NEG (NEG)
[2017-09-12 19:49] VITALS: BP 201/98; PULSE 96; RESP 16; O2SAT 95
[2017-09-12 19:56] VITALS: BP 189/96
[2017-09-12 20:00] LABS: BILIRUBIN, URINE NEG (NEG)
[2017-09-12 20:24] VITALS: BP 170/100; PULSE 73; RESP 18; TEMP 98.5; O2SAT 96
[2017-09-12] MEDS: DOCUSATE SODIUM 50 MG/SENNA 8.6 MG TAB PO SCH (22:08)
[2017-09-12] MEDS: buPROPion HCL 150 MG SUSTAINED RELEASE TAB PO SCH (22:08)
[2017-09-12] MEDS: DULoxetine HCl DR 60 MG CAP PO SCH (22:08)
[2017-09-12] MEDS: ATORVASTATIN 20 MG TAB PO SCH (22:09)
[2017-09-12] MEDS: DONEPEZIL HCL 5 MG TAB PO SCH (22:09)
[2017-09-12] MEDS: SODIUM CHLORIDE 0.9% FLUSH 10 ML FLUSH IV FLUSH SCH (22:13)
[2017-09-12 22:58] VITALS: BP_SYST 149; BP_SYST 179; BP_SYST 190; BP_DIAS 75; BP_DIAS 82; BP_DIAS 96; PULSE 60; RESP 18; TEMP 98.4; O2SAT 98
[2017-09-13] MEDS ORDERED: POTASSIUM CHLORIDE 20 MEQ CONTROLLED RELEASE TAB PO ONE ×2 (02:30→11:30)
[2017-09-13] MEDS: SODIUM CHLOR 0.9% 1000 ML INJ 1,000 ML IV SCH (03:41)
[2017-09-13] MEDS: MAGNESIUM SULFATE 1 GM PREMIX 100 ML IV SCH ×2 (03:41→05:14)
[2017-09-13] MEDS: ACETAMINOPHEN 325 MG TAB PO PRN ×2 (04:16→15:16)
[2017-09-13 05:17] VITALS: BP 183/92; PULSE 63; RESP 18; TEMP 97.5; O2SAT 95
[2017-09-13 08:00] VITALS: BP_SYST 133; BP_SYST 181; BP_SYST 200; BP_DIAS 101; BP_DIAS 82; BP_DIAS 96; PULSE 67; RESP 19; TEMP 97.5; O2SAT 96
[2017-09-13] MEDS: SODIUM CHLORIDE 0.9% FLUSH 10 ML FLUSH IV FLUSH SCH ×2 (09:00→21:16)
[2017-09-13 09:55] LABS: AUTOMATED NEUTROPHIL # 8.3 TH/MM3 (1.8-7.7); BASOPHIL # 0.1 TH/MM3 (0-0.2); EOSINOPHIL # 0.2 TH/MM3 (0-0.4); EOSINOPHIL % 1.3 % (0.0-4.0); HEMATOCRIT 49.2 % (39.0-51.0); HEMOGLOBIN 17.6 GM/DL (13.0-17.0); LYMPH % 19.7 % (9.0-44.0); LYMPHOCYTE # 2.3 TH/MM3 (1.0-4.8); MEAN CELL VOLUME 89.1 FL (80.0-100.0); MEAN CORPUSCULAR HEMOGLOBIN 31.8 PG (27.0-34.0); MEAN CORPUSCULAR HGB CONC 35.7 % (32.0-36.0); MEAN PLATELET VOLUME 8.5 FL (7.0-11.0); MONO % 8.1 % (0.0-8.0); NEUT % 69.9 % (16.0-70.0); PLATELET COUNT 355 TH/MM3 (150-450); RED BLOOD COUNT 5.52 MIL/MM3 (4.50-5.90); RED CELL DISTRIBUTION WIDTH 13.3 % (11.6-17.2); WHITE BLOOD COUNT 11.9 TH/MM3 (4.0-11.0)
[2017-09-13 10:23] LABS: ALBUMIN 4.2 GM/DL (3.4-5.0); ALKALINE PHOSPHATASE 121 U/L (45-117); ALT (GPT) 35 U/L (12-78); AST (GOT) 27 U/L (15-37); BICARBONATE 30.3 MEQ/L (21.0-32.0); BLOOD UREA NITROGEN 20 MG/DL (7-18); CALCIUM 9.3 MG/DL (8.5-10.1); CHLORIDE 94 MEQ/L (98-107); CREATININE 1.61 MG/DL (0.60-1.30); GLOMERULAR FILTRATION RATE 43 ML/MIN (>89); GLUCOSE,RANDOM 116 MG/DL (74-106); MAGNESIUM 1.8 MG/DL (1.5-2.5); SODIUM (NA) 136 MEQ/L (136-145); TOTAL BILIRUBIN ADULT 1.2 MG/DL (0.2-1.0); TOTAL PROTEIN 8.2 GM/DL (6.4-8.2)
[2017-09-13] MEDS: DOCUSATE SODIUM 50 MG/SENNA 8.6 MG TAB PO SCH ×2 (10:42→21:16)
[2017-09-13] MEDS: buPROPion HCL 150 MG SUSTAINED RELEASE TAB PO SCH ×2 (10:42→21:16)
[2017-09-13] MEDS: GABAPENTIN 300 MG CAP PO SCH ×3 (10:42→18:00)
[2017-09-13] MEDS: PANTOPRAZOLE SOD 40 MG DELAYED RELEASE TAB PO SCH (10:42)
[2017-09-13] MEDS: ALLOPURINOL 300 MG TAB PO SCH (10:42)
[2017-09-13] MEDS: ASPIRIN EC 81 MG TABEC PO SCH (10:42)
[2017-09-13 12:00] VITALS: BP 176/100; PULSE 81; RESP 18; TEMP 97.8; O2SAT 97
--- NOTE | 2017-09-13 13:57 | EKG ---
Date Performed: 09/12/2017 Time Performed: 16:34:53 PTAGE: 72 years EKG: Sinus rhythm MARKED LEFT AXIS DEVIATION NONSPECIFIC T-WAVE ABNORMALITY ABNORMAL ECG Compared to PREVIOUS TRACING , no change. PREVIOUS TRACIN05/09/2017 20.07 DOCTOR: Tim Martin Interpretating Date/Time 09/13/2017 13:55:39
[2017-09-13] MEDS: DULoxetine HCl DR 60 MG CAP PO SCH ×2 (15:15→21:15)
[2017-09-13 16:00] VITALS: BP 168/99; PULSE 82; RESP 18; TEMP 97.7; O2SAT 97
--- NOTE | 2017-09-13 16:29 | HHI.PR ---
Subjective Remarks 72-year-old male who presented with dizziness, nausea and vomiting, severe hypokalemia. Today he is sitting upright in his chair by the bedside eating a meal. He states his dizziness has improved after starting meclizine. He is unsure why he has orthostatic hypotension. He has no acute complaints. Objective Vitals Vital Signs Date Time Temp Pulse Resp B/P (MAP) Pulse Ox O2 Delivery O2 Flow Rate FiO2 09/13/17 08:00 97.5 67 19 200/101 (134) 96 181/96 (124) 133/82 (99) 09/13/17 05:17 97.5 63 18 183/92 (122) 95 09/13/17 05:15 18 09/12/17 22:58 98.4 60 18 179/82 (114) 98 190/96 (127) 149/75 (99) 09/12/17 20:24 98.5 73 18 170/100 (123) 96 09/12/17 19:58 09/12/17 19:56 189/96 (127) 09/12/17 19:49 96 16 201/98 (132) 95 Room Air 09/12/17 16:41 93 18 187/99 (128) 96 20 160/81 (107) 98 20 139/74 (95) 09/12/17 16:35 16 I/O 09/12/17 09/12/17 09/12/17 09/13/17 09/13/17 09/13/17 07:00 15:00 23:00 07:00 15:00 23:00 Intake Total 500 ml 820 ml Balance 500 ml 820 ml Intake Oral 720 ml IV Total 500 ml 100 ml # Voids 5 # Bowel Movements 3 Result Diagram: 09/13/17 0749 09/13/17 0749 Objective Remarks GENERAL: Well-nourished, well-developed patient. SKIN: Warm and dry. HEAD: Normocephalic. EYES: No scleral icterus. No injection or drainage. NECK: Supple, trachea midline. No JVD or lymphadenopathy. CARDIOVASCULAR: Regular rate and rhythm without murmurs, gallops, or rubs. RESPIRATORY: Breath sounds equal bilaterally. No accessory muscle use. GASTROINTESTINAL: Abdomen soft, non-tender, nondistended. EXTREMITIES: No cyanosis, or edema. NEUROLOGICAL: Awake, alert, and oriented x 3. Non-focal. A/P Problem List: (1) Dizziness ICD Code: R42 - Dizziness and giddiness (2) Hypokalemia ICD Code: E87.6 - Hypokalemia Status: Acute (3) Orthostatic hypotension ICD Code: I95.1 - Orthostatic hypotension Status: Acute (4) SHANNA (acute kidney injury) ICD Code: N17.9 - SHANNA (acute kidney injury) Status: Acute Assessment and Plan Vertigo Patient reports that his symptoms have improved on meclizine Consider electrolyte imbalance as well as orthostatic hypotension, patient is on loop recorder under Dr. Jean Baptiste's care Continue meclizine, continue telemetry Orthostatic hypotension Ongoing monitoring with loop recorder and floor telemetry Consider also electrolyte imbalance as well as possible dehydration Hypokalemia Improved from his admission level of 2.3, but dropped again today to 2.4 Replaced with single dose of 40 mEq of potassium, will add 20 mEq daily scheduled Acute kidney injury No improvement to creatinine level yet, will recheck with a.m. labs DVT prophylaxis SCDs Franki Hu MD September 13, 2017 16:29
[2017-09-13 20:00] VITALS: BP_SYST 189; BP_SYST 193; BP_SYST 198; BP_DIAS 81; BP_DIAS 87; BP_DIAS 95; PULSE 83; RESP 20; TEMP 97.7; O2SAT 98
[2017-09-13] MEDS: DONEPEZIL HCL 5 MG TAB PO SCH (21:16)
[2017-09-13] MEDS: ATORVASTATIN 20 MG TAB PO SCH (21:16)
[2017-09-13] MEDS ORDERED: cloNIDine HCL 0.1 MG TAB PO ONE (22:15)
[2017-09-13 23:38] VITALS: BP 192/92
[2017-09-14] VITALS (8 sets, daily range): BP systolic 152–202; BP diastolic 77–107; PULSE 69–94; RESP 17–20; TEMP 97.1–98.6; O2SAT 95–98
[2017-09-14] MEDS: ACETAMINOPHEN 325 MG TAB PO PRN (00:47)
[2017-09-14] MEDS ORDERED: hydrALAZINE HCL 25 MG TAB PO ONE (01:30)
[2017-09-14] MEDS: SODIUM CHLOR 0.9% 1000 ML INJ 1,000 ML IV SCH (02:57)
[2017-09-14] MEDS ORDERED: NIFEdipine 10 MG CAP PO ONE (05:30)
[2017-09-14] MEDS ORDERED: ENALAPRILAT 1.25 MG/ML VIAL IV PUSH PRN (05:30)
[2017-09-14 06:27] LABS: BICARBONATE 29.8 MEQ/L (21.0-32.0); CALCIUM 8.8 MG/DL (8.5-10.1); CREATININE 1.32 MG/DL (0.60-1.30); MAGNESIUM 1.3 MG/DL (1.5-2.5)
[2017-09-14] MEDS ORDERED: MAGNESIUM SULFATE 1 GM PREMIX 100 ML IV ONE (07:00)
[2017-09-14] MEDS ORDERED: LOPERAMIDE HCL 2 MG CAP PO PRN (07:45)
[2017-09-14] MEDS ORDERED: ACETAMIN 325 MG/BUTALBITAL 50 MG/CAFFEINE 40 MG TAB PO ONE (09:00)
[2017-09-14] MEDS ORDERED: POTASSIUM CHLORIDE 20 MEQ CONTROLLED RELEASE TAB PO SCH (09:00)
[2017-09-14] MEDS: POTASSIUM CHLORIDE 20 MEQ CONTROLLED RELEASE TAB PO SCH (09:11)
[2017-09-14] MEDS: ASPIRIN EC 81 MG TABEC PO SCH (09:12)
[2017-09-14] MEDS: buPROPion HCL 150 MG SUSTAINED RELEASE TAB PO SCH (09:12)
[2017-09-14] MEDS: DOCUSATE SODIUM 50 MG/SENNA 8.6 MG TAB PO SCH (09:12)
[2017-09-14] MEDS: DULoxetine HCl DR 60 MG CAP PO SCH (09:12)
[2017-09-14] MEDS: GABAPENTIN 300 MG CAP PO SCH ×3 (09:12→18:00)
[2017-09-14] MEDS: PANTOPRAZOLE SOD 40 MG DELAYED RELEASE TAB PO SCH (09:12)
[2017-09-14] MEDS: ALLOPURINOL 300 MG TAB PO SCH (09:13)
[2017-09-14] MEDS: SODIUM CHLORIDE 0.9% FLUSH 10 ML FLUSH IV FLUSH SCH (09:14)
[2017-09-14] MEDS ORDERED: POTASSIUM CHLORIDE 20 MEQ CONTROLLED RELEASE TAB PO ONE (10:00)
--- NOTE | 2017-09-14 15:02 | HHI.PR ---
Subjective Remarks Patient states he does not feel well today because he is having a headache. I offered him Fioricet, which he took, but it did not relieve his headache. Objective Vitals Vital Signs Date Time Temp Pulse Resp B/P (MAP) Pulse Ox O2 Delivery O2 Flow Rate FiO2 09/14/17 12:00 98.6 90 20 152/83 (106) 96 09/14/17 08:00 97.9 94 19 164/78 (106) 95 09/14/17 06:40 162/77 (105) 152/78 (102) 09/14/17 06:09 176/92 (120) 09/14/17 04:40 98.0 69 17 202/96 (131) 95 09/14/17 00:00 97.3 74 20 189/107 (134) 95 09/13/17 23:38 192/92 (125) 09/13/17 20:00 97.7 83 20 189/87 (121) 98 198/95 (129) 193/81 (118) 09/13/17 16:00 97.7 82 18 168/99 (122) 97 I/O 09/13/17 09/13/17 09/13/17 09/14/17 09/14/17 09/14/17 06:59 14:59 22:59 06:59 14:59 22:59 Intake Total 820 ml 720 ml 120 ml Output Total 175 ml Balance 820 ml 545 ml 120 ml Intake Oral 720 ml 720 ml 120 ml IV Total 100 ml Output Urine Total 175 ml # Voids 5 3 4 # Bowel Movements 3 3 2 Result Diagram: 09/13/17 0749 09/14/17 0415 Objective Remarks GENERAL: Well-nourished, well-developed patient. SKIN: Warm and dry. HEAD: Normocephalic. EYES: No scleral icterus. No injection or drainage. NECK: Supple, trachea midline. No JVD or lymphadenopathy. CARDIOVASCULAR: Regular rate and rhythm without murmurs, gallops, or rubs. RESPIRATORY: Breath sounds equal bilaterally. No accessory muscle use. GASTROINTESTINAL: Abdomen soft, non-tender, nondistended. EXTREMITIES: No cyanosis, or edema. NEUROLOGICAL: Awake, alert, and oriented x 3. Non-focal. A/P Problem List: (1) Dizziness ICD Code: R42 - Dizziness and giddiness (2) Hypokalemia ICD Code: E87.6 - Hypokalemia Status: Acute (3) Orthostatic hypotension ICD Code: I95.1 - Orthostatic hypotension Status: Acute (4) SHANNA (acute kidney injury) ICD Code: N17.9 - SHANNA (acute kidney injury) Status: Acute Assessment and Plan Headache He reports that he does not typically suffer from headaches Single dose of Fioricet failed to relieve his headache CT of the brain is ordered and pending Vertigo Improved on meclizine. Consider electrolyte imbalance as well as orthostatic hypotension, patient is on loop recorder under Dr. Jean Baptiste's care Continue meclizine, continue telemetry Orthostatic hypotension Ongoing monitoring with loop recorder and floor telemetry Consider also electrolyte imbalance as well as possible dehydration Hypokalemia Potassium level was 2.3 on admission Given a total of 60 mEq of potassium today, recheck level with labs in the a.m. Acute kidney injury No improvement to creatinine level yet, will recheck with a.m. labs DVT prophylaxis SCDs Franki Hu MD September 14, 2017 15:01
[2017-09-14 16:57] LABS: BICARBONATE 28.2 MEQ/L (21.0-32.0); CALCIUM 8.8 MG/DL (8.5-10.1); CREATININE 1.23 MG/DL (0.60-1.30)
--- NOTE | 2017-09-14 21:40 | RADRPT ---
EXAM DATE: 09/14/2017 9:34 PM EDT AGE/SEX: 72 years / Male INDICATIONS: Cephalgia and unsteady gait. CLINICAL DATA: This is the patient's initial encounter. Patient reports that signs and symptoms have been present for 1 day and indicates a pain score of 6/10. MEDICAL/SURGICAL HISTORY: Cardiovascular disease. Hypertension. Diverticulitis. Colon resection. Cholecystectomy. RADIATION DOSE: 38.94 CTDI (mGy) COMPARISON: [facility] [place], 09/12/2017. . TECHNIQUE: CT of the head without contrast. Using automated exposure control and adjustment of the mA and/or kV according to patient size, radiation dose was kept as low as reasonably achievable to ob tain optimal diagnostic quality images. FINDINGS: Decreased density is identified in the left occipital lobe. Cerebral hemispheres are otherwise stable . Mild ventriculomegaly is unchanged. There is no evidence of hemorrhage or mass effect. CONCLUSION: 1. Developing hypodensity in the left occipital lobe which may represent an evolving infarct. 2. No evidence of acute hemorrhage. 3. Otherwise stable evaluation. Electronically signed by: Karlos Johnson MD 09/14/2017 9:39 PM EDT
[2017-09-14] MEDS: ACETAMINOPHEN/HYDROcodone 325 MG/5 MG TAB PO PRN (22:34)
[2017-09-15] VITALS (7 sets, daily range): BP systolic 131–207; BP diastolic 50–99; PULSE 62–80; RESP 14–19; TEMP 97.1–98.3; O2SAT 95–99
[2017-09-15] MEDS: cloNIDine HCL 0.1 MG TAB PO PRN ×4 (00:38→23:22)
[2017-09-15] MEDS: ATORVASTATIN 20 MG TAB PO SCH (00:39)
[2017-09-15] MEDS: DULoxetine HCl DR 60 MG CAP PO SCH ×3 (00:40→23:18)
[2017-09-15] MEDS: DONEPEZIL HCL 5 MG TAB PO SCH ×2 (00:40→23:19)
[2017-09-15] MEDS: buPROPion HCL 150 MG SUSTAINED RELEASE TAB PO SCH ×2 (00:40→09:15)
[2017-09-15] MEDS: DOCUSATE SODIUM 50 MG/SENNA 8.6 MG TAB PO SCH ×3 (00:40→23:18)
[2017-09-15] MEDS: SODIUM CHLOR 0.9% 1000 ML INJ 1,000 ML IV SCH ×3 (00:41→23:20)
[2017-09-15] MEDS: SODIUM CHLORIDE 0.9% FLUSH 10 ML FLUSH IV FLUSH SCH ×3 (00:41→21:00)
[2017-09-15 06:59] LABS: AUTOMATED NEUTROPHIL # 6.5 TH/MM3 (1.8-7.7); BASOPHIL # 0.1 TH/MM3 (0-0.2); BASOPHIL % 0.8 % (0.0-2.0); EOSINOPHIL # 0.1 TH/MM3 (0-0.4); EOSINOPHIL % 1.4 % (0.0-4.0); HEMATOCRIT 37.6 % (39.0-51.0); HEMOGLOBIN 13.7 GM/DL (13.0-17.0); LYMPH % 16.4 % (9.0-44.0); LYMPHOCYTE # 1.4 TH/MM3 (1.0-4.8); MEAN CELL VOLUME 86.7 FL (80.0-100.0); MEAN CORPUSCULAR HEMOGLOBIN 31.5 PG (27.0-34.0); MEAN PLATELET VOLUME 7.6 FL (7.0-11.0); MONO % 7.7 % (0.0-8.0); MONOCYTE # 0.7 TH/MM3 (0-0.9); NEUT % 73.7 % (16.0-70.0); PLATELET COUNT 288 TH/MM3 (150-450); RED BLOOD COUNT 4.34 MIL/MM3 (4.50-5.90); RED CELL DISTRIBUTION WIDTH 13.3 % (11.6-17.2); WHITE BLOOD COUNT 8.8 TH/MM3 (4.0-11.0)
[2017-09-15 07:06] LABS: MEAN CORPUSCULAR HGB CONC 36.3 % (32.0-36.0)
[2017-09-15 07:34] LABS: BICARBONATE 29.9 MEQ/L (21.0-32.0); BLOOD UREA NITROGEN 14 MG/DL (7-18); CALCIUM 8.7 MG/DL (8.5-10.1); CHLORIDE 98 MEQ/L (98-107); CHOLESTEROL 90 MG/DL (120-200); CHOLESTEROL/ HDL RATIO 2.48 RATIO; CREATININE 1.09 MG/DL (0.60-1.30); GLOMERULAR FILTRATION RATE 67 ML/MIN (>89); GLUCOSE,RANDOM 116 MG/DL (74-106); HDL CHOLESTEROL 36.2 MG/DL (40.0-60.0); LDL CHOLESTEROL 29 MG/DL (0-99); SODIUM (NA) 135 MEQ/L (136-145); TRIGLYCERIDES 125 MG/DL (42-150)
[2017-09-15] MEDS: GABAPENTIN 300 MG CAP PO SCH ×3 (09:15→16:00)
[2017-09-15] MEDS: POTASSIUM CHLORIDE 20 MEQ CONTROLLED RELEASE TAB PO SCH (09:15)
[2017-09-15] MEDS: ASPIRIN EC 81 MG TABEC PO SCH (09:16)
[2017-09-15] MEDS: ACETAMINOPHEN/HYDROcodone 325 MG/5 MG TAB PO PRN ×2 (09:16→18:31)
[2017-09-15] MEDS: PANTOPRAZOLE SOD 40 MG DELAYED RELEASE TAB PO SCH (09:16)
[2017-09-15] MEDS: ALLOPURINOL 300 MG TAB PO SCH (09:17)
[2017-09-15] MEDS ORDERED: POTASSIUM CHLORIDE 20 MEQ CONTROLLED RELEASE TAB PO ONE (10:15)
--- NOTE | 2017-09-15 12:03 | HHI.PR ---
Subjective Remarks 72-year-old male here for generalized weakness and falls. He complained of headaches yesterday which failed to respond to Fioricet. A CT of the brain was ordered which revealed a hypodensity in the left occipital lobe. Stroke workup was initiated, neurology was consulted, MRI of the brain is still pending. Patient states his headache feels somewhat relieved today. Objective Vitals Vital Signs Date Time Temp Pulse Resp B/P (MAP) Pulse Ox O2 Delivery O2 Flow Rate FiO2 09/15/17 08:00 97.8 71 14 131/83 (99) 96 09/15/17 04:56 97.5 80 19 184/88 (120) 95 09/15/17 01:45 164/86 (112) 09/15/17 00:00 98.3 73 16 198/97 (130) 95 09/14/17 20:05 98.5 89 18 155/77 (103) 98 Manual Cuff/Auscultation Automatic Cuff 09/14/17 16:00 97.1 78 19 188/89 (122) 96 09/14/17 12:00 98.6 90 20 152/83 (106) 96 I/O 09/14/17 09/14/17 09/14/17 09/15/17 09/15/17 09/15/17 07:00 15:00 23:00 07:00 15:00 23:00 Intake Total 720 ml 120 ml 960 ml Output Total 175 ml 1000 ml Balance 545 ml 120 ml -40 ml Intake Oral 720 ml 120 ml 960 ml Output Urine Total 175 ml 1000 ml # Voids 4 # Bowel Movements 2 1 Result Diagram: 09/15/17 0642 09/15/17 0642 Objective Remarks GENERAL: Well-nourished, well-developed patient. SKIN: Warm and dry. HEAD: Normocephalic. EYES: No scleral icterus. No injection or drainage. NECK: Supple, trachea midline. No JVD or lymphadenopathy. CARDIOVASCULAR: Regular rate and rhythm without murmurs, gallops, or rubs. RESPIRATORY: Breath sounds equal bilaterally. No accessory muscle use. GASTROINTESTINAL: Abdomen soft, non-tender, nondistended. EXTREMITIES: No cyanosis, or edema. NEUROLOGICAL: Awake, alert, and oriented x 3. Non-focal. Stomping gait A/P Problem List: (1) Dizziness ICD Code: R42 - Dizziness and giddiness (2) Hypokalemia ICD Code: E87.6 - Hypokalemia Status: Acute (3) Orthostatic hypotension ICD Code: I95.1 - Orthostatic hypotension Status: Acute (4) SHANNA (acute kidney injury) ICD Code: N17.9 - SHANNA (acute kidney injury) Status: Acute Assessment and Plan Hypodensity in left occipital lobe Incidental finding after a CT of the brain was ordered for headache Neurology was consulted to assist with evaluation MRI of the brain is pending Appreciate neurology consult Vertigo Improved on meclizine, but BPPV examination by neurology today did not reveal classic nystagmus results Consider electrolyte imbalance as well as orthostatic hypotension, patient is on loop recorder under Dr. Jean Baptiste's care Continue meclizine, continue telemetry Orthostatic hypotension Ongoing monitoring with loop recorder and floor telemetry Consider also electrolyte imbalance Midodrine being considered for possible treatment Cardiology consulted to review symptoms and treatment options Refractory hypokalemia Potassium level corrected to 4.0 yesterday afternoon, down to 2.9 again this morning Increase daily potassium from 20 mEq to 40 mEq Continue with supplementation on top of scheduled potassium as needed Nephrology consulted to assist with treatment plan Acute kidney injury Creatinine level normalized, but no improvement with electrolyte imbalance DVT prophylaxis DALLASs Franki Hu MD September 15, 2017 12:03
--- NOTE | 2017-09-15 12:10 | MB ---
cc: Basil Mendoza MD DATE: 09/15/2017 HISTORY OF PRESENT ILLNESS: He is a 72-year-old right-handed man with hypertension. He has a loop recorder in for multiple syncopal episodes with known orthostatic hypotension, tremor in his legs, some imbalance with walking, multiple falls, ankle fracture. I was asked to see him for possible stroke, by CT. He has had a headache for about 3 or 4 days, start in the back and up to the front. He has been in here with hypokalemia, metabolic disturbance. He says he passes out about twice a week. Sees Dr. Jean Baptiste. Sometimes his blood pressures here have been going from 170-110 from sitting to standing. No true vertigo. He does have headaches, not infrequently, several a month. SOCIAL HISTORY: Nonsmoker, occasional drinker, lives with his . FAMILY HISTORY: Negative for cancer, seizure or stroke. REVIEW OF SYSTEMS: He denied any diabetes, hypercholesterolemia, CABG, stent, angioplasty, IA, AFib, coumadin, renal, hepatic or pulmonary disease, thyroid disease, lupus, ulcer, cancer, seizure or stroke. CURRENT MEDICATIONS: Hydrocodone, Catapres, Imodium, potassium, Zyloprim, 81 of aspirin, Neurontin 300 t.i.d., Protonix, Lipitor, Wellbutrin 150 b.i.d., which considering his syncopal episodes, we should stop. Aricept 5 mg a day, Cymbalta, Antivert. PHYSICAL EXAMINATION: NECK: No carotid bruits. HEART: Regular rhythm. I did not detect a murmur. NEUROLOGIC: Pupils are equal. Visual layne are full. Extraocular movements intact. No nystagmus. Hallpike maneuver is negative bilaterally. Face is symmetric with normal sensation. Tongue was midline. Sensation was intact in the occiput bilaterally. There is no drift. Normal strength in upper and lower extremities bilaterally. There is a mild intention tremor. DTRs are 2-3+ symmetric at the knees. There is no ankle clonus. Toes were downgoing bilaterally. Pinprick was intact throughout upper and lower extremities bilaterally. He is not ataxic on [id number] or [id number]. Gait seemed very unsteady, tended to take smaller steps. Did not turn well, but in a larger room, he could take better steps but staggered over to the left. VITAL SIGNS: His blood pressure standing, one was 193/81, one was 133/82, one was 139/74. We have not had any major low blood pressures here, at least not recorded, although the nurse said he went from 170-111. That would be his lowest blood pressure recorded here. Most of the blood pressures have been high, as high as 200/101, other one 184/88. He has been afebrile, 80, 19. LABORATORY DATA: CBC is normal. Basic metabolic profile: Potassium is 2.9, has been running low. GFR is normal, glucose normal, creatinine normal. His LDL is normal. His CPK and troponin were negative. LFTs normal. Other labs in the past: He had a negative RPR in 2014. Rheumatoid factor and MARYLOU were normal at that time. He had a normal B12 in 2012. He saw Dr. Rios in 10/2014, trouble with his gait, some memory problems, some incontinence, question NPH, syncope. She noted a history of hyperlipidemia, neuropathy, carotid stenosis, normal B12. Other labs at that time in 2014: MRA [place] of [place] was read as normal. MRI of the brain with some white matter changes only. No significant enlarged ventricles. Carotid ultrasound: Velocity was increased on the right common carotid artery, otherwise negative. He had a CTA of his neck done, which was normal in 2014. IMPRESSION/PLAN: By history, some orthostatic hypotension, but really none documented here. We will check standing blood pressures every 4 hours. I would recommend thigh high stockings, 3 grams of sodium a day and Florinef. If in fact, it turns out that his blood pressures are in fact very low when he stands. In addition, his gait is very unsteady and although he says he passes out, some of his falls may be due to what appears to be some axial ataxia. 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 I would recommend renal seeing him, not only for the orthostasis, but for the potassium problem, although he has never had periodic paralysis from potassium as far as I can tell from low potassium. I will be following him with you in the hospital. I note his CT of his neck did not show any vertebral artery stenosis at that time in 2014, on my review of the films and his basilar artery may have some mild stenosis. We will recheck an MRA [place] of [place] also and an MR of the brain in case he had an occipital lobe infarction, although I do not pick one up here today. Will also check a vitamin E level with the axial ataxia, and celiac labs. We will check an MRI of his thoracic spine with the unsteady gait also and the hyperreflectivity and also a paraneoplastic screen. MD CHACORTA Romero/TL , 11:27 AM , 12:09 PM
--- NOTE | 2017-09-15 14:53 | MB ---
cc: Trung Valentin MD DATE: 09/15/2017 REASON FOR CONSULTATION: Syncope. HISTORY OF PRESENT ILLNESS: The patient is a 72-year-old white male, followed in our office by Dr. Monik Jean Baptiste, with a history of hypertension, chronic renal insufficiency, minimal coronary artery disease, chronic recurrent syncope, status post loop recorder implantation, who was brought to the hospital with recurrent syncope as well as worsening imbalance, preventing him from walking, particularly over the last 4 weeks. The patient states about 3 days ago, he was out in the yard looking at hurley when he bent over for a brief period of time. When he stood up, he lost consciousness. The episode of loss of consciousness lasted only a few seconds. The patient estimates about 10 episodes of syncope in the past 5 months. None of the episodes last more than a few seconds and often occur with positional changes. As noted above for the past 4 weeks, he has had worsening imbalance and "tremors" which have prevented him from walking without considerable instability. He denies chest pain, shortness of breath, palpitations, pedal edema, paroxysmal nocturnal dyspnea, orthopnea, flu symptoms. PAST MEDICAL HISTORY: 1. Coronary artery disease with 20% LAD stenosis, otherwise normal coronary arteries demonstrated on cardiac catheterization in 2012. 2. Chronic renal insufficiency. 3. Hypertension. 4. Hyperlipidemia. 5. Chronic recurrent syncope for which he has undergone extensive monitoring including placement of a loop recorder. He has had no definite arrhythmias or severe bradycardia correlating with any of his syncopal episodes. CARDIAC MEDICATIONS AT HOME: 1. Aspirin 81 mg daily. 2. Lipitor 20 mg at bedtime. 3. Procardia-XL 60 mg daily. 4. Sildenafil 20 mg t.i.d. 5. Hydralazine 25 mg q. 8 hours. ALLERGIES: CODEINE. FAMILY HISTORY: Noncontributory. SOCIAL HISTORY: The patient quit smoking many years ago. There is no history of alcohol abuse. REVIEW OF SYSTEMS: As in the history of present illness, otherwise negative or noncontributory. He does note a recent midline forehead headache for the past few days. He denies unilateral weakness or numbness, abdominal pain, melena, dyspepsia, diarrhea, bright red blood per rectum, fevers. PHYSICAL EXAMINATION: VITAL SIGNS: His blood pressure 207/99 with a pulse of 73, respirations 15. GENERAL: He is a well-developed, well-nourished white male, in no acute distress. NECK: Jugular venous pressure is normal. Carotid pulses are 2+ bilaterally and without bruits. CHEST: Reveals unlabored respiratory effort with clear lungs layne. CARDIAC: He has a regular rhythm and rate without S3, S4, or murmur. ABDOMEN: He has a soft, nontender abdomen. Bowel sounds are present. There is no definite hepatosplenomegaly. EXTREMITIES: Reveals no clubbing, cyanosis or edema. LABORATORY DATA: EKG shows sinus rhythm, left axis deviation, nonspecific T-wave abnormality. Includes WBC 8.8, hemoglobin 13.7, platelets 288, potassium 2.9, BUN 14, creatinine 1.09. Total cholesterol 90, LDL 29, HDL 36, triglycerides 125. IMPRESSION: Recurrent syncope in this 72-year-old white male with a history of minimal coronary artery disease, chronic renal insufficiency, hypertension, chronic recurrent syncope, status post implantable loop recorder placement. The patient reports at least 10 episodes of loss of consciousness in 2018. His syncopal episodes date back to at least 2016. A number of monitoring modalities have demonstrated no definitive correlation between any dysrhythmia and his episodes of syncope. I would agree that he has some element of autonomic system dysfunction. His loop recorder has demonstrated no cardioinhibitory responses. RECOMMENDATIONS: 1. Consider use of Florinef, although would try to optimize his antihypertensive regimen as well. 2. Add beta elaine therapy. MD CORNELL Farooq/SARAH , 02:31 PM , 02:52 PM RIVAS
[2017-09-15 15:27] LABS: C-REACTIVE PROTEIN LESS THAN 0.29 MG/DL (0.00-0.30)
[2017-09-15 15:52] LABS: FOLATE 9.8 NG/ML (3.1-17.5); FREE T4 1.25 NG/DL (0.76-1.46)
[2017-09-15] MEDS: METOPROLOL TARTRATE 50 MG TAB PO SCH ×2 (15:59→23:18)
[2017-09-15] MEDS: NIFEdipine 90 MG SUSTAINED RELEASE TAB PO SCH (15:59)
[2017-09-15 16:22] LABS: HEMOGLOBIN A1C 4.9 % (4.3-6.0)
--- NOTE | 2017-09-15 17:20 | PD.CONS ---
HPI Consult Requested By Reason for Consult 72-year-old male with a history of what appears to be chronic hypokalemia based on previous laboratory results. Patient denies taking a diuretic as an outpatient. No previous history of hyperaldosteronism. I will question the patient he indicated to me that he does have chronic diarrhea with loose stool approximately 4 times daily predating this admission and continuing in-house. He occasionally takes Imodium with temporary improvement. There is a remote history of partial colonic resection for diverticulosis by history. He also indicated to me that he would occasionally have emesis. Patient admits to alcohol intake primarily on the weekends about 4-5 beers. Florinef was started just today but it was indicated also in previous records but the patient denies taking Florinef as an outpatient. There is also mention of syncopal episodes in the records with orthostasis although the patient and his girlfriend did not appear to be aware of orthostatic hypotension in the past. Of interest the patient is on multiple outpatient medications that may be associated with labile blood pressures including Aricept, Cymbalta and Antivert. There is mention in the record of Viagra for pulmonary hypertension however on questioning the patient he denies any knowledge of pulmonary hypertension and indicated to me that he does not take the Viagra [id number]. I should mention that the patient appears to be a poor historian. Outpatient medications per records include Procardia XL 60 mg daily, hydralazine 25 mg every 8 hourly. There was mention of Viagra 20 mg 3 times daily but as indicated above patient denies taking this medication around the clock. On presentation the patient had an elevated creatinine level which has since improved with IV hydration. Blood pressure remains slightly labile but no cammie orthostatic hypotension noted in-house. Primary Care Physician [facility] Review of Systems Constitutional: COMPLAINS OF: Fatigue Respiratory: COMPLAINS OF: Apneas, Cough, Snoring, Wheezing, Hemoptysis, Sputum production, Shortness of breath Cardiovascular: DENIES: Chest pain, Palpitations, Syncope, Dyspnea on Exertion , PND, Lower Extremity Edema, Orthopnea, Claudication Gastrointestinal: COMPLAINS OF: Vomiting, Anorexia, DENIES: Abdominal pain, Black stools, Bloody stools, Constipation, Diarrhea, Nausea, Difficulty Swallowing Musculoskeletal: COMPLAINS OF: Joint pain, DENIES: Muscle aches, Stiffness, Joint Swelling, Back pain, Neck pain Psychiatric: COMPLAINS OF: Anxiety Past Family Social History Allergies: Coded Allergies: codeine (Verified Allergy, Intermediate, RASH, 09/12/17) Past Medical History Hypokalemia PTSD Gastroesophageal reflux disease. Depression Mild coronary disease. Syncope. Patient has a history of a loop recorder placement. Chronic diarrhea. Past Surgical History Please see records for details. Partial colon resection. Said to be for diverticulitis. Reported Medications Reported Meds & Active Scripts Active Hydralazine HCl 25 Mg Tablet 25 Mg PO Q8HR Hold if systolic BP < 120 Reported Cephalexin 500 Mg Cap 500 Mg PO Q8H Meclizine (Meclizine HCl) 12.5 Mg Tab 12.5 Mg PO BID PRN Sildenafil 20 Mg Tab 20 Mg PO TID Donepezil 5 Mg Tab 5 Mg PO HS [Anti-Depressant] 1 Tab PO DAILY Wellbutrin Xl 24 HR (Bupropion HCl) 300 Mg Tab 300 Mg PO DAILY Duloxetine DR (Duloxetine HCl) 60 Mg Capdr 60 Mg PO BID Trazodone (Trazodone HCl) 100 Mg Tablet 200-300 Mg PO HS Protonix (Pantoprazole Sodium) 40 Mg Tab 40 Mg PO DAILY Procardia XL (Nifedipine) 60 Mg Tab 60 Mg PO DAILY Gabapentin 300 Mg Cap 300 Mg PO TID Lipitor (Atorvastatin Calcium) 20 Mg Tab 20 Mg PO HS Aspirin Adult Low Strength (Aspirin) 81 Mg Tabdr 81 Mg PO DAILY Zyloprim (Allopurinol) 300 Mg Tab 300 Mg PO DAILY Active Ordered Medications Current Medications Metoclopramide HCl (Reglan Inj) 5 mg ONCE ONCE IV PUSH Last administered on at 16:57; Start 09/12/17 at 16:45; Stop 09/12/17 at 16:46; Status DC Sodium Chloride 500 ml @ 500 mls/hr BOLUS ONCE IV Last administered on at 16:56; Start 09/12/17 at 16:45; Stop 09/13/17 at 16:17; Status DC Potassium Chloride (KCl) 50 meq ONCE ONCE PO Last administered on 09/12/17at 17 :52; Start 09/12/17 at 17:30; Stop 09/12/17 at 17:31; Status DC Sodium Chloride 1,000 ml @ 100 mls/hr Q10H IV Last administered on 09/15/17 07:30; Start 09/12/17 at 20:00 Sodium Chloride (NS Flush) 2 ml UNSCH PRN IV FLUSH FLUSH AFTER USING IV ACCESS Last administered on 09/13/17 03:48; Start 09/12/17 at 19:15 Sodium Chloride (NS Flush) 2 ml BID IV FLUSH Last administered on 09/15/17at 00: 41; Start 09/12/17 at 21:00 Metoclopramide HCl (Reglan Inj) 5 mg Q6H PRN IV PUSH NAUSEA OR VOMITING; Start 09/12/17 at 19:15; Stop 09/13/17 at 16:17; Status DC Acetaminophen (Tylenol) 650 mg Q6H PRN PO FEVER/PAIN SCALE 1 TO 2 Last administered on 09/14/17 00:47; Start 09/12/17 at 19:15 Senna/Docusate Sodium (Karen-Colace) 1 tab BID PO Last administered on 09:16; Start 09/12/17 at 21:00 Magnesium Hydroxide (Milk Of Magnesia Liq) 30 ml Q12H PRN PO Mild constipation ; Start 09/12/17 at 19:15 Sennosides (Senokot) 17.2 mg Q12H PRN PO Moderate constipation; Start 09/12/17 at 19:15 Bisacodyl (Dulcolax Supp) 10 mg DAILY PRN RECTAL SEVERE CONSITIPATION; Start at 19:15 Lactulose (Lactulose Liq) 30 ml DAILY PRN PO SEVERE CONSITIPATION; Start at 19:15 Allopurinol (Zyloprim) 300 mg DAILY PO Last administered on 09/15/17 09:17; Start 09/13/17 at 09:00 Aspirin (Ecotrin Ec) 81 mg DAILY PO Last administered on 09/15/17 09:16; Start 09/13/17 at 09:00 Atorvastatin Calcium (Lipitor) 20 mg HS PO Last administered on 09/15/17at 00:39 ; Start 09/12/17 at 21:00 Bupropion HCl (Wellbutrin Sr) 150 mg BID PO Last administered on 09/15/17 09: 15; Start 09/12/17 at 21:00; Stop 09/15/17 at 11:28; Status DC Donepezil HCl (Aricept) 5 mg HS PO Last administered on 09/15/17at 00:40; Start 09/12/17 at 21:00 Duloxetine HCl (Cymbalta Dr) 60 mg BID PO Last administered on 09/15/17at 09:16 ; Start 09/12/17 at 21:00 Gabapentin (Neurontin) 300 mg TID PO Last administered on 09/15/17at 16:00; Start 09/13/17 at 09:00 Meclizine HCl (Antivert) 12.5 mg BID PRN PO VERTIGO; Start 09/12/17 at 19:15; Stop 09/12/17 at 19:35; Status DC Pantoprazole Sodium (Protonix) 40 mg DAILY PO Last administered on 09/15/17at 09 :16; Start 09/13/17 at 09:00 Miscellaneous (Pill Splitter) 1 ea UNSCH PRN OTHER SEE LABEL COMMENTS; Start at 19:30 Meclizine HCl (Antivert) 25 mg Q8H PRN PO VERTIGO Last administered on at 05:31; Start 09/12/17 at 19:45 Metoprolol Tartrate (Lopressor Inj) 5 mg ONCE ONCE IV PUSH Last administered on 09/12/17at 19:50; Start 09/12/17 at 19:45; Stop 09/12/17 at 19:46; Status DC Magnesium Sulfate/ Dextrose 100 ml @ 100 mls/hr Q1H IV Last administered on at 05:14; Start 09/13/17 at 02:30; Stop 09/13/17 at 04:29; Status DC Potassium Chloride (KCl) 40 meq ONCE ONCE PO Last administered on 09/13/17at 03 :42; Start 09/13/17 at 02:30; Stop 09/13/17 at 02:32; Status DC Potassium Chloride (KCl) 40 meq ONCE ONCE PO Last administered on 09/13/17at 15 :16; Start 09/13/17 at 11:30; Stop 09/13/17 at 11:36; Status DC Potassium Chloride (KCl) 20 meq DAILY PO Last administered on 09/15/17at 09:15; Start 09/14/17 at 09:00 Clonidine (Catapres) 0.1 mg ONCE ONCE PO Last administered on 09/13/17at 22:13 ; Start 09/13/17 at 22:15; Stop 09/13/17 at 22:16; Status DC Hydralazine HCl (Apresoline) 25 mg ONCE ONCE PO Last administered on at 02:10; Start 09/14/17 at 01:30; Stop 09/14/17 at 01:31; Status DC Enalaprilat (Vasotec Inj) 1.25 mg Q6H PRN IV PUSH SBP>160, DBP>90 Last administered on 09/14/17at 05:31; Start 09/14/17 at 05:30; Stop 09/14/17 at 09:05 ; Status DC Nifedipine (Procardia) 30 mg ONCE ONCE PO Last administered on 09/14/17at 05:46 ; Start 09/14/17 at 05:30; Stop 09/14/17 at 05:31; Status DC Magnesium Sulfate/ Dextrose 100 ml @ 100 mls/hr ONCE ONCE IV Last administered on 09/14/17at 07:18; Start 09/14/17 at 07:00; Stop 09/14/17 at 07:59 ; Status DC Potassium Chloride (KCl) 40 meq Q2HR PO ; Start 09/14/17 at 09:00; Stop at 09:03; Status DC Potassium Chloride (KCl) 40 meq ONCE ONCE PO Last administered on 09/14/17at 12 :14; Start 09/14/17 at 10:00; Stop 09/14/17 at 10:01; Status DC Loperamide HCl (Imodium) 2 mg Q4H PRN PO diarrhea; Start 09/14/17 at 07:45 Acetaminophen/ Butalbital/ Caffeine (Fioricet 325-50-40) 1 tab ONCE ONCE PO Last administered on 09/14/17at 09:12; Start 09/14/17 at 09:00; Stop 09/14/17 at 09:01; Status DC Clonidine (Catapres) 0.1 mg Q6H PRN PO SBP > 165 Last administered on at 13:49; Start 09/14/17 at 09:15 Acetaminophen/ Hydrocodone Bitart (Lovilia 5-325 Mg) 1 tab Q6H PRN PO headache or pain 3-10 Last administered on 09/15/17at 09:16; Start 09/14/17 at 15:15 Potassium Chloride (KCl) 40 meq ONCE ONCE PO Last administered on 09/15/17at 13 :50; Start 09/15/17 at 10:15; Stop 09/15/17 at 10:16; Status DC Nifedipine (Procardia Xl) 90 mg DAILY PO Last administered on 09/15/17at 15:59; Start 09/15/17 at 15:00 Metoprolol Tartrate (Lopressor) 50 mg Q8HR PO Last administered on 09/15/17at 15 :59; Start 09/15/17 at 15:00 Fludrocortisone Acetate (Florinef) 0.1 mg BID PO ; Start 09/15/17 at 21:00; Stop 09/15/17 at 21:00; Status DC Family History Patient adopted. No history available. Social History Drinks about 4-5 beers on weekends. Physical Exam Vital Signs Vital Signs Date Time Temp Pulse Resp B/P (MAP) Pulse Ox O2 Delivery O2 Flow Rate FiO2 09/15/17 12:00 97.1 73 15 207/99 (135) 99 09/15/17 08:00 97.8 71 14 131/83 (99) 96 09/15/17 04:56 97.5 80 19 184/88 (120) 95 09/15/17 01:45 164/86 (112) 09/15/17 00:00 98.3 73 16 198/97 (130) 95 09/14/17 20:05 98.5 89 18 155/77 (103) 98 Manual Cuff/Auscultation Automatic Cuff Physical Exam GENERAL: General examination reveals a elderly debilitated male not in respiratory distress. Slightly tremulous. SKIN: Warm and dry. HEAD: Normocephalic. EYES: No scleral icterus. No injection or drainage. NECK: Supple, trachea midline. No JVD or lymphadenopathy. CARDIOVASCULAR: Regular rate and rhythm without murmurs, gallops, or rubs. RESPIRATORY: Breath sounds equal bilaterally. No accessory muscle use. GASTROINTESTINAL: Abdomen soft, non-tender, nondistended. MUSCULOSKELETAL: No cyanosis, or edema. Laboratory Laboratory Tests Test 09/15/17 06:42 White Blood Count 8.8 Red Blood Count 4.34 Hemoglobin 13.7 Hematocrit 37.6 Mean Corpuscular Volume 86.7 Mean Corpuscular Hemoglobin 31.5 Mean Corpuscular Hemoglobin Concent 36.3 Red Cell Distribution Width 13.3 Platelet Count 288 Mean Platelet Volume 7.6 Neutrophils (%) (Auto) 73.7 Lymphocytes (%) (Auto) 16.4 Monocytes (%) (Auto) 7.7 Eosinophils (%) (Auto) 1.4 Basophils (%) (Auto) 0.8 Neutrophils # (Auto) 6.5 Lymphocytes # (Auto) 1.4 Monocytes # (Auto) 0.7 Eosinophils # (Auto) 0.1 Basophils # (Auto) 0.1 CBC Comment AUTO DIFF Differential Comment AUTO DIFF CONFIRMED Erythrocyte Sedimentation Rate 7 Blood Urea Nitrogen 14 Creatinine 1.09 Random Glucose 116 Calcium Level 8.7 Sodium Level 135 Potassium Level 2.9 Chloride Level 98 Carbon Dioxide Level 29.9 Anion Gap 7 Estimat Glomerular Filtration Rate 67 Hemoglobin A1c 4.9 C-Reactive Protein LESS THAN 0.29 Triglycerides Level 125 Cholesterol Level 90 LDL Cholesterol 29 HDL Cholesterol 36.2 Cholesterol/HDL Ratio 2.48 Vitamin B12 Level 335 Folate 9.8 Free Thyroxine 1.25 Thyroid Stimulating Hormone 3rd Gen 0.410 Result Diagram: 09/15/17 0642 09/15/17 0642 Imaging Last [address] 09/14/17 0000 Signed Impressions: CONCLUSION: 1. Developing hypodensity in the left occipital lobe which may represent an ev olving infarct. 2. No evidence of acute hemorrhage. 3. Otherwise stable evaluation. CT scan dated May 09, 2017 which reported the adrenal glands to have a normal appearance. Assessment and Plan Problem List: (1) Hypokalemia ICD Codes: E87.6 - Hypokalemia Status: Chronic Plan: Etiology of hypokalemia to be determined. Patient does have a history of chronic diarrhea as indicated above her potassium losses may be related to enteral fluid losses. One wonders if the patient's intake of alcohol may be higher than history suggests. Alcohol can be associated with renal wastage of magnesium and potassium. Uncertain if the patient was on Florinef as an outpatient. Florinef can also be associated with hypokalemia. Given the labile nature of his blood pressure will evaluate the patient for hyperaldosteronism. Discontinue Florinef for the present given patient's hypertension and no documented hypotension in-house. As indicated above Florinef may aggravate the patient's hypokalemia. Patient does not appear to have metabolic alkalosis making Liddles syndrome unlikely. We will check spot urine potassium as well as creatinine level. Magnesium level in a.m. Also check renin and aldosterone level. Further evaluation based on these results. (2) Labile hypertension ICD Codes: I10 - Labile hypertension Status: Chronic Plan: Evaluation for hyperaldosteronism as indicated above. As far as the patient has labile hypertension is concerned the patient is on multiple medications that could potentially contribute to same including Aricept , Cymbalta, Antivert and apparently Viagra but frequency of the latter uncertain. All of these drugs can be associated with orthostatic hypotension.Essentially the patient appears to have polypharmacy. Renal ultrasound to assess renal size and condition of parenchyma. Will defer to primary in regard to consideration to weaning the patient off these medications to determine whether or not doing so may help to stabilize the labile nature of his hypertension. Psychiatric input may be beneficial. Jeremy Lezama MD September 15, 2017 17:20
[2017-09-15] MEDS ORDERED: FLUDROCORTISONE ACETATE 0.1 MG TAB PO SCH (21:00)
[2017-09-16 00:01] VITALS: BP 157/75; PULSE 60; RESP 18; TEMP 97.8; O2SAT 95
[2017-09-16] MEDS: ACETAMINOPHEN/HYDROcodone 325 MG/5 MG TAB PO PRN ×3 (01:31→17:08)
[2017-09-16 04:00] VITALS: BP 153/73; PULSE 58; RESP 17; TEMP 98.1; O2SAT 95
[2017-09-16] MEDS: METOPROLOL TARTRATE 50 MG TAB PO SCH ×3 (06:00→21:00)
[2017-09-16 07:00] LABS: CREATININE, RANDOM URINE 34.5 MG/DL
[2017-09-16 08:00] VITALS: BP_SYST 119; BP_SYST 143; BP_DIAS 61; BP_DIAS 62; PULSE 60; RESP 18; TEMP 97.5; O2SAT 96
--- NOTE | 2017-09-16 08:03 | PD.CARD.PN ---
Subjective Subjective Remarks no cv complaints Objective Medications Current Medications Medications (Trade) Dose Ordered Sig/Sandhya Route Start Time Stop Time Status Last Admin Sodium Chloride 1,000 ml @ 40 mls/hr Q24H IV 09/12/17 20:00 09/15/17 23:20 (NS Flush) 2 ml UNSCH PRN IV FLUSH 09/12/17 19:15 09/13/17 03:48 (NS Flush) 2 ml BID IV FLUSH 09/12/17 21:00 09/15/17 21:00 (Tylenol) 650 mg Q6H PRN PO 09/12/17 19:15 09/14/17 00:47 (Karen-Colace) 1 tab BID PO 09/12/17 21:00 09/15/17 23:18 (Milk Of Magnesia Liq) 30 ml Q12H PRN PO 09/12/17 19:15 (Senokot) 17.2 mg Q12H PRN PO 09/12/17 19:15 (Dulcolax Supp) 10 mg DAILY PRN RECTAL 09/12/17 19:15 (Lactulose Liq) 30 ml DAILY PRN PO 09/12/17 19:15 (Zyloprim) 300 mg DAILY PO 09/13/17 09:00 09/15/17 09:17 (Ecotrin Ec) 81 mg DAILY PO 09/13/17 09:00 09/15/17 09:16 (Lipitor) 20 mg HS PO 09/12/17 21:00 09/15/17 00:39 (Aricept) 5 mg HS PO 09/12/17 21:00 09/15/17 23:19 (Cymbalta Dr) 60 mg BID PO 09/12/17 21:00 09/15/17 23:18 (Neurontin) 300 mg TID PO 09/13/17 09:00 09/15/17 16:00 (Protonix) 40 mg DAILY PO 09/13/17 09:00 09/15/17 09:16 (Pill Splitter) 1 ea UNSCH PRN OTHER 09/12/17 19:30 (Antivert) 25 mg Q8H PRN PO 09/12/17 19:45 09/14/17 05:31 (KCl) 20 meq DAILY PO 09/14/17 09:00 5/28/18 09:15 (Imodium) 2 mg Q4H PRN PO 09/14/17 07:45 (Catapres) 0.1 mg Q6H PRN PO 09/14/17 09:15 09/15/17 23:22 (Brooks 5-325 Mg) 1 tab Q6H PRN PO 09/14/17 15:15 09/16/17 01:31 (Procardia Xl) 90 mg DAILY PO 09/15/17 15:00 09/15/17 15:59 (Lopressor) 50 mg Q8HR PO 09/15/17 15:00 09/15/17 23:18 Vital Signs / I&O Vital Signs Date Time Temp Pulse Resp B/P (MAP) Pulse Ox O2 Delivery O2 Flow Rate FiO2 09/16/17 04:00 98.1 58 17 153/73 (99) 95 09/16/17 00:01 97.8 60 18 157/75 (102) 95 09/15/17 20:00 166/74 (104) 09/15/17 20:00 150/50 (83) 09/15/17 20:00 97.8 62 17 176/82 (113) 96 09/15/17 16:00 97.8 62 16 180/86 (117) 98 166/77 (106) 163/77 (105) 09/15/17 12:00 97.1 73 15 207/99 (135) 99 I/O 09/15/17 09/15/17 09/15/17 09/16/17 09/16/17 09/16/17 07:00 15:00 23:00 07:00 15:00 23:00 Intake Total 100 ml 450 ml Output Total 100 ml 625 ml Balance 0 ml -175 ml Intake Oral 100 ml 450 ml Output Urine Total 100 ml 625 ml # Voids 5 3 # Bowel Movements 2 1 Physical Exam GENERAL: Well developed, well nourished. No acute distress. HEENT: Jugular venous pressure is normal. CHEST: Lungs clear to auscultation bilaterally. Unlabored respiratory effort. CARDIAC: Regular rate and rhythm without S3, S4, or murmur. ABDOMEN: Soft, nontender, no hepatosplenomegaly. Bowel sounds present. EXTREMITIES: No clubbing, cyanosis, or edema. Laboratory Laboratory Tests Test 09/16/17 05:40 Urine Eosinophils NONE SEEN /HPF Urine Random Creatinine 34.5 MG/DL Urine Random Sodium 146 MEQ/L Urine Random Potassium 27 MEQ/L Assessment and Plan Assessment and Plan syncope- no overt rhythm issues, will have device check -agree with Anne -ECHO pending Monik Jean Baptiste MD September 16, 2017 08:03
--- NOTE | 2017-09-16 08:33 | HHI.PR ---
Subjective Remarks no low standing bps they will check immediately after standing and not wait i dw him and he says actual loc with some falls others he staggers Objective Vital Signs Date Time Temp Pulse Resp B/P (MAP) Pulse Ox O2 Delivery O2 Flow Rate FiO2 09/16/17 04:00 98.1 58 17 153/73 (99) 95 09/16/17 00:01 97.8 60 18 157/75 (102) 95 09/15/17 20:00 166/74 (104) 09/15/17 20:00 150/50 (83) 09/15/17 20:00 97.8 62 17 176/82 (113) 96 09/15/17 16:00 97.8 62 16 180/86 (117) 98 166/77 (106) 163/77 (105) 09/15/17 12:00 97.1 73 15 207/99 (135) 99 I/O 09/15/17 09/15/17 09/15/17 09/16/17 09/16/17 09/16/17 07:00 15:00 23:00 07:00 15:00 23:00 Intake Total 100 ml 450 ml Output Total 100 ml 625 ml Balance 0 ml -175 ml Intake Oral 100 ml 450 ml Output Urine Total 100 ml 625 ml # Voids 5 3 # Bowel Movements 2 1 Result Diagram: 09/15/1742 09/15/17 0642 Objective Remarks sabina macdonald Assessment and Plan Assessment and Plan impp await mris some ataxic gait no low bp here standing as above check immediately on stand as that is when he passed out he says fu macdonald issue esr nl Basil Mendoza MD September 16, 2017 08:33
[2017-09-16] MEDS: DULoxetine HCl DR 60 MG CAP PO SCH ×2 (08:38→21:01)
[2017-09-16] MEDS: ALLOPURINOL 300 MG TAB PO SCH (08:38)
[2017-09-16] MEDS: PANTOPRAZOLE SOD 40 MG DELAYED RELEASE TAB PO SCH (08:38)
[2017-09-16] MEDS: POTASSIUM CHLORIDE 20 MEQ CONTROLLED RELEASE TAB PO SCH (08:38)
[2017-09-16] MEDS: DOCUSATE SODIUM 50 MG/SENNA 8.6 MG TAB PO SCH ×2 (08:38→21:00)
[2017-09-16] MEDS: GABAPENTIN 300 MG CAP PO SCH ×3 (08:38→17:08)
[2017-09-16] MEDS: ASPIRIN EC 81 MG TABEC PO SCH (08:38)
[2017-09-16] MEDS: NIFEdipine 90 MG SUSTAINED RELEASE TAB PO SCH (08:38)
[2017-09-16] MEDS: SODIUM CHLORIDE 0.9% FLUSH 10 ML FLUSH IV FLUSH SCH ×2 (08:41→21:01)
[2017-09-16 08:53] LABS: BICARBONATE 29.7 MEQ/L (21.0-32.0); CALCIUM 9.6 MG/DL (8.5-10.1); CREATININE 0.96 MG/DL (0.60-1.30); MAGNESIUM 1.3 MG/DL (1.5-2.5)
--- NOTE | 2017-09-16 10:14 | HHI.PR ---
Subjective Remarks Patient states that he did not have a good night. Still complaining of dizziness. Did not get much sleep. Denies any actual headaches at this time. Denies any focalized weakness or numbness. Objective Vitals Vital Signs Date Time Temp Pulse Resp B/P (MAP) Pulse Ox O2 Delivery O2 Flow Rate FiO2 09/16/17 08:00 97.5 60 18 143/62 (89) 96 119/61 (80) 09/16/17 04:00 98.1 58 17 153/73 (99) 95 09/16/17 00:01 97.8 60 18 157/75 (102) 95 09/15/17 20:00 166/74 (104) 09/15/17 20:00 150/50 (83) 09/15/17 20:00 97.8 62 17 176/82 (113) 96 09/15/17 16:00 97.8 62 16 180/86 (117) 98 166/77 (106) 163/77 (105) 09/15/17 12:00 97.1 73 15 207/99 (135) 99 I/O 09/15/17 09/15/17 09/15/17 09/16/17 09/16/17 09/16/17 07:00 15:00 23:00 07:00 15:00 23:00 Intake Total 100 ml 450 ml Output Total 100 ml 625 ml Balance 0 ml -175 ml Intake Oral 100 ml 450 ml Output Urine Total 100 ml 625 ml # Voids 5 3 # Bowel Movements 2 1 Result Diagram: 09/15/17 0642 09/16/17 0756 Other Results Renin aldosterone currently pending Imaging Last Impressions Head CT 09/14/17 0000 Signed Impressions: CONCLUSION: 1. Developing hypodensity in the left occipital lobe which may represent an ev olving infarct. 2. No evidence of acute hemorrhage. 3. Otherwise stable evaluation. Objective Remarks GENERAL: This is a well-nourished, well-developed patient, in no apparent distress. CARDIOVASCULAR: Regular rate and rhythm RESPIRATORY: Clear to auscultation. Breath sounds equal bilaterally. No wheezes , rales, or rhonchi. GASTROINTESTINAL: Abdomen soft, non-tender, nondistended. Normal active bowel sounds MUSCULOSKELETAL: Extremities without clubbing, cyanosis, or edema. NEURO: Alert & Oriented x4 to person, place, time, situation. Moves all ext x4 A/P Problem List: (1) Dizziness ICD Code: R42 - Dizziness and giddiness (2) Hypokalemia ICD Code: E87.6 - Hypokalemia Status: Acute (3) Orthostatic hypotension ICD Code: I95.1 - Orthostatic hypotension Status: Acute (4) SHANNA (acute kidney injury) ICD Code: N17.9 - SHANNA (acute kidney injury) Status: Acute Assessment and Plan Hypodensity in left occipital lobe Incidental finding after a CT of the brain was ordered for headache Appreciate neurology recommendations and will await MRI/MRA of the brain. Continue neurological checks Vertigo Improved on meclizine, but BPPV examination by neurology today did not reveal classic nystagmus results Consider electrolyte imbalance as well as orthostatic hypotension, patient is on loop recorder under Dr. Jean Baptiste's care Continue meclizine, continue telemetry Orthostatic hypotension Ongoing monitoring with loop recorder and floor telemetry Consider also electrolyte imbalance Florinef being considered for possible treatment Cardiology consulted to review symptoms and treatment options with recommendations for 2D echo currently pending Refractory hypokalemia down to 3.0 again this morning Increase daily potassium from 20 mEq to 40 mEq Continue with supplementation on top of scheduled potassium as needed Nephrology consulted to assist with treatment plan; workup in progress with renin and aldosterone currently pending Acute kidney injury -resolved Creatinine level normalized, but no improvement with electrolyte imbalance DVT prophylaxis SCDs Discharge Planning Home when medically stable. Lena Linda MD September 16, 2017 10:14
[2017-09-16] MEDS ORDERED: POTASSIUM CHLORIDE 20 MEQ CONTROLLED RELEASE TAB PO ONE (10:15)
--- NOTE | 2017-09-16 10:33 | RADRPT ---
EXAM DATE: 09/16/2017 10:20 AM EDT AGE/SEX: 72 years / Male INDICATIONS: Pain. CLINICAL DATA: This is the patient's initial encounter. Patient reports that signs and symptoms have been present for 2 days and indicates a pain score of 4/10. MEDICAL/SURGICAL HISTORY: Hypertension. Cholecystectomy. Colon resection. knee surgery/hernia COMPARISON: No prior [place] exams available for comparison. TECHNIQUE: Multiplanar, multisequence MRI of the thoracic spine was performed. FINDINGS: Vertebrae: Normal vertebral body height. Homogeneous marrow signal. Mild degenerative changes there is mild kyphosis. Minimal loss of height at T6 but no acute compression deformity. Alignment: No spondylolisthesis. Cord: Normal position and configuration. T1-T2: The thecal sac has a normal diameter. No evidence of disc bulge or protrusion. T2-T3: The thecal sac has a normal diameter. No evidence of disc bulge or protrusion. T3-T4: The thecal sac has a normal diameter. No evidence of disc bulge or protrusion. T4-T5: The thecal sac has a normal diameter. No evidence of disc bulge or protrusion. T5-T6: The thecal sac has a normal diameter. No evidence of disc bulge or protrusion. T6-T7: The thecal sac has a normal diameter. No evidence of disc bulge or protrusion. T7-T8: The thecal sac has a normal diameter. No evidence of disc bulge or protrusion. T8-T9: The thecal sac has a normal diameter. No evidence of disc bulge or protrusion. T9-T10: The thecal sac has a normal diameter. No evidence of disc bulge or protrusion. T10-T11: The thecal sac has a normal diameter. No evidence of disc bulge or protrusion. T11-T12: The thecal sac has a normal diameter. No evidence of disc bulge or protrusion. T12-L1: The thecal sac has a normal diameter. No evidence of disc bulge or protrusion. CONCLUSION: 1. No disc herniation or canal stenosis. 2. No acute compression fracture or spondylolisthesis. 3. Mild scattered degenerative changes and mild kyphosis. Electronically signed by: Nilesh Foy MD 09/16/2017 10:32 AM EDT
[2017-09-16] MEDS: MAGNESIUM SULFATE 1 GM PREMIX 100 ML IV SCH ×2 (11:31→14:16)
[2017-09-16 12:00] VITALS: BP_SYST 120; BP_SYST 166; BP_DIAS 62; BP_DIAS 72; PULSE 54; RESP 18; TEMP 97.2; O2SAT 98
--- NOTE | 2017-09-16 13:11 | HHI.NPPN ---
Subjective History of Present Illness 72-year-old male with a history of what appears to be chronic hypokalemia based on previous laboratory results. Patient denies taking a diuretic as an outpatient. No previous history of hyperaldosteronism. I will question the patient he indicated to me that he does have chronic diarrhea with loose stool approximately 4 times daily predating this admission and continuing in-house. He occasionally takes Imodium with temporary improvement. There is a remote history of partial colonic resection for diverticulosis by history. He also indicated to me that he would occasionally have emesis. Patient admits to alcohol intake primarily on the weekends about 4-5 beers. Florinef was started just today but it was indicated also in previous records but the patient denies taking Florinef as an outpatient. There is also mention of syncopal episodes in the records with orthostasis although the patient and his girlfriend did not appear to be aware of orthostatic hypotension in the past. Of interest the patient is on multiple outpatient medications that may be associated with labile blood pressures including Aricept, Cymbalta and Antivert. There is mention in the record of Viagra for pulmonary hypertension however on questioning the patient he denies any knowledge of pulmonary hypertension and indicated to me that he does not take the Viagra [id number]. I should mention that the patient appears to be a poor historian. Outpatient medications per records include Procardia XL 60 mg daily, hydralazine 25 mg every 8 hourly. There was mention of Viagra 20 mg 3 times daily but as indicated above patient denies taking this medication around the clock. On presentation the patient had an elevated creatinine level which has since improved with IV hydration. Blood pressure remains slightly labile but no cammie orthostatic hypotension noted in-house. Interval History Pt seems confused today Says that he had a rough night, but did not elaborate. Diarrhea x2 today (Hawa Bartlett) Review of Systems Gastrointestinal Gastrointestinal: Diarrhea (Hawa Bartlett) Neuro Neuro: Dizziness (Hawa Bartlett) Objective Data Data Vital Signs Date Time Temp Pulse Resp B/P (MAP) Pulse Ox O2 Delivery O2 Flow Rate FiO2 09/16/17 08:00 97.5 60 18 143/62 (89) 96 119/61 (80) 09/16/17 04:00 98.1 58 17 153/73 (99) 95 5/29/18 00:01 97.8 60 18 157/75 (102) 95 09/15/17 20:00 166/74 (104) 09/15/17 20:00 150/50 (83) 09/15/17 20:00 97.8 62 17 176/82 (113) 96 09/15/17 16:00 97.8 62 16 180/86 (117) 98 166/77 (106) 163/77 (105) (Hawa Bartlett) -: 09/15/17 0642 09/16/17 0756 Imaging Last Impressions Thoracic Spine MRI 09/16/17 0000 Signed Impressions: CONCLUSION: 1. No disc herniation or canal stenosis. 2. No acute compression fracture or spondylolisthesis. 3. Mild scattered degenerative changes and mild kyphosis. Head CT 09/14/17 0000 Signed Impressions: CONCLUSION: 1. Developing hypodensity in the left occipital lobe which may represent an ev olving infarct. 2. No evidence of acute hemorrhage. 3. Otherwise stable evaluation. Medication Review Current Medications Medications (Trade) Dose Ordered Sig/Sandhya Route Start Time Stop Time Status Last Admin Sodium Chloride 1,000 ml @ 40 mls/hr Q24H IV 09/12/17 20:00 09/15/17 23:20 (NS Flush) 2 ml UNSCH PRN IV FLUSH 09/12/17 19:15 09/13/17 03:48 (NS Flush) 2 ml BID IV FLUSH 09/12/17 21:00 09/15/17 21:00 (Tylenol) 650 mg Q6H PRN PO 09/12/17 19:15 09/14/17 00:47 (Karen-Colace) 1 tab BID PO 09/12/17 21:00 09/16/17 08:38 (Milk Of Magnesia Liq) 30 ml Q12H PRN PO 09/12/17 19:15 (Senokot) 17.2 mg Q12H PRN PO 09/12/17 19:15 (Dulcolax Supp) 10 mg DAILY PRN RECTAL 09/12/17 19:15 (Lactulose Liq) 30 ml DAILY PRN PO 09/12/17 19:15 (Zyloprim) 300 mg DAILY PO 5/26/18 09:00 09/16/17 08:38 (Ecotrin Ec) 81 mg DAILY PO 09/13/17 09:00 09/16/17 08:38 (Lipitor) 20 mg HS PO 09/12/17 21:00 09/15/17 00:39 (Aricept) 5 mg HS PO 09/12/17 21:00 09/15/17 23:19 (Cymbalta Dr) 60 mg BID PO 09/12/17 21:00 09/16/17 08:38 (Neurontin) 300 mg TID PO 09/13/17 09:00 09/16/17 08:38 (Protonix) 40 mg DAILY PO 09/13/17 09:00 09/16/17 08:38 (Pill Splitter) 1 ea UNSCH PRN OTHER 09/12/17 19:30 (Antivert) 25 mg Q8H PRN PO 09/12/17 19:45 09/14/17 05:31 (Imodium) 2 mg Q4H PRN PO 09/14/17 07:45 (Catapres) 0.1 mg Q6H PRN PO 09/14/17 09:15 09/15/17 23:22 ([place] 5-325 Mg) 1 tab Q6H PRN PO 09/14/17 15:15 09/16/17 07:45 (Procardia Xl) 90 mg DAILY PO 09/15/17 15:00 09/16/17 08:38 (Lopressor) 50 mg Q8HR PO 09/15/17 15:00 09/16/17 06:00 (KCl) 40 meq DAILY PO 09/17/17 09:00 (Mag-Ox) 800 mg BID PO 09/16/17 21:00 (Hawa Bartlett) Physical Exam General Appearance: No Acute Distress, Comfortable (Hawa Bartlett) Neck Neck Exam: Neck Supple, Trachea Midline (Hawa Bartlett) Pulmonary Resp Exam: Clear Bilaterally, Breath Sounds Equal (Hawa Bartlett) Cardiology CV Exam: Regular, Normal Sinus Rhythm (Hawa Bartlett) Gastrointestinal/Abdomen GI Exam: Soft, Non-Tender (Hawa Bartlett) Integumentary Skin Exam: Clear, Warm (Hawa Bartlett) Extremeties Extremities Exam: No Edema (Hawa Bartlett) Neurologic Neuro Exam: Awake (Hawa Bartlett) Assessment/Plan Problem List: (1) Hypokalemia ICD Codes: E87.6 - Hypokalemia Status: Chronic Plan: Urine potassium to creatinine ratio as well as fractional excretion of potassium do not lean towards renal wasting. Potentially extra-renal losses from chronic diarrhea. Agree with increasing KCl to 40meq daily. Mg being repleted by primary Consider discontinuation of PPI and utilization of H2 instead---will defer to primary team. Pending renin & aldosterone levels. Further evaluation based on these results. (2) Labile hypertension ICD Codes: I10 - Labile hypertension Status: Chronic Plan: Evaluation for hyperaldosteronism as indicated above. As far as the patient has labile hypertension is concerned the patient is on multiple medications that could potentially contribute to same including Aricept , Cymbalta, Antivert and apparently Viagra but frequency of the latter uncertain. All of these drugs can be associated with orthostatic hypotension.Essentially the patient appears to have polypharmacy. Renal ultrasound to assess renal size and condition of parenchyma. Will defer to primary in regard to consideration to weaning the patient off these medications to determine whether or not doing so may help to stabilize the labile nature of his hypertension. Psychiatric input may be beneficial. (Hawa Bartlett) Plan The exam, history, and the medical decision-making described in the above note were completed with the assistance of the PA-Antonio. I reviewed and agree with the findings presented. I attest that I had a [id number] encounter with the patient , and personally performed and documented my assessment and findings in the medical record. (Jeremy Lezama MD) Hawa Bartlett September 16, 2017 13:11 Jeremy Lezama MD September 18, 2017 17:38
--- NOTE | 2017-09-16 14:19 | MG ---
cc: Tammy Rios MD DATE OF : 1945 AGE: [age] years old. EEG NUMBER: [id number]. REFERRING PHYSICIAN: MD Reji ROOM: 1603 NOTE: With photic stimulation only. Awake, drowsy asleep study. CT shows developing hypodensity in the left occipital lobe, which may represent evolving infarct. No hemorrhage or mass effect. HISTORY: Admitted with nausea and vomiting after an antibiotic was initiated for ear infection. Has had some falls, history of atrial fibrillation, neuropathy, depression, cancer, PTSD. MEDICATIONS: 1. Procardia 2. Lopressor. 3. Catapres. 4. Protonix. 5. Cymbalta. 6. Gabapentin. 7. Aspirin. 8. Lipitor and others. DESCRIPTION OF RECORD: There is quite a bit of artifact and moaning, but overall 5 Hz theta slowing noted. Some body jerking with artifact seen. No spike and waves after the event. No video this recording, so cannot be determined what the patient is actually doing except what is described as leg jerking and some muscle chewing artifact, does not look to be epileptic in nature. Overall, theta slowing. Photic stimulation with minimal driving response. IMPRESSION: Abnormal electrocardiogram due to slowing of background consistent with what looks like an encephalopathic process. The jerky movements do not correlate with any epileptic activity in this recording. Clinical correlation advised. Tammy Rios MD DF/PAUL , 02:00 PM , 02:18 PM
[2017-09-16] MEDS ORDERED: LORazepam 2 MG/ML VIAL IV PUSH PRN (15:45)
[2017-09-16 16:00] VITALS: BP_SYST 122; BP_SYST 181; BP_DIAS 65; BP_DIAS 81; PULSE 64; RESP 18; TEMP 96; O2SAT 94
[2017-09-16] MEDS: SODIUM CHLOR 0.9% 1000 ML INJ 1,000 ML IV SCH (19:22)
[2017-09-16 19:30] VITALS: BP 166/74; PULSE 61; RESP 18; TEMP 97.1; O2SAT 96
[2017-09-16] MEDS: ATORVASTATIN 20 MG TAB PO SCH ×2 (21:00→21:04)
[2017-09-16] MEDS: DONEPEZIL HCL 5 MG TAB PO SCH (21:01)
[2017-09-16] MEDS: MAGNESIUM OXIDE 400 MG TAB PO SCH (21:01)
[2017-09-17] VITALS (8 sets, daily range): BP systolic 111–185; BP diastolic 62–99; PULSE 54–60; RESP 18; TEMP 97.4–97.8; O2SAT 94–97
[2017-09-17] MEDS: cloNIDine HCL 0.1 MG TAB PO PRN (06:28)
[2017-09-17] MEDS: METOPROLOL TARTRATE 50 MG TAB PO SCH ×3 (06:28→20:50)
--- NOTE | 2017-09-17 07:16 | HHI.PR ---
Subjective Remarks no low standing bps they will check immediately after standing and not wait i dw him and he says actual loc with some falls others he staggers Objective Vital Signs Date Time Temp Pulse Resp B/P (MAP) Pulse Ox O2 Delivery O2 Flow Rate FiO2 09/17/17 00:37 59 09/17/17 00:09 97.6 59 18 94 09/16/17 21:46 Room Air 09/16/17 19:30 97.1 61 18 166/74 (104) 96 09/16/17 18:08 18 09/16/17 16:00 96.0 64 18 181/81 (114) 94 122/65 (84) 09/16/17 12:00 97.2 54 18 166/72 (103) 98 120/62 (81) 09/16/17 08:00 97.5 60 18 143/62 (89) 96 119/61 (80) I/O 09/16/17 09/16/17 09/16/17 09/17/17 09/17/17 09/17/17 07:00 15:00 23:00 07:00 15:00 23:00 Intake Total 450 ml 425 ml Output Total 625 ml Balance -175 ml 425 ml Intake Oral 450 ml 425 ml Output Urine Total 625 ml # Voids 3 5 3 # Bowel Movements 1 2 1 Result Diagram: 09/15/17 0642 09/16/17 0756 Objective Remarks nad macdonald still Assessment and Plan Assessment and Plan imp await mris still some ataxic gait no low bp here standing as above check immediately on stand as that is when he passed out he says fu macdonald issue fioricet topamax started esr nltr and get the brain mri and c spine today we need to get the brain mri today as came in w macdonald and ct ? new abn occipital call me w result Basil Merida MD September 17, 2017 07:16
[2017-09-17 08:11] LABS: HEMATOCRIT 44.4 % (39.0-51.0); MEAN CELL VOLUME 88.3 FL (80.0-100.0); MEAN CORPUSCULAR HEMOGLOBIN 31.8 PG (27.0-34.0); MEAN PLATELET VOLUME 8.2 FL (7.0-11.0); PLATELET COUNT 340 TH/MM3 (150-450); RED BLOOD COUNT 5.03 MIL/MM3 (4.50-5.90); RED CELL DISTRIBUTION WIDTH 12.9 % (11.6-17.2)
[2017-09-17] MEDS: NIFEdipine 90 MG SUSTAINED RELEASE TAB PO SCH (08:34)
[2017-09-17] MEDS: ASPIRIN EC 81 MG TABEC PO SCH (08:34)
[2017-09-17] MEDS: ALLOPURINOL 300 MG TAB PO SCH (08:34)
[2017-09-17] MEDS: MAGNESIUM OXIDE 400 MG TAB PO SCH ×2 (08:34→20:50)
[2017-09-17] MEDS: FAMOTIDINE 20 MG TAB PO SCH ×2 (08:34→20:49)
[2017-09-17] MEDS: DOCUSATE SODIUM 50 MG/SENNA 8.6 MG TAB PO SCH ×2 (08:35→20:50)
[2017-09-17] MEDS: GABAPENTIN 300 MG CAP PO SCH ×3 (08:35→18:12)
[2017-09-17] MEDS: POTASSIUM CHLORIDE 20 MEQ CONTROLLED RELEASE TAB PO SCH (08:35)
[2017-09-17] MEDS: ACETAMIN 325 MG/BUTALBITAL 50 MG/CAFFEINE 40 MG TAB PO PRN ×2 (08:36→18:13)
[2017-09-17] MEDS: SODIUM CHLORIDE 0.9% FLUSH 10 ML FLUSH IV FLUSH SCH ×2 (08:38→20:49)
[2017-09-17 08:44] LABS: BICARBONATE 27.4 MEQ/L (21.0-32.0); CALCIUM 9.9 MG/DL (8.5-10.1); CREATININE 1.11 MG/DL (0.60-1.30); MAGNESIUM 1.9 MG/DL (1.5-2.5)
--- NOTE | 2017-09-17 10:28 | HHI.PR ---
Subjective Remarks Did not complete his MRI testing due to having a headache. Still reports some left-sided headache and some dizziness when he gets up to walk with his walker to the bathroom. He has not had any focalized weakness or numbness. No complaint of chest pain or palpitations. Objective Vitals Vital Signs Date Time Temp Pulse Resp B/P (MAP) Pulse Ox O2 Delivery O2 Flow Rate FiO2 09/17/17 09:30 18 09/17/17 08:00 97.4 60 18 185/86 (119) 96 111/71 (84) 147/84 (105) 09/17/17 00:37 59 09/17/17 00:09 97.6 59 18 94 09/16/17 21:46 Room Air 09/16/17 19:30 97.1 61 18 166/74 (104) 96 09/16/17 18:08 18 09/16/17 16:00 96.0 64 18 181/81 (114) 94 122/65 (84) 09/16/17 12:00 97.2 54 18 166/72 (103) 98 120/62 (81) I/O 09/16/17 09/16/17 09/16/17 09/17/17 09/17/17 09/17/17 07:00 15:00 23:00 07:00 15:00 23:00 Intake Total 450 ml 425 ml Output Total 625 ml Balance -175 ml 425 ml Intake Oral 450 ml 425 ml Output Urine Total 625 ml # Voids 3 5 3 # Bowel Movements 1 2 1 Result Diagram: 09/17/17 0545 09/17/17 0545 Objective Remarks GENERAL: This is a well-nourished, well-developed patient, in no apparent distress. CARDIOVASCULAR: Regular rate and rhythm RESPIRATORY: Clear to auscultation. Breath sounds equal bilaterally. No wheezes , rales, or rhonchi. GASTROINTESTINAL: Abdomen soft, non-tender, nondistended. Normal active bowel sounds MUSCULOSKELETAL: Extremities without clubbing, cyanosis, or edema. NEURO: Alert & Oriented x4 to person, place, time, situation. Moves all ext x4 A/P Problem List: (1) Dizziness ICD Code: R42 - Dizziness and giddiness (2) Hypokalemia ICD Code: E87.6 - Hypokalemia Status: Acute (3) Orthostatic hypotension ICD Code: I95.1 - Orthostatic hypotension Status: Acute (4) SHANNA (acute kidney injury) ICD Code: N17.9 - SHANNA (acute kidney injury) Status: Acute Assessment and Plan Hypodensity in left occipital lobe Incidental finding after a CT of the brain was ordered for headache Appreciate neurology recommendations and will await MRI/MRA of the brain. Patient counseled the importance of completing these tests today. Continue neurological checks which has remained stable. Vertigo Improved on meclizine, but BPPV examination by neurology today did not reveal classic nystagmus results Consider electrolyte imbalance as well as orthostatic hypotension, patient is on loop recorder under Dr. Jean Baptiste's care Continue meclizine, continue telemetry which currently shows normal sinus Orthostatic hypotension Ongoing monitoring with loop recorder and floor telemetry Consider also electrolyte imbalance Florinef being considered for possible treatment Cardiology consulted to review symptoms and treatment options with recommendations for 2D echo currently pending Refractory hypokalemia down to 3.1 again this morning On daily potassium of 40 mEq; give another 40 meq today Continue with supplementation on top of scheduled potassium as needed Nephrology consulted to assist with treatment plan; workup in progress with renin and aldosterone levels currently pending Acute kidney injury -resolved Creatinine level normalized, but no improvement with electrolyte imbalance DVT prophylaxis SCDs Discharge Planning Home when medically stable. Lena Linda MD September 17, 2017 10:28
[2017-09-17] MEDS ORDERED: POTASSIUM CHLORIDE 20 MEQ CONTROLLED RELEASE TAB PO ONE (10:30)
--- NOTE | 2017-09-17 10:47 | RADRPT ---
EXAM DATE: 09/17/2017 10:07 AM EDT AGE/SEX: 72 years / Male INDICATIONS: Cephalgia. CLINICAL DATA: This is the patient's initial encounter. Patient reports that signs and symptoms have been present for 3 days and indicates a pain score of 6/10. MEDICAL/SURGICAL HISTORY: Hypertension. AFIB. Heart cath. Cholecystectomy. Inguinal hernia re pair. Colon resection. Knee surgery. [place] [facility] [place]. . TECHNIQUE: 3D [id number] MRA was performed. Source images, multiplanar STS MIP, and 3D volum e MIP reconstructions were reviewed. FINDINGS: There is excellent visualization of the major intracranial arteries out to the second-order branch ve ssels. There is no evidence for aneurysm, vessel truncation or stenosis, and no evidence for vascula r malformation. The left posterior cerebral artery arises from the anterior circulation, a normal variant. Tortuous basilar. CONCLUSION: 1. Negative for aneurysm or major branch vessel occlusion. Electronically signed by: Josh Johnson MD 09/17/2017 10:45 AM EDT
[2017-09-17] MEDS ORDERED: GADODIAMIDE PF 287 MG/ML 20 ML VIAL (for RAD MRI) IVCONTRAST ONE (10:49)
--- NOTE | 2017-09-17 10:50 | RADRPT ---
EXAM DATE: 09/17/2017 10:41 AM EDT AGE/SEX: 72 years / Male INDICATIONS: Cephalgia and unsteady gait. Recent abnormal brain CT demonstrating developing hypod ensity in the left occipital lobe of concern for possible evolving infarct. CLINICAL DATA: This is the patient's initial encounter. Patient reports that signs and symptoms have been present for 3 days and indicates a pain score of 6/10. MEDICAL/SURGICAL HISTORY: Hypertension. 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 Cholecystectomy. Ingui nal hernia repair. Colon resection. [employer] Loop recorder. COMPARISON: No prior [place] exams available for comparison. TECHNIQUE: Multiplanar, multisequence examination of the brain was performed without and with 18 ml O mniscan (gadodiamide) contrast as a single exam dose. FINDINGS: Cerebrum: The ventricles are normal for age with mild atrophic change. Mild chronic small vessel isc hemic changes are present as well. No evidence of midline shift, mass lesion, hemorrhage or acute inf arction. No extraaxial fluid collections are seen. The pituitary gland and suprasellar cistern are normal in configuration. White Matter: There is increased signal in the centrum semiovale and periventricular white matter ch aracteristic of chronic small vessel ischemic change. Posterior Fossa: The cerebellum and brainstem are intact. The 4th ventricle is midline. The cerebel lopontine angle is unremarkable. The cerebellar tonsils are normal in position. Diffusion Imaging: No focal areas of restricted diffusion are seen. No evidence of acute infarction . Extracranial: The visualized portions of the orbits and paranasal sinuses are unremarkable. Post Contrast: No abnormal areas of parenchymal or dural enhancement. No evidence of blood-brain ba rrier breakdown. CONCLUSION: 1. No acute hemorrhage, mass or evidence of infarction. The left occipital lobe demonstrates normal signal. The finding on CT likely is artifactual. 2. Mild atrophy and chronic small vessel ischemic changes. Electronically signed by: Jose Alfredo Garrison MD 09/17/2017 10:49 AM EDT
--- NOTE | 2017-09-17 11:01 | RADRPT ---
EXAM DATE: 09/16/2017 9:50 AM EDT AGE/SEX: 72 years / Male INDICATIONS: Increased BUN/Creatinine. CLINICAL DATA: This is the patient's initial encounter. Patient reports that signs and symptoms have been present for 1 day and indicates a pain score of 0/10. MEDICAL/SURGICAL HISTORY: Congestive heart failure. Hypercholesterolemia. Diverticulitis. Ne uropathy. Atrial fibrillation. Sleep apnea. Hiatal hernia. Gastroesophageal reflux disease. Gout. Pos t traumatic stress disorder. Cholecystectomy. Inguinal hernia repair. Cardiac catheterization. Loo p monitor placement. Mesh placement intestinal. Colon resection. Right knee surgery. COMPARISON: [facility] – [place] ABDOMEN & PELVIS W/O CONTRAST, 07/06/2015. . PEAK FLOW VELOCITIES: Aorta:__191 cm/s RIGHT RENAL ARTERY: Proximal:__94.8 cm/s Mid:__not seen at med Distal:__55.5cm/s Renal Aortic Ratio:__0.49 Arcuate Artery Resistive Index: Upper -0.83, 0.66 Mid -0.75,0.81 Lower -1.0 LEFT RENAL ARTERY: Proximal:__87.8 Mid:__48.6 Distal:__29.4 Renal Aortic Ratio:__0.45 Arcuate Artery Resistive Index: Upper -0.68, 0.77 Mid -0.72,0.74 Lower -0.82 MEASUREMENTS: Right Kidney:__ 11.9 x 5.4 x 5.3 cm Left Kidney:__ 11.6 x 4.4 x 5.5 cm FINDINGS: Renal Artery: Renal artery and vein mapping as listed above. Right Kidney: Unremarkable without mass. Cyst upper pole right kidney. Left Kidney: Remarkable without mass. Cyst upper pole left kidney CONCLUSION: 1. There is no evidence for renal artery stenosis. 2. Bilateral renal cyst, no hydronephrosis. Line kidneys are normal size. Electronically signed by: Josh Johnson MD 09/17/2017 11:00 AM EDT
--- NOTE | 2017-09-17 14:34 | ECHRPT ---
Indication: SYNCOPE CONCLUSIONS Normal left ventricular size. Wall thickness is normal. The left ventricular systolic function is grossly normal on limited imaging. EF @ 55% Trace mitral valve regurgitation. A right sided pleural effusion is present. BP: 147 / 84 HR: 60 Rhythm: Sinus MEASUREMENTS (Male / Female) Normal Values Technical Quality:Fair 2D ECHO LVOT Diameter 2.2 cm Aortic Root Diameter 3.0 cm M-MODE AV Cusp Separation MM 1.8 cm DOPPLER AV Peak Velocity 92.4 cm/s AV Peak Gradient 3.4 mmHg AV Mean Gradient 2.0 mmHg AV Velocity Time Integral 18.3 cm LVOT Peak Velocity 58.7 cm/s LVOT Peak Gradient 1.4 mmHg LVOT Velocity Time Integral 12.8 cm AV Area Cont Eq vti 2.7 cm AV Area Cont Eq pk 2.4 cm Mitral E Point Velocity 42.9 cm/s Mitral A Point Velocity 64.2 cm/s Mitral E to A Ratio 0.7 LV E' Lateral Velocity 4.0 cm/s Mitral E to LV E' Lateral Ratio 10.8 LV E' Septal Velocity 3.4 cm/s Mitral E to LV E' Septal Ratio 12.5 PV Peak Velocity 48.9 cm/s PV Peak Gradient 1.0 mmHg FINDINGS LEFT VENTRICLE Normal left ventricular size. Wall thickness is normal. The left ventricular systolic function is grossly normal on limited imaging. RIGHT VENTRICLE Normal right ventricular size and systolic function. LEFT ATRIUM The left atrial size is normal. RIGHT ATRIUM The right atrial size is normal. ATRIAL SEPTUM No atrial level shunt is demonstrated by color flow Doppler interrogation. AORTA The aortic root and proximal ascending aorta are normal in size on limited imaging. MITRAL VALVE Trace mitral valve regurgitation. AORTIC VALVE Trileaflet aortic valve. No aortic valve stenosis or regurgitation. TRICUSPID VALVE Structurally normal tricuspid valve. No tricuspid valve stenosis or regurgitation. PULMONARY VALVE No pulmonary valve regurgitation or stenosis. VESSELS The inferior vena cava was not well visualized. PERICARDIUM No pericardial effusion. A right sided pleural effusion is present. Gautam Rg MD, FACC, [facility] [place] (Electronically Signed) Final Date:17 Sep 2017 14:32
--- NOTE | 2017-09-17 15:26 | RADRPT ---
EXAM DATE: 09/17/2017 10:42 AM EDT AGE/SEX: 72 years / Male INDICATIONS: Neck pain. CLINICAL DATA: This is the patient's initial encounter. Patient reports that signs and symptoms have been present for 3 days and indicates a pain score of 5/10. MEDICAL/SURGICAL HISTORY: Hypertension. AFIB. Cholecystectomy. Inguinal hernia repair. Colon resection. Knee surgery. 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 COMPARISON: No prior [place] exams available for comparison. TECHNIQUE: Multiplanar, multisequence MRI examination of the cervical spine was performed without co ntrast. FINDINGS: Vertebrae: Normal vertebral body height. Homogeneous marrow signal except for mild discogenic edema in the endplates at the C5-6 level. Alignment: Normal. Discs: There is diffuse disc desiccation. There is mild disc space narrowing at the C4-5 and C5-6 le vels. Anterior extradural defects noted on the sagittal images at the C4-5 through C6-7 levels with m ass effect on the anterior thecal sac and no mass effect on the cord. Cord: Normal configuration and signal. Post Fossa: The cerebellar tonsils are normal in position. C2-C3: The thecal sac has a normal configuration. There is no evidence of disc herniation or spinal canal stenosis. The neural foramina are patent bilaterally. C3-C4: The thecal sac has a normal configuration. There is no evidence of disc herniation or spinal canal stenosis. The neural foramina are patent bilaterally. C4-C5: There is a mild annular disc bulge with mild mass effect on the anterior thecal sac and no ma ss effect on the cord. The neural foramina are patent bilaterally. C5-C6: There is a mild annular disc bulge with mild mass effect on the anterior thecal sac and no ma ss effect upon the cord. The neural foramina are patent bilaterally. C6-C7: There is a minimal posterior disc bulge with slight flattening of the anterior thecal sac and no focal protrusion. The neural foramina are patent. C7-T1: No epidural impressions seen. CONCLUSION: 1. Mild disc bulges at C4-5 through C6-7 levels with mild mass effect on the anterior thecal sac and no mass effect upon the cord. 2. Degenerative disc change greatest at the C4-5 and C5-6 levels. Electronically signed by: Jose Alfredo Garrison MD 09/17/2017 3:24 PM EDT
--- NOTE | 2017-09-17 17:22 | HHI.NPPN ---
Subjective History of Present Illness 72-year-old male with a history of what appears to be chronic hypokalemia based on previous laboratory results. Patient denies taking a diuretic as an outpatient. No previous history of hyperaldosteronism. I will question the patient he indicated to me that he does have chronic diarrhea with loose stool approximately 4 times daily predating this admission and continuing in-house. He occasionally takes Imodium with temporary improvement. There is a remote history of partial colonic resection for diverticulosis by history. He also indicated to me that he would occasionally have emesis. Patient admits to alcohol intake primarily on the weekends about 4-5 beers. Florinef was started just today but it was indicated also in previous records but the patient denies taking Florinef as an outpatient. There is also mention of syncopal episodes in the records with orthostasis although the patient and his girlfriend did not appear to be aware of orthostatic hypotension in the past. Of interest the patient is on multiple outpatient medications that may be associated with labile blood pressures including Aricept, Cymbalta and Antivert. There is mention in the record of Viagra for pulmonary hypertension however on questioning the patient he denies any knowledge of pulmonary hypertension and indicated to me that he does not take the Viagra [id number]. I should mention that the patient appears to be a poor historian. Outpatient medications per records include Procardia XL 60 mg daily, hydralazine 25 mg every 8 hourly. There was mention of Viagra 20 mg 3 times daily but as indicated above patient denies taking this medication around the clock. On presentation the patient had an elevated creatinine level which has since improved with IV hydration. Blood pressure remains slightly labile but no cammie orthostatic hypotension noted in-house. Interval History Pt laying in bed. Alert, but appears confused. Still reporting diarrhea x3 today (Hawa Bartlett) Review of Systems Gastrointestinal Gastrointestinal: Diarrhea (Hawa Bartlett) Neuro Neuro: Dizziness (Hawa Bartlett) Objective Data Data Vital Signs Date Time Temp Pulse Resp B/P (MAP) Pulse Ox O2 Delivery O2 Flow Rate FiO2 09/17/17 12:00 97.4 55 18 164/82 (109) 96 137/99 (112) 130/79 (96) 09/17/17 09:30 18 09/17/17 08:00 97.4 60 18 185/86 (119) 96 111/71 (84) 147/84 (105) 09/17/17 00:37 59 09/17/17 00:09 97.6 59 18 94 09/16/17 21:46 Room Air 09/16/17 19:30 97.1 61 18 166/74 (104) 96 09/16/17 18:08 18 (Hawa Bartlett) -: 09/17/17 0545 09/17/17 0545 Imaging Last Impressions Head Magnetic Resonance Angiography 09/17/17 1122 Signed Impressions: CONCLUSION: 1. Negative for aneurysm or major branch vessel occlusion. Brain MRI 09/17/17 1122 Signed Impressions: CONCLUSION: 1. No acute hemorrhage, mass or evidence of infarction. The left occipital lob e demonstrates normal signal. The finding on CT likely is artifactual. 2. Mild atrophy and chronic small vessel ischemic changes. Cervical Spine MRI 09/17/17 0000 Signed Impressions: CONCLUSION: 1. Mild disc bulges at C4-5 through C6-7 levels with mild mass effect on the a nterior thecal sac and no mass effect upon the cord. 2. Degenerative disc change greatest at the C4-5 and C5-6 levels. Thoracic Spine MRI 09/16/17 0000 Signed Impressions: CONCLUSION: 1. No disc herniation or canal stenosis. 2. No acute compression fracture or spondylolisthesis. 3. Mild scattered degenerative changes and mild kyphosis. Renal Ultrasound 09/16/17 0000 Signed Impressions: CONCLUSION: 1. There is no evidence for renal artery stenosis. 2. Bilateral renal cyst, no hydronephrosis. Line kidneys are normal size. Head CT 09/14/17 0000 Signed Impressions: CONCLUSION: 1. Developing hypodensity in the left occipital lobe which may represent an ev olving infarct. 2. No evidence of acute hemorrhage. 3. Otherwise stable evaluation. Medication Review Current Medications Medications (Trade) Dose Ordered Sig/Sandhya Route Start Time Stop Time Status Last Admin Sodium Chloride 1,000 ml @ 40 mls/hr Q24H IV 09/12/17 20:00 09/15/17 23:20 (NS Flush) 2 ml UNSCH PRN IV FLUSH 09/12/17 19:15 09/13/17 03:48 (NS Flush) 2 ml BID IV FLUSH 09/12/17 21:00 09/17/17 08:38 (Tylenol) 650 mg Q6H PRN PO 09/12/17 19:15 09/14/17 00:47 (Karen-Colace) 1 tab BID PO 09/12/17 21:00 09/17/17 08:35 (Milk Of Magnesia Liq) 30 ml Q12H PRN PO 09/12/17 19:15 (Senokot) 17.2 mg Q12H PRN PO 09/12/17 19:15 (Dulcolax Supp) 10 mg DAILY PRN RECTAL 09/12/17 19:15 (Lactulose Liq) 30 ml DAILY PRN PO 09/12/17 19:15 (Zyloprim) 300 mg DAILY PO 09/13/17 09:00 09/17/17 08:34 (Ecotrin Ec) 81 mg DAILY PO 09/13/17 09:00 09/17/17 08:34 (Lipitor) 20 mg HS PO 09/12/17 21:00 09/16/17 21:04 (Aricept) 5 mg HS PO 09/12/17 21:00 09/16/17 21:01 (Cymbalta Dr) 60 mg BID PO 09/12/17 21:00 Future Hold 09/16/17 21:01 (Neurontin) 300 mg TID PO 09/13/17 09:00 09/17/17 13:44 (Pill Splitter) 1 ea UNSCH PRN OTHER 09/12/17 19:30 (Antivert) 25 mg Q8H PRN PO 09/12/17 19:45 09/14/17 05:31 (Imodium) 2 mg Q4H PRN PO 09/14/17 07:45 (Catapres) 0.1 mg Q6H PRN PO 09/14/17 09:15 09/17/17 06:28 ([place] 5-325 Mg) 1 tab Q6H PRN PO 09/14/17 15:15 09/16/17 17:08 (Procardia Xl) 90 mg DAILY PO 09/15/17 15:00 09/17/17 08:34 (Lopressor) 50 mg Q8HR PO 09/15/17 15:00 09/17/17 13:44 (KCl) 40 meq DAILY PO 09/17/17 09:00 09/17/17 08:35 (Mag-Ox) 800 mg BID PO 09/16/17 21:00 09/17/17 08:34 (Fioricet 325-50-40) 1 tab Q8H PRN PO 09/17/17 07:15 09/17/17 08:36 (Topamax) 25 mg HS PO 09/17/17 21:00 (Pepcid) 20 mg BID PO 09/17/17 09:00 09/17/17 08:34 (Hawa Bartlett) Physical Exam General Appearance: No Acute Distress, Comfortable (Hawa Bartlett) Neck Neck Exam: Neck Supple, Trachea Midline (Hawa Bartlett) Pulmonary Resp Exam: Clear Bilaterally, Breath Sounds Equal (Hawa Bartlett) Cardiology CV Exam: Regular, Normal Sinus Rhythm (Hawa Bartlett) Gastrointestinal/Abdomen GI Exam: Soft, Non-Tender (Hawa Bartlett) Integumentary Skin Exam: Clear, Warm (Hawa Bartlett) Extremeties Extremities Exam: No Edema (Hawa Bartlett) Neurologic Neuro Exam: Awake (Hawa Bartlett) Assessment/Plan Problem List: (1) Hypokalemia ICD Codes: E87.6 - Hypokalemia Status: Chronic Plan: Urine potassium to creatinine ratio as well as fractional excretion of potassium do not lean towards renal wasting. Potentially extra-renal losses from chronic diarrhea. Replete as needed Mg normal today PPI has been discontinued by primary team Pending renin & aldosterone levels. Further evaluation based on these results. (2) Labile hypertension ICD Codes: I10 - Labile hypertension Status: Chronic Plan: Evaluation for hyperaldosteronism as indicated above. Management as per cardio & neuro (Hawa Bartlett) Plan The exam, history, and the medical decision-making described in the above note were completed with the assistance of the MURRAY. I reviewed and agree with the findings presented. (Jeremy Lezama MD) Hawa Bartlett September 17, 2017 17:22 Jeremy Lezama MD September 18, 2017 17:39
--- NOTE | 2017-09-17 17:57 | PD.CARD.PN ---
Subjective Subjective Remarks no cv complaints Objective Medications Current Medications Medications (Trade) Dose Ordered Sig/Sandhya Route Start Time Stop Time Status Last Admin Sodium Chloride 1,000 ml @ 40 mls/hr Q24H IV 09/12/17 20:00 09/15/17 23:20 (NS Flush) 2 ml UNSCH PRN IV FLUSH 09/12/17 19:15 09/13/17 03:48 (NS Flush) 2 ml BID IV FLUSH 09/12/17 21:00 09/17/17 08:38 (Tylenol) 650 mg Q6H PRN PO 09/12/17 19:15 09/14/17 00:47 (Karen-Colace) 1 tab BID PO 09/12/17 21:00 09/17/17 08:35 (Milk Of Magnesia Liq) 30 ml Q12H PRN PO 09/12/17 19:15 (Senokot) 17.2 mg Q12H PRN PO 09/12/17 19:15 (Dulcolax Supp) 10 mg DAILY PRN RECTAL 09/12/17 19:15 (Lactulose Liq) 30 ml DAILY PRN PO 09/12/17 19:15 (Zyloprim) 300 mg DAILY PO 09/13/17 09:00 09/17/17 08:34 (Ecotrin Ec) 81 mg DAILY PO 09/13/17 09:00 09/17/17 08:34 (Lipitor) 20 mg HS PO 09/12/17 21:00 09/16/17 21:04 (Aricept) 5 mg HS PO 09/12/17 21:00 09/16/17 21:01 (Cymbalta Dr) 60 mg BID PO 09/12/17 21:00 Future Hold 09/16/17 21:01 (Neurontin) 300 mg TID PO 09/13/17 09:00 09/17/17 13:44 (Pill Splitter) 1 ea UNSCH PRN OTHER 09/12/17 19:30 (Antivert) 25 mg Q8H PRN PO 09/12/17 19:45 09/14/17 05:31 (Imodium) 2 mg Q4H PRN PO 09/14/17 07:45 (Catapres) 0.1 mg Q6H PRN PO 09/14/17 09:15 09/17/17 06:28 ([place] 5-325 Mg) 1 tab Q6H PRN PO 09/14/17 15:15 09/16/17 17:08 (Procardia Xl) 90 mg DAILY PO 09/15/17 15:00 09/17/17 08:34 (Lopressor) 50 mg Q8HR PO 09/15/17 15:00 09/17/17 13:44 (KCl) 40 meq DAILY PO 09/17/17 09:00 09/17/17 08:35 (Mag-Ox) 800 mg BID PO 09/16/17 21:00 09/17/17 08:34 (Fioricet 325-50-40) 1 tab Q8H PRN PO 09/17/17 07:15 09/17/17 08:36 (Topamax) 25 mg HS PO 09/17/17 21:00 (Pepcid) 20 mg BID PO 09/17/17 09:00 09/17/17 08:34 Vital Signs / I&O Vital Signs Date Time Temp Pulse Resp B/P (MAP) Pulse Ox O2 Delivery O2 Flow Rate FiO2 09/17/17 12:00 97.4 55 18 164/82 (109) 96 137/99 (112) 130/79 (96) 09/17/17 09:30 18 09/17/17 08:00 97.4 60 18 185/86 (119) 96 111/71 (84) 147/84 (105) 09/17/17 00:37 59 09/17/17 00:09 97.6 59 18 94 09/16/17 21:46 Room Air 09/16/17 19:30 97.1 61 18 166/74 (104) 96 09/16/17 18:08 18 I/O 09/16/17 09/16/17 09/16/17 09/17/17 09/17/17 09/17/17 07:00 15:00 23:00 07:00 15:00 23:00 Intake Total 450 ml 425 ml Output Total 625 ml Balance -175 ml 425 ml Intake Oral 450 ml 425 ml Output Urine Total 625 ml # Voids 3 5 3 # Bowel Movements 1 2 1 Physical Exam GENERAL: Well developed, well nourished. No acute distress. HEENT: Jugular venous pressure is normal. CHEST: Lungs clear to auscultation bilaterally. Unlabored respiratory effort. CARDIAC: Regular rate and rhythm without S3, S4, or murmur. ABDOMEN: Soft, nontender, EXTREMITIES: No clubbing, cyanosis, or edema. Laboratory Laboratory Tests Test 09/17/17 05:45 White Blood Count 11.0 TH/MM3 Red Blood Count 5.03 MIL/MM3 Hemoglobin 16.0 GM/DL Hematocrit 44.4 % Mean Corpuscular Volume 88.3 FL Mean Corpuscular Hemoglobin 31.8 PG Mean Corpuscular Hemoglobin Concent 36.0 % Red Cell Distribution Width 12.9 % Platelet Count 340 TH/MM3 Mean Platelet Volume 8.2 FL Blood Urea Nitrogen 15 MG/DL Creatinine 1.11 MG/DL Random Glucose 88 MG/DL Calcium Level 9.9 MG/DL Magnesium Level 1.9 MG/DL Sodium Level 131 MEQ/L Potassium Level 3.1 MEQ/L Chloride Level 93 MEQ/L Carbon Dioxide Level 27.4 MEQ/L Anion Gap 11 MEQ/L Estimat Glomerular Filtration Rate 65 ML/MIN Imaging Last 24 hours Impressions Head Magnetic Resonance Angiography 09/17/17 1122 Signed Impressions: CONCLUSION: 1. Negative for aneurysm or major branch vessel occlusion. Brain MRI 09/17/17 1122 Signed Impressions: CONCLUSION: 1. No acute hemorrhage, mass or evidence of infarction. The left occipital lob e demonstrates normal signal. The finding on CT likely is artifactual. 2. Mild atrophy and chronic small vessel ischemic changes. Cervical Spine MRI 09/17/17 0000 Signed Impressions: CONCLUSION: 1. Mild disc bulges at C4-5 through C6-7 levels with mild mass effect on the a nterior thecal sac and no mass effect upon the cord. 2. Degenerative disc change greatest at the C4-5 and C5-6 levels. Assessment and Plan Assessment and Plan syncope- no overt rhythm issues, will have device check -agree with Anne -ECHO normal -Loop no CV events Available PRN- he can follow up as an out patient Monik Jean Baptiste MD September 17, 2017 17:57
[2017-09-17] MEDS: SODIUM CHLOR 0.9% 1000 ML INJ 1,000 ML IV SCH (19:12)
[2017-09-17] MEDS: DONEPEZIL HCL 5 MG TAB PO SCH (20:49)
[2017-09-17] MEDS: ATORVASTATIN 20 MG TAB PO SCH (20:50)
[2017-09-17] MEDS ORDERED: TOPIRAMATE 25 MG TAB PO SCH (21:00)
[2017-09-18] VITALS (7 sets, daily range): BP systolic 126–232; BP diastolic 82–97; PULSE 61–86; RESP 18–20; TEMP 97.3–98; O2SAT 96–98
[2017-09-18] MEDS ORDERED: LORazepam 2 MG/ML VIAL IV PUSH ONE (00:45)
[2017-09-18] MEDS ORDERED: HALOPERIDOL LACTATE 5 MG/ML AMP IV PUSH ONE (02:30)
[2017-09-18] MEDS: METOPROLOL TARTRATE 50 MG TAB PO SCH ×3 (05:42→15:25)
[2017-09-18 07:05] LABS: HEMOGLOBIN 17.1 GM/DL (13.0-17.0); MEAN CELL VOLUME 87.7 FL (80.0-100.0); MEAN CORPUSCULAR HEMOGLOBIN 31.9 PG (27.0-34.0); MEAN PLATELET VOLUME 7.6 FL (7.0-11.0); PLATELET COUNT 297 TH/MM3 (150-450); RED BLOOD COUNT 5.36 MIL/MM3 (4.50-5.90); RED CELL DISTRIBUTION WIDTH 13.1 % (11.6-17.2); WHITE BLOOD COUNT 13.5 TH/MM3 (4.0-11.0)
[2017-09-18 07:25] LABS: BICARBONATE 23.4 MEQ/L (21.0-32.0); CALCIUM 9.8 MG/DL (8.5-10.1); CREATININE 1.11 MG/DL (0.60-1.30); MAGNESIUM 1.9 MG/DL (1.5-2.5)
[2017-09-18 07:31] LABS: MEAN CORPUSCULAR HGB CONC 36.4 % (32.0-36.0)
--- NOTE | 2017-09-18 08:07 | HHI.PR ---
Subjective Remarks no low standing bps they will check immediately after standing and not wait i dw him and he says actual loc with some falls others he staggers Objective Vital Signs Date Time Temp Pulse Resp B/P (MAP) Pulse Ox O2 Delivery O2 Flow Rate FiO2 09/18/17 04:35 61 09/17/17 23:52 57 09/17/17 21:46 Room Air 09/17/17 20:01 60 09/17/17 19:11 18 09/17/17 19:10 97.8 57 18 144/80 (101) 96 09/17/17 16:00 97.4 54 18 163/79 (107) 97 112/62 (79) 119/64 (82) 09/17/17 12:00 97.4 55 18 164/82 (109) 96 137/99 (112) 130/79 (96) I/O 09/17/17 09/17/17 09/17/17 09/18/17 09/18/17 09/18/17 07:00 15:00 23:00 07:00 15:00 23:00 Intake Total 425 ml 640 ml 520 ml Balance 425 ml 640 ml 520 ml Intake Oral 425 ml 640 ml 520 ml # Voids 3 4 7 # Bowel Movements 1 0 Result Diagram: 09/18/1725 09/18/17 06 Objective Remarks very lethargic after ativan macdonald still Assessment and Plan Assessment and Plan imp await mris still some ataxic gait no low bp here standing as above check immediately on stand as that is when he passed out he says fu macdonald issue fioricet topamax started esr nltr and get the brain mri and c spine today we need to get the brain mri today as came in w macdonald and ct ? new abn occipital call me w result plz 09/18/17 [place] what causing macdonald will need lp unclear why agitated last pm lethargic sp haldol mri/a/c spine neg esr crp nl Basil Mendoza MD September 18, 2017 08:07
[2017-09-18] MEDS: NIFEdipine 90 MG SUSTAINED RELEASE TAB PO SCH (09:00)
[2017-09-18] MEDS: POTASSIUM CHLORIDE 20 MEQ CONTROLLED RELEASE TAB PO SCH (09:00)
[2017-09-18] MEDS: FAMOTIDINE 20 MG TAB PO SCH ×2 (09:00→20:35)
[2017-09-18] MEDS: MAGNESIUM OXIDE 400 MG TAB PO SCH ×2 (09:00→20:35)
[2017-09-18] MEDS: SODIUM CHLORIDE 0.9% FLUSH 10 ML FLUSH IV FLUSH SCH ×2 (09:00→20:35)
[2017-09-18] MEDS: ALLOPURINOL 300 MG TAB PO SCH (09:00)
[2017-09-18] MEDS: DOCUSATE SODIUM 50 MG/SENNA 8.6 MG TAB PO SCH ×2 (09:00→20:35)
[2017-09-18] MEDS: ENALAPRILAT 1.25 MG/ML VIAL IV PUSH PRN ×2 (09:30→18:38)
[2017-09-18 09:43] LABS: PROTHROMBIN TIME - PATIENT 10.4 SEC (9.8-11.6)
--- NOTE | 2017-09-18 10:25 | HHI.PR ---
Subjective Remarks Follow-up visit orthostatic hypotension, vertigo, hypodensity in left occipital lobe, incomplete MRI yesterday, encephalopathy. Patient seen and examined today. Laying in bed lethargic arousable to tactile and verbal stimulation. Unable to follow commands. Unable to hold conversation. On bilateral wrist restraints. As per nursing, patient was confused and agitated overnight he was given Haldol Objective Vitals Vital Signs Date Time Temp Pulse Resp B/P (MAP) Pulse Ox O2 Delivery O2 Flow Rate FiO2 09/18/17 08:00 98.0 74 18 232/97 (142) 96 09/18/17 08:00 82 09/18/17 04:35 61 09/17/17 23:52 57 09/17/17 21:46 Room Air 09/17/17 20:01 60 09/17/17 19:11 18 09/17/17 19:10 97.8 57 18 144/80 (101) 96 09/17/17 16:00 97.4 54 18 163/79 (107) 97 112/62 (79) 119/64 (82) 09/17/17 12:00 97.4 55 18 164/82 (109) 96 137/99 (112) 130/79 (96) I/O 09/17/17 09/17/17 09/17/17 09/18/17 09/18/17 09/18/17 07:00 15:00 23:00 07:00 15:00 23:00 Intake Total 425 ml 640 ml 520 ml Balance 425 ml 640 ml 520 ml Intake Oral 425 ml 640 ml 520 ml # Voids 3 4 7 # Bowel Movements 1 0 Result Diagram: 09/18/17 0625 09/18/17 0625 Imaging Last Impressions Head Magnetic Resonance Angiography 09/17/17 112 Signed Impressions: CONCLUSION: 1. Negative for aneurysm or major branch vessel occlusion. Brain MRI 09/17/17 1122 Signed Impressions: CONCLUSION: 1. No acute hemorrhage, mass or evidence of infarction. The left occipital lob e demonstrates normal signal. The finding on CT likely is artifactual. 2. Mild atrophy and chronic small vessel ischemic changes. Cervical Spine MRI 09/17/17 0000 Signed Impressions: CONCLUSION: 1. Mild disc bulges at C4-5 through C6-7 levels with mild mass effect on the a nterior thecal sac and no mass effect upon the cord. 2. Degenerative disc change greatest at the C4-5 and C5-6 levels. Thoracic Spine MRI 09/16/17 Signed Impressions: CONCLUSION: 1. No disc herniation or canal stenosis. 2. No acute compression fracture or spondylolisthesis. 3. Mild scattered degenerative changes and mild kyphosis. Renal Ultrasound 09/16/17 Signed Impressions: CONCLUSION: 1. There is no evidence for renal artery stenosis. 2. Bilateral renal cyst, no hydronephrosis. Line kidneys are normal size. Head CT 09/14/17 Signed Impressions: CONCLUSION: 1. Developing hypodensity in the left occipital lobe which may represent an ev olving infarct. 2. No evidence of acute hemorrhage. 3. Otherwise stable evaluation. Objective Remarks GENERAL: This is a well-nourished, well-developed patient, in no apparent distress. SKIN: Warm and dry. HEENT: Normocephalic. Pupils equal round and reactive. Nose without bleeding. Airway patent. NECK: Trachea midline. CARDIOVASCULAR: Regular rate and rhythm without murmurs, gallops, or rubs. RESPIRATORY: Diminished bases. No wheezes, rales, or rhonchi. GASTROINTESTINAL: Abdomen soft, non-tender, nondistended. Bowel Sounds normoactive x4. MUSCULOSKELETAL: Extremities without clubbing, cyanosis, or edema. NEUROLOGICAL: Lethargic. Easily arousable. Moves all extremities. Incomprehensible speech. A/P Problem List: (1) Dizziness ICD Code: R42 - Dizziness and giddiness (2) Hypokalemia ICD Code: E87.6 - Hypokalemia Status: Acute (3) Orthostatic hypotension ICD Code: I95.1 - Orthostatic hypotension Status: Acute (4) SHANNA (acute kidney injury) ICD Code: N17.9 - SHANNA (acute kidney injury) Status: Acute Assessment and Plan 72-year-old male with a PMH of Anxiety, Depression, HTN and Recurrent Syncope who presented to the ER with complaints of dizziness in addition to multiple episodes of nausea and vomiting Lethargy, Encephalopathy Given Haldol for agitation, delirium -he also received Ativan Check UA. Check COOK VEGETABLE Afebrile Recheck labs in the Hypodensity in left occipital lobe Incidental finding after a CT of the brain was ordered for headache Appreciate neurology recommendations and will await MRI/MRA of the brain. Recommends LP? Continue neurological checks Vertigo Improved on meclizine, but BPPV examination by neurology did not reveal classic nystagmus results Consider electrolyte imbalance as well as orthostatic hypotension, patient is on loop recorder under Dr. Jean Baptiste's care Continue meclizine, continue telemetry which currently shows normal sinus Orthostatic hypotension Episode of severe hypertension Ongoing monitoring with loop recorder and floor telemetry Consider also electrolyte imbalance Florinef being considered for possible treatment Cardiology consulted to review symptoms and treatment options with recommendations for 2D echo currently pending Patient today with BP reported to be 232/97. Enalapril IV start. We will continue to monitor BP trend Refractory hypokalemia Supplemented Continue with supplementation on top of scheduled potassium as needed Nephrology consulted to assist with treatment plan; workup in progress with renin and aldosterone levels pending Potassium level 4.0 today Acute kidney injury -resolved Creatinine level normalized, but no improvement with electrolyte imbalance DVT prophylaxis SCDs Discharge Planning Plan to DC home when medically and clinically stable Farshad Cutler September 18, 2017 10:25
--- NOTE | 2017-09-18 11:06 | RADRPT ---
EXAM DATE: 09/18/2017 10:42 AM EDT AGE/SEX: 72 years / Male INDICATIONS: Short of breath CLINICAL DATA: This is the patient's subsequent encounter. Patient reports that signs and symptoms h ave been present for 4 - 6 days and indicates a pain score of Nonresponsive. MEDICAL/SURGICAL HISTORY: . Hypertension. AFIB. Cholecystectomy. Inguinal hernia repair. . C olon resection. Knee surgery. [employer] loop recorder. COMPARISON: . FINDINGS: A single AP view of the chest demonstrates the lungs to be symmetrically aerated without evidence of mass, infiltrate or effusion. The cardiomediastinal contours are unremarkable. Osseous structures a re intact. CONCLUSION: No acute cardiopulmonary disease. Electronically signed by: Jose Alfredo Garrison MD 09/18/2017 11:04 AM EDT
[2017-09-18 11:28] LABS: BACTERIA, URINE RARE /hpf; BILIRUBIN, URINE NEG (NEG); BLOOD, URINE NEG (NEG); GLUCOSE,URINE NEG (NEG); KETONE, URINE 10 mg/dL (NEG); NITRITE,URINE NEG (NEG); PH, URINE 7.5 (5.0-8.5); URINE COLOR YELLOW (YELLW/STRAW); URINE LEUKOCYTE ESTERASE NEG (NEG)
[2017-09-18 12:22] LABS: RENIN <0.6 ng/mL/h
[2017-09-18 14:26] LABS: SUPERNATE COLOR TUBE #1 CLEAR (CLEAR); VOLUME TUBE # 1 3.1 ML
[2017-09-18 14:28] LABS: RBC TUBE #1 10 /MM3; WBC TUBE #1 180 /MM3 (0-10)
[2017-09-18 14:29] LABS: CSF EOSINOPHILS 1 %; CSF LYMPHOCYTES 89 %; CSF MONOCYTES 8 %; CSF NEUTROPHILS 2 %
[2017-09-18] MEDS: ACETAMIN 325 MG/BUTALBITAL 50 MG/CAFFEINE 40 MG TAB PO PRN (15:25)
--- NOTE | 2017-09-18 15:27 | RADRPT ---
EXAM DATE: 09/18/2017 1:45 PM EDT AGE/SEX: 72 years / Male INDICATIONS: Patient presents with altered mental status in need of lumbar puncture with opening pre ssures to evaluate for meningitis. CLINICAL DATA: This is the patient's initial encounter. Patient reports that signs and symptoms have been present for 4 - 6 days and indicates a pain score of 0/10. MEDICAL/SURGICAL HISTORY: Hypertension. Anxiety.Depression.Recurrent syncope. Cholecystectomy. Colon resection. Hernia repair.Loop recorder.Right knee surgery. COMPARISON: No prior [facility] exams available for comparison. FLUORO TIME (min): 0.36 IMAGE SERIES: 1 ACCESS SITE: L3-4 LUMBAR PUNCTURE TIME: 1311 hours OPENING PRESSURE: 27.5 cm of water CLOSING PRESSURE: not requested FLUID: Total volume of 10.5 cc of Clear fluid was removed. Fluid was sent to lab for ordered studies. . . PROCEDURE: 1. Fluoroscopic guided lumbar puncture. 2. Recording of opening pressure. The risks, benefits and alternatives to the procedure were explained and verbal and written consent w as obtained. The site was prepped in sterile fashion. Full sterile technique was used, including ca p, mask, sterile gloves and gown and a large sterile sheet. Hand hygiene and 2% chlorhexidine and/or betadine/alcohol prep was utilized per protocol for cutaneous antisepsis. The skin and subcutaneous tissues were infiltrated with local anesthetic solution. With fluoroscopic guidance the lumbar thecal sac was punctured at the above level described above and the opening pressure was recorded. The above described fluid was removed without difficulty. The patient tolerated the procedure well and there were no complications. CONCLUSION: 1. Uncomplicated fluoroscopically guided lumbar puncture with pressures as above. Electronically signed by: Pieter Zacarias MD 09/18/2017 3:26 PM EDT
[2017-09-18 15:50] LABS: ENDOMYSIAL AB SCREEN ND (NEGATIVE); ENDOMYSIAL AB TITER ND (<1:5)
[2017-09-18] MEDS: SODIUM CHLOR 0.9% 1000 ML INJ 1,000 ML IV SCH (16:49)
[2017-09-18] MEDS ORDERED: ENOXAPARIN SODIUM 40 MG/0.4 ML SYRINGE SQ SCH (17:00)
--- NOTE | 2017-09-18 17:44 | HHI.NPPN ---
Subjective History of Present Illness 72-year-old male with a history of what appears to be chronic hypokalemia based on previous laboratory results. Patient denies taking a diuretic as an outpatient. No previous history of hyperaldosteronism. I will question the patient he indicated to me that he does have chronic diarrhea with loose stool approximately 4 times daily predating this admission and continuing in-house. He occasionally takes Imodium with temporary improvement. There is a remote history of partial colonic resection for diverticulosis by history. He also indicated to me that he would occasionally have emesis. Patient admits to alcohol intake primarily on the weekends about 4-5 beers. Florinef was started just today but it was indicated also in previous records but the patient denies taking Florinef as an outpatient. There is also mention of syncopal episodes in the records with orthostasis although the patient and his girlfriend did not appear to be aware of orthostatic hypotension in the past. Of interest the patient is on multiple outpatient medications that may be associated with labile blood pressures including Aricept, Cymbalta and Antivert. There is mention in the record of Viagra for pulmonary hypertension however on questioning the patient he denies any knowledge of pulmonary hypertension and indicated to me that he does not take the Viagra [id number]. I should mention that the patient appears to be a poor historian. Outpatient medications per records include Procardia XL 60 mg daily, hydralazine 25 mg every 8 hourly. There was mention of Viagra 20 mg 3 times daily but as indicated above patient denies taking this medication around the clock. On presentation the patient had an elevated creatinine level which has since improved with IV hydration. Blood pressure remains slightly labile but no cammie orthostatic hypotension noted in-house. Interval History Patient said to be lethargic. by bedside. Review of Systems Gastrointestinal Gastrointestinal: Diarrhea Neuro Neuro: Dizziness Objective Data Data Vital Signs Date Time Temp Pulse Resp B/P (MAP) Pulse Ox O2 Delivery O2 Flow Rate FiO2 09/18/17 15:25 184/92 (122) 09/18/17 12:00 98.0 82 18 129/82 (98) 96 09/18/17 10:00 86 126/82 (97) 97 09/18/17 08:00 98.0 74 18 232/97 (142) 96 09/18/17 08:00 82 09/18/17 04:35 61 09/17/17 23:52 57 09/17/17 21:46 Room Air 09/17/17 20:01 60 09/17/17 19:11 18 09/17/17 19:10 97.8 57 18 144/80 (101) 96 -: 09/18/17 0625 09/18/17 0625 Microbiology 09/18/17 Fungal Smear - Final, Resulted NO FUNGAL ELEMENTS SEEN. 09/18/17 Fungal Culture, Resulted Pending 09/18/17 Acid Fast Stain, Received Pending 09/18/17 Mycobacterial Culture, Received Pending 09/18/17 Gram Stain - Final, Resulted 09/18/17 CSF Culture, Resulted Pending 09/18/17 Urine Culture, Received Pending Physical Exam General Appearance: No Acute Distress, Comfortable Neck Neck Exam: Neck Supple, Trachea Midline Pulmonary Resp Exam: Clear Bilaterally, Breath Sounds Equal Cardiology CV Exam: Regular, Normal Sinus Rhythm Gastrointestinal/Abdomen GI Exam: Soft, Non-Tender Integumentary Skin Exam: Clear, Warm Extremeties Extremities Exam: No Edema Neurologic Neuro Exam: Awake Assessment/Plan Problem List: (1) Hypokalemia ICD Codes: E87.6 - Hypokalemia Status: Chronic Plan: Urine potassium to creatinine ratio as well as fractional excretion of potassium do not appear to be consistent with urinary potassium wasting although the patient did have a low magnesium level. Hypokalemia may be multifactorial. Hypomagnesemia may be related to impaired absorption by presence of the proton pump inhibitor and also history obtained from the is at the patient drinks several beers daily and not only on weekends as per the patient's previous history. Both potassium level and magnesium level within normal range currently. At this point in time we will see the patient on a as needed basis only. (2) Labile hypertension ICD Codes: I10 - Labile hypertension Status: Chronic Plan: No evidence of hyperaldosteronism noted. His labile hypertension may indeed be related autonomic dysfunction, antidepressants or combination thereof.. Neurology and cardiology already on the case. Will defer management to them. Jeremy Lezama MD September 18, 2017 17:44
[2017-09-18 17:55] LABS: HU (NEURONAL NUCLEAR) AB FLUORESCENCE NOTED (NEGATIVE); HU (NEURONAL NUCLEAR) AB TITER ND titer (<1:40); NEURONAL NUCLEAR(Ri) AB SCREEN FLUORESCENCE NOTED (NEGATIVE); PURKINJE CELL (YO) AB FLUORESCENCE NOTED (NEGATIVE); PURKINJE CELL(YO)IGG AB TITER ND titer (<1:40); YO WESTBLOT NEGATIVE (NEGATIVE)
[2017-09-19] VITALS (7 sets, daily range): BP systolic 162–203; BP diastolic 72–96; PULSE 56–87; RESP 16–20; TEMP 96.4–98; O2SAT 96–98
[2017-09-19] MEDS: ENALAPRILAT 1.25 MG/ML VIAL IV PUSH PRN ×3 (00:15→19:36)
[2017-09-19] MEDS: ACETAMIN 325 MG/BUTALBITAL 50 MG/CAFFEINE 40 MG TAB PO PRN ×3 (04:09→22:49)
[2017-09-19] MEDS: cloNIDine HCL 0.1 MG TAB PO PRN (04:11)
[2017-09-19 04:24] LABS: AUTOMATED NEUTROPHIL # 9.8 TH/MM3 (1.8-7.7); BASOPHIL % 0.4 % (0.0-2.0); EOSINOPHIL % 0.3 % (0.0-4.0); HEMATOCRIT 48.2 % (39.0-51.0); HEMOGLOBIN 17.3 GM/DL (13.0-17.0); LYMPH % 5.7 % (9.0-44.0); LYMPHOCYTE # 0.6 TH/MM3 (1.0-4.8); MEAN CELL VOLUME 88.4 FL (80.0-100.0); MEAN CORPUSCULAR HEMOGLOBIN 31.7 PG (27.0-34.0); MEAN CORPUSCULAR HGB CONC 35.8 % (32.0-36.0); MEAN PLATELET VOLUME 7.1 FL (7.0-11.0); MONO % 7.7 % (0.0-8.0); MONOCYTE # 0.9 TH/MM3 (0-0.9); NEUT % 85.9 % (16.0-70.0); PLATELET COUNT 292 TH/MM3 (150-450); RED BLOOD COUNT 5.46 MIL/MM3 (4.50-5.90); RED CELL DISTRIBUTION WIDTH 13.2 % (11.6-17.2); WHITE BLOOD COUNT 11.4 TH/MM3 (4.0-11.0)
[2017-09-19 05:01] LABS: ALBUMIN 4.1 GM/DL (3.4-5.0); AST (GOT) 90 U/L (15-37); BICARBONATE 27.5 MEQ/L (21.0-32.0); BLOOD UREA NITROGEN 16 MG/DL (7-18); CHLORIDE 95 MEQ/L (98-107); CREATININE 1.22 MG/DL (0.60-1.30); GLOMERULAR FILTRATION RATE 59 ML/MIN (>89); GLUCOSE,RANDOM 103 MG/DL (74-106); SODIUM (NA) 131 MEQ/L (136-145)
[2017-09-19 05:03] LABS: ALT (GPT) 145 U/L (12-78)
[2017-09-19 05:05] LABS: ALKALINE PHOSPHATASE 271 U/L (45-117); TOTAL BILIRUBIN ADULT 1.6 MG/DL (0.2-1.0)
[2017-09-19] MEDS: METOPROLOL TARTRATE 50 MG TAB PO SCH ×3 (05:44→22:49)
--- NOTE | 2017-09-19 07:29 | HHI.PR ---
Subjective Remarks no macdonald LP positive Objective Vital Signs Date Time Temp Pulse Resp B/P (MAP) Pulse Ox O2 Delivery O2 Flow Rate FiO2 09/19/17 04:00 97.2 87 20 174/87 (116) 97 09/19/17 00:00 98.0 81 20 191/96 (127) 97 09/18/17 20:00 97.3 66 20 169/86 (113) 97 09/18/17 16:00 98.0 67 18 193/95 (127) 98 09/18/17 15:25 184/92 (122) 09/18/17 12:00 98.0 82 18 129/82 (98) 96 09/18/17 10:00 86 126/82 (97) 97 09/18/17 08:00 98.0 74 18 232/97 (142) 96 09/18/17 08:00 82 I/O 09/18/17 09/18/17 09/18/17 09/19/17 09/19/17 09/19/17 07:00 15:00 23:00 07:00 15:00 23:00 Intake Total 520 ml 240 ml Balance 520 ml 240 ml Intake Oral 520 ml 240 ml # Voids 7 2 # Bowel Movements 0 0 Result Diagram: 09/19/17 0405 09/19/17 0405 Objective Remarks a little lethargic moves all well answers slowly and incompletely Assessment and Plan Assessment and Plan imp await mris still some ataxic gait no low bp here standing as above check immediately on stand as that is when he passed out he says fu macdonald issue fioricet topamax started esr nltr and get the brain mri and c spine today we need to get the brain mri today as came in w macdonald and ct ? new abn occipital call me w result plz 09/18/17 inclear what causing macdonald will need lp unclear why agitated last pm lethargic sp haldol mri/a/c spine neg esr crp nl 09/19/17 csf lymphocytic viral meningitis? have id see acyclovir on and can dc when hsv pcr neg if neg ssteroids for 3 days can restart lovenox tomorrow i will be out of town will have neuro fu though evidently etoh? will dw that may explain why confused other noc? check eeg Basil Mendoza MD Sep 19, 2017 07:28
[2017-09-19] MEDS: SODIUM CHLOR 0.9% 1000 ML INJ 1,000 ML IV SCH (08:13)
[2017-09-19 08:26] LABS: METHYLMALONIC ACID 0.33 nmol/mL (<=0.40)
[2017-09-19] MEDS: DOCUSATE SODIUM 50 MG/SENNA 8.6 MG TAB PO SCH ×2 (08:37→19:25)
[2017-09-19] MEDS: MAGNESIUM OXIDE 400 MG TAB PO SCH ×2 (08:37→19:25)
[2017-09-19] MEDS: POTASSIUM CHLORIDE 20 MEQ CONTROLLED RELEASE TAB PO SCH (08:37)
[2017-09-19] MEDS: FAMOTIDINE 20 MG TAB PO SCH ×2 (08:37→19:25)
[2017-09-19] MEDS: SODIUM CHLORIDE 0.9% FLUSH 10 ML FLUSH IV FLUSH SCH ×2 (08:37→19:25)
[2017-09-19] MEDS: NIFEdipine 90 MG SUSTAINED RELEASE TAB PO SCH (08:38)
[2017-09-19] MEDS: ALLOPURINOL 300 MG TAB PO SCH (08:38)
[2017-09-19] MEDS: PANTOPRAZOLE SOD 40 MG DELAYED RELEASE TAB PO SCH (08:38)
[2017-09-19] MEDS ORDERED: ACYCLOVIR IV ONE (09:00)
[2017-09-19] MEDS ORDERED: SODIUM CHLORIDE 0.9% IV ONE (09:00)
[2017-09-19 09:30] LABS: BICARBONATE 24.8 MEQ/L (21.0-32.0); CALCIUM 9.6 MG/DL (8.5-10.1); CREATININE 1.24 MG/DL (0.60-1.30)
[2017-09-19] MEDS: methylPREDNISolone SO SUCC INJ 1,000 MG in DEXTROSE 5% IN WATER 100ML INJ 100 ML IV SCH ×2 (09:37)
--- NOTE | 2017-09-19 09:45 | HHI.PR ---
Subjective Remarks Patient extremely sleepy this morning. Does not want to consult first with me this morning. He states that he still having headaches. Denies any photosensitivity associated with this. Objective Vitals Vital Signs Date Time Temp Pulse Resp B/P (MAP) Pulse Ox O2 Delivery O2 Flow Rate FiO2 09/19/17 04:00 97.2 87 20 174/87 (116) 97 09/19/17 00:00 98.0 81 20 191/96 (127) 97 09/18/17 20:00 97.3 66 20 169/86 (113) 97 09/18/17 16:00 98.0 67 18 193/95 (127) 98 09/18/17 15:25 184/92 (122) 09/18/17 12:00 98.0 82 18 129/82 (98) 96 09/18/17 10:00 86 126/82 (97) 97 I/O 09/18/17 09/18/17 09/18/17 09/19/17 09/19/17 09/19/17 07:00 15:00 23:00 07:00 15:00 23:00 Intake Total 520 ml 240 ml Balance 520 ml 240 ml Intake Oral 520 ml 240 ml # Voids 7 2 # Bowel Movements 0 0 Result Diagram: 09/19/17 0405 09/19/17 0824 Other Results Microbiology Date/Time Source Procedure Growth Status 09/18/17 13:11 Cerebral Spinal Fluid Lumbar Puncture Fungal Smear - Final NO FUNGAL ELEMENTS SEEN. Resulted 09/18/17 13:11 Cerebral Spinal Fluid Lumbar Puncture Fungal Culture Pending Resulted 09/18/17 11:00 Urine Clean Catch Urine Culture Pending Received Imaging Last Impressions Lumbar Puncture Fluoroscopy 09/18/17 0000 Signed Impressions: CONCLUSION: 1. Uncomplicated fluoroscopically guided lumbar puncture with pressures as abo ve. Chest X-Ray 09/18/17 0000 Signed Impressions: CONCLUSION: No acute cardiopulmonary disease. Head Magnetic Resonance Angiography 09/17/17 1122 Signed Impressions: CONCLUSION: 1. Negative for aneurysm or major branch vessel occlusion. Brain MRI 09/17/17 1122 Signed Impressions: CONCLUSION: 1. No acute hemorrhage, mass or evidence of infarction. The left occipital lob e demonstrates normal signal. The finding on CT likely is artifactual. 2. Mild atrophy and chronic small vessel ischemic changes. Cervical Spine MRI 5/30/18 0000 Signed Impressions: CONCLUSION: 1. Mild disc bulges at C4-5 through C6-7 levels with mild mass effect on the a nterior thecal sac and no mass effect upon the cord. 2. Degenerative disc change greatest at the C4-5 and C5-6 levels. Thoracic Spine MRI 09/16/17 Signed Impressions: CONCLUSION: 1. No disc herniation or canal stenosis. 2. No acute compression fracture or spondylolisthesis. 3. Mild scattered degenerative changes and mild kyphosis. Renal Ultrasound 09/16/17 Signed Impressions: CONCLUSION: 1. There is no evidence for renal artery stenosis. 2. Bilateral renal cyst, no hydronephrosis. Line kidneys are normal size. Head CT 09/14/17 Signed Impressions: CONCLUSION: 1. Developing hypodensity in the left occipital lobe which may represent an ev olving infarct. 2. No evidence of acute hemorrhage. 3. Otherwise stable evaluation. Objective Remarks GENERAL: This is a well-nourished, well-developed patient, in no apparent distress. CARDIOVASCULAR: Regular rate and rhythm RESPIRATORY: Clear to auscultation. Breath sounds equal bilaterally. No wheezes , rales, or rhonchi. GASTROINTESTINAL: Abdomen soft, non-tender, nondistended. Normal active bowel sounds MUSCULOSKELETAL: Extremities without clubbing, cyanosis, or edema. NEURO: Sleepy. Does not want to converse with me this morning to do a good neurological exam. A/P Problem List: (1) Dizziness ICD Code: R42 - Dizziness and giddiness (2) Hypokalemia ICD Code: E87.6 - Hypokalemia Status: Acute (3) Orthostatic hypotension ICD Code: I95.1 - Orthostatic hypotension Status: Acute (4) SHANNA (acute kidney injury) ICD Code: N17.9 - SHANNA (acute kidney injury) Status: Acute Assessment and Plan Presenting hypodensity in left occipital lobe on CT with associate complaints of cephalgia Incidental finding after a CT of the brain was ordered for headache with negative MRI/MRA likely artifact on CT Appreciate neurology recommendations. Continue neurological checks. Status post LP, neurology felt 1 of differential diagnosis is viral meningitis and started patient on IV Solu-Medrol and requested infectious disease consultation. Follow-up with final CSF cultures and sensitivity Continue symptomatic pain control for cephalgia Vertigo Improved on meclizine, but BPPV examination by neurology today did not reveal classic nystagmus results Consider electrolyte imbalance as well as orthostatic hypotension, patient is on loop recorder under Dr. Jean Baptiste's care Continue meclizine, continue telemetry which currently shows normal sinus Patient also had polypharmacy which multiple home medications including Cymbalta has been on hold. Orthostatic hypotension Ongoing monitoring with loop recorder and floor telemetry Consider also electrolyte imbalance Florinef being considered for possible treatment Cardiology consulted to review symptoms and treatment options with recommendations for 2D echo which shows a normal EF Refractory hypokalemia- resolved On daily potassium of 40 mEq; Continue with supplementation on top of scheduled potassium as needed Nephrology consulted to assist with treatment plan; workup in progress with renin and aldosterone levels reviewed Acute kidney injury -resolved Creatinine level normalized DVT prophylaxis SCDs Discharge Planning Home when medically stable. Lena Linda MD Sep 19, 2017 09:45
--- NOTE | 2017-09-19 10:04 | PD.CONS ---
History of Present Illness Service Infectious disease Consult Requested By Dr Caden Maciel Reason for Consult Evaluate patient with possible meningitis, LP abnormal Primary Care Physician [id number] Diagnoses: History of Present Illness Patient seen and examined. Records reviewed. I am not able to get any history from the patient Patient is a 72-year-old male, with known hypertension, has had problem with recurrent syncopal episode, brought into the hospital for frequent falling, and recurrent syncope. He has known orthostatic hypotension which was felt to be contributing to his recurrent syncopal episode. He had a loop recorder put in as part of the workup. There is also mention that he has had some on and off headaches. Patient had a neurological workup, and the imaging studies have all been negative. He has had an MRI of the brain, as well as MRA. The MRI did not show any enhancement in the parenchyma as well as any dural enhancement. There is been no mention of any fever chills or sweats or any photophobia or visual problem. The last couple days patient has been more confused and lethargic. There was some concern regarding alcohol withdrawals. Because of his history of headaches, patient underwent lumbar puncture. He had lymphocytic pleocytosis, low glucose, and an elevated protein. Since admission he has not been febrile. His sed rate and C-reactive protein are all within normal limits. Because of his abnormal LP, he was started on IV acyclovir. He is also currently getting high-dose Solu-Medrol. Infectious disease consultation has been requested to evaluate the patient for possible meningitis. Review of Systems ROS Limitations: Clinical Condition, Altered Mental Status Past Family Social History Allergies: Coded Allergies: codeine (Verified Allergy, Intermediate, RASH, 09/12/17) Past Medical History Anxiety Depression Hypertension Recurrent Syncope Orthostasis Past Surgical History Colon Resection Cholecystectomy Hernia Repair Loop Recorder Right Knee Surgery Active Ordered Medications Current Medications Medications (Trade) Dose Ordered Sig/Sandhya Route Start Time Stop Time Status Last Admin Sodium Chloride 1,000 ml @ 40 mls/hr Q24H IV 09/12/17 20:00 09/19/17 08:13 (NS Flush) 2 ml UNSCH PRN IV FLUSH 09/12/17 19:15 09/13/17 03:48 (NS Flush) 2 ml BID IV FLUSH 09/12/17 21:00 09/18/17 20:35 (Tylenol) 650 mg Q6H PRN PO 09/12/17 19:15 09/14/17 00:47 (Karen-Colace) 1 tab BID PO 09/12/17 21:00 09/18/17 20:35 (Milk Of Magnesia Liq) 30 ml Q12H PRN PO 09/12/17 19:15 (Senokot) 17.2 mg Q12H PRN PO 09/12/17 19:15 (Dulcolax Supp) 10 mg DAILY PRN RECTAL 09/12/17 19:15 (Lactulose Liq) 30 ml DAILY PRN PO 09/12/17 19:15 (Zyloprim) 300 mg DAILY PO 09/13/17 09:00 09/17/17 08:34 (Cymbalta Dr) 60 mg BID PO 09/12/17 21:00 Future Hold 09/16/17 21:01 (Pill Splitter) 1 ea UNSCH PRN OTHER 09/12/17 19:30 (Antivert) 25 mg Q8H PRN PO 09/12/17 19:45 09/14/17 05:31 (Imodium) 2 mg Q4H PRN PO 09/14/17 07:45 (Catapres) 0.1 mg Q6H PRN PO 09/14/17 09:15 09/19/17 04:11 (Simpson 5-325 Mg) 1 tab Q6H PRN PO 09/14/17 15:15 09/16/17 17:08 (Procardia Xl) 90 mg DAILY PO 09/15/17 15:00 09/17/17 08:34 (Lopressor) 50 mg Q8HR PO 09/15/17 15:00 09/19/17 05:44 (KCl) 40 meq DAILY PO 09/17/17 09:00 09/17/17 08:35 (Mag-Ox) 800 mg BID PO 09/16/17 21:00 09/18/17 20:35 (Fioricet 325-50-40) 1 tab Q8H PRN PO 09/17/17 07:15 09/19/17 04:09 (Pepcid) 20 mg BID PO 09/17/17 09:00 09/18/17 20:35 (Vasotec Inj) 1.25 mg Q6H PRN IV PUSH 09/18/17 09:30 09/19/17 08:12 (Protonix) 40 mg DAILY PO 09/19/17 09:00 Methylprednisolone Sodium Succinate 1000 mg/Dextrose 116 ml @ 232 mls/hr Q24H IV 09/19/17 09:00 09/21/17 09:29 09/19/17 09:37 Family History Unremarkable Social History Non-smoker Occasional alcohol No illicit drug Physical Exam Vital Signs Vital Signs Date Time Temp Pulse Resp B/P (MAP) Pulse Ox O2 Delivery O2 Flow Rate FiO2 09/19/17 04:00 97.2 87 20 174/87 (116) 97 09/19/17 00:00 98.0 81 20 191/96 (127) 97 09/18/17 20:00 97.3 66 20 169/86 (113) 97 09/18/17 16:00 98.0 67 18 193/95 (127) 98 09/18/17 15:25 184/92 (122) 09/18/17 12:00 98.0 82 18 129/82 (98) 96 Physical Exam GENERAL: Patient is a well-nourished, well-developed male, lethargic, gets restless when stimulated, able to answer some questions, but not really able to hold a conversation. He is not in respiratory distress. SKIN: Cool and dry. No generalized rash, no ecchymoses and no evidence of embolic lesions. HEAD: Atraumatic. Normocephalic. No temporal wasting, or tenderness. EYES: Narciso Pena conjunctiva. No petechia or hemorrhage. Pupils equal, round and reactive to light. Extraocular movements full and intact. No scleral icterus. No injection or drainage. EARS, NOSE AND THROAT: Nose without bleeding or purulent nasal discharge. No sinus tenderness. Mucous membranes pink and moist. No oral lesions noted. No exudate. No oral thrush. NECK: Trachea midline. Supple and not tender, no meningeal signs. No nuchal rigidity CARDIOVASCULAR: Regular rate and rhythm. No murmurs, rubs or gallops heard RESPIRATORY: Clear to auscultation. Breath sounds equal bilaterally. No rales , wheezing or rhonchi ABDOMEN: Soft, non-tender, nondistended. Bowel sounds present and normoactive. No guarding. No rebound. No organomegaly. EXTREMITIES: No clubbing, cyanosis, or edema.No joint effusion, has good ROM. No calf tenderness. Well perfused and warm. NEUROLOGICAL: Lethargic, answering some questions. Moving all extremities. NO facial asymmetry. PSYCHIATRIC: Unable to asess. LINE: No evidence of infection Laboratory Laboratory Tests Test 09/18/17 11:00 09/18/17 13:11 09/19/17 04:05 09/19/17 08:24 Urine Color YELLOW Urine Turbidity HAZY Urine pH 7.5 Urine Specific Isabel 1.010 Urine Protein TRACE Urine Glucose (UA) NEG Urine Ketones 10 Urine Occult Blood NEG Urine Nitrite NEG Urine Bilirubin NEG Urine Urobilinogen LESS THAN 2.0 Urine Leukocyte Esterase NEG Urine RBC 3 Urine WBC 1 Urine Bacteria RARE Microscopic Urinalysis Comment CATH-CULTURE IND CSF Volume (Tube 1) 3.1 CSF Supernatant Color (tube 1) CLEAR CSF Gross Blood (Tube 1) 0 CSF WBC (Tube 1) 180 CSF RBC (Tube 1) 10 CSF Volume (Tube 2) 2.1 CSF Supernatant Color (tube 2) CLEAR CSF Gross Blood (Tube 2) 0 CSF Volume (Tube 3) 2.1 CSF Supernatant Color (tube 3) CLEAR CSF Gross Blood (Tube 3) 0 CSF Volume (Tube 4) 2.2 CSF Supernatant Color (tube 4) CLEAR CSF Gross Blood (Tube 4) TRACE CSF Neutrophils 2 CSF Lymphocytes 89 CSF Monocytes 8 CSF Eosinophils 1 CSF Glucose 19 CSF Total Protein 138.0 White Blood Count 11.4 Red Blood Count 5.46 Hemoglobin 17.3 Hematocrit 48.2 Mean Corpuscular Volume 88.4 Mean Corpuscular Hemoglobin 31.7 Mean Corpuscular Hemoglobin Concent 35.8 Red Cell Distribution Width 13.2 Platelet Count 292 Mean Platelet Volume 7.1 Neutrophils (%) (Auto) 85.9 Lymphocytes (%) (Auto) 5.7 Monocytes (%) (Auto) 7.7 Eosinophils (%) (Auto) 0.3 Basophils (%) (Auto) 0.4 Neutrophils # (Auto) 9.8 Lymphocytes # (Auto) 0.6 Monocytes # (Auto) 0.9 Eosinophils # (Auto) 0.0 Basophils # (Auto) 0.0 CBC Comment DIFF FINAL Differential Comment Blood Urea Nitrogen 16 18 Creatinine 1.22 1.24 Random Glucose 103 102 Total Protein 8.0 Albumin 4.1 Calcium Level 10.0 9.6 Alkaline Phosphatase 271 Aspartate Amino Transf (AST/SGOT) 90 Alanine Aminotransferase (ALT/SGPT) 145 Total Bilirubin 1.6 Sodium Level 131 133 Potassium Level 3.8 3.7 Chloride Level 95 96 Carbon Dioxide Level 27.5 24.8 Anion Gap 9 12 Estimat Glomerular Filtration Rate 59 57 Date/Time Source Procedure Growth Status 09/18/17 13:11 Cerebral Spinal Fluid Lumbar Puncture Fungal Smear - Final NO FUNGAL ELEMENTS SEEN. Resulted 09/18/17 13:11 Cerebral Spinal Fluid Lumbar Puncture Fungal Culture Pending Resulted 09/18/17 11:00 Urine Clean Catch Urine Culture Pending Received Result Diagram: 09/19/17 0405 09/19/17 0824 Imaging RADIOLOGY STUDIES/FILMS REVIEWED Last Impressions Lumbar Puncture Fluoroscopy 09/18/17 0000 Signed Impressions: CONCLUSION: 1. Uncomplicated fluoroscopically guided lumbar puncture with pressures as abo ve. Chest X-Ray 09/18/17 Signed Impressions: CONCLUSION: No acute cardiopulmonary disease. Head Magnetic Resonance Angiography 09/17/17 1122 Signed Impressions: CONCLUSION: 1. Negative for aneurysm or major branch vessel occlusion. Brain MRI 09/17/17 112 Signed Impressions: CONCLUSION: 1. No acute hemorrhage, mass or evidence of infarction. The left occipital lob e demonstrates normal signal. The finding on CT likely is artifactual. 2. Mild atrophy and chronic small vessel ischemic changes. Cervical Spine MRI 09/17/17 Signed Impressions: CONCLUSION: 1. Mild disc bulges at C4-5 through C6-7 levels with mild mass effect on the a nterior thecal sac and no mass effect upon the cord. 2. Degenerative disc change greatest at the C4-5 and C5-6 levels. Thoracic Spine MRI 09/16/17 Signed Impressions: CONCLUSION: 1. No disc herniation or canal stenosis. 2. No acute compression fracture or spondylolisthesis. 3. Mild scattered degenerative changes and mild kyphosis. Renal Ultrasound 09/16/17 Signed Impressions: CONCLUSION: 1. There is no evidence for renal artery stenosis. 2. Bilateral renal cyst, no hydronephrosis. Line kidneys are normal size. Head CT 09/14/17 Signed Impressions: CONCLUSION: 1. Developing hypodensity in the left occipital lobe which may represent an ev olving infarct. 2. No evidence of acute hemorrhage. 3. Otherwise stable evaluation. Assessment and Plan Assessment and Plan IMPRESSION Abnormal LP with lymphocytic pleocytosis, elevated protein, low glucose - clinically only symptom for meningitis is SENIOR, no dural enhancement, MRI brain unremarkable - no F/C, no nuchal rigidity, no mention of photophobia - ESR and CRP normal Encephalopathy, etiology Recurrent syncope Orthostatic hypotension RECOMMENDATION Follow CSF studies Neurology started acyclovir - could D/C if HSV negative Follow C/S Will not start any other Abx Started on high dose solumedrol Follow clinically Thank you for this consultation Dr Lila Reza covering this weekend Discussed Condition With D/W Maci Irene MD Sep 19, 2017 10:04
--- NOTE | 2017-09-19 13:27 | MG ---
cc: Tammy Rios MD EEG NUMBER: [id number] REFERRING PHYSICIAN: Dr. Mendoza In room 1603 with photic done, so a repeat study. Awake, drowsy asleep study. Admitted for nausea and vomiting. MEDICATIONS: He is on Protonix, acyclovir, Solu-Medrol. HISTORY: History of neuropathy, atrial fibrillation, PTSD cancer. DESCRIPTION OF RECORD: The patient has what appears to be 3 to 3.5 Hz background rhythm at times 4. Some twitching of the legs. Some questionable phase reversal centrally seen at Epoch 12, there is a lot of artifact though. Otherwise, when the patient is holding still, his background is more 4 Hz, 5 at times. Then, again I saw phase reversal centrally, which is not continuous, just on one occasion that leads me to think it may have been artifactual, but overall, there is diffuse slowing. Various montages reviewed. A lot of chewing artifact, eye movement. Photic stimulation, there is a driving response. No appreciable epileptic activity. IMPRESSION: Moderate slowing consistent with what looks like an encephalopathic process. Trial of antiepileptics may be warranted. Clinical correlation. Tammy Rios MD DF/DL , 12:53 PM , 01:26 PM
[2017-09-19] MEDS: ACETAMINOPHEN/HYDROcodone 325 MG/5 MG TAB PO PRN (23:21)
[2017-09-20] VITALS (8 sets, daily range): BP systolic 96–176; BP diastolic 53–80; PULSE 49–98; RESP 17–18; TEMP 97.4–98.2; O2SAT 58–99
[2017-09-20] MEDS: METOPROLOL TARTRATE 50 MG TAB PO SCH ×3 (06:00→21:43)
[2017-09-20 07:09] LABS: BICARBONATE 26.6 MEQ/L (21.0-32.0); CALCIUM 9.5 MG/DL (8.5-10.1); CREATININE 1.32 MG/DL (0.60-1.30)
[2017-09-20] MEDS: SODIUM CHLORIDE 0.9% FLUSH 10 ML FLUSH IV FLUSH SCH ×2 (09:00→21:00)
[2017-09-20] MEDS: MAGNESIUM OXIDE 400 MG TAB PO SCH ×2 (09:31→21:44)
[2017-09-20] MEDS: methylPREDNISolone SO SUCC INJ 1,000 MG in DEXTROSE 5% IN WATER 100ML INJ 100 ML IV SCH ×2 (09:31)
[2017-09-20] MEDS: PANTOPRAZOLE SOD 40 MG DELAYED RELEASE TAB PO SCH (09:31)
[2017-09-20] MEDS: NIFEdipine 90 MG SUSTAINED RELEASE TAB PO SCH (09:31)
[2017-09-20] MEDS: FAMOTIDINE 20 MG TAB PO SCH ×2 (09:31→21:43)
[2017-09-20] MEDS: DOCUSATE SODIUM 50 MG/SENNA 8.6 MG TAB PO SCH ×2 (09:31→21:43)
[2017-09-20] MEDS: ALLOPURINOL 300 MG TAB PO SCH (09:31)
[2017-09-20] MEDS: POTASSIUM CHLORIDE 20 MEQ CONTROLLED RELEASE TAB PO SCH (09:32)
--- NOTE | 2017-09-20 11:16 | HHI.PR ---
Subjective Remarks somnolent awakens with name called confused. Objective Vital Signs Date Time Temp Pulse Resp B/P (MAP) Pulse Ox O2 Delivery O2 Flow Rate FiO2 09/20/17 08:00 97.5 98 17 172/70 (104) 58 09/20/17 04:00 97.4 51 18 165/69 (101) 94 09/20/17 00:00 98.1 55 18 155/68 (97) 96 09/19/17 20:00 97.7 63 18 182/91 (121) 98 09/19/17 16:00 96.4 56 16 162/72 (102) 96 09/19/17 14:17 167/76 (106) 09/19/17 12:00 98.0 66 16 203/93 (129) 98 I/O 09/19/17 09/19/17 09/19/17 09/20/17 09/20/17 09/20/17 07:00 15:00 23:00 07:00 15:00 23:00 Intake Total 240 ml 360 ml Output Total 800 ml Balance 240 ml -440 ml Intake Oral 240 ml 360 ml Output Urine Total 800 ml # Voids 2 1 2 # Bowel Movements 0 0 Result Diagram: 09/19/17 0405 09/20/17 0545 Objective Remarks awake alert no nuchal rigidity can follow commands does not know place [place] [facility] states not age not oriented otherwise perrla motor intact Assessment and Plan Assessment and Plan viral meningitis solumedrol total 3 days id on case dc acyclovir if hsv pcr neg-gfr today is 53-watch and adjust dose. ?etoh lft's elevated ppb chair Pt when able. Tammy Rios MD Sep 20, 2017 11:16
--- NOTE | 2017-09-20 11:32 | HHI.PR ---
Subjective Remarks Follow-up visit questionable viral meningitis, encephalopathy. Patient seen and examined today. More awake and alert. Patient is oriented to place and person. States he does not know the date. Able to follow commands. Denies pain and discomfort. Denies SOB/ dyspnea. Denies chest pain, palpitations, headaches, dizziness. Denies fevers, chills, n/v/d. Denies dysuria. Objective Vitals Vital Signs Date Time Temp Pulse Resp B/P (MAP) Pulse Ox O2 Delivery O2 Flow Rate FiO2 09/20/17 08:00 97.5 98 17 172/70 (104) 58 09/20/17 04:00 97.4 51 18 165/69 (101) 94 09/20/17 00:00 98.1 55 18 155/68 (97) 96 09/19/17 20:00 97.7 63 18 182/91 (121) 98 09/19/17 16:00 96.4 56 16 162/72 (102) 96 09/19/17 14:17 167/76 (106) 09/19/17 12:00 98.0 66 16 203/93 (129) 98 I/O 09/19/17 09/19/17 09/19/17 09/20/17 09/20/17 09/20/17 07:00 15:00 23:00 07:00 15:00 23:00 Intake Total 240 ml 360 ml Output Total 800 ml Balance 240 ml -440 ml Intake Oral 240 ml 360 ml Output Urine Total 800 ml # Voids 2 1 2 # Bowel Movements 0 0 Result Diagram: 09/19/17 0405 09/20/17 0545 Imaging Last Impressions Lumbar Puncture Fluoroscopy 09/18/17 0000 Signed Impressions: CONCLUSION: 1. Uncomplicated fluoroscopically guided lumbar puncture with pressures as abo ve. Chest X-Ray 09/18/17 0000 Signed Impressions: CONCLUSION: No acute cardiopulmonary disease. Head Magnetic Resonance Angiography 09/17/17 1122 Signed Impressions: CONCLUSION: 1. Negative for aneurysm or major branch vessel occlusion. Brain MRI 09/17/17 1122 Signed Impressions: CONCLUSION: 1. No acute hemorrhage, mass or evidence of infarction. The left occipital lob e demonstrates normal signal. The finding on CT likely is artifactual. 2. Mild atrophy and chronic small vessel ischemic changes. Cervical Spine MRI 09/17/17 0000 Signed Impressions: CONCLUSION: 1. Mild disc bulges at C4-5 through C6-7 levels with mild mass effect on the a nterior thecal sac and no mass effect upon the cord. 2. Degenerative disc change greatest at the C4-5 and C5-6 levels. Thoracic Spine MRI 09/16/17 Signed Impressions: CONCLUSION: 1. No disc herniation or canal stenosis. 2. No acute compression fracture or spondylolisthesis. 3. Mild scattered degenerative changes and mild kyphosis. Renal Ultrasound 09/16/17 Signed Impressions: CONCLUSION: 1. There is no evidence for renal artery stenosis. 2. Bilateral renal cyst, no hydronephrosis. Line kidneys are normal size. Head CT 09/14/17 Signed Impressions: CONCLUSION: 1. Developing hypodensity in the left occipital lobe which may represent an ev olving infarct. 2. No evidence of acute hemorrhage. 3. Otherwise stable evaluation. Objective Remarks GENERAL: This is a well-nourished, well-developed patient, in no apparent distress. SKIN: Warm and dry. HEENT: Normocephalic. Pupils equal round and reactive. Nose without bleeding. Airway patent. NECK: Trachea midline. CARDIOVASCULAR: Regular rate and rhythm without murmurs, gallops, or rubs. RESPIRATORY: Diminished bases. No wheezes, rales, or rhonchi. GASTROINTESTINAL: Abdomen soft, non-tender, nondistended. Bowel Sounds normoactive x4. MUSCULOSKELETAL: Extremities without clubbing, cyanosis, or edema. NEUROLOGICAL: Awake. Oriented to person, place. Moves all extremities. Normal speech with mild delayed response to questions and commands. Able to follow commands. A/P Problem List: (1) Dizziness ICD Code: R42 - Dizziness and giddiness (2) Hypokalemia ICD Code: E87.6 - Hypokalemia Status: Acute (3) Orthostatic hypotension ICD Code: I95.1 - Orthostatic hypotension Status: Acute (4) SHANNA (acute kidney injury) ICD Code: N17.9 - SHANNA (acute kidney injury) Status: Acute Assessment and Plan 72-year-old male with a PMH of Anxiety, Depression, HTN and Recurrent Syncope who presented to the ER with complaints of dizziness in addition to multiple episodes of nausea and vomiting Hypodensity in left occipital lobe Questionable viral meningitis Leukocytosis -Incidental finding after a CT of the brain was ordered for headache -Appreciate neurology recommendations and will await MRI/MRA of the brain. -Status post LP, neurology felt differential of viral meningitis and started patient on IV Solu-Medrol. Infectious disease consulted and patient was given acyclovir. Follow-up results for final CSF cultures and sensitivity -Continue neurological checks -HSV pending, as per ID stop acyclovir if negative. -WBC trending down 11 -->13.5 --> 11.4 -HSV checked, pending results. Vertigo -Improved on meclizine, but BPPV examination by neurology did not reveal classic nystagmus results -Consider electrolyte imbalance as well as orthostatic hypotension, patient is on loop recorder under Dr. Jean Baptiste's care -Continue meclizine, continue telemetry which currently shows normal sinus Hypertension History of orthostatic hypotension -Ongoing monitoring with loop recorder and floor telemetry -Consider also electrolyte imbalance -Florinef being considered for possible treatment -Cardiology consulted to review symptoms and treatment options with recommendations for 2D echo currently pending -Enalapril IV. We will continue to monitor BP trend -Metroprolol 50 mg every 8 hours, nifedipine 90 mg daily Refractory hypokalemia -Supplemented -Continue with supplementation on top of scheduled potassium as needed -Nephrology consulted to assist with treatment plan; workup in progress with renin and aldosterone levels pending Acute kidney injury -Avoid nephrotoxins -IV fluids for gentle hydration -Monitor renal indicis DVT prophylaxis SCDs Discharge Planning Plan to DC home when medically and clinically stable Farshad Cutler Sep 20, 2017 11:32
[2017-09-20] MEDS: cloNIDine HCL 0.1 MG TAB PO PRN (12:32)
[2017-09-20 14:21] LABS: HSV 1,PCR Negative (Negative)
[2017-09-20] MEDS: ACYCLOVIR IV SCH ×2 (17:16→23:41)
[2017-09-20] MEDS: SODIUM CHLORIDE 0.9% IV SCH ×2 (17:16→23:41)
[2017-09-20] MEDS: SODIUM CHLOR 0.9% 1000 ML INJ 1,000 ML IV SCH (21:46)
[2017-09-21] VITALS (8 sets, daily range): BP systolic 129–196; BP diastolic 67–89; PULSE 54–96; RESP 18–19; TEMP 97.2–98.7; O2SAT 97–100
[2017-09-21 05:21] LABS: HEMATOCRIT 45.2 % (39.0-51.0); HEMOGLOBIN 15.6 GM/DL (13.0-17.0); MEAN CELL VOLUME 89.2 FL (80.0-100.0); MEAN CORPUSCULAR HEMOGLOBIN 30.8 PG (27.0-34.0); MEAN CORPUSCULAR HGB CONC 34.5 % (32.0-36.0); MEAN PLATELET VOLUME 7.7 FL (7.0-11.0); PLATELET COUNT 448 TH/MM3 (150-450); RED BLOOD COUNT 5.06 MIL/MM3 (4.50-5.90); RED CELL DISTRIBUTION WIDTH 13.2 % (11.6-17.2); WHITE BLOOD COUNT 20.9 TH/MM3 (4.0-11.0)
[2017-09-21] MEDS: METOPROLOL TARTRATE 50 MG TAB PO SCH ×3 (05:30→23:37)
[2017-09-21 05:55] LABS: BICARBONATE 25.2 MEQ/L (21.0-32.0); CALCIUM 9.7 MG/DL (8.5-10.1); CREATININE 1.47 MG/DL (0.60-1.30)
[2017-09-21] MEDS: ACYCLOVIR IV SCH ×2 (07:47→20:21)
[2017-09-21] MEDS: SODIUM CHLORIDE 0.9% IV SCH ×2 (07:47→20:21)
[2017-09-21] MEDS: MAGNESIUM OXIDE 400 MG TAB PO SCH ×2 (07:49→20:21)
[2017-09-21] MEDS: POTASSIUM CHLORIDE 20 MEQ CONTROLLED RELEASE TAB PO SCH (07:49)
[2017-09-21] MEDS: NIFEdipine 90 MG SUSTAINED RELEASE TAB PO SCH (07:49)
[2017-09-21] MEDS: PANTOPRAZOLE SOD 40 MG DELAYED RELEASE TAB PO SCH (07:49)
[2017-09-21] MEDS: DOCUSATE SODIUM 50 MG/SENNA 8.6 MG TAB PO SCH ×2 (07:49→20:21)
[2017-09-21] MEDS: ALLOPURINOL 300 MG TAB PO SCH (07:49)
[2017-09-21] MEDS: FAMOTIDINE 20 MG TAB PO SCH ×2 (07:49→20:21)
[2017-09-21] MEDS: SODIUM CHLORIDE 0.9% FLUSH 10 ML FLUSH IV FLUSH SCH ×2 (07:50→20:21)
[2017-09-21] MEDS: methylPREDNISolone SO SUCC INJ 1,000 MG in DEXTROSE 5% IN WATER 100ML INJ 100 ML IV SCH ×2 (10:35)
--- NOTE | 2017-09-21 11:23 | HHI.PR ---
Subjective Remarks oob in chair less confusd reading a magazine no headache Objective Vital Signs Date Time Temp Pulse Resp B/P (MAP) Pulse Ox O2 Delivery O2 Flow Rate FiO2 09/21/17 08:00 98.7 65 18 196/89 (124) 97 09/21/17 04:35 97.3 71 18 138/71 (93) 97 09/21/17 03:51 73 09/21/17 00:11 97.2 54 18 129/67 (87) 98 09/20/17 23:48 66 09/20/17 22:25 Room Air 09/20/17 19:58 98.2 89 18 127/66 (86) 97 122/63 (82) 96/53 (67) 09/20/17 19:42 74 09/20/17 16:00 97.8 76 18 122/60 (80) 96 09/20/17 12:00 98.0 49 17 176/80 (112) 99 I/O 09/20/17 09/20/17 09/20/17 09/21/17 09/21/17 09/21/17 07:00 15:00 23:00 07:00 15:00 23:00 Intake Total 360 ml 480 ml 630 ml Output Total 800 ml 500 ml Balance -440 ml -20 ml 630 ml Intake Oral 360 ml 480 ml 480 ml IV Total 150 ml Output Urine Total 800 ml 500 ml # Voids 3 # Bowel Movements 0 0 0 Result Diagram: 09/21/17 0455 09/21/17 0455 Other Results gfr 47 Objective Remarks awake alert to place age. year 2017 not month or exact date fluent perrla motor normal. Assessment and Plan Assessment and Plan viral meningitis solumedrol total 3 days-completed. id on case dc acyclovir if hsv pcr neg-gfr today is 47-watch and adjust dose changed to q 12hrs today. ?etoh lft's elevated d/c planning. Tammy Rios MD Sep 21, 2017 11:23
--- NOTE | 2017-09-21 11:55 | HHI.PR ---
Subjective Remarks Follow-up visit questionable viral meningitis, encephalopathy. Patient seen and examined today. Awake and alert. Oriented to place, states it is 1946. No acute issues overnight. Denies pain and discomfort. Denies SOB/ dyspnea. Denies chest pain, palpitations, headaches, dizziness. Denies fevers, chills, n/ v/d. Objective Vitals Vital Signs Date Time Temp Pulse Resp B/P (MAP) Pulse Ox O2 Delivery O2 Flow Rate FiO2 09/21/17 08:00 98.7 65 18 196/89 (124) 97 09/21/17 04:35 97.3 71 18 138/71 (93) 97 09/21/17 03:51 73 09/21/17 00:11 97.2 54 18 129/67 (87) 98 09/20/17 23:48 66 09/20/17 22:25 Room Air 09/20/17 19:58 98.2 89 18 127/66 (86) 97 122/63 (82) 96/53 (67) 09/20/17 19:42 74 09/20/17 16:00 97.8 76 18 122/60 (80) 96 09/20/17 12:00 98.0 49 17 176/80 (112) 99 I/O 09/20/17 09/20/17 09/20/17 09/21/17 09/21/17 09/21/17 07:00 15:00 23:00 07:00 15:00 23:00 Intake Total 360 ml 480 ml 630 ml Output Total 800 ml 500 ml Balance -440 ml -20 ml 630 ml Intake Oral 360 ml 480 ml 480 ml IV Total 150 ml Output Urine Total 800 ml 500 ml # Voids 3 # Bowel Movements 0 0 0 Result Diagram: 09/21/17 0455 09/21/17 0455 Imaging Last Impressions Lumbar Puncture Fluoroscopy 09/18/17 0000 Signed Impressions: CONCLUSION: 1. Uncomplicated fluoroscopically guided lumbar puncture with pressures as abo ve. Chest X-Ray 09/18/17 0000 Signed Impressions: CONCLUSION: No acute cardiopulmonary disease. Head Magnetic Resonance Angiography 09/17/17 1122 Signed Impressions: CONCLUSION: 1. Negative for aneurysm or major branch vessel occlusion. Brain MRI 09/17/17 1122 Signed Impressions: CONCLUSION: 1. No acute hemorrhage, mass or evidence of infarction. The left occipital lob e demonstrates normal signal. The finding on CT likely is artifactual. 2. Mild atrophy and chronic small vessel ischemic changes. Cervical Spine MRI 09/17/17 Signed Impressions: CONCLUSION: 1. Mild disc bulges at C4-5 through C6-7 levels with mild mass effect on the a nterior thecal sac and no mass effect upon the cord. 2. Degenerative disc change greatest at the C4-5 and C5-6 levels. Thoracic Spine MRI 09/16/17 Signed Impressions: CONCLUSION: 1. No disc herniation or canal stenosis. 2. No acute compression fracture or spondylolisthesis. 3. Mild scattered degenerative changes and mild kyphosis. Renal Ultrasound 09/16/17 Signed Impressions: CONCLUSION: 1. There is no evidence for renal artery stenosis. 2. Bilateral renal cyst, no hydronephrosis. Line kidneys are normal size. Head CT 09/14/17 Signed Impressions: CONCLUSION: 1. Developing hypodensity in the left occipital lobe which may represent an ev olving infarct. 2. No evidence of acute hemorrhage. 3. Otherwise stable evaluation. Objective Remarks GENERAL: This is a well-nourished, well-developed patient, in no apparent distress. SKIN: Warm and dry. HEENT: Normocephalic. Pupils equal round and reactive. Nose without bleeding. Airway patent. NECK: Trachea midline. CARDIOVASCULAR: Regular rate and rhythm without murmurs, gallops, or rubs. RESPIRATORY: Diminished bases. No wheezes, rales, or rhonchi. GASTROINTESTINAL: Abdomen soft, non-tender, nondistended. Bowel Sounds normoactive x4. MUSCULOSKELETAL: Extremities without clubbing, cyanosis, or edema. NEUROLOGICAL: Awake. Oriented to person, place. Moves all extremities. Normal speech with mild delayed response to questions and commands. Able to follow commands. A/P Problem List: (1) Dizziness ICD Code: R42 - Dizziness and giddiness (2) Hypokalemia ICD Code: E87.6 - Hypokalemia Status: Acute (3) Orthostatic hypotension ICD Code: I95.1 - Orthostatic hypotension Status: Acute (4) SHANNA (acute kidney injury) ICD Code: N17.9 - SHANNA (acute kidney injury) Status: Acute Assessment and Plan 72-year-old male with a PMH of Anxiety, Depression, HTN and Recurrent Syncope who presented to the ER with complaints of dizziness in addition to multiple episodes of nausea and vomiting Hypodensity in left occipital lobe Questionable viral meningitis Leukocytosis -Incidental finding after a CT of the brain was ordered for headache -Appreciate neurology recommendations and will await MRI/MRA of the brain. -Status post LP, neurology felt differential of viral meningitis and started patient on IV Solu-Medrol. Infectious disease consulted and patient was given acyclovir. Follow-up results for final CSF cultures and sensitivity -Continue neurological checks -HSV pending, as per ID stop acyclovir if negative. -WBC trending down 11 -->13.5 --> 11.4 -HSV positive, Acyclovir restarted, dose adjustment with [employer]ATOR Vertigo -Improved on meclizine, but BPPV examination by neurology did not reveal classic nystagmus results -Consider electrolyte imbalance as well as orthostatic hypotension, patient is on loop recorder under Dr. Jean Baptiste's care -Continue meclizine, continue telemetry which currently shows normal sinus Hypertension History of orthostatic hypotension -Ongoing monitoring with loop recorder and floor telemetry -Consider also electrolyte imbalance -Florinef being considered for possible treatment -Cardiology consulted to review symptoms and treatment options with recommendations for 2D echo currently pending -Enalapril IV. We will continue to monitor BP trend -Metroprolol 50 mg every 8 hours, nifedipine 90 mg daily Refractory hypokalemia -Supplemented -Continue with supplementation on top of scheduled potassium as needed -Nephrology consulted to assist with treatment plan; workup in progress with renin and aldosterone levels pending Acute kidney injury -Avoid nephrotoxins -IV fluids for gentle hydration -Monitor renal indicis DVT prophylaxis SCDs Discharge Planning Plan to DC home when medically and clinically stable Farshad Cutler Sep 21, 2017 11:55
[2017-09-21 13:30] LABS: CSF CRYPTOCOCCUS AG CONF ND (NOT DETECTD)
--- NOTE | 2017-09-21 17:12 | HHI.IDPN ---
Subjective Subjective Remarks Patient is a 72-year-old male, with known hypertension, has had problem with recurrent syncopal episode, brought into the hospital for frequent falling, and recurrent syncope. He has known orthostatic hypotension which was felt to be contributing to his recurrent syncopal episode. He had a loop recorder put in as part of the workup. There is also mention that he has had some on and off headaches. Patient had a neurological workup, and the imaging studies have all been negative. He has had an MRI of the brain, as well as MRA. The MRI did not show any enhancement in the parenchyma as well as any dural enhancement. There is been no mention of any fever chills or sweats or any photophobia or visual problem. The last couple days patient has been more confused and lethargic. There was some concern regarding alcohol withdrawals. Because of his history of headaches, patient underwent lumbar puncture. He had lymphocytic pleocytosis, low glucose, and an elevated protein. Since admission he has not been febrile. His sed rate and C-reactive protein are all within normal limits. Because of his abnormal LP, he was started on IV acyclovir. He is also currently getting high-dose Solu-Medrol. Infectious disease consultation has been requested to evaluate the patient for possible meningitis. 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 No fevers No rash No diarrhea Confused at times. Was not able to tell me his location. After 5 mins into conversation he stopped me and reported he remembers he is at [place]. Ankur RN confusion is not new. On Acyclovir IV UO good. Antibiotics Acyclovir IV Lines Line sites with no e.o infection Past Medical History Past Medical History Anxiety Depression Hypertension Recurrent Syncope Orthostasis Past Surgical History Colon Resection Cholecystectomy Hernia Repair Loop Recorder Right Knee Surgery Allergies: Coded Allergies: codeine (Verified Allergy, Intermediate, RASH, 09/12/17) Objective . Vital Signs Date Time Temp Pulse Resp B/P (MAP) Pulse Ox O2 Delivery O2 Flow Rate FiO2 09/21/17 12:00 97.4 68 18 173/74 (107) 99 09/21/17 08:00 98.7 65 18 196/89 (124) 97 09/21/17 04:35 97.3 71 18 138/71 (93) 97 09/21/17 03:51 73 09/21/17 00:11 97.2 54 18 129/67 (87) 98 09/20/17 23:48 66 09/20/17 22:25 Room Air 09/20/17 19:58 98.2 89 18 127/66 (86) 97 122/63 (82) 96/53 (67) 09/20/17 19:42 74 . Laboratory Tests Test 09/21/17 04:55 White Blood Count 20.9 TH/MM3 Red Blood Count 5.06 MIL/MM3 Hemoglobin 15.6 GM/DL Hematocrit 45.2 % Mean Corpuscular Volume 89.2 FL Mean Corpuscular Hemoglobin 30.8 PG Mean Corpuscular Hemoglobin Concent 34.5 % Red Cell Distribution Width 13.2 % Platelet Count 448 TH/MM3 Mean Platelet Volume 7.7 FL Laboratory Tests Test 09/20/17 05:45 09/21/17 04:55 Blood Urea Nitrogen 22 MG/DL 26 MG/DL Creatinine 1.32 MG/DL 1.47 MG/DL Random Glucose 118 MG/DL 124 MG/DL Calcium Level 9.5 MG/DL 9.7 MG/DL Sodium Level 137 MEQ/L 140 MEQ/L Potassium Level 4.1 MEQ/L 3.9 MEQ/L Chloride Level 100 MEQ/L 103 MEQ/L Carbon Dioxide Level 26.6 MEQ/L 25.2 MEQ/L Anion Gap 10 MEQ/L 12 MEQ/L Estimat Glomerular Filtration Rate 53 ML/MIN 47 ML/MIN Imaging Last Impressions Lumbar Puncture Fluoroscopy 09/18/17 0000 Signed Impressions: CONCLUSION: 1. Uncomplicated fluoroscopically guided lumbar puncture with pressures as abo ve. Chest X-Ray 09/18/17 0000 Signed Impressions: CONCLUSION: No acute cardiopulmonary disease. Head Magnetic Resonance Angiography 09/17/17 1122 Signed Impressions: CONCLUSION: 1. Negative for aneurysm or major branch vessel occlusion. Brain MRI 09/17/17 112 Signed Impressions: CONCLUSION: 1. No acute hemorrhage, mass or evidence of infarction. The left occipital lob e demonstrates normal signal. The finding on CT likely is artifactual. 2. Mild atrophy and chronic small vessel ischemic changes. Cervical Spine MRI 09/17/17 0000 Signed Impressions: CONCLUSION: 1. Mild disc bulges at C4-5 through C6-7 levels with mild mass effect on the a nterior thecal sac and no mass effect upon the cord. 2. Degenerative disc change greatest at the C4-5 and C5-6 levels. Thoracic Spine MRI 09/16/17 Signed Impressions: CONCLUSION: 1. No disc herniation or canal stenosis. 2. No acute compression fracture or spondylolisthesis. 3. Mild scattered degenerative changes and mild kyphosis. Renal Ultrasound 09/16/17 Signed Impressions: CONCLUSION: 1. There is no evidence for renal artery stenosis. 2. Bilateral renal cyst, no hydronephrosis. Line kidneys are normal size. Head CT 09/14/17 Signed Impressions: CONCLUSION: 1. Developing hypodensity in the left occipital lobe which may represent an ev olving infarct. 2. No evidence of acute hemorrhage. 3. Otherwise stable evaluation. Physical Exam GENERAL: Patient is a well-nourished, well-developed male, lethargic, gets restless when stimulated, able to answer some questions, but not really able to hold a conversation. He is not in respiratory distress. SKIN: Cool and dry. No generalized rash, no ecchymoses and no evidence of embolic lesions. HEAD: Atraumatic. Normocephalic. No temporal wasting, or tenderness. EYES: [place] conjunctiva. No petechia or hemorrhage. Pupils equal, round and reactive to light. Extraocular movements full and intact. No scleral icterus. No injection or drainage. EARS, NOSE AND THROAT: Nose without bleeding or purulent nasal discharge. No sinus tenderness. Mucous membranes pink and moist. No oral lesions noted. No exudate. No oral thrush. NECK: Trachea midline. Supple and not tender, no meningeal signs. No nuchal rigidity CARDIOVASCULAR: Regular rate and rhythm. No murmurs, rubs or gallops heard RESPIRATORY: Clear to auscultation. Breath sounds equal bilaterally. No rales , wheezing or rhonchi ABDOMEN: Soft, non-tender, nondistended. Bowel sounds present and normoactive. No guarding. No rebound. No organomegaly. EXTREMITIES: No clubbing, cyanosis, or edema.No joint effusion, has good ROM. No calf tenderness. Well perfused and warm. NEUROLOGICAL: Lethargic, answering some questions. Moving all extremities. NO facial asymmetry. 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 Recurrent syncope Orthostatic hypotension RECOMMENDATION Continue Acyclovir IV Follow Cr and UO. Due to extent of disease low glucose as indicator would recommend a long 3-4 week course. Will dw . Check HIV antibody screen Check RPR with reflex Check CSF VDRL. Check RADHA virus to CSF lymphocytosis. Follow cultures Follow clinically. to resume care in am. Adamaris Reza MD Sep 21, 2017 17:12
[2017-09-21] MEDS: SODIUM CHLOR 0.9% 1000 ML INJ 1,000 ML IV SCH (19:28)
[2017-09-21 23:53] LABS: HAEMOPHILUS FLU AG TYPE B Not Detected (Not Detected)
[2017-09-22] VITALS (7 sets, daily range): BP systolic 147–190; BP diastolic 70–86; PULSE 56–83; RESP 18; TEMP 97.3–98; O2SAT 97–98
[2017-09-22] MEDS ORDERED: LORazepam 2 MG/ML VIAL IV PUSH ONE (01:00)
[2017-09-22] MEDS: METOPROLOL TARTRATE 50 MG TAB PO SCH ×3 (06:28→21:46)
[2017-09-22] MEDS: DOCUSATE SODIUM 50 MG/SENNA 8.6 MG TAB PO SCH ×2 (07:59→20:41)
[2017-09-22] MEDS: POTASSIUM CHLORIDE 20 MEQ CONTROLLED RELEASE TAB PO SCH (07:59)
[2017-09-22] MEDS: FAMOTIDINE 20 MG TAB PO SCH ×2 (07:59→20:41)
[2017-09-22] MEDS: NIFEdipine 90 MG SUSTAINED RELEASE TAB PO SCH (07:59)
[2017-09-22] MEDS: ALLOPURINOL 300 MG TAB PO SCH (07:59)
[2017-09-22] MEDS: PANTOPRAZOLE SOD 40 MG DELAYED RELEASE TAB PO SCH (07:59)
[2017-09-22] MEDS: SODIUM CHLORIDE 0.9% IV SCH ×2 (07:59→21:00)
[2017-09-22] MEDS: ACYCLOVIR IV SCH ×2 (07:59→21:00)
[2017-09-22] MEDS: MAGNESIUM OXIDE 400 MG TAB PO SCH ×2 (08:00→20:42)
[2017-09-22] MEDS: SODIUM CHLORIDE 0.9% FLUSH 10 ML FLUSH IV FLUSH SCH ×2 (08:00→20:42)
--- NOTE | 2017-09-22 10:07 | HHI.PR ---
Subjective Remarks oob in chair at door confused,argumentative,delusional Objective Vital Signs Date Time Temp Pulse Resp B/P (MAP) Pulse Ox O2 Delivery O2 Flow Rate FiO2 09/22/17 07:03 Room Air 09/22/17 07:00 56 09/22/17 04:00 97.9 57 18 180/81 (114) 97 09/21/17 23:20 97.6 78 19 166/83 (110) 100 09/21/17 19:55 97.9 83 18 156/67 (96) 97 09/21/17 19:05 Room Air 09/21/17 16:00 97.7 96 18 157/74 (101) 97 09/21/17 12:00 97.4 68 18 173/74 (107) 99 I/O 09/21/17 09/21/17 09/21/17 09/22/17 09/22/17 09/22/17 07:00 15:00 23:00 07:00 15:00 23:00 Intake Total 630 ml 600 ml 480 ml Balance 630 ml 600 ml 480 ml Intake Oral 480 ml 600 ml 480 ml IV Total 150 ml # Voids 3 3 5 # Bowel Movements 0 0 Result Diagram: 09/21/17 0455 09/21/17 0455 Objective Remarks awake alert to place perrla,speech nl,confused motor intact Assessment and Plan Assessment and Plan viral meningitis solumedrol total 3 days-completed. id on case hsv pcrII+ chem 7 check gfr acyclovir cont recom.per ID may need haldol if more aggitated. d/c planning may need snf? Tammy Rios MD Sep 22, 2017 10:07
--- NOTE | 2017-09-22 11:39 | HHI.PR ---
Subjective Remarks Nursing staff states he was agitated overnight. At this time he is confused and not oriented to place or time or situation. He states that his headache has improved. Objective Vitals Vital Signs Date Time Temp Pulse Resp B/P (MAP) Pulse Ox O2 Delivery O2 Flow Rate FiO2 09/22/17 07:03 Room Air 09/22/17 07:00 56 09/22/17 04:00 97.9 57 18 180/81 (114) 97 09/21/17 23:20 97.6 78 19 166/83 (110) 100 09/21/17 19:55 97.9 83 18 156/67 (96) 97 09/21/17 19:05 Room Air 09/21/17 16:00 97.7 96 18 157/74 (101) 97 09/21/17 12:00 97.4 68 18 173/74 (107) 99 I/O 09/21/17 09/21/17 09/21/17 09/22/17 09/22/17 09/22/17 07:00 15:00 23:00 07:00 15:00 23:00 Intake Total 630 ml 600 ml 480 ml Balance 630 ml 600 ml 480 ml Intake Oral 480 ml 600 ml 480 ml IV Total 150 ml # Voids 3 3 5 # Bowel Movements 0 0 Result Diagram: 09/21/17 0455 09/21/17 0455 Objective Remarks GENERAL: This is a well-nourished, well-developed patient, in no apparent distress sitting up in a geriatric chair. CARDIOVASCULAR: Regular rate and rhythm RESPIRATORY: Clear to auscultation. Breath sounds equal bilaterally. No wheezes , rales, or rhonchi. GASTROINTESTINAL: Abdomen soft, non-tender, nondistended. Normal active bowel sounds MUSCULOSKELETAL: Extremities without clubbing, cyanosis, or edema. NEURO: Oriented to person only not oriented to time or situation or place thinks is 1955 A/P Problem List: (1) Dizziness ICD Code: R42 - Dizziness and giddiness (2) Hypokalemia ICD Code: E87.6 - Hypokalemia Status: Acute (3) Orthostatic hypotension ICD Code: I95.1 - Orthostatic hypotension Status: Acute (4) SHANNA (acute kidney injury) ICD Code: N17.9 - SHANNA (acute kidney injury) Status: Acute Assessment and Plan Acute herpes simplex 2 viral meningitis - Presenting hypodensity in left occipital lobe on CT with associate complaints of cephalgia Incidental finding after a CT of the brain was ordered for headache with negative MRI/MRA likely artifact on CT Appreciate neurology recommendations. Continue neurological checks. Status post LP, Currently infectious disease following and is on IV acyclovir - will need to monitor creatinine closely on antiviral. Await final recommendations for infectious disease on duration of IV acyclovir needed Vertigo Improved on meclizine, but BPPV examination by neurology previously did not reveal classic nystagmus results Consider electrolyte imbalance as well as orthostatic hypotension, patient is on loop recorder under Dr. Jean Baptiste's care Continue meclizine, continue telemetry which currently shows normal sinus Patient also had polypharmacy which multiple home medications including Cymbalta has been on hold. Orthostatic hypotension Ongoing monitoring with loop recorder and floor telemetry Considered also electrolyte imbalance Florinef being considered for possible treatment Cardiology consulted to review symptoms and treatment options with recommendations for 2D echo which shows a normal EF Refractory hypokalemia- resolved On daily potassium of 40 mEq; Continue with supplementation on top of scheduled potassium as needed Nephrology consulted to assist with treatment plan; workup in progress with renin and aldosterone levels reviewed Acute kidney injury -worsening on IV acyclovir and completed IV Solu-Medrol high -dose. We will continue to monitor BUN/creatinine and adjust medication dosage DVT prophylaxis SCDs Discharge Planning May need snf facility placement especially if patient needs long- term IV acyclovir Lena Linda MD Sep 22, 2017 11:39
--- NOTE | 2017-09-22 13:32 | HHI.IDPN ---
Subjective Subjective Remarks Patient is a 72-year-old male, with known hypertension, has had problem with recurrent syncopal episode, brought into the hospital for frequent falling, and recurrent syncope. He has known orthostatic hypotension which was felt to be contributing to his recurrent syncopal episode. He had a loop recorder put in as part of the workup. There is also mention that he has had some on and off headaches. Patient had a neurological workup, and the imaging studies have all been negative. He has had an MRI of the brain, as well as MRA. The MRI did not show any enhancement in the parenchyma as well as any dural enhancement. There is been no mention of any fever chills or sweats or any photophobia or visual problem. The last couple days patient has been more confused and lethargic. There was some concern regarding alcohol withdrawals. Because of his history of headaches, patient underwent lumbar puncture. He had lymphocytic pleocytosis, low glucose, and an elevated protein. Since admission he has not been febrile. His sed rate and C-reactive protein are all within normal limits. Because of his abnormal LP, he was started on IV acyclovir. He is also currently getting high-dose Solu-Medrol. Infectious disease consultation has been requested to evaluate the patient for possible meningitis. Notes reviewed HSV 2 CSF (+) No fevers Denies SENIOR today Has confusion intermittently 2 soft stool today Creatinine rising slowly Antibiotics Acyclovir IV Current Medications Medications (Trade) Dose Ordered Sig/Sandhya Route Start Time Stop Time Status Last Admin Sodium Chloride 1,000 ml @ 40 mls/hr Q24H IV 09/12/17 20:00 09/21/17 19:28 (NS Flush) 2 ml UNSCH PRN IV FLUSH 09/12/17 19:09/13/17 03:48 (NS Flush) 2 ml BID IV FLUSH 09/12/17 21:00 09/22/17 08:00 (Tylenol) 650 mg Q6H PRN PO 09/12/17 19:09/14/17 00:47 (Karen-Colace) 1 tab BID PO 09/12/17 21:00 09/22/17 07:59 (Milk Of Magnesia Liq) 30 ml Q12H PRN PO 09/12/17 19:15 09/20/17 21:43 (Senokot) 17.2 mg Q12H PRN PO 09/12/17 19:15 (Dulcolax Supp) 10 mg DAILY PRN RECTAL 09/12/17 19:15 (Lactulose Liq) 30 ml DAILY PRN PO 09/12/17 19:15 (Zyloprim) 300 mg DAILY PO 09/13/17 09:00 09/22/17 07:59 (Cymbalta Dr) 60 mg BID PO 09/12/17 21:00 Future Hold 09/16/17 21:01 (Pill Splitter) 1 ea UNSCH PRN OTHER 09/12/17 19:30 (Antivert) 25 mg Q8H PRN PO 09/12/17 19:45 09/14/17 05:31 (Imodium) 2 mg Q4H PRN PO 09/14/17 07:45 (Catapres) 0.1 mg Q6H PRN PO 09/14/17 09:15 09/20/17 12:32 (Davis 5-325 Mg) 1 tab Q6H PRN PO 09/14/17 15:15 09/19/17 23:21 (Procardia Xl) 90 mg DAILY PO 09/15/17 15:00 09/22/17 07:59 (Lopressor) 50 mg Q8HR PO 09/15/17 15:00 09/22/17 06:28 (KCl) 40 meq DAILY PO 09/17/17 09:00 09/22/17 07:59 (Mag-Ox) 800 mg BID PO 09/16/17 21:00 09/22/17 08:00 (Fioricet 325-50-40) 1 tab Q8H PRN PO 09/17/17 07:15 09/19/17 22:49 (Pepcid) 20 mg BID PO 09/17/17 09:00 09/22/17 07:59 (Vasotec Inj) 1.25 mg Q6H PRN IV PUSH 09/18/17 09:30 09/19/17 19:36 (Protonix) 40 mg DAILY PO 09/19/17 09:00 09/22/17 07:59 Acyclovir Sodium 858 mg/Sodium Chloride 150 ml @ 150 mls/hr Q12HR IV 09/21/17 21:00 09/22/17 07:59 Lines Line sites with no e.o infection Past Medical History Past Medical History Anxiety Depression Hypertension Recurrent Syncope Orthostasis Past Surgical History Colon Resection Cholecystectomy Hernia Repair Loop Recorder Right Knee Surgery Allergies: Coded Allergies: codeine (Verified Allergy, Intermediate, RASH, 09/12/17) Objective . Vital Signs Date Time Temp Pulse Resp B/P (MAP) Pulse Ox O2 Delivery O2 Flow Rate FiO2 09/22/17 07:03 Room Air 09/22/17 07:00 56 09/22/17 04:00 97.9 57 18 180/81 (114) 97 09/21/17 23:20 97.6 78 19 166/83 (110) 100 09/21/17 19:55 97.9 83 18 156/67 (96) 97 09/21/17 19:05 Room Air 09/21/17 16:00 97.7 96 18 157/74 (101) 97 . Laboratory Tests Test 09/21/17 04:55 White Blood Count 20.9 TH/MM3 Red Blood Count 5.06 MIL/MM3 Hemoglobin 15.6 GM/DL Hematocrit 45.2 % Mean Corpuscular Volume 89.2 FL Mean Corpuscular Hemoglobin 30.8 PG Mean Corpuscular Hemoglobin Concent 34.5 % Red Cell Distribution Width 13.2 % Platelet Count 448 TH/MM3 Mean Platelet Volume 7.7 FL Laboratory Tests Test 09/21/17 04:55 Blood Urea Nitrogen 26 MG/DL Creatinine 1.47 MG/DL Random Glucose 124 MG/DL Calcium Level 9.7 MG/DL Sodium Level 140 MEQ/L Potassium Level 3.9 MEQ/L Chloride Level 103 MEQ/L Carbon Dioxide Level 25.2 MEQ/L Anion Gap 12 MEQ/L Estimat Glomerular Filtration Rate 47 ML/MIN Imaging Last Impressions Lumbar Puncture Fluoroscopy 09/18/17 0000 Signed Impressions: CONCLUSION: 1. Uncomplicated fluoroscopically guided lumbar puncture with pressures as abo ve. Chest X-Ray 09/18/17 0000 Signed Impressions: CONCLUSION: No acute cardiopulmonary disease. Head Magnetic Resonance Angiography 09/17/17 1122 Signed Impressions: CONCLUSION: 1. Negative for aneurysm or major branch vessel occlusion. Brain MRI 09/17/17 1122 Signed Impressions: CONCLUSION: 1. No acute hemorrhage, mass or evidence of infarction. The left occipital lob e demonstrates normal signal. The finding on CT likely is artifactual. 2. Mild atrophy and chronic small vessel ischemic changes. Cervical Spine MRI 09/17/17 Signed Impressions: CONCLUSION: 1. Mild disc bulges at C4-5 through C6-7 levels with mild mass effect on the a nterior thecal sac and no mass effect upon the cord. 2. Degenerative disc change greatest at the C4-5 and C5-6 levels. Thoracic Spine MRI 09/16/17 Signed Impressions: CONCLUSION: 1. No disc herniation or canal stenosis. 2. No acute compression fracture or spondylolisthesis. 3. Mild scattered degenerative changes and mild kyphosis. Renal Ultrasound 09/16/17 Signed Impressions: CONCLUSION: 1. There is no evidence for renal artery stenosis. 2. Bilateral renal cyst, no hydronephrosis. Line kidneys are normal size. Head CT 09/14/17 Signed Impressions: CONCLUSION: 1. Developing hypodensity in the left occipital lobe which may represent an ev olving infarct. 2. No evidence of acute hemorrhage. 3. Otherwise stable evaluation. Physical Exam GENERAL: Awake and alert, answered all my questions correctly except have me wrong city and wrong year. NAD SKIN: Cool and dry. No generalized rash. Has ecchymoses in UE HEAD: Atraumatic. Normocephalic. No temporal wasting, or tenderness. EYES: [place] conjunctiva. No petechia or hemorrhage. Pupils equal, round and reactive to light. Extraocular movements full and intact. No scleral icterus. No injection or drainage. EARS, NOSE AND THROAT: Nose without bleeding or purulent nasal discharge. No sinus tenderness. Mucous membranes pink and moist. No oral lesions noted. No exudate. No oral thrush. NECK: Trachea midline. Supple and not tender, no meningeal signs. No nuchal rigidity CARDIOVASCULAR: Regular rate and rhythm. No murmurs, rubs or gallops heard RESPIRATORY: Clear to auscultation. Breath sounds equal bilaterally. No rales , wheezing or rhonchi ABDOMEN: Soft, non-tender, nondistended. Bowel sounds present and normoactive. No guarding. No rebound. No organomegaly. EXTREMITIES: No clubbing, cyanosis, or edema.No joint effusion, has good ROM. No calf tenderness. Well perfused and warm. NEUROLOGICAL: Awake and alert. CN intact. MOtor strength symmetrical. States he is at [facility], president is Beverley and EGG SEPARATOR is Osmin, previous President is Obama. Zeke he is in [place], [place], year is 2009, changed it to 2010 PSYCHIATRIC: Cooperative LINE: No evidence of infection Assessment & Plan Remarks HSV 2 meningoencephalitis (Lymphocytic predominance, elevated total protein, low glucose, elevated WBC and encephalopathy, neck pain) Encephalopathy: likely secondary to HSV2. Recurrent syncope Orthostatic hypotension RECOMMENDATION Continue Acyclovir IV Follow Cr and UO. Due to extent of disease low glucose as indicator would recommend a long 3-4 week course. Check HIV antibody screen Check RPR with reflex Check CSF VDRL. Check RPR Check RADHA virus to CSF lymphocytosis. Follow cultures Monitor progress Maci Ruiz MD Sep 22, 2017 13:32
[2017-09-22 18:21] LABS: BICARBONATE 28.9 MEQ/L (21.0-32.0); CALCIUM 9.6 MG/DL (8.5-10.1); CREATININE 1.39 MG/DL (0.60-1.30)
[2017-09-22] MEDS: SODIUM CHLOR 0.9% 1000 ML INJ 1,000 ML IV SCH (19:28)
[2017-09-23] VITALS (14 sets, daily range): BP systolic 132–191; BP diastolic 64–84; PULSE 47–97; RESP 16–18; TEMP 97.9–98.2; O2SAT 94–96
[2017-09-23] MEDS: cloNIDine HCL 0.1 MG TAB PO PRN (00:46)
[2017-09-23 05:13] LABS: AUTOMATED NEUTROPHIL # 9.5 TH/MM3 (1.8-7.7); BASOPHIL # 0.1 TH/MM3 (0-0.2); BASOPHIL % 0.4 % (0.0-2.0); EOSINOPHIL # 0.1 TH/MM3 (0-0.4); EOSINOPHIL % 0.7 % (0.0-4.0); HEMATOCRIT 41.8 % (39.0-51.0); HEMOGLOBIN 14.6 GM/DL (13.0-17.0); LYMPH % 18.4 % (9.0-44.0); LYMPHOCYTE # 2.3 TH/MM3 (1.0-4.8); MEAN CELL VOLUME 90.1 FL (80.0-100.0); MEAN CORPUSCULAR HEMOGLOBIN 31.5 PG (27.0-34.0); MEAN CORPUSCULAR HGB CONC 34.9 % (32.0-36.0); MEAN PLATELET VOLUME 7.2 FL (7.0-11.0); MONOCYTE # 0.8 TH/MM3 (0-0.9); NEUT % 74.5 % (16.0-70.0); PLATELET COUNT 393 TH/MM3 (150-450); RED BLOOD COUNT 4.64 MIL/MM3 (4.50-5.90); RED CELL DISTRIBUTION WIDTH 12.8 % (11.6-17.2); WHITE BLOOD COUNT 12.7 TH/MM3 (4.0-11.0)
[2017-09-23 05:51] LABS: BICARBONATE 25.2 MEQ/L (21.0-32.0); CALCIUM 9.7 MG/DL (8.5-10.1); CREATININE 1.36 MG/DL (0.60-1.30)
[2017-09-23] MEDS: METOPROLOL TARTRATE 50 MG TAB PO SCH (06:00)
[2017-09-23] MEDS: ALLOPURINOL 300 MG TAB PO SCH (09:10)
[2017-09-23] MEDS: SODIUM CHLORIDE 0.9% FLUSH 10 ML FLUSH IV FLUSH SCH ×2 (09:11→20:37)
[2017-09-23] MEDS: MAGNESIUM OXIDE 400 MG TAB PO SCH ×2 (09:11→20:38)
[2017-09-23] MEDS: FAMOTIDINE 20 MG TAB PO SCH ×2 (09:11→20:37)
[2017-09-23] MEDS: POTASSIUM CHLORIDE 20 MEQ CONTROLLED RELEASE TAB PO SCH (09:11)
[2017-09-23] MEDS: DOCUSATE SODIUM 50 MG/SENNA 8.6 MG TAB PO SCH ×2 (09:11→20:37)
[2017-09-23] MEDS: PANTOPRAZOLE SOD 40 MG DELAYED RELEASE TAB PO SCH (09:12)
[2017-09-23] MEDS: NIFEdipine 90 MG SUSTAINED RELEASE TAB PO SCH (09:12)
--- NOTE | 2017-09-23 09:36 | HHI.PR ---
Subjective Remarks Sleepy and lying in bed. No acute changes overnight per nursing staff. Objective Vitals Vital Signs Date Time Temp Pulse Resp B/P (MAP) Pulse Ox O2 Delivery O2 Flow Rate FiO2 09/23/17 04:50 98.2 50 17 132/70 (90) 95 09/23/17 04:03 49 09/23/17 01:30 167/82 (110) 09/23/17 00:20 98.2 56 16 191/84 (119) 95 09/22/17 23:00 57 09/22/17 20:00 96 Room Air 09/22/17 19:59 98.0 78 18 179/81 (113) 97 09/22/17 19:55 77 09/22/17 12:00 98.0 83 18 147/70 (95) 98 I/O 09/22/17 09/22/17 09/22/17 09/23/17 09/23/17 09/23/17 07:00 15:00 23:00 07:00 15:00 23:00 Intake Total 480 ml 480 ml Balance 480 ml 480 ml Intake Oral 480 ml 480 ml # Voids 5 6 # Bowel Movements 0 0 Result Diagram: 09/23/17 0420 09/23/17 0420 Objective Remarks GENERAL: This is a well-nourished, well-developed patient, in no apparent distress sitting up in a geriatric chair. CARDIOVASCULAR: Regular rate and rhythm RESPIRATORY: Clear to auscultation. Breath sounds equal bilaterally. No wheezes , rales, or rhonchi. GASTROINTESTINAL: Abdomen soft, non-tender, nondistended. Normal active bowel sounds MUSCULOSKELETAL: Extremities without clubbing, cyanosis, or edema. NEURO: Oriented to person only, sleepy , opens eyes to voice 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 - Herpesviral meningitis (2) Dizziness ICD Code: R42 - Dizziness and giddiness (3) Hypokalemia ICD Code: E87.6 - Hypokalemia Status: Acute (4) Orthostatic hypotension ICD Code: I95.1 - Orthostatic hypotension Status: Acute (5) SHANNA (acute kidney injury) ICD Code: N17.9 - SHANNA (acute kidney injury) Status: Acute Assessment and Plan Acute herpes simplex 2 viral meningitis - Presenting hypodensity in left occipital lobe on CT with associate complaints of cephalgia on admission Incidental finding after a CT of the brain was ordered for headache with negative MRI/MRA likely artifact on CT Appreciate neurology recommendations. Continue neurological checks. Status post LP, with findings of acute HSV2 viral meningitis Currently infectious disease following and is on IV acyclovir - will need to monitor creatinine closely on antiviral. Infectious diseases recommend a 3-4 weeks of IV acyclovir. PICC line to be placed today. Vertigo Improved on meclizine, but BPPV examination by neurology previously did not reveal classic nystagmus results Consider electrolyte imbalance as well as orthostatic hypotension, patient is on loop recorder under Dr. Jean Baptiste's care Continue meclizine, continue telemetry which currently shows normal sinus Patient also had polypharmacy which multiple home medications including Cymbalta has been on hold. Orthostatic hypotension monitoring with loop recorder and floor telemetry Considered also electrolyte imbalance Florinef being considered for possible treatment Cardiology consult appreciated to review symptoms and treatment options with recommendations for 2D echo workup which shows a normal EF Refractory hypokalemia- resolved On daily potassium of 40 mEq; Continue with supplementation on top of scheduled potassium as needed Nephrology consulted to assist with treatment plan; workup in progress with renin and aldosterone levels reviewed Acute kidney injury -worsening on IV acyclovir and completed IV Solu-Medrol high -dose. We will continue to monitor BUN/creatinine and adjust medication dosage, today' s creatinine is stable DVT prophylaxis SCDs Discharge Planning Will need [facility] facility placement especially if patient needs long- term IV acyclovir Lena Linda MD Sep 23, 2017 09:36
[2017-09-23 09:58] LABS: RPR SCREEN FOR REFLEX NON-REACTIVE (NON-REACTVE)
[2017-09-23] MEDS: SODIUM CHLORIDE 0.9% IV SCH ×2 (14:39→20:34)
[2017-09-23] MEDS: ACYCLOVIR IV SCH ×2 (14:39→20:34)
[2017-09-23] MEDS: SODIUM CHLOR 0.9% 1000 ML INJ 1,000 ML IV SCH (20:34)
[2017-09-23] MEDS: METOPROLOL TARTRATE 25 MG TAB PO SCH (20:37)
[2017-09-24] VITALS (9 sets, daily range): BP systolic 133–161; BP diastolic 71–74; PULSE 61–88; RESP 17–21; TEMP 97.5–98.2; O2SAT 95–98
[2017-09-24 09:12] LABS: BICARBONATE 24.8 MEQ/L (21.0-32.0); CALCIUM 9.6 MG/DL (8.5-10.1); CREATININE 1.36 MG/DL (0.60-1.30)
[2017-09-24] MEDS: ALLOPURINOL 300 MG TAB PO SCH (09:33)
[2017-09-24] MEDS: NIFEdipine 90 MG SUSTAINED RELEASE TAB PO SCH (09:33)
[2017-09-24] MEDS: FAMOTIDINE 20 MG TAB PO SCH ×2 (09:33→19:41)
[2017-09-24] MEDS: METOPROLOL TARTRATE 25 MG TAB PO SCH ×2 (09:33→19:41)
[2017-09-24] MEDS: DOCUSATE SODIUM 50 MG/SENNA 8.6 MG TAB PO SCH ×2 (09:33→19:47)
[2017-09-24] MEDS: PANTOPRAZOLE SOD 40 MG DELAYED RELEASE TAB PO SCH (09:34)
[2017-09-24] MEDS: POTASSIUM CHLORIDE 20 MEQ CONTROLLED RELEASE TAB PO SCH (09:34)
[2017-09-24] MEDS: MAGNESIUM OXIDE 400 MG TAB PO SCH ×2 (09:34→19:41)
[2017-09-24] MEDS: SODIUM CHLORIDE 0.9% FLUSH 10 ML FLUSH IV FLUSH SCH ×2 (09:37→19:41)
[2017-09-24] MEDS: SODIUM CHLORIDE 0.9% IV SCH ×2 (09:37→19:41)
[2017-09-24] MEDS: ACYCLOVIR IV SCH ×2 (09:37→19:41)
--- NOTE | 2017-09-24 11:30 | HHI.IDPN ---
Subjective Subjective Remarks Patient is a 72-year-old male, with known hypertension, has had problem with recurrent syncopal episode, brought into the hospital for frequent falling, and recurrent syncope. He has known orthostatic hypotension which was felt to be contributing to his recurrent syncopal episode. He had a loop recorder put in as part of the workup. There is also mention that he has had some on and off headaches. Patient had a neurological workup, and the imaging studies have all been negative. He has had an MRI of the brain, as well as MRA. The MRI did not show any enhancement in the parenchyma as well as any dural enhancement. There is been no mention of any fever chills or sweats or any photophobia or visual problem. The last couple days patient has been more confused and lethargic. There was some concern regarding alcohol withdrawals. Because of his history of headaches, patient underwent lumbar puncture. He had lymphocytic pleocytosis, low glucose, and an elevated protein. Since admission he has not been febrile. His sed rate and C-reactive protein are all within normal limits. Because of his abnormal LP, he was started on IV acyclovir. He is also currently getting high-dose Solu-Medrol. Infectious disease consultation has been requested to evaluate the patient for possible meningitis. Notes reviewed D/W RN HSV 2 CSF (+) No fevers Denies SENIOR today Has confusion intermittently Creatinine stable SNF placement PICC to be placed on the day of discharge HIV negative RPR non-reactive Antibiotics Acyclovir IV Current Medications Medications (Trade) Dose Ordered Sig/Sandhya Route Start Time Stop Time Status Last Admin Sodium Chloride 1,000 ml @ 40 mls/hr Q24H IV 09/12/17 20:00 09/23/17 20:34 (NS Flush) 2 ml UNSCH PRN IV FLUSH 09/12/17 19:09/13/17 03:48 (NS Flush) 2 ml BID IV FLUSH 09/12/17 21:00 09/24/17 09:37 (Tylenol) 650 mg Q6H PRN PO 09/12/17 19:09/14/17 00:47 (Karen-Colace) 1 tab BID PO 09/12/17 21:00 09/24/17 09:33 (Milk Of Magnesia Liq) 30 ml Q12H PRN PO 09/12/17 19:15 09/20/17 21:43 (Senokot) 17.2 mg Q12H PRN PO 09/12/17 19:15 (Dulcolax Supp) 10 mg DAILY PRN RECTAL 09/12/17 19:15 (Lactulose Liq) 30 ml DAILY PRN PO 09/12/17 19:15 (Zyloprim) 300 mg DAILY PO 09/13/17 09:00 09/24/17 09:33 (Cymbalta Dr) 60 mg BID PO 09/12/17 21:00 Future Hold 09/16/17 21:01 (Pill Splitter) 1 ea UNSCH PRN OTHER 09/12/17 19:30 (Antivert) 25 mg Q8H PRN PO 09/12/17 19:45 09/14/17 05:31 (Imodium) 2 mg Q4H PRN PO 09/14/17 07:45 (Catapres) 0.1 mg Q6H PRN PO 09/14/17 09:15 09/23/17 00:46 (Paxton 5-325 Mg) 1 tab Q6H PRN PO 09/14/17 15:15 09/19/17 23:21 (Procardia Xl) 90 mg DAILY PO 09/15/17 15:00 09/24/17 09:33 (KCl) 40 meq DAILY PO 09/17/17 09:00 09/24/17 09:34 (Mag-Ox) 800 mg BID PO 09/16/17 21:00 09/24/17 09:34 (Fioricet 325-50-40) 1 tab Q8H PRN PO 09/17/17 07:15 09/19/17 22:49 (Pepcid) 20 mg BID PO 09/17/17 09:00 09/24/17 09:33 (Vasotec Inj) 1.25 mg Q6H PRN IV PUSH 09/18/17 09:30 09/19/17 19:36 (Protonix) 40 mg DAILY PO 09/19/17 09:00 09/24/17 09:34 Acyclovir Sodium 858 mg/Sodium Chloride 150 ml @ 150 mls/hr Q12HR IV 09/21/17 21:00 09/24/17 09:37 (Lopressor) 25 mg Q12HR PO 09/23/17 21:00 09/24/17 09:33 Lines Line sites with no e.o infection Past Medical History Past Medical History Anxiety Depression Hypertension Recurrent Syncope Orthostasis Past Surgical History Colon Resection Cholecystectomy Hernia Repair Loop Recorder Right Knee Surgery Allergies: Coded Allergies: codeine (Verified Allergy, Intermediate, RASH, 09/12/17) Objective . Vital Signs Date Time Temp Pulse Resp B/P (MAP) Pulse Ox O2 Delivery O2 Flow Rate FiO2 09/24/17 08:10 97.5 73 17 142/72 (95) 98 09/24/17 04:30 98.1 68 18 149/73 (98) 97 09/24/17 04:10 79 09/24/17 00:57 97.8 62 18 161/72 (101) 97 09/23/17 23:59 62 09/23/17 21:17 63 09/23/17 20:55 97.9 97 18 137/76 (96) 96 09/23/17 20:00 96 Room Air 09/23/17 18:00 82 09/23/17 16:00 66 09/23/17 16:00 98.0 90 18 139/64 (89) 94 09/23/17 14:00 86 09/23/17 12:00 82 . Laboratory Tests Test 09/23/17 04:20 White Blood Count 12.7 TH/MM3 Red Blood Count 4.64 MIL/MM3 Hemoglobin 14.6 GM/DL Hematocrit 41.8 % Mean Corpuscular Volume 90.1 FL Mean Corpuscular Hemoglobin 31.5 PG Mean Corpuscular Hemoglobin Concent 34.9 % Red Cell Distribution Width 12.8 % Platelet Count 393 TH/MM3 Mean Platelet Volume 7.2 FL Neutrophils (%) (Auto) 74.5 % Lymphocytes (%) (Auto) 18.4 % Monocytes (%) (Auto) 6.0 % Eosinophils (%) (Auto) 0.7 % Basophils (%) (Auto) 0.4 % Neutrophils # (Auto) 9.5 TH/MM3 Lymphocytes # (Auto) 2.3 TH/MM3 Monocytes # (Auto) 0.8 TH/MM3 Eosinophils # (Auto) 0.1 TH/MM3 Basophils # (Auto) 0.1 TH/MM3 CBC Comment DIFF FINAL Differential Comment Laboratory Tests Test 09/22/17 16:55 09/23/17 04:20 09/24/17 08:14 Blood Urea Nitrogen 21 MG/DL 23 MG/DL 21 MG/DL Creatinine 1.39 MG/DL 1.36 MG/DL 1.36 MG/DL Random Glucose 95 MG/DL 104 MG/DL 106 MG/DL Calcium Level 9.6 MG/DL 9.7 MG/DL 9.6 MG/DL Sodium Level 140 MEQ/L 139 MEQ/L 139 MEQ/L Potassium Level 3.9 MEQ/L 4.0 MEQ/L 3.9 MEQ/L Chloride Level 101 MEQ/L 103 MEQ/L 103 MEQ/L Carbon Dioxide Level 28.9 MEQ/L 25.2 MEQ/L 24.8 MEQ/L Anion Gap 10 MEQ/L 11 MEQ/L 11 MEQ/L Estimat Glomerular Filtration Rate 50 ML/MIN 52 ML/MIN 52 ML/MIN Imaging Last Impressions Lumbar Puncture Fluoroscopy 09/18/17 Signed Impressions: CONCLUSION: 1. Uncomplicated fluoroscopically guided lumbar puncture with pressures as abo ve. Chest X-Ray 09/18/17 Signed Impressions: CONCLUSION: No acute cardiopulmonary disease. Head Magnetic Resonance Angiography 09/17/172 Signed Impressions: CONCLUSION: 1. Negative for aneurysm or major branch vessel occlusion. Brain MRI 09/17/17 1122 Signed Impressions: CONCLUSION: 1. No acute hemorrhage, mass or evidence of infarction. The left occipital lob e demonstrates normal signal. The finding on CT likely is artifactual. 2. Mild atrophy and chronic small vessel ischemic changes. Cervical Spine MRI 09/17/17 Signed Impressions: CONCLUSION: 1. Mild disc bulges at C4-5 through C6-7 levels with mild mass effect on the a nterior thecal sac and no mass effect upon the cord. 2. Degenerative disc change greatest at the C4-5 and C5-6 levels. Thoracic Spine MRI 09/16/17 Signed Impressions: CONCLUSION: 1. No disc herniation or canal stenosis. 2. No acute compression fracture or spondylolisthesis. 3. Mild scattered degenerative changes and mild kyphosis. Renal Ultrasound 09/16/17 Signed Impressions: CONCLUSION: 1. There is no evidence for renal artery stenosis. 2. Bilateral renal cyst, no hydronephrosis. Line kidneys are normal size. Head CT 09/14/17 Signed Impressions: CONCLUSION: 1. Developing hypodensity in the left occipital lobe which may represent an ev olving infarct. 2. No evidence of acute hemorrhage. 3. Otherwise stable evaluation. Physical Exam GENERAL: Awake and alert, NAD SKIN: Cool and dry. No generalized rash. Has ecchymoses in UE HEAD: Atraumatic. Normocephalic. No temporal wasting, or tenderness. EYES: [place] conjunctiva. No petechia or hemorrhage. Pupils equal, round and reactive to light. Extraocular movements full and intact. No scleral icterus. No injection or drainage. EARS, NOSE AND THROAT: Nose without bleeding or purulent nasal discharge. No sinus tenderness. Mucous membranes pink and moist. No oral lesions noted. No exudate. No oral thrush. NECK: Trachea midline. Supple and not tender, no meningeal signs. No nuchal rigidity CARDIOVASCULAR: Regular rate and rhythm. No murmurs, rubs or gallops heard RESPIRATORY: Clear to auscultation. Breath sounds equal bilaterally. No rales , wheezing or rhonchi ABDOMEN: Soft, non-tender, nondistended. Bowel sounds present and normoactive. No guarding. No rebound. No organomegaly. EXTREMITIES: No clubbing, cyanosis, or edema.No joint effusion, has good ROM. No calf tenderness. Well perfused and warm. NEUROLOGICAL: Awake and alert. CN intact. Motor strength symmetrical. 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 Recurrent syncope Orthostatic hypotension RECOMMENDATION Continue Acyclovir IV Follow Cr and UO. Due to extent of disease low glucose as indicator would recommend a long 3-4 week course. Monitor progress I will fill out AB infusion form Maci Ruiz MD Sep 24, 2017 11:30
--- NOTE | 2017-09-24 11:32 | HHI.FF ---
Infusion Therapy Location of Infusion Therapy: [facility] Infusion Therapy Order Patient Information Patient Weight 85.8 kg Diagnosis: Diagnosis HSV 2 meningoencephalitis Coded Allergies: codeine (Verified Allergy, Intermediate, RASH, 09/12/17) Administer Medication Acyclovir 850 mg IV q12H Stop Treatment: Oct 16, 2017 Additional Information Venous access: PICC Line Additional Instructions [x] Peripheral flush and dressing changes per protocol [x] Implanted port and central personal lines insurance advisor: * Implanted port: 10 ml Normal Saline followed by 5 ml Heparin 100 units/ml Heparin flush after each use and monthly to maintain. [] May leave port accessed during therapy. [] May leave peripheral site accessed for duration of therapy. [x] If patient has SOB or respiratory distress, check oxygen saturation. If less than 90% or clinical signs of respiratory distress, administer oxygen at 2 L/min. via nasal cannula and notify physician. [x] Anaphylaxis/Reaction orders: * Stop infusion. * Keep IV line open with saline flush. * Notify physician. * Monitor vital signs every 15 minutes until symptoms resolve. * Check Oxygen saturation; Oxygen at 2 L/min. via nasal cannula if less than 90% or clinical signs of respiratory distress. * Administer diphenhydramine (Benadryl) 25 mg IV STAT, (unless patient has received as pre-med). May repeat once, if necessary. * Solu-Cortef 250 mg IVP over 30-60 seconds, use 100 mg vials for each dissolution. * Epinephrine (1mg/1 ml) 0.3 mg subcutaneously or IVP now with any signs of respiratory distress. * Check with physician for new additional pre-med orders if patient is re- challenged or re-treated. [x] May remove PICC line when treatment complete, after confirming with Physician. [x] If the patient is admitted to the hospital, the ED, or transferred via [facility] , complete transfer form including medication reconciliation order sheet. Laboratory Tests Weekly Labs: CBC w/diff, Creatinine (Labs every Friday - copy to az) Maci Ruiz MD Sep 24, 2017 11:31
--- NOTE | 2017-09-24 14:42 | HHI.PR ---
Subjective Remarks Pt laying on his right side. denies any pain. was asleep when I walked and is easily arousable. doesn't say much discussed w RN, no acute events overnight Objective Vitals Vital Signs Date Time Temp Pulse Resp B/P (MAP) Pulse Ox O2 Delivery O2 Flow Rate FiO2 09/24/17 12:00 98.1 86 18 133/71 (91) 95 09/24/17 08:10 97.5 73 17 142/72 (95) 98 09/24/17 08:00 73 09/24/17 08:00 98 Room Air 09/24/17 04:30 98.1 68 18 149/73 (98) 97 09/24/17 04:10 79 09/24/17 00:57 97.8 62 18 161/72 (101) 97 09/23/17 23:59 62 09/23/17 21:17 63 09/23/17 20:55 97.9 97 18 137/76 (96) 96 09/23/17 20:00 96 Room Air 09/23/17 18:00 82 09/23/17 16:00 66 09/23/17 16:00 98.0 90 18 139/64 (89) 94 I/O 09/23/17 09/23/17 09/23/17 09/24/17 09/24/17 09/24/17 07:00 15:00 23:00 07:00 15:00 23:00 Intake Total 480 ml 2500 ml 879 ml Output Total 1200 ml Balance 480 ml 1300 ml 879 ml Intake Oral 480 ml 1200 ml 480 ml IV Total 1300 ml 399 ml Output Urine Total 1200 ml # Voids 6 6 5 # Bowel Movements 0 1 0 Result Diagram: 09/23/17 0420 09/24/17 0814 Imaging Last Impressions Lumbar Puncture Fluoroscopy 09/18/17 0000 Signed Impressions: CONCLUSION: 1. Uncomplicated fluoroscopically guided lumbar puncture with pressures as abo ve. Chest X-Ray 09/18/17 0000 Signed Impressions: CONCLUSION: No acute cardiopulmonary disease. Head Magnetic Resonance Angiography 09/17/17 1122 Signed Impressions: CONCLUSION: 1. Negative for aneurysm or major branch vessel occlusion. Brain MRI 09/17/17 1122 Signed Impressions: CONCLUSION: 1. No acute hemorrhage, mass or evidence of infarction. The left occipital lob e demonstrates normal signal. The finding on CT likely is artifactual. 2. Mild atrophy and chronic small vessel ischemic changes. Cervical Spine MRI 09/17/17 Signed Impressions: CONCLUSION: 1. Mild disc bulges at C4-5 through C6-7 levels with mild mass effect on the a nterior thecal sac and no mass effect upon the cord. 2. Degenerative disc change greatest at the C4-5 and C5-6 levels. Thoracic Spine MRI 09/16/17 Signed Impressions: CONCLUSION: 1. No disc herniation or canal stenosis. 2. No acute compression fracture or spondylolisthesis. 3. Mild scattered degenerative changes and mild kyphosis. Renal Ultrasound 09/16/17 Signed Impressions: CONCLUSION: 1. There is no evidence for renal artery stenosis. 2. Bilateral renal cyst, no hydronephrosis. Line kidneys are normal size. Head CT 09/14/17 Signed Impressions: CONCLUSION: 1. Developing hypodensity in the left occipital lobe which may represent an ev olving infarct. 2. No evidence of acute hemorrhage. 3. Otherwise stable evaluation. Objective Remarks GENERAL: laying in bed, asleep but easily arousable CARDIOVASCULAR: Regular rate and rhythm RESPIRATORY: Clear to auscultation. Breath sounds equal bilaterally. No wheezes GASTROINTESTINAL: Abdomen soft, non-tender, nondistended. MUSCULOSKELETAL: Extremities without edema. 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 - Herpesviral meningitis (2) Dizziness ICD Code: R42 - Dizziness and giddiness (3) Hypokalemia ICD Code: E87.6 - Hypokalemia Status: Acute (4) Orthostatic hypotension ICD Code: I95.1 - Orthostatic hypotension Status: Acute (5) SHANNA (acute kidney injury) ICD Code: N17.9 - SHANNA (acute kidney injury) Status: Acute Assessment and Plan Acute herpes simplex 2 viral meningitis - Presenting hypodensity in left occipital lobe on CT with associate complaints of cephalgia on admission Incidental finding after a CT of the brain was ordered for headache with negative MRI/MRA likely artifact on CT Appreciate neurology recommendations. Continue neurological checks. Status post LP, with findings of acute HSV2 viral meningitis Currently infectious disease following and is on IV acyclovir - will need to monitor creatinine closely on antiviral. Infectious diseases recommend a 3-4 weeks of IV acyclovir. PICC line was ordered to be placed yesterday but apparently the PICC was told that pt keep pulling IV. However, I was told that this was not the case. I have requested that PICC team attempt to place PICC line today w anticipation that pt may be going home in the next 1-2 days. Vertigo Improved on meclizine, but BPPV examination by neurology previously did not reveal classic nystagmus results patient is on loop recorder under Dr. Jean Baptiste's care Continue meclizine, continue telemetry which currently shows normal sinus Patient also had polypharmacy which multiple home medications including Cymbalta which has been on hold. Orthostatic hypotension monitoring with loop recorder and floor telemetry Considered also electrolyte imbalance Florinef being considered for possible treatment Cardiology consult appreciated to review symptoms and treatment options with recommendations for 2D echo workup which shows a normal EF Refractory hypokalemia- resolved On daily potassium of 40 mEq; Continue with supplementation on top of scheduled potassium as needed Nephrology consulted to assist with treatment plan; workup in progress with renin and aldosterone levels reviewed Acute kidney injury -worsening on IV acyclovir and completed IV Solu-Medrol high -dose. We will continue to monitor BUN/creatinine and adjust medication dosage, today' s creatinine is stable at 1.36 DVT prophylaxis SCDs Discharge Planning I spoke w Dr. Ruiz regarding d/c plan. We will repeat BMP tomorrow morning and if Cr stable and not worsening, consider discharging pt then. Monitor Cr levels closely. Candie Young MD Sep 24, 2017 14:42
[2017-09-24] MEDS: ACETAMINOPHEN/HYDROcodone 325 MG/5 MG TAB PO PRN (19:08)
[2017-09-24] MEDS: SODIUM CHLOR 0.9% 1000 ML INJ 1,000 ML IV SCH (19:28)
[2017-09-25] VITALS: BP 157/85; PULSE 62; RESP 20; TEMP 98; O2SAT 96
[2017-09-25] MEDS: ACETAMINOPHEN/HYDROcodone 325 MG/5 MG TAB PO PRN ×3 (00:51→18:07)
[2017-09-25 04:00] VITALS: BP 166/86; PULSE 61; RESP 18; TEMP 98; O2SAT 98
[2017-09-25 06:22] LABS: BICARBONATE 26.3 MEQ/L (21.0-32.0); CALCIUM 9.8 MG/DL (8.5-10.1); CREATININE 1.32 MG/DL (0.60-1.30); MAGNESIUM 2.3 MG/DL (1.5-2.5)
[2017-09-25] MEDS: POTASSIUM CHLORIDE 20 MEQ CONTROLLED RELEASE TAB PO SCH (07:52)
[2017-09-25] MEDS: MAGNESIUM OXIDE 400 MG TAB PO SCH ×2 (07:52→19:23)
[2017-09-25] MEDS: METOPROLOL TARTRATE 25 MG TAB PO SCH ×2 (07:52→19:23)
[2017-09-25] MEDS: NIFEdipine 90 MG SUSTAINED RELEASE TAB PO SCH (07:53)
[2017-09-25] MEDS: PANTOPRAZOLE SOD 40 MG DELAYED RELEASE TAB PO SCH (07:53)
[2017-09-25] MEDS: DOCUSATE SODIUM 50 MG/SENNA 8.6 MG TAB PO SCH ×2 (07:53→20:12)
[2017-09-25] MEDS: ALLOPURINOL 300 MG TAB PO SCH (07:53)
[2017-09-25] MEDS: FAMOTIDINE 20 MG TAB PO SCH ×2 (07:53→19:23)
[2017-09-25] MEDS: SODIUM CHLORIDE 0.9% FLUSH 10 ML FLUSH IV FLUSH SCH ×2 (07:54→20:12)
[2017-09-25] MEDS: ACYCLOVIR IV SCH ×2 (08:01→19:24)
[2017-09-25] MEDS: SODIUM CHLORIDE 0.9% IV SCH ×2 (08:01→19:24)
[2017-09-25 08:19] VITALS: BP 151/89; PULSE 95; RESP 18; TEMP 97.6; O2SAT 96
--- NOTE | 2017-09-25 09:08 | HHI.DS ---
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 Per at bedside, patient has had h/o Syncope and Dizziness for which he is being followed by Dr. Jean Baptiste, has Loop Recorder in place. One week ago was diagnosed w/ left ear infection and has been on Keflex PO, states dizziness has gotten progressively worse since being on Keflex, she ultimately d/c'd it yesterday. Reports dizziness at rest and unable to ambulate on his own, on Meclizine w/ little improvement. On arrival, BP 160/98, HR 105, O2 sat 98% on RA, Afebrile. + Orthostatic Hypotension, supine BP 187/99, HR 93 and standing BP 139/74, HR 98. WBC 11.7, hemoconcentration with hemoglobin 18.1. K+ 2.3. Creatinine 1.54, previously was 1.04 on 05/11/2017. Troponin negative. UA pending. CT Head with no acute changes. CBC/BMP: 09/23/17 0420 09/25/17 0405 Significant Findings Laboratory Tests Test 09/22/17 16:55 09/23/17 04:20 09/24/17 08:14 09/25/17 04:05 Blood Urea Nitrogen 21 MG/DL (-18) 23 MG/DL (7-18) 21 MG/DL (7-18) 20 MG/DL (7-18) Creatinine 1.39 MG/DL (0.60-1.30) 1.36 MG/DL (0.60-1.30) 1.36 MG/DL (0.60-1.30) 1.32 MG/DL (0.60-1.30) Estimat Glomerular Filtration Rate 50 ML/MIN (>89) 52 ML/MIN (>89) 52 ML/MIN (>89) 53 ML/MIN (>89) White Blood Count 12.7 TH/MM3 (4.0-11.0) Neutrophils (%) (Auto) 74.5 % (16.0-70.0) Neutrophils # (Auto) 9.5 TH/MM3 (1.8-7.7) Imaging Last Impressions Lumbar Puncture Fluoroscopy 09/18/17 Signed Impressions: CONCLUSION: 1. Uncomplicated fluoroscopically guided lumbar puncture with pressures as abo ve. Chest X-Ray 09/18/17 Signed Impressions: CONCLUSION: No acute cardiopulmonary disease. Head Magnetic Resonance Angiography 09/17/171121 Signed Impressions: CONCLUSION: 1. Negative for aneurysm or major branch vessel occlusion. Brain MRI 09/17/171121 Signed Impressions: CONCLUSION: 1. No acute hemorrhage, mass or evidence of infarction. The left occipital lob e demonstrates normal signal. The finding on CT likely is artifactual. 2. Mild atrophy and chronic small vessel ischemic changes. Cervical Spine MRI 09/17/17 Signed Impressions: CONCLUSION: 1. Mild disc bulges at C4-5 through C6-7 levels with mild mass effect on the a nterior thecal sac and no mass effect upon the cord. 2. Degenerative disc change greatest at the C4-5 and C5-6 levels. Thoracic Spine MRI 09/16/17 Signed Impressions: CONCLUSION: 1. No disc herniation or canal stenosis. 2. No acute compression fracture or spondylolisthesis. 3. Mild scattered degenerative changes and mild kyphosis. Renal Ultrasound 09/16/17 Signed Impressions: CONCLUSION: 1. There is no evidence for renal artery stenosis. 2. Bilateral renal cyst, no hydronephrosis. Line kidneys are normal size. Head CT 09/14/17 Signed Impressions: CONCLUSION: 1. Developing hypodensity in the left occipital lobe which may represent an ev olving infarct. 2. No evidence of acute hemorrhage. 3. Otherwise stable evaluation. PE at Discharge GENERAL: laying in bed, asleep but easily arousable CARDIOVASCULAR: Regular rate and rhythm RESPIRATORY: Clear to auscultation. Breath sounds equal bilaterally. No wheezes GASTROINTESTINAL: Abdomen soft, non-tender, nondistended. MUSCULOSKELETAL: Extremities without edema. NEURO: Oriented to person only, follows commands, moves all 4 extremities up command, opens eyes to voice Hospital Course This is a 72-year-old male with a PMH of Anxiety, Depression, HTN and Recurrent Syncope who presented to the ER with complaints of dizziness in addition to multiple episodes of nausea and vomiting. It was found that patient had acute herpes simplex to viral meningitis. Patient presented with hypodensity in left occipital lobe on CT with associate complaints of cephalgia on admission. Incidental finding after a CT of the brain was ordered for headache with negative MRI/MRA likely artifact on CT. neurology was consulted and followed patient during hospitalization. An LP was done with findings of acute HSV2 viral meningitis. Infectious disease was consulted and placed on acyclovir. Recommendations for IV antibiotics, acyclovir, until October 16, 2017. A PICC line was placed prior to discharge. Patient also had complaints of vertigo. This improved with the use of meclizine. Patient is also on a loop recorder under Dr. Jean Baptiste's care. We will continue meclizine upon discharge. Telemetry during hospitalization was normal sinus rhythm. Patient presented with polypharmacy, much of his medications have been held including Cymbalta. Patient to follow-up with neurology upon discharge with recommendations to continue these if needed and applicable. Patient did have orthostatic hypotension, was continued on loop recorder and for telemetry with no acute events reported. Florinef was started with resolution of symptoms seen. Cardiology was consulted and followed, 2D echo was done showing normal EF. Patient also had refractory hyperkalemia which resolved with replacement. Also placed on daily potassium 40 meq. Will have patient follow with PCP upon discharge. Nephrology was also consulted and electrolyte imbalance possibly secondary to polypharmacy. Patient does have mild acute kidney injury, upon discharge creatinine was 1.32. Creatinine is trending down. Patient can follow with PCP upon discharge. Infectious disease managing acyclovir, BMP should be followed closely upon discharge. Pt Condition on Discharge: Stable Discharge Disposition: Discharge to SNF Discharge Time: > 30 minutes Discharge Instructions DIET: Follow Instructions for: As Tolerated, No Restrictions Speech Therapy-Diet Recommends: Regular Activities you can perform: Regular-No Restrictions Follow up Referrals: Appointment for Follow Up - 1 Week with jaden Infectious Disease - 2 Weeks Neurology - 1 Week with Basil Mendoza MD PCP Follow-up - 1 Week New Medications: Trazodone (Trazodone) 100 Mg Tablet 100 MG PO HS for Control Depression for 30 Days, #30 TAB 0 Refills Famotidine (Famotidine) 20 Mg Tab 20 MG PO BID for gi for 15 Days, #30 TAB Meclizine HCl (Meclizine 25) 25 Mg Tab 25 MG PO Q8H PRN for VERTIGO for 30 Days, #90 TAB Metoprolol Tartrate (Metoprolol Tartrate) 25 Mg Tab 25 MG PO Q12HR for hypertension for 30 Days, #60 TAB Nifedipine (Nifedipine ER) 90 Mg Tab 90 MG PO DAILY for hypertension for 30 Days, #30 TAB [Plvj-Oytfe-Argt 325-50-40 Mg] () 1 TAB TAB 1 TAB PO Q8H PRN for HEADACHE for 30 Days, #90 TAB Continued Medications: Allopurinol (Zyloprim) 300 Mg Tab 300 MG PO DAILY for Gout, #30 TAB [address] (Aspirin Adult Low Strength) 81 Mg Tabdr 81 MG PO DAILY, TAB Pantoprazole (Protonix) 40 Mg Tab 40 MG PO DAILY for Reflux, #30 TAB 0 Refills Discontinued Medications: Atorvastatin (Lipitor) 20 Mg Tab 20 MG PO HS for Cholesterol Management, #30 TAB 0 Refills Bupropion HCl ER 24 HR (Wellbutrin Xl 24 HR) 300 Mg Tab 300 MG PO DAILY for Control Depression, TAB 0 Refills Cephalexin (Cephalexin) 500 Mg Cap 500 MG PO Q8H for Infection, #30 CAP 0 Refills Donepezil (Donepezil) 5 Mg Tab 5 MG PO HS for Dementia, #30 TAB [address] (Duloxetine DR) 60 Mg Capdr 60 MG PO BID, #30 CAP 0 Refills Gabapentin (Gabapentin) 300 Mg Cap 300 MG PO TID, #90 CAP 0 Refills Hydralazine HCl (Hydralazine HCl) 25 Mg Tablet 25 MG PO Q8HR for Blood Pressure Management, #90 TAB Hold if systolic BP < 120 Meclizine (Meclizine) 12.5 Mg Tab 12.5 MG PO BID PRN for VERTIGO, TAB 0 Refills Nifedipine ER 24 HR (Procardia XL) 60 Mg Tab 60 MG PO DAILY for Blood Pressure Management, #30 TAB 0 Refills Sildenafil (Sildenafil) 20 Mg Tab 20 MG PO TID for Pulm. arterial hypertension, #90 TAB 0 Refills Trazodone (Trazodone) 100 Mg Tablet 200-300 MG PO HS for Control Depression, #30 TAB 0 Refills [Anti-Depressant] () 1 TAB PO DAILY for Depression Control Lillian León Sep 25, 2017 09:08
[2017-09-25] MEDS ORDERED: NIFE90TA2 PO (09:27)
[2017-09-25] MEDS ORDERED: FAMO20TA2 PO (09:27)
[2017-09-25] MEDS ORDERED: MECL1TAB42 PO (09:27)
[2017-09-25] MEDS ORDERED: Acet-Butal-Caff 325-50-40 Mg PO (09:27)
[2017-09-25] MEDS ORDERED: METO25TA3 PO (09:27)
--- NOTE | 2017-09-25 09:30 | HHI.DCPOC ---
Discharge Care Plan Diagnosis: (1) Dizziness (2) Herpes simplex meningitis (3) Orthostatic hypotension (4) SHANNA (acute kidney injury) (5) HTN (hypertension) (6) GERD (gastroesophageal reflux disease) Goals to Promote Your Health * To prevent worsening of your condition and complications * To maintain your health at the optimal level Directions to Meet Your Goals Take your medications as prescribed Follow your dietary instruction Follow activity as directed Keep your appointments as scheduled Take your immunizations and boosters as scheduled If your symptoms worsen call your PCP, if no PCP go to Urgent Care Center or Emergency Room Smoking is Dangerous to Your Health. Avoid second hand smoke Call the 24-hour hour crisis hotline for domestic abuse at Lillian León Sep 25, 2017 09:30
[2017-09-25] MEDS ORDERED: TRAZ100T10 PO (11:06)
[2017-09-25 12:21] VITALS: BP 134/65; PULSE 71; RESP 17; TEMP 97.7; O2SAT 97
[2017-09-25] MEDS ORDERED: SODIUM CHLORIDE 0.9% FLUSH 10 ML FLUSH IV FLUSH PRN (12:30)
[2017-09-25 16:10] VITALS: BP 112/56; PULSE 86; RESP 18; TEMP 98; O2SAT 95
--- NOTE | 2017-09-25 16:26 | HHI.PR ---
Subjective Remarks Follow-up herpes simplex meningitis and dizziness. Patient seen and examined, sitting up in bed in no apparent distress. Denies any dizziness or headache. Denies any symptoms overnight. Pain is well controlled. Plan was to discharge to SNF today, although unable to receive IV antibiotics until noon tomorrow. IV antibiotics per ID recommendations upon discharge. Patient has been afebrile. Vital signs stable. Creatinine trending down. Objective Vitals Vital Signs Date Time Temp Pulse Resp B/P (MAP) Pulse Ox O2 Delivery O2 Flow Rate FiO2 09/25/17 16:10 98.0 86 18 112/56 (74) 95 09/25/17 12:21 97.7 71 17 134/65 (88) 97 09/25/17 08:53 18 09/25/17 08:19 97.6 95 18 151/89 (109) 96 09/25/17 04:00 98.0 61 18 166/86 (112) 98 09/25/17 00:00 98.0 62 20 157/85 (109) 96 09/24/17 22:22 61 09/24/17 20:00 97.8 80 21 147/74 (98) 96 I/O 09/24/17 09/24/17 09/24/17 09/25/17 09/25/17 09/25/17 06:59 14:59 22:59 06:59 14:59 22:59 Intake Total 879 ml 1080 ml 960 ml Output Total 700 ml 600 ml Balance 879 ml 380 ml 360 ml Intake Oral 480 ml 1080 ml 960 ml IV Total 399 ml Output Urine Total 700 ml 600 ml # Voids 5 # Bowel Movements 0 Result Diagram: 09/23/17 0420 09/25/17 0405 Imaging Last Impressions Lumbar Puncture Fluoroscopy 09/18/17 0000 Signed Impressions: CONCLUSION: 1. Uncomplicated fluoroscopically guided lumbar puncture with pressures as abo ve. Chest X-Ray 09/18/17 0000 Signed Impressions: CONCLUSION: No acute cardiopulmonary disease. Head Magnetic Resonance Angiography 09/17/17 1122 Signed Impressions: CONCLUSION: 1. Negative for aneurysm or major branch vessel occlusion. Brain MRI 09/17/17 1122 Signed Impressions: CONCLUSION: 1. No acute hemorrhage, mass or evidence of infarction. The left occipital lob e demonstrates normal signal. The finding on CT likely is artifactual. 2. Mild atrophy and chronic small vessel ischemic changes. Cervical Spine MRI 09/17/17 Signed Impressions: CONCLUSION: 1. Mild disc bulges at C4-5 through C6-7 levels with mild mass effect on the a nterior thecal sac and no mass effect upon the cord. 2. Degenerative disc change greatest at the C4-5 and C5-6 levels. Thoracic Spine MRI 09/16/17 Signed Impressions: CONCLUSION: 1. No disc herniation or canal stenosis. 2. No acute compression fracture or spondylolisthesis. 3. Mild scattered degenerative changes and mild kyphosis. Renal Ultrasound 09/16/17 Signed Impressions: CONCLUSION: 1. There is no evidence for renal artery stenosis. 2. Bilateral renal cyst, no hydronephrosis. Line kidneys are normal size. Head CT 09/14/17 Signed Impressions: CONCLUSION: 1. Developing hypodensity in the left occipital lobe which may represent an ev olving infarct. 2. No evidence of acute hemorrhage. 3. Otherwise stable evaluation. Objective Remarks GENERAL: Well-developed, well-nourished patient in NAD. Awake and alert. SKIN: Warm and dry. No rash. HEAD: Normocephalic. Atraumatic. EYES: Pupils equal and round. No scleral icterus. No injection or drainage. ENT: No nasal bleeding or discharge. Mucous membranes pink and moist. NECK: Supple. Trachea midline. CARDIOVASCULAR: Regular rate and rhythm. S1, S2 noted. No murmur appreciated. RESPIRATORY: No accessory muscle use. Clear to auscultation. Breath sounds equal bilaterally. GASTROINTESTINAL: Abdomen soft, non-tender, nondistended. Normoactive bowel sounds x4. MUSCULOSKELETAL: No obvious deformities. Extremities without clubbing, cyanosis , or edema. NEUROLOGICAL: Awake and alert. No obvious cranial nerve deficits. Motor grossly within normal limits. 5/5 muscle strength in bilateral upper and lower extremities. Normal speech. 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 - Herpesviral meningitis (2) Dizziness ICD Code: R42 - Dizziness and giddiness (3) Hypokalemia ICD Code: E87.6 - Hypokalemia Status: Acute (4) Orthostatic hypotension ICD Code: I95.1 - Orthostatic hypotension Status: Acute (5) SHANNA (acute kidney injury) ICD Code: N17.9 - SHANNA (acute kidney injury) Status: Acute Assessment and Plan Acute herpes simplex 2 viral meningitis Presenting with hypodensity in left occipital lobe on CT with associate complaints of cephalgia on admission Incidental finding after a CT of the brain was ordered for headache with negative MRI/MRA likely artifact on CT Appreciate neurology recommendations. Continue neurological checks. Status post LP, with findings of acute HSV2 viral meningitis Currently infectious disease following and is on IV acyclovir - will need to monitor creatinine closely on antiviral. Orders for IV antibiotics upon discharge. Infectious diseases recommend a 3- 4 weeks of IV acyclovir. PICC line placed today. Vertigo Improved on meclizine, but BPPV examination by neurology previously did not reveal classic nystagmus results Patient is on loop recorder under Dr. Jean Baptiste's care. Continue meclizine, continue telemetry which was reviewed and currently shows normal sinus. Patient also had polypharmacy which multiple home medications including Cymbalta which has been on hold. Patient to follow-up with neurology upon discharge for recommendations regarding his home medication list. Orthostatic hypotension Monitoring with loop recorder and floor telemetry. Considered also electrolyte imbalance. Continue Florinef. Cardiology consulted, appreciate input and recommendations. Echocardiogram showing normal EF. Refractory hypokalemia. Resolved. On daily potassium of 40 mEq. Continue. Continue with supplementation as needed. Nephrology was consulted to assist with treatment plan, has signed off and will follow as needed. Symptoms likely due to polypharmacy. Acute kidney injury, improving. - Was initially worsening on IV acyclovir and completed IV Solu-Medrol high- dose. - Today's creatinine is stable at 1.36. - Orders for patient to have BMP checked upon discharge. Follow closely. DVT prophylaxis: SCDs. Discharge Planning Discharge order in today, patient is medically clear for discharge. Plan will be for patient to go to undergo for rehab. There was a delay in arrangement for IV antibiotics at the rehab until tomorrow therefore patient has to stay overnight. Lillian León Sep 25, 2017 16:26
[2017-09-25] MEDS: SODIUM CHLOR 0.9% 1000 ML INJ 1,000 ML IV SCH (19:28)
[2017-09-25 19:54] LABS: CSF CRYPTOCOCCUS ANTIGEN NOT DETECTED (NEGATIVE)
[2017-09-25 20:00] VITALS: BP 126/74; PULSE 68; RESP 20; TEMP 98.3; O2SAT 98
[2017-09-26] VITALS: BP 143/67; PULSE 60; RESP 20; TEMP 98.2; O2SAT 97
[2017-09-26] MEDS: ACETAMINOPHEN/HYDROcodone 325 MG/5 MG TAB PO PRN ×2 (00:24→05:38)
[2017-09-26 03:53] VITALS: PULSE 72
[2017-09-26 04:00] VITALS: BP 160/86; PULSE 71; RESP 18; TEMP 98.2; O2SAT 97
[2017-09-26 08:00] VITALS: BP_SYST 128; BP_SYST 135; BP_SYST 144; BP_DIAS 76; BP_DIAS 77; BP_DIAS 78; PULSE 67; RESP 18; TEMP 98.2; O2SAT 96
[2017-09-26 08:16] LABS: BICARBONATE 23.1 MEQ/L (21.0-32.0); CREATININE 1.35 MG/DL (0.60-1.30)
[2017-09-26] MEDS: PANTOPRAZOLE SOD 40 MG DELAYED RELEASE TAB PO SCH (08:28)
[2017-09-26] MEDS: NIFEdipine 90 MG SUSTAINED RELEASE TAB PO SCH (08:28)
[2017-09-26] MEDS: MAGNESIUM OXIDE 400 MG TAB PO SCH (08:28)
[2017-09-26] MEDS: FAMOTIDINE 20 MG TAB PO SCH (08:28)
[2017-09-26] MEDS: METOPROLOL TARTRATE 25 MG TAB PO SCH (08:29)
[2017-09-26] MEDS: ACYCLOVIR IV SCH (08:29)
[2017-09-26] MEDS: ALLOPURINOL 300 MG TAB PO SCH (08:29)
[2017-09-26] MEDS: SODIUM CHLORIDE 0.9% IV SCH (08:29)
[2017-09-26] MEDS: POTASSIUM CHLORIDE 20 MEQ CONTROLLED RELEASE TAB PO SCH (08:29)
[2017-09-26] MEDS: DOCUSATE SODIUM 50 MG/SENNA 8.6 MG TAB PO SCH (08:29)
[2017-09-26] MEDS: SODIUM CHLORIDE 0.9% FLUSH 10 ML FLUSH IV FLUSH SCH (08:42)
[2017-09-26] MEDS ORDERED: SODIUM CHLORIDE 0.9% FLUSH 10 ML FLUSH IV FLUSH SCH (09:00)
--- NOTE | 2017-09-26 09:55 | HHI.PR ---
Subjective Remarks Patient discharged yesterday. Remains stable for discharge. Awaiting placement. Objective Vitals Vital Signs Date Time Temp Pulse Resp B/P (MAP) Pulse Ox O2 Delivery O2 Flow Rate FiO2 09/26/17 08:00 98.2 67 18 144/76 (98) 96 135/77 (96) 128/78 (95) 09/26/17 04:00 98.2 71 18 160/86 (110) 97 09/26/17 03:53 72 09/26/17 00:00 98.2 60 20 143/67 (92) 97 09/25/17 20:00 98.3 68 20 126/74 (91) 98 09/25/17 16:10 98.0 86 18 112/56 (74) 95 09/25/17 12:21 97.7 71 17 134/65 (88) 97 I/O 09/25/17 09/25/17 09/25/17 09/26/17 09/26/17 09/26/17 07:00 15:00 23:00 07:00 15:00 23:00 Intake Total 960 ml 960 ml 600 ml Output Total 600 ml 500 ml Balance 360 ml 460 ml 600 ml Intake Oral 960 ml 960 ml 600 ml Output Urine Total 600 ml 500 ml # Voids 3 4 # Bowel Movements 2 Result Diagram: 09/23/17 0420 09/26/17 0727 Procedures Please see below 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
== END 2017-09-26 11:42 | DRG 75 ==
LOC: NEPC 14:41 → NEDA 19:24 → N06A 20:10
PROVIDERS: ADMIT Hospitalist; ATTEND Hospitalist
PROC: 009U3ZX Drainage of Spinal Canal, Percutaneous Approach, Diagnostic (ICD-10-PCS; principal; 2017-09-18)
PROC: 05HY33Z Insertion of Infusion Device into Upper Vein, Percutaneous Approach (ICD-10-PCS; 2017-09-25)
DX: B00.3 Herpesviral meningitis (principal); B00.4 Herpesviral encephalitis; N17.9 Acute kidney failure, unspecified; I13.0 Hypertensive heart and chronic kidney disease with heart failure and stage 1 through stage 4 chronic kidney disease, or unspecified chronic kidney disease; I50.9 Heart failure, unspecified; E87.6 Hypokalemia; I95.1 Orthostatic hypotension; N18.9 Chronic kidney disease, unspecified; E78.5 Hyperlipidemia, unspecified; E83.42 Hypomagnesemia; F43.10 Post-traumatic stress disorder, unspecified; K21.9 Gastro-esophageal reflux disease without esophagitis; H66.92 Otitis media, unspecified, left ear; R26.0 Ataxic gait; R42 Dizziness and giddiness; F41.9 Anxiety disorder, unspecified; F32.9 Major depressive disorder, single episode, unspecified; R53.1 Weakness; I25.10 Atherosclerotic heart disease of native coronary artery without angina pectoris; K52.9 Noninfective gastroenteritis and colitis, unspecified; R55 Syncope and collapse; M40.209 Unspecified kyphosis, site unspecified; M10.9 Gout, unspecified; N28.1 Cyst of kidney, acquired; Z91.81 History of falling; Z78.1 Physical restraint status; Z79.82 Long term (current) use of aspirin; Z87.891 Personal history of nicotine dependence; Z88.5 Allergy status to narcotic agent; Z96.89 Presence of other specified functional implants; Z90.49 Acquired absence of other specified parts of digestive tract
CPT/HCPCS: 36569; 62270; 70450; 70544; 70553; 71045; 72141; 72146; 76937; 77003; 80048; 80053; 80061; 81001; 82088; 82550; 82552; 82570; 82607; 82746; 82784; 82945; 83036; 83516; 83735; 83921; 84132; 84133; 84157; 84181; 84207; 84244; 84300; 84425; 84439; 84443; 84446; 84484; 85025; 85027; 85610; 85652; 85730; 86038; 86140; 86255; 86403; 86592; 87015; 87070; 87086; 87102; 87116; 87205; 87206; 87389; 87529; 87799; 88108; 89051; 93005; 93306; 93975; 95819; 96361; 96374; A9579; G0475; J0133; J1630; J1642; J2060; J2765; J2930; J3475; J7030; J7040